=== PATIENT | female | born 1940 | race Caucasian/White ===

== ENCOUNTER 2017-01-11 12:07 | Observation (INO) | payer MEDICARE, OTHER ==
[2017-01-11 12:07] VITALS: BMI 20.2
--- NOTE | 2017-01-11 13:14 | C.PDOC ---
History Of Present Illness 76 y/o female, whose PMHx includes Anemia, Asthma, CHF, COPD, Diabetes, HTN, Hypercholesterolemia, and End Stage Renal Disease (dialysis m-w-f), is sent to the ED from dialysis center. She reports that they told her her blood pressure was high. Patient states that she did take her medication this morning and does not offer any complaints at this time. Patient denies headache, dizziness, chest pain, shortness of breath, abdominal pain, or fever. Time Seen by Provider: 01/11/17 12:27 Chief Complaint (Nursing): High Blood Pressure History Per: Patient History/Exam Limitations: no limitations Onset/Duration Of Symptoms: Gradual, Persistent, Unknown Current Symptoms Are (Timing): Still Present Quality Of Symptoms: Asymptomatic Recent travel outside of the [place]: No Past Medical History Reviewed: Historical Data, Nursing Documentation, Vital Signs Vital Signs: Last Vital Signs Temp 98.2 F 01/11/17 12:14 Pulse 64 01/11/17 16:53 Resp 18 01/11/17 16:53 BP 195/53 H 01/11/17 16:53 Pulse Ox 95 01/11/17 16:53 - Medical History PMH: Anemia, Asthma, CHF, COPD (ASTHMA), Diabetes, HTN, Hypercholesterolemia, Hyperthyroidism (Thyroid surgery), Hypothyroidism, End Stage Renal Disease ( dialysis m-w f), Chronic Kidney Disease Comment Only: Cardia Arrhythmia (bradycardia) Surgical History: Appendectomy, Pacemaker - [facility] Procedures BREAST DX PROCEDURE NEC (04/23/15) CONTRAST RENAL ARTERIOGR (06/20/13) DX ULTRASOUND-THORAX NEC (04/23/15) HEMODIALYSIS (04/24/15) INITIAL INSERT TRANS LEADS INTO ATRIUM & VENTRICLE (04/24/15) INITIAL INSERTION OF DUAL-CHAMBER DEVICE (04/24/15) INJECT/INFUSE NEC (12/21/13) NEBULIZER THERAPY (12/21/13) PACKED CELL TRANSFUSION (03/31/14) PERCUTAN NEEDLE BIOPSY OF BREAST (04/23/15) PERFORMANCE OF URINARY FILTRATION, SINGLE (02/08/16) Family History: States: Unknown Family Hx - Social History Hx Tobacco Use: No Hx Alcohol Use: No Hx Substance Use: No - Immunization History Hx Tetanus Toxoid Vaccination: Yes Hx Influenza Vaccination: Yes Hx Pneumococcal Vaccination: Yes Review Of Systems Except As Marked, All Systems Reviewed And Found Negative. Constitutional: Negative for: Fever Cardiovascular: Positive for: Other (elevated blood pressure). Negative for: Chest Pain Respiratory: Negative for: Shortness of Breath Gastrointestinal: Negative for: Abdominal Pain Neurological: Negative for: Headache, Dizziness Physical Exam - Physical Exam Appears: Non-toxic, No Acute Distress Skin: Normal Color, Warm, Dry Head: Atraumatic, Normacephalic Eye(s): bilateral: Normal Inspection, PERRL Neck: Normal ROM, Supple Chest: Symmetrical Cardiovascular: Rhythm Regular, No Murmur Respiratory: Normal Breath Sounds, No Rales, No Rhonchi, No Wheezing Gastrointestinal/Abdominal: Normal Exam, Soft, No Tenderness Extremity: Normal ROM, No Swelling Neurological/Psych: Oriented x3, Normal Speech, Normal Cognition Gait: Steady ED Course And Treatment - Laboratory Results Result Diagrams: 01/11/17 13:12 01/11/17 13:12 ECG: Interpreted By Me Interpretation Of ECG: Atrial-paced rhythm with right bundle branch block Rate From EC (bpm) O2 Sat by Pulse Oximetry: 100 (ra) Pulse Ox Interpretation: Normal Medical Decision Making Medical Decision Making: Impression: sent from dialysis center for elevated blood pressure. Plan: * Blood Work * Urinalysis * Imdur PO Progress: Case discussed with Dr. Hi Mcelroy at 12:50 pm who states that he will come and see the patient. Patient accepted to telemetry observation under the care of Dr. Hi Mcelroy. Disposition Counseled Patient/Family Regarding: Need For Followup - Disposition Disposition: HOSPITALIZED Disposition Time: 17:25 Condition: STABLE - POA Present On Arrival: None - Clinical Impression Clinical Impression: Poorly-controlled hypertension, ESRD (end stage renal disease) on dialysis - PA / SENIOR TALENT ACQUISITION SPECIALIST / Resident Statement MD/DO has reviewed & agrees with the documentation as recorded. - Scribe Statement The provider has reviewed the documentation as recorded by the Scribe (Carlee Xavier) All medical record entries made by the Scribe were at my direction and personally dictated by me. I have reviewed the chart and agree that the record accurately reflects my personal performance of the history, physical exam, medical decision making, and the department course for this patient. I have also personally directed, reviewed, and agree with the discharge instructions and disposition. Decision To Admit - Pt Status Changed To: Hospital Disposition Of: Observation - . Bed Request Type: Telemetry Admitting Physician: Radha Mcelroy Patient Diagnosis: Poorly-controlled hypertension, ESRD (end stage renal disease) on dialysis
[2017-01-11 13:18] LABS: BASO # 0.1 K/uL (0.0-0.2); BASO % 1.3 % (0.0-2.0); EOS # 0.1 K/uL (0.0-0.7); EOS % 1.6 % (0.0-4.0); HEMATOCRIT 31.4 % (34.0-47.0); LYMPH # 0.5 K/uL (1.0-4.3); LYMPH % 5.7 % (20.0-40.0); MEAN CELL VOLUME 93.1 fL (81.0-99.0); MEAN CORPUSCULAR HEMOGLOBIN 31.2 pg (27.0-31.0); MEAN CORPUSCULAR HGB CONC 33.5 g/dL (33.0-37.0); MONO # 0.5 K/uL (0.0-0.8); MONO % 6.5 % (0.0-10.0); PLATELET COUNT 134 K/uL (130-400); RED CELL DISTRIBUTION WIDTH 19.2 % (11.5-14.5); WHITE BLOOD COUNT 8.2 K/uL (4.8-10.8)
[2017-01-11 13:26] LABS: POTASSIUM 5.9 mmol/L (3.6-5.2)
[2017-01-11 13:29] LABS: ALB/GLOB RATIO 1.1 (1.0-2.1); BILIRUBIN,TOTAL 0.9 mg/dL (0.2-1.3); CALCIUM 8.8 mg/dl (8.6-10.4); TOTAL PROTEIN 7.9 g/dL (6.3-8.3)
[2017-01-11 13:49] LABS: EOSINOPHIL 1 % (0-4); NEUTROPHIL 86 % (50-75); TOTAL CELLS COUNTED 100
--- NOTE | 2017-01-11 18:31 | CP.PCM.HP ---
History of Present Illness - History of Present Illness History of Present Illness: 76-year-old female whose past medical history is includes anemia, asthma, CHF, COPD, diabetes, hypertension, hypercholesterolemia and end-stage renal disease on dialysis on Monday, Monday, Monday, is sent to the ED from dialysis center. She reports that they told her her blood pressure was high. Patient states that she did take her medication this morning and does not offer any complaint at this time. Patient denies headache, dizziness, chest pain, SOB, abdominal pain or fever. Present on Admission - Present on Admission Any Indicators Present on Admission: No Past Patient History - Past Medical History & Family History Past Medical History?: Yes - Past Social History Smoking Status: Former Smoker - CARDIAC Hx Cardia Arrhythmia: (bradycardia) Hx Congestive Heart Failure: Yes Hx Hypercholesterolemia: Yes Hx Hypertension: Yes Hx Pacemaker: Yes - PULMONARY Hx Asthma: Yes Hx Chronic Obstructive Pulmonary Disease (COPD): Yes (ASTHMA) - NEUROLOGICAL Hx Neurological Disorder: Yes HX Cerebrovascular Accident: Yes Hx Vertigo: Yes - HEENT Hx Cataracts: Yes Hx Deafness: Yes (right ear) - RENAL Hx Chronic Kidney Disease: Yes - ENDOCRINE/METABOLIC Hx Hyperthyroidism: Yes (Thyroid surgery) Hx Hypothyroidism: Yes - HEMATOLOGICAL/ONCOLOGICAL Hx Anemia: Yes - INTEGUMENTARY Hx Dermatological Problems: No - MUSCULOSKELETAL/RHEUMATOLOGICAL Hx Musculoskeletal Disorders: Yes Hx Falls: Yes - GASTROINTESTINAL Hx Gastrointestinal Disorders: No - GENITOURINARY/GYNECOLOGICAL Hx Genitourinary Disorders: No - PSYCHIATRIC Hx Substance Use: No - SURGICAL HISTORY Hx Appendectomy: Yes - ANESTHESIA Hx Anesthesia: Yes Hx Anesthesia Reactions: No Hx Malignant Hyperthermia: No Meds Home Medications: Home Medication List Medication Instructions Recorded Confirmed Type Losartan [Cozaar] 50 mg PO DAILY tab 01/14/17 Rx Allergies/Adverse Reactions: Allergies Allergy/AdvReac Type Severity Reaction Status Date / Time ibuprofen [From Motrin] Allergy Unknown URTICARIA Verified 04/07/17 10:06 oxycodone Allergy Unknown ITCHING Verified 04/07/17 10:06 Physical Exam - Constitutional Appears: Well - Head Exam Head Exam: ATRAUMATIC, NORMAL INSPECTION, NORMOCEPHALIC - Eye Exam Eye Exam: EOMI, Normal appearance, PERRL Pupil Exam: NORMAL ACCOMODATION, PERRL - ENT Exam ENT Exam: Mucous Membranes Moist, Normal Exam - Neck Exam Neck exam: Positive for: Normal Inspection - Respiratory Exam Respiratory Exam: Decreased Breath Sounds - Cardiovascular Exam Cardiovascular Exam: REGULAR RHYTHM, +S1, +S2 - GI/Abdominal Exam GI & Abdominal Exam: Diminished Bowel Sounds, Soft - Rectal Exam Rectal Exam: Deferred Results - Vital Signs Recent Vital Signs: Last Vital Signs Temp 98.2 F 01/11/17 12:14 Pulse 64 01/11/17 16:53 Resp 18 01/11/17 16:53 BP 195/53 H 01/11/17 16:53 Pulse Ox 100 01/11/17 17:37 - Labs Result Diagrams: 01/14/17 07:00 01/14/17 07:00 Assessment & Plan (1) Altered mental status Status: Acute (2) Anemia Status: Acute (3) Anemia, chronic renal failure Status: Acute (4) Asthma Status: Acute (5) Bradycardia Status: Acute (6) COPD exacerbation Status: Acute (7) Chronic renal failure Status: Acute (8) Closed displaced fracture of proximal epiphysis of left femur Status: Acute (9) Closed displaced intertrochanteric fracture of left femur Status: Acute (10) Congestive heart failure (CHF) Status: Acute (11) Diabetes Status: Acute (12) Dizziness Status: Acute (13) Dizziness Status: Acute (14) Elevated troponin Status: Acute (15) Foot sprain Status: Acute (16) Frequent falls Status: Acute (17) HTN (hypertension) Status: Acute (18) Hip fracture Status: Acute (19) Hip fracture, left Status: Acute (20) Hyperkalemia Status: Acute (21) Hypothermia Status: Acute (22) Hypothyroid Status: Acute (23) Near syncope Status: Acute (24) Poorly-controlled hypertension Status: Acute (25) Prophylactic measure Status: Acute (26) Right patella fracture Status: Acute (27) SOB (shortness of breath) Status: Acute (28) TIA (transient ischemic attack) Status: Acute (29) Transient ischemic attack Status: Acute (30) Vertigo Status: Acute (31) ESRD (end stage renal disease) on dialysis Status: Chronic (32) Leg edema Status: Chronic - Assessment and Plan (Free Text) Plan: Imdur Hydralazine vehicle monitor technician Hemodialysis Labs reviewed Cardiology consult
[2017-01-11] MEDS ORDERED: Labetalol 25mg/5ml Syringe IVP STA (19:06)
--- NOTE | 2017-01-11 20:28 | CP.PCM.PN ---
Subjective - Date & Time of Evaluation Date of Evaluation: 01/11/17 Time of Evaluation: 07:30 - Subjective Subjective: House Doctor Note Nurse paged due to elevated blood pressures of 220/78 with HR of 74 during dialysis. Patient was completely asymptomatic. Labetolol 20mg IVP stat was ordered and her blood pressured dropped to 170/60, HR of 60. Patient complained of BL foot cramping and asked to be removed off of dialysis. Patient had <40 min left of her session. Dr. Alli Mcelroy was called and will be seeing the patient. Shy ZACARIAS, PGY-1 Objective - Vital Signs/Intake and Output Vital Signs (last 24 hours): Temp Pulse Resp BP Pulse Ox 98 F 74 16 198/78 H 97 01/11/17 17:40 01/11/17 17:40 01/11/17 17:40 01/11/17 18:40 01/11/17 17:40
[2017-01-12] MEDS: Levothyroxine 125 MCG TAB PO SCH (05:50)
[2017-01-12 07:34] LABS: RBC URINE 3 /hpf (0-3); URINE BACTERIA OCC (<OCC); URINE BILIRUBIN NEGATIVE (NEGATIVE); URINE BLOOD NEGATIVE (NEGATIVE); URINE COLOR Yellow (YELLOW); URINE GLUCOSE (UA) 2+ mg/dL (Normal); URINE KETONE NEGATIVE (NEGATIVE); URINE LEUKOCYTE ESTERASE 2+ Leu/uL (Negative); URINE PROTEIN 3+ mg/dL (NEGATIVE); URINE UROBILINOGEN NORMAL mg/dL (0.2-1.0); WBC URINE 67 /hpf (0-5)
[2017-01-12] MEDS: (Novolog) Insulin Aspart, Recombinant 100 u/ml 10 ml vial SC SCH ×4 (08:57→21:23)
[2017-01-12] MEDS: Pantoprazole 40 mg EC Tab PO SCH (09:34)
[2017-01-12] MEDS: (Lantus) Insulin Glargine, Recombinant SC SCH (09:38)
[2017-01-12] MEDS: Dorzolamide 2% Opht Sol 10ml OU SCH ×2 (09:42→17:58)
[2017-01-12] MEDS ORDERED: ISOSORBIDE MONONITRATE PO SCH (10:00)
[2017-01-12] MEDS ORDERED: Pantoprazole 40 mg EC Tab PO SCH (10:00)
--- NOTE | 2017-01-12 12:45 | CP.PCM.PN ---
Subjective - Date & Time of Evaluation Date of Evaluation: 01/12/17 Time of Evaluation: 11:45 - Subjective Subjective: clinically same Objective - Vital Signs/Intake and Output Vital Signs (last 24 hours): Temp Pulse Resp BP Pulse Ox 98.5 F 66 20 213/72 H 97 01/12/17 08:26 01/12/17 08:26 01/12/17 08:26 01/12/17 11:09 01/12/17 08:26 Intake and Output: 01/12/17 01/12/17 06:59 18:59 Intake Total 200 Balance 200 - Medications Medications: Current Medications Amlodipine Besylate (Norvasc) 10 mg PO DAILY [facility] Last Admin: 01/12/17 09:38 Dose: 10 mg Calcium Acetate (Phoslo) 1,334 mg PO TID [facility] Last Admin: 01/12/17 09:41 Dose: 1,334 mg Dorzolamide HCl (Trusopt) 0 ml OU BID [facility] Last Admin: 01/12/17 09:42 Dose: 1 drop Hydralazine HCl (Apresoline) 100 mg PO TID [facility] Last Admin: 01/12/17 09:37 Dose: 100 mg Hydralazine HCl (Apresoline) 10 mg IVP Q6H PRN PRN Reason: Systolic Blood Pressure Last Admin: 01/12/17 11:18 Dose: 10 mg Hydrochlorothiazide (Hydrodiuril) 25 mg PO DAILY [facility] Last Admin: 01/12/17 09:38 Dose: 25 mg Insulin Aspart (Novolog) 0 unit SC ACHS [facility] PRN Reason: Protocol Last Admin: 01/12/17 12:20 Dose: 1 unit Insulin Glargine (Lantus) 20 unit SC DAILY [facility] Last Admin: 01/12/17 09:38 Dose: 20 units Isosorbide Mononitrate (Imdur) 60 mg PO DAILY [facility] Last Admin: 01/12/17 09:35 Dose: 60 mg Latanoprost (Xalatan Opht) 0 ml OU HS [facility] Levothyroxine Sodium (Synthroid) 125 mcg PO DAILY@0630 [facility] Last Admin: 01/12/17 05:50 Dose: 125 mcg Pantoprazole Sodium (Protonix Ec Tab) 40 mg PO DAILY [facility] Last Admin: 01/12/17 09:34 Dose: 40 mg Rosuvastatin Calcium (Crestor) 5 mg PO HS VAL Zolpidem Tartrate (Ambien) 10 mg PO HS VAL Assessment and Plan (1) Altered mental status Status: Acute (2) Anemia Status: Acute (3) Anemia, chronic renal failure Status: Acute (4) Asthma Status: Acute (5) Bradycardia Status: Acute (6) COPD exacerbation Status: Acute (7) Chronic renal failure Status: Acute (8) Closed displaced fracture of proximal epiphysis of left femur Status: Acute (9) Closed displaced intertrochanteric fracture of left femur Status: Acute (10) Congestive heart failure (CHF) Status: Acute (11) Diabetes Status: Acute (12) Dizziness Status: Acute (13) Dizziness Status: Acute (14) Elevated troponin Status: Acute (15) Foot sprain Status: Acute (16) Frequent falls Status: Acute (17) HTN (hypertension) Status: Acute (18) Hip fracture Status: Acute (19) Hip fracture, left Status: Acute (20) Hyperkalemia Status: Acute (21) Hypothermia Status: Acute (22) Hypothyroid Status: Acute (23) Near syncope Status: Acute (24) Poorly-controlled hypertension Status: Acute (25) Prophylactic measure Status: Acute (26) Right patella fracture Status: Acute (27) SOB (shortness of breath) Status: Acute (28) TIA (transient ischemic attack) Status: Acute (29) Transient ischemic attack Status: Acute (30) Vertigo Status: Acute (31) ESRD (end stage renal disease) on dialysis Status: Chronic (32) Leg edema Status: Chronic - Assessment and Plan (Free Text) Plan: DVT prophylaxis Renal diet Imdur Levothyroxine Statin Cardio consult Physical therapy evaluation
--- NOTE | 2017-01-12 21:56 | CP.PCM.CON ---
History of Present Illness - History of Present Illness History of Present Illness: Patient was admitted from dialysis with HTN. She has a history of resistant HTN. She denied assocaited chest pain or dyspnea. Review of Systems - Constitutional Constitutional: absent: As Per HPI, Anorexia, Chills, Daytime Sleepiness, Excessive Sweating, Fatigue, Fever, Frequent Falls, Headache, Increased Appetite , Lethargy, Malaise, Night Sweats, Snoring, Sleep Apnea, Weight Gain, Weight Loss, Weakness, Other - EENT Eyes: absent: As Per HPI, Blind Spots, Blurred Vision, Change in Vision, Decreased Night Vision, Diplopia, Discharge, Dry Eye, Exophthalmos, Floaters, Irritation, Itchy Eyes, Loss of Peripheral Vision, Pain, Photophobia, Requires Corrective Lenses, Sees Flashes, Spots in Vision, Tunnel Vision, Other Visual Disturbances, Loss of Vision, Other Ears: absent: As Per HPI, Decreased Hearing, Ear Discharge, Ear Pain, Tinnitus, Abnormal Hearing, Disequilibrium, Dizziness, Other Nose/Mouth/Throat: absent: As Per HPI, Epistaxis, Nasal Congestion, Nasal Discharge, Nasal Obstruction, Nasal Trauma, Nose Pain, Post Nasal Drip, Sinus Pain, Sinus Pressure, Bleeding Gums, Change in Voice, Dental Pain, Dry Mouth, Dysphagia, Halitosis, Hoarsness, Lip Swelling, Mouth Lesions, Mouth Pain, Odynophagia, Sore Throat, Throat Swelling, Tongue Swelling, Facial Pain, Neck Pain, Neck Mass, Other - Cardiovascular Cardiovascular: absent: As Per HPI, Acrocyanosis, Chest Pain, Chest Pain at Rest , Chest Pain with Activity, Claudication, Diaphoresis, Dyspnea, Dyspnea on Exertion, Edema, Irregular Heart Rhythm, Pain Radiating to Arm/Neck/Jaw, Leg Edema, Leg Ulcers, Lightheadedness, Orthopnea, Palpitations, Paroxysmal Nocturnal Dyspnea, Pedal Edema, Radiating Pain, Rapid Heart Rate, Slow Heart Rate, Syncope, Other - Respiratory Respiratory: absent: As Per HPI, Cough, Dyspnea, Hemoptysis, Dyspnea on Exertion , Wheezing, Snoring, Stridor, Pain on Inspiration, Chest Congestion, Excessive Mucous Production, Change in Mucous Color, Pain with Coughing, Other - Gastrointestinal Gastrointestinal: absent: As Per HPI, Abdominal Pain, Belching, Bloating, Change in Bowel Habits, Change in Stool Character, Coffee Ground Emesis, Constipation, Cramping, Diarrhea, Dyspepsia, Dysphagia, Early Satiety, Excessive Flatus, Fecal Incontinence, Heartburn, Hematemesis, Hematochezia, Loose Stools, Melena, Nausea, Odynophagia, Temesmus, Vomiting, Other - Genitourinary Genitourinary: absent: As Per HPI, Change in Urinary Stream, Difficulty Urinating, Dysuria, Flank Pain, Hematuria, Pyuria, Nocturia, Urinary Incontinence, Urinary Frequency, Urinary Hesitance, Urinary Urgency, Voiding Freq/Small Amts, Freq UTI, Hx Renal/Bladder Calculi, Hx /Renal Surgery, Bladder Distension, Other - Reproductive: Female Reproductive:Female: absent: As Per HPI, Amenorrhea, Amenorrhea/ Control, Currently Menstual, Cycle <21 Days, Cycle >35 Days, Cycle Variable, Menses 1-7 Days, Menses >/= 8 Days, Menses Variable, Cycle > 4 Weeks Between, No Menses for 6 Months, Heavy Menses, Light Menses, Normal Menses, Spotting Between Cycles , S/P Hysterectomy, Menopausal, Post Menopausal, Premenarche, Abnormal Vaginal Bleeding, Dysmenorrhea, Dyspareunia, Genital Lesions, Genital Pruritis, Pelvic Pain, Prolapse Symptoms, Sexual Dysfunction, Vaginal Discharge, Vaginal Dryness , Vaginal Odor, Vaginal Pruritis, Other - Musculoskeletal Musculoskeletal: absent: As Per HPI, Abnormal Gait, Arthralgias, Atrophy, Back Pain, Deformity, Joint Swelling, Limited Range of Motion, Loss of Height, Muscle Cramps, Muscle Weakness, Myalgias, Neck Pain, Numbness, Radiating Pain into Limb, Stiffness, Tingling, Other - Integumentary Integumentary: absent: As Per HPI, Acne, Alopecia, Bleeding Lesions, Change in Hair, Change in Nails, Change in Pigmentation, Changing Lesions, Dry Skin, Erythema, Furuncle, Hirsutism, Lesions, New Lesions, Non-Healing Lesions, Photosensitivity, Pruritus, Rash, Skin Pain, Skin Ulcer, Sores, Striae, Swelling , Unusual Bruising, Wounds, Jaundice, Other - Neurological Neurological: absent: As Per HPI, Abnormal Gait, Abnormal Hearing, Abnormal Movements, Abnormal Speech, Behavioral Changes, Burning Sensations, Confusion, Convulsions, Disequilibrium, Dizziness, Numbness, Focal Weakness, Frequent Falls , Headaches, Lack of Coordination, Loss of Vision, Memory Loss, Paresthesias, Radicular Pain, Restless Legs, Sensory Deficit, Syncope, Tingling, Tremor, Vertigo, Weakness, Other Visual Disturbances, Other - Psychiatric Psychiatric: absent: As Per HPI, Abnormal Sleep Pattern, Anhedonia, Anxiety, Auditory Hallucinations, Behavioral Changes, Change in Appetite, Change in Libido, Confusion, Depression, Difficulty Concentrating, Hallucinations, Homicidal Ideation, Hopelessness, Irritability, Memory Loss, Mood Swings, Panic Attacks, Paranoia, Suicidal Ideation, Visual Hallucinations, Tactile Hallucinations, Other - Endocrine Endocrine: absent: As Per HPI, Change in Body Appearance, Change in Libido, Cold Intolorance, Deepening of Voice, Excessive Sweating, Fatigue, Flushing, Heat Intolorance, Increase in Ring/Shoe/Hat Size, Palpitations, Polydipsia, Polyphagia, Polyuria, Other - Hematologic/Lymphatic Hematologic: absent: As Per HPI, Easy Bleeding, Easy Bruising, Lymphadenopathy, Other Past Patient History - Past Medical History & Family History Past Medical History?: Yes - Past Social History Smoking Status: Never Smoked - CARDIAC Hx Congestive Heart Failure: Yes Hx Hypercholesterolemia: Yes Hx Hypertension: Yes - PULMONARY Hx Asthma: Yes - NEUROLOGICAL HX Cerebrovascular Accident: Yes - HEENT Hx Cataracts: Yes Hx Deafness: Yes (right ear) - RENAL Hx Renal Failure: Yes (ESRD, CKD, receiving HD) - ENDOCRINE/METABOLIC Hx Diabetes Mellitus Type 2: Yes Hx Hypothyroidism: Yes - HEMATOLOGICAL/ONCOLOGICAL Hx Anemia: Yes - INTEGUMENTARY Hx Dermatological Problems: No - MUSCULOSKELETAL/RHEUMATOLOGICAL Hx Musculoskeletal Disorders: Yes Hx Falls: No - GASTROINTESTINAL Hx Gastrointestinal Disorders: No - GENITOURINARY/GYNECOLOGICAL Hx Genitourinary Disorders: No - PSYCHIATRIC Hx Substance Use: No - SURGICAL HISTORY Hx Appendectomy: Yes - ANESTHESIA Hx Anesthesia: Yes Hx Anesthesia Reactions: No Hx Malignant Hyperthermia: No Meds Allergies/Adverse Reactions: Allergies Allergy/AdvReac Type Severity Reaction Status Date / Time ibuprofen [From Motrin] Allergy Unknown URTICARIA Verified 11/28/16 10:36 oxycodone Allergy Unknown ITCHING Verified 11/28/16 10:36 - Medications Medications: Current Medications Amlodipine Besylate (Norvasc) 10 mg PO DAILY [facility] Last Admin: 01/12/17 09:38 Dose: 10 mg Calcium Acetate (Phoslo) 1,334 mg PO TID [facility] Last Admin: 01/12/17 18:00 Dose: 1,334 mg Dorzolamide HCl (Trusopt) 0 ml OU BID [facility] Last Admin: 01/12/17 17:58 Dose: 1 drop Hydralazine HCl (Apresoline) 100 mg PO TID [facility] Last Admin: 01/12/17 17:57 Dose: 100 mg Hydralazine HCl (Apresoline) 10 mg IVP Q6H PRN PRN Reason: Systolic Blood Pressure Last Admin: 01/12/17 11:18 Dose: 10 mg Hydrochlorothiazide (Hydrodiuril) 25 mg PO DAILY [facility] Last Admin: 01/12/17 09:38 Dose: 25 mg Insulin Aspart (Novolog) 0 unit SC ACHS [facility] PRN Reason: Protocol Last Admin: 01/12/17 21:23 Dose: Not Given Insulin Glargine (Lantus) 20 unit SC DAILY [facility] Last Admin: 01/12/17 09:38 Dose: 20 units Isosorbide Mononitrate (Imdur) 60 mg PO DAILY [facility] Last Admin: 01/12/17 09:35 Dose: 60 mg Latanoprost (Xalatan Opht) 0 ml OU HS [facility] Levothyroxine Sodium (Synthroid) 125 mcg PO DAILY@0630 [facility] Last Admin: 01/12/17 05:50 Dose: 125 mcg Pantoprazole Sodium (Protonix Ec Tab) 40 mg PO DAILY [facility] Last Admin: 01/12/17 09:34 Dose: 40 mg Rosuvastatin Calcium (Crestor) 5 mg PO [facility] Last Admin: 01/12/17 21:19 Dose: 5 mg Zolpidem Tartrate (Ambien) 10 mg PO [facility] Last Admin: 01/12/17 21:18 Dose: 10 mg Physical Exam - Constitutional Appears: Non-toxic - Head Exam Head Exam: NORMAL INSPECTION - Eye Exam Eye Exam: Normal appearance - ENT Exam ENT Exam: Mucous Membranes Moist - Neck Exam Neck exam: Positive for: Full Rom - Respiratory Exam Respiratory Exam: NORMAL BREATHING PATTERN - Cardiovascular Exam Cardiovascular Exam: REGULAR RHYTHM - GI/Abdominal Exam GI & Abdominal Exam: Normal Bowel Sounds - Rectal Exam Rectal Exam: Deferred - Extremities Exam Extremities exam: Positive for: full ROM - Back Exam Back exam: NORMAL INSPECTION - Neurological Exam Neurological exam: Alert, Oriented x3 - Psychiatric Exam Psychiatric exam: Normal Affect - Skin Skin Exam: Normal Color Results - Vital Signs Recent Vital Signs: Last Vital Signs Temp 98.7 F 01/12/17 15:00 Pulse 59 L 01/12/17 15:00 Resp 20 01/12/17 15:00 BP 162/60 H 01/12/17 15:00 Pulse Ox 98 01/12/17 15:00 - Labs Result Diagrams: 01/11/17 13:12 01/11/17 13:12 Labs: Laboratory Results - last 24 hr 01/12/17 01/12/17 01/12/17 06:27 07:18 11:17 POC Glucose (mg/dL) 132 H 172 H Urine Color Yellow Urine Clarity Hazy Urine pH 9.0 Ur Specific [place] 1.012 Urine Protein 3+ H Urine Glucose (UA) 2+ H Urine Ketones Negative Urine Blood Negative Urine Nitrate Negative Urine Bilirubin Negative Urine Urobilinogen Normal Ur Leukocyte Esterase 2+ H Urine WBC (Auto) 67 H Urine RBC (Auto) 3 Ur Squamous Epith Cells 5 Urine Bacteria Occ H 01/12/17 01/12/17 16:52 21:18 POC Glucose (mg/dL) 72 122 H Urine Color Urine Clarity Urine pH Ur Specific [place] Urine Protein Urine Glucose (UA) Urine Ketones Urine Blood Urine Nitrate Urine Bilirubin Urine Urobilinogen Ur Leukocyte Esterase Urine WBC (Auto) Urine RBC (Auto) Ur Squamous Epith Cells Urine Bacteria - EKG Data EKG Interpreted by: Myself Assessment & Plan (1) Poorly-controlled hypertension Assessment and Plan: will need medication adjustment. can increase AV carline russell. (patient has a PPM) Status: Acute (2) Chronic renal failure Assessment and Plan: on dialysis Status: Acute
[2017-01-12] MEDS: Latanoprost 2.5 ml Opht Soln OU SCH (22:17)
[2017-01-13] MEDS: Levothyroxine 125 MCG TAB PO SCH (06:27)
--- NOTE | 2017-01-13 07:14 | CP.PCM.PN ---
Subjective - Date & Time of Evaluation Date of Evaluation: 01/13/17 Time of Evaluation: 08:00 - Subjective Subjective: PGY2 on medicine Dr. Mcelroy service: Pt seen and examined at bedside this morning. No acute events overnight. Pt has no complaints at the moment, denied dysuria or pyuria. Objective - Vital Signs/Intake and Output Vital Signs (last 24 hours): Temp Pulse Resp BP Pulse Ox 98.6 F 59 L 20 157/57 H 100 01/12/17 23:45 01/13/17 00:20 01/12/17 23:45 01/12/17 23:45 01/12/17 23:45 Intake and Output: 01/13/17 01/13/17 06:59 18:59 Intake Total 100 Balance 100 - Medications Medications: Current Medications Amlodipine Besylate (Norvasc) 10 mg PO DAILY [facility] Last Admin: 01/12/17 09:38 Dose: 10 mg Calcium Acetate (Phoslo) 1,334 mg PO TID [facility] Last Admin: 01/12/17 18:00 Dose: 1,334 mg Dorzolamide HCl (Trusopt) 0 ml OU BID [facility] Last Admin: 01/12/17 17:58 Dose: 1 drop Hydralazine HCl (Apresoline) 100 mg PO TID [facility] Last Admin: 01/12/17 17:57 Dose: 100 mg Hydralazine HCl (Apresoline) 10 mg IVP Q6H PRN PRN Reason: Systolic Blood Pressure Last Admin: 01/12/17 11:18 Dose: 10 mg Hydrochlorothiazide (Hydrodiuril) 25 mg PO DAILY [facility] Last Admin: 01/12/17 09:38 Dose: 25 mg Insulin Aspart (Novolog) 0 unit SC ACHS [facility] PRN Reason: Protocol Last Admin: 01/12/17 21:23 Dose: Not Given Insulin Glargine (Lantus) 20 unit SC DAILY [facility] Last Admin: 01/12/17 09:38 Dose: 20 units Isosorbide Mononitrate (Imdur) 60 mg PO DAILY [facility] Last Admin: 01/12/17 09:35 Dose: 60 mg Latanoprost (Xalatan Opht) 0 ml OU HS [facility] Last Admin: 01/12/17 22:17 Dose: 1 ml Levothyroxine Sodium (Synthroid) 125 mcg PO DAILY@0630 [facility] Last Admin: 01/13/17 06:27 Dose: 125 mcg Losartan Potassium (Cozaar) 50 mg PO DAILY [facility] Pantoprazole Sodium (Protonix Ec Tab) 40 mg PO DAILY [facility] Last Admin: 01/12/17 09:34 Dose: 40 mg Rosuvastatin Calcium (Crestor) 5 mg PO [facility] Last Admin: 01/12/17 21:19 Dose: 5 mg Zolpidem Tartrate (Ambien) 10 mg PO [facility] Last Admin: 01/12/17 21:18 Dose: 10 mg - Constitutional Appears: Non-toxic, No Acute Distress - Head Exam Head Exam: NORMAL INSPECTION, NORMOCEPHALIC - Eye Exam Eye Exam: Normal appearance Pupil Exam: NORMAL ACCOMODATION - ENT Exam ENT Exam: Mucous Membranes Moist - Respiratory Exam Respiratory Exam: Clear to Ausculation Bilateral, NORMAL BREATHING PATTERN. absent: Rales, Rhonchi, Wheezes - Cardiovascular Exam Cardiovascular Exam: REGULAR RHYTHM, +S1, +S2. absent: Gallop, Rubs - GI/Abdominal Exam GI & Abdominal Exam: Soft, Normal Bowel Sounds - Extremities Exam Extremities Exam: absent: Pedal Edema - Neurological Exam Neurological Exam: Alert, Awake, Oriented x3 - Psychiatric Exam Psychiatric exam: Normal Affect, Normal Mood - Skin Skin Exam: Dry, Intact Assessment and Plan - Assessment and Plan (Free Text) Assessment: ESRD On HD MWF. Elevated LE on UA F/U urine culture. HTN Cardio Dr. Montaño consulted, help appreciated. Norvasc 10mg PO daily. Hydralazine 100mg PO TID. Hydralazine 10mg IV q6H PRN when SBP>180/110. Cozaar 50mg PO daily. HCTZ 25mg PO daily. Lopressor 12.5mg PO BID. F/U renal artery ultrasound. DM Accucheck, RISS. Lantus 20U SC daily. Hypothyroid Synthroid 125mcg PO daily. HLD Crestor 5mg PO daily. Prophylactic measure Protonix, SCD.
[2017-01-13 08:03] LABS: BASO # 0.1 K/uL (0.0-0.2); BASO % 0.7 % (0.0-2.0); EOS # 0.2 K/uL (0.0-0.7); EOS % 3.1 % (0.0-4.0); LYMPH # 0.6 K/uL (1.0-4.3); LYMPH % 7.3 % (20.0-40.0); MEAN CELL VOLUME 93.3 fL (81.0-99.0); MEAN CORPUSCULAR HGB CONC 34.3 g/dL (33.0-37.0); MEAN PLATELET VOLUME 8.8 fL (7.2-11.7); MONO # 0.6 K/uL (0.0-0.8); PLATELET COUNT 130 K/uL (130-400); RED CELL DISTRIBUTION WIDTH 18.7 % (11.5-14.5); WHITE BLOOD COUNT 7.8 K/uL (4.8-10.8)
[2017-01-13 08:09] LABS: POTASSIUM 5.6 mmol/L (3.6-5.2)
[2017-01-13 08:10] LABS: ALB/GLOB RATIO 1.1 (1.0-2.1); BILIRUBIN,TOTAL 0.7 mg/dL (0.2-1.3); CALCIUM 8.6 mg/dl (8.6-10.4); TOTAL PROTEIN 7.2 g/dL (6.3-8.3)
[2017-01-13] MEDS: (Novolog) Insulin Aspart, Recombinant 100 u/ml 10 ml vial SC SCH ×4 (08:42→21:25)
[2017-01-13] MEDS: (Lantus) Insulin Glargine, Recombinant SC SCH (09:46)
[2017-01-13] MEDS: Dorzolamide 2% Opht Sol 10ml OU SCH ×2 (09:48→18:24)
[2017-01-13] MEDS: Pantoprazole 40 mg EC Tab PO SCH (09:49)
[2017-01-13 10:06] LABS: BASOPHIL 1 % (0-2); EOSINOPHIL 3 % (0-4); NEUTROPHIL 77 % (50-75); TOTAL CELLS COUNTED 100
[2017-01-13 16:24] VITALS: RESP 20
--- NOTE | 2017-01-13 17:31 | CP.PCM.PN ---
Subjective - Date & Time of Evaluation Date of Evaluation: 01/13/17 Time of Evaluation: 12:40 - Subjective Subjective: clinically same Objective - Vital Signs/Intake and Output Vital Signs (last 24 hours): Temp Pulse Resp BP Pulse Ox 98.0 F 60 20 151/65 H 96 01/13/17 16:22 01/13/17 16:22 01/13/17 16:22 01/13/17 16:22 01/13/17 16:22 Intake and Output: 01/13/17 01/13/17 06:59 18:59 Intake Total 240 Balance 240 - Medications Medications: Current Medications Amlodipine Besylate (Norvasc) 10 mg PO DAILY [facility] Last Admin: 01/13/17 09:48 Dose: 10 mg Calcium Acetate (Phoslo) 1,334 mg PO TID [facility] Last Admin: 01/13/17 16:27 Dose: Not Given Dorzolamide HCl (Trusopt) 0 ml OU BID [facility] Last Admin: 01/13/17 09:48 Dose: 1 drop Hydralazine HCl (Apresoline) 100 mg PO TID [facility] Last Admin: 01/13/17 14:22 Dose: 100 mg Hydralazine HCl (Apresoline) 10 mg IVP Q6H PRN PRN Reason: Systolic Blood Pressure Last Admin: 01/12/17 11:18 Dose: 10 mg Hydrochlorothiazide (Hydrodiuril) 25 mg PO DAILY [facility] Last Admin: 01/13/17 14:22 Dose: 25 mg Insulin Aspart (Novolog) 0 unit SC ACHS [facility] PRN Reason: Protocol Last Admin: 01/13/17 13:53 Dose: Not Given Insulin Glargine (Lantus) 20 unit SC DAILY [facility] Last Admin: 01/13/17 09:46 Dose: 20 units Isosorbide Mononitrate (Imdur) 60 mg PO DAILY [facility] Last Admin: 01/13/17 14:22 Dose: 60 mg Latanoprost (Xalatan Opht) 0 ml OU HS [facility] Last Admin: 01/12/17 22:17 Dose: 1 ml Levothyroxine Sodium (Synthroid) 125 mcg PO DAILY@0630 [facility] Last Admin: 01/13/17 06:27 Dose: 125 mcg Losartan Potassium (Cozaar) 50 mg PO DAILY [facility] Last Admin: 01/13/17 14:22 Dose: 50 mg Metoprolol Tartrate (Lopressor) 12.5 mg PO BID [facility] Pantoprazole Sodium (Protonix Ec Tab) 40 mg PO DAILY [facility] Last Admin: 01/13/17 09:49 Dose: 40 mg Rosuvastatin Calcium (Crestor) 5 mg PO [facility] Last Admin: 01/12/17 21:19 Dose: 5 mg Zolpidem Tartrate (Ambien) 10 mg PO [facility] Last Admin: 01/12/17 21:18 Dose: 10 mg - Constitutional Appears: Well - Head Exam Head Exam: ATRAUMATIC, NORMAL INSPECTION, NORMOCEPHALIC - Eye Exam Eye Exam: EOMI, Normal appearance, PERRL Pupil Exam: NORMAL ACCOMODATION, PERRL - ENT Exam ENT Exam: Mucous Membranes Moist, Normal Exam - Neck Exam Neck Exam: Full ROM, Normal Inspection. absent: Lymphadenopathy - Respiratory Exam Respiratory Exam: Decreased Breath Sounds - Cardiovascular Exam Cardiovascular Exam: REGULAR RHYTHM, +S1, +S2 - GI/Abdominal Exam GI & Abdominal Exam: Soft, Diminished Bowel Sounds - Rectal Exam Rectal Exam: Deferred Assessment and Plan (1) Altered mental status Status: Acute (2) Anemia Status: Acute (3) Anemia, chronic renal failure Status: Acute (4) Asthma Status: Acute (5) Bradycardia Status: Acute (6) COPD exacerbation Status: Acute (7) Chronic renal failure Status: Acute (8) Closed displaced fracture of proximal epiphysis of left femur Status: Acute (9) Closed displaced intertrochanteric fracture of left femur Status: Acute (10) Congestive heart failure (CHF) Status: Acute (11) Diabetes Status: Acute (12) Dizziness Status: Acute (13) Dizziness Status: Acute (14) Elevated troponin Status: Acute (15) Foot sprain Status: Acute (16) Frequent falls Status: Acute (17) HTN (hypertension) Status: Acute (18) Hip fracture Status: Acute (19) Hip fracture, left Status: Acute (20) Hyperkalemia Status: Acute (21) Hypothermia Status: Acute (22) Hypothyroid Status: Acute (23) Near syncope Status: Acute (24) Poorly-controlled hypertension Status: Acute (25) Prophylactic measure Status: Acute (26) Right patella fracture Status: Acute (27) SOB (shortness of breath) Status: Acute (28) TIA (transient ischemic attack) Status: Acute (29) Transient ischemic attack Status: Acute (30) Vertigo Status: Acute (31) ESRD (end stage renal disease) on dialysis Status: Chronic (32) Leg edema Status: Chronic - Assessment and Plan (Free Text) Plan: Urine culture [facility] Cozaar Labs as advised Consults
--- NOTE | 2017-01-13 19:12 | CP.PCM.PN ---
Subjective - Date & Time of Evaluation Date of Evaluation: 01/13/17 Time of Evaluation: 19:10 - Subjective Subjective: Patient has no current chest pain. Objective - Vital Signs/Intake and Output Vital Signs (last 24 hours): Temp Pulse Resp BP Pulse Ox 98.0 F 60 20 151/65 H 96 01/13/17 16:22 01/13/17 16:22 01/13/17 16:22 01/13/17 16:22 01/13/17 16:22 Intake and Output: 01/13/17 01/14/17 18:59 06:59 Intake Total 240 Balance 240 - Medications Medications: Current Medications Amlodipine Besylate (Norvasc) 10 mg PO DAILY [facility] Last Admin: 01/13/17 09:48 Dose: 10 mg Calcium Acetate (Phoslo) 1,334 mg PO TID [facility] Last Admin: 01/13/17 16:27 Dose: Not Given Dorzolamide HCl (Trusopt) 0 ml OU BID [facility] Last Admin: 01/13/17 18:24 Dose: 1 drop Hydralazine HCl (Apresoline) 100 mg PO TID [facility] Last Admin: 01/13/17 18:21 Dose: 100 mg Hydralazine HCl (Apresoline) 10 mg IVP Q6H PRN PRN Reason: Systolic Blood Pressure Last Admin: 01/12/17 11:18 Dose: 10 mg Hydrochlorothiazide (Hydrodiuril) 25 mg PO DAILY [facility] Last Admin: 01/13/17 14:22 Dose: 25 mg Insulin Aspart (Novolog) 0 unit SC ACHS [facility] PRN Reason: Protocol Last Admin: 01/13/17 17:00 Dose: Not Given Insulin Glargine (Lantus) 20 unit SC DAILY [facility] Last Admin: 01/13/17 09:46 Dose: 20 units Isosorbide Mononitrate (Imdur) 60 mg PO DAILY [facility] Last Admin: 01/13/17 14:22 Dose: 60 mg Latanoprost (Xalatan Opht) 0 ml OU HS [facility] Last Admin: 01/12/17 22:17 Dose: 1 ml Levothyroxine Sodium (Synthroid) 125 mcg PO DAILY@0630 [facility] Last Admin: 01/13/17 06:27 Dose: 125 mcg Losartan Potassium (Cozaar) 50 mg PO DAILY [facility] Last Admin: 01/13/17 14:22 Dose: 50 mg Metoprolol Tartrate (Lopressor) 12.5 mg PO BID [facility] Last Admin: 01/13/17 18:22 Dose: 12.5 mg Pantoprazole Sodium (Protonix Ec Tab) 40 mg PO DAILY [facility] Last Admin: 01/13/17 09:49 Dose: 40 mg Rosuvastatin Calcium (Crestor) 5 mg PO [facility] Last Admin: 01/12/17 21:19 Dose: 5 mg Zolpidem Tartrate (Ambien) 10 mg PO [facility] Last Admin: 01/12/17 21:18 Dose: 10 mg - Constitutional Appears: Non-toxic - Head Exam Head Exam: NORMAL INSPECTION - Eye Exam Eye Exam: Normal appearance - ENT Exam ENT Exam: Mucous Membranes Moist - Neck Exam Neck Exam: Full ROM - Respiratory Exam Respiratory Exam: NORMAL BREATHING PATTERN - Cardiovascular Exam Cardiovascular Exam: REGULAR RHYTHM - GI/Abdominal Exam GI & Abdominal Exam: Normal Bowel Sounds - Rectal Exam Rectal Exam: Deferred - Extremities Exam Extremities Exam: Pedal Edema - Back Exam Back Exam: NORMAL INSPECTION - Neurological Exam Neurological Exam: Alert - Psychiatric Exam Psychiatric exam: Normal Affect - Skin Skin Exam: Normal Color Assessment and Plan (1) Poorly-controlled hypertension Assessment & Plan: Patient needs aggressive blood pressure control. recommend addition of betablocker. Patient has a pacemaker therefore can tolerate betablocker. no benefit to renal angiogram (patient had renal angiogram pre dialysis). Status: Acute (2) Chronic renal failure Assessment & Plan: on dialysis. Status: Acute
[2017-01-13] MEDS: Latanoprost 2.5 ml Opht Soln OU SCH (22:04)
[2017-01-14 01:21] VITALS: TEMP 99
[2017-01-14] MEDS: (Novolog) Insulin Aspart, Recombinant 100 u/ml 10 ml vial SC SCH ×2 (07:26→12:31)
[2017-01-14 07:43] LABS: BASO # 0.1 K/uL (0.0-0.2); BASO % 1.1 % (0.0-2.0); EOS # 0.5 K/uL (0.0-0.7); EOS % 7.8 % (0.0-4.0); HEMATOCRIT 31.2 % (34.0-47.0); LYMPH # 0.6 K/uL (1.0-4.3); MEAN CELL VOLUME 93.2 fL (81.0-99.0); MEAN CORPUSCULAR HEMOGLOBIN 31.1 pg (27.0-31.0); MEAN CORPUSCULAR HGB CONC 33.4 g/dL (33.0-37.0); MONO # 0.6 K/uL (0.0-0.8); MONO % 10.8 % (0.0-10.0); WHITE BLOOD COUNT 5.9 K/uL (4.8-10.8)
[2017-01-14] MEDS: Levothyroxine 125 MCG TAB PO SCH (07:44)
[2017-01-14 07:50] LABS: POTASSIUM 4.8 mmol/L (3.6-5.2)
[2017-01-14 07:52] LABS: ALB/GLOB RATIO 1.1 (1.0-2.1); BILIRUBIN,TOTAL 1.1 mg/dL (0.2-1.3); TOTAL PROTEIN 7.5 g/dL (6.3-8.3)
[2017-01-14 07:53] LABS: CALCIUM 8.3 mg/dl (8.6-10.4)
[2017-01-14] MEDS: Pantoprazole 40 mg EC Tab PO SCH (09:29)
[2017-01-14] MEDS: Dorzolamide 2% Opht Sol 10ml OU SCH (09:30)
[2017-01-14] MEDS: (Lantus) Insulin Glargine, Recombinant SC SCH (09:30)
--- NOTE | 2017-01-14 12:37 | CP.PCM.PN ---
Subjective - Date & Time of Evaluation Date of Evaluation: 01/14/17 Time of Evaluation: 12:20 - Subjective Subjective: patient denies chest pain or dyspnea. wants to go home Objective - Vital Signs/Intake and Output Vital Signs (last 24 hours): Temp Pulse Resp BP Pulse Ox 99 F 64 20 165/63 H 96 01/14/17 08:45 01/14/17 08:45 01/14/17 08:45 01/14/17 08:45 01/14/17 08:45 - Medications Medications: Current Medications Amlodipine Besylate (Norvasc) 10 mg PO DAILY [facility] Last Admin: 01/14/17 09:30 Dose: 10 mg Calcium Acetate (Phoslo) 1,334 mg PO TID [facility] Last Admin: 01/14/17 09:34 Dose: 1,334 mg Dorzolamide HCl (Trusopt) 0 ml OU BID [facility] Last Admin: 01/14/17 09:30 Dose: 1 drop Hydralazine HCl (Apresoline) 100 mg PO TID [facility] Last Admin: 01/14/17 09:29 Dose: 100 mg Hydralazine HCl (Apresoline) 10 mg IVP Q6H PRN PRN Reason: Systolic Blood Pressure Last Admin: 01/12/17 11:18 Dose: 10 mg Hydrochlorothiazide (Hydrodiuril) 25 mg PO DAILY [facility] Last Admin: 01/14/17 09:30 Dose: 25 mg Insulin Aspart (Novolog) 0 unit SC ACHS [facility] PRN Reason: Protocol Last Admin: 01/14/17 12:31 Dose: Not Given Insulin Glargine (Lantus) 20 unit SC DAILY [facility] Last Admin: 01/14/17 09:30 Dose: Not Given Isosorbide Mononitrate (Imdur) 60 mg PO DAILY [facility] Last Admin: 01/14/17 09:29 Dose: 60 mg Latanoprost (Xalatan Opht) 0 ml OU HS [facility] Last Admin: 01/13/17 22:04 Dose: 1 ml Levothyroxine Sodium (Synthroid) 125 mcg PO DAILY@0630 [facility] Last Admin: 01/14/17 07:44 Dose: 125 mcg Losartan Potassium (Cozaar) 50 mg PO DAILY [facility] Last Admin: 01/14/17 09:34 Dose: 50 mg Metoprolol Tartrate (Lopressor) 25 mg PO BID [facility] Pantoprazole Sodium (Protonix Ec Tab) 40 mg PO DAILY [facility] Last Admin: 01/14/17 09:29 Dose: 40 mg Rosuvastatin Calcium (Crestor) 5 mg PO [facility] Last Admin: 01/13/17 22:04 Dose: 5 mg Zolpidem Tartrate (Ambien) 10 mg PO [facility] Last Admin: 01/13/17 22:04 Dose: 10 mg - Labs Labs: 01/14/17 07:00 01/14/17 07:00 - Constitutional Appears: Non-toxic - Head Exam Head Exam: NORMAL INSPECTION - Eye Exam Eye Exam: Normal appearance - ENT Exam ENT Exam: Mucous Membranes Moist - Neck Exam Neck Exam: Full ROM - Respiratory Exam Respiratory Exam: Decreased Breath Sounds - Cardiovascular Exam Cardiovascular Exam: REGULAR RHYTHM - GI/Abdominal Exam GI & Abdominal Exam: Normal Bowel Sounds - Rectal Exam Rectal Exam: Deferred - Extremities Exam Extremities Exam: absent: Pedal Edema - Back Exam Back Exam: NORMAL INSPECTION - Neurological Exam Neurological Exam: Alert - Psychiatric Exam Psychiatric exam: Normal Affect - Skin Skin Exam: Normal Color Assessment and Plan (1) Poorly-controlled hypertension Assessment & Plan: increased lopressor today. Status: Acute (2) Chronic renal failure Assessment & Plan: on dialysis Status: Acute
--- NOTE | 2017-01-14 13:57 | CP.PCM.PN ---
Subjective - Date & Time of Evaluation Date of Evaluation: 01/14/17 Time of Evaluation: 11:40 - Subjective Subjective: clinically same Objective - Vital Signs/Intake and Output Vital Signs (last 24 hours): Temp Pulse Resp BP Pulse Ox 99 F 64 20 151/99 H 96 01/14/17 08:45 01/14/17 08:45 01/14/17 08:45 01/14/17 13:43 01/14/17 08:45 - Medications Medications: Current Medications Amlodipine Besylate (Norvasc) 10 mg PO DAILY [facility] Last Admin: 01/14/17 09:30 Dose: 10 mg Calcium Acetate (Phoslo) 1,334 mg PO TID [facility] Last Admin: 01/14/17 13:37 Dose: 1,334 mg Dorzolamide HCl (Trusopt) 0 ml OU BID [facility] Last Admin: 01/14/17 09:30 Dose: 1 drop Hydralazine HCl (Apresoline) 100 mg PO TID [facility] Last Admin: 01/14/17 13:37 Dose: 100 mg Hydralazine HCl (Apresoline) 10 mg IVP Q6H PRN PRN Reason: Systolic Blood Pressure Last Admin: 01/12/17 11:18 Dose: 10 mg Hydrochlorothiazide (Hydrodiuril) 25 mg PO DAILY [facility] Last Admin: 01/14/17 09:30 Dose: 25 mg Insulin Aspart (Novolog) 0 unit SC ACHS [facility] PRN Reason: Protocol Last Admin: 01/14/17 12:31 Dose: Not Given Insulin Glargine (Lantus) 20 unit SC DAILY [facility] Last Admin: 01/14/17 09:30 Dose: Not Given Isosorbide Mononitrate (Imdur) 60 mg PO DAILY [facility] Last Admin: 01/14/17 09:29 Dose: 60 mg Latanoprost (Xalatan Opht) 0 ml OU HS [facility] Last Admin: 01/13/17 22:04 Dose: 1 ml Levothyroxine Sodium (Synthroid) 125 mcg PO DAILY@0630 [facility] Last Admin: 01/14/17 07:44 Dose: 125 mcg Losartan Potassium (Cozaar) 50 mg PO DAILY [facility] Last Admin: 01/14/17 09:34 Dose: 50 mg Metoprolol Tartrate (Lopressor) 25 mg PO BID [facility] Pantoprazole Sodium (Protonix Ec Tab) 40 mg PO DAILY [facility] Last Admin: 01/14/17 09:29 Dose: 40 mg Rosuvastatin Calcium (Crestor) 5 mg PO [facility] Last Admin: 01/13/17 22:04 Dose: 5 mg Zolpidem Tartrate (Ambien) 10 mg PO [facility] Last Admin: 01/13/17 22:04 Dose: 10 mg - Labs Labs: 01/14/17 07:00 01/14/17 07:00 - Constitutional Appears: Well - Head Exam Head Exam: ATRAUMATIC, NORMAL INSPECTION, NORMOCEPHALIC - Eye Exam Eye Exam: EOMI, Normal appearance, PERRL Pupil Exam: NORMAL ACCOMODATION, PERRL - ENT Exam ENT Exam: Mucous Membranes Moist, Normal Exam - Neck Exam Neck Exam: Full ROM, Normal Inspection. absent: Lymphadenopathy - Respiratory Exam Respiratory Exam: Decreased Breath Sounds - Cardiovascular Exam Cardiovascular Exam: REGULAR RHYTHM, +S1, +S2 - GI/Abdominal Exam GI & Abdominal Exam: Soft, Diminished Bowel Sounds - Rectal Exam Rectal Exam: Deferred Assessment and Plan (1) Altered mental status Status: Acute (2) Anemia Status: Acute (3) Anemia, chronic renal failure Status: Acute (4) Asthma Status: Acute (5) Bradycardia Status: Acute (6) COPD exacerbation Status: Acute (7) Chronic renal failure Status: Acute (8) Closed displaced fracture of proximal epiphysis of left femur Status: Acute (9) Closed displaced intertrochanteric fracture of left femur Status: Acute (10) Congestive heart failure (CHF) Status: Acute (11) Diabetes Status: Acute (12) Dizziness Status: Acute (13) Dizziness Status: Acute (14) Elevated troponin Status: Acute (15) Foot sprain Status: Acute (16) Frequent falls Status: Acute (17) HTN (hypertension) Status: Acute (18) Hip fracture Status: Acute (19) Hip fracture, left Status: Acute (20) Hyperkalemia Status: Acute (21) Hypothermia Status: Acute (22) Hypothyroid Status: Acute (23) Near syncope Status: Acute (24) Poorly-controlled hypertension Status: Acute (25) Prophylactic measure Status: Acute (26) Right patella fracture Status: Acute (27) SOB (shortness of breath) Status: Acute (28) TIA (transient ischemic attack) Status: Acute (29) Transient ischemic attack Status: Acute (30) Vertigo Status: Acute (31) ESRD (end stage renal disease) on dialysis Status: Chronic (32) Leg edema Status: Chronic - Assessment and Plan (Free Text) Plan: Lopressor Discharge home Follow up in the office in 1 week Hemodialysis as per schedule Follow-up with Dr. Montaño in 1 week
--- NOTE | 2017-01-14 15:48 | PCM.HF ---
Heart Failure Core Measure - Heart Failure Ejection Fraction: 40 % or Greater JANE Inhibitor Prescribed: No Contraindication/Reason for not providing: on arb Beta-Satinder Prescribed: Metoprolol Succinate Angiotensin II Receptor Satinder Prescribed: Yes Aldosterone Antagonist Prescribed: No Contraindication/Reason for not providing: renal dysfunction Hydralazine Nitrate Prescribed: Yes Implantable Cardioverter Defibrillator Therapy: No Contraindication/Reason for not providing: EF >40% Cardiac Resynchronization Therapy Prescribed: No Contraindication/Reason for not providing: not indicated - Follow up Will be discharged to: Home Follow Up Date (must be within 7 days from discharge): 01/23/17 Follow Up Time: 09:00
--- NOTE | 2017-01-14 15:53 | CP.PCM.PN ---
Subjective - Date & Time of Evaluation Date of Evaluation: 01/14/17 Time of Evaluation: 15:53 - Subjective Subjective: Alert, oriented, denies sob or chest pains. Objective - Vital Signs/Intake and Output Vital Signs (last 24 hours): Temp Pulse Resp BP Pulse Ox 99 F 64 20 151/99 H 96 01/14/17 08:45 01/14/17 08:45 01/14/17 08:45 01/14/17 13:43 01/14/17 08:45 - Medications Medications: Current Medications Amlodipine Besylate (Norvasc) 10 mg PO DAILY [facility] Last Admin: 01/14/17 09:30 Dose: 10 mg Calcium Acetate (Phoslo) 1,334 mg PO TID [facility] Last Admin: 01/14/17 13:37 Dose: 1,334 mg Dorzolamide HCl (Trusopt) 0 ml OU BID [facility] Last Admin: 01/14/17 09:30 Dose: 1 drop Hydralazine HCl (Apresoline) 100 mg PO TID [facility] Last Admin: 01/14/17 13:37 Dose: 100 mg Hydralazine HCl (Apresoline) 10 mg IVP Q6H PRN PRN Reason: Systolic Blood Pressure Last Admin: 01/12/17 11:18 Dose: 10 mg Hydrochlorothiazide (Hydrodiuril) 25 mg PO DAILY [facility] Last Admin: 01/14/17 09:30 Dose: 25 mg Insulin Aspart (Novolog) 0 unit SC ACHS [facility] PRN Reason: Protocol Last Admin: 01/14/17 12:31 Dose: Not Given Insulin Glargine (Lantus) 20 unit SC DAILY [facility] Last Admin: 01/14/17 09:30 Dose: Not Given Isosorbide Mononitrate (Imdur) 60 mg PO DAILY [facility] Last Admin: 01/14/17 09:29 Dose: 60 mg Latanoprost (Xalatan Opht) 0 ml OU HS [facility] Last Admin: 01/13/17 22:04 Dose: 1 ml Levothyroxine Sodium (Synthroid) 125 mcg PO DAILY@0630 [facility] Last Admin: 01/14/17 07:44 Dose: 125 mcg Losartan Potassium (Cozaar) 50 mg PO DAILY [facility] Last Admin: 01/14/17 09:34 Dose: 50 mg Metoprolol Tartrate (Lopressor) 25 mg PO BID [facility] Pantoprazole Sodium (Protonix Ec Tab) 40 mg PO DAILY [facility] Last Admin: 01/14/17 09:29 Dose: 40 mg Rosuvastatin Calcium (Crestor) 5 mg PO [facility] Last Admin: 01/13/17 22:04 Dose: 5 mg Zolpidem Tartrate (Ambien) 10 mg PO HS [facility] Last Admin: 01/13/17 22:04 Dose: 10 mg - Labs Labs: 01/14/17 07:00 01/14/17 07:00 Assessment and Plan - Assessment and Plan (Free Text) Assessment: Patient is seen and examined. Alert, orientedx3, denies sob or chest pains. Blood pressure improving slowly. Cleared by DR Montaño, added metoprolol to the med list. D/W DR Chad Mcelroy, plan to discharge home today, advised to f/u in the office in 1 week.Hemodialysis to continue MWF as before. Patient and her family verbalized understanding of the instructions given.
[2017-01-14 20:36] VITALS: BP 148/70; PULSE 66; O2SAT 97
== END 2017-01-14 16:10 | disposition home or self-care (01) ==
LOC: C.ER 12:07 → C.9E 14:21 → C.6T 17:09 → INTOOBSV 01-13 13:28 → OBSVTOIN 01-13 13:28
PROVIDERS: ADMIT Internal Medicine Nephrology; ATTEND Internal Medicine Nephrology
DX: I13.11 Hypertensive heart and chronic kidney disease without heart failure, with stage 5 chronic kidney disease, or end stage renal disease (principal); N18.6 End stage renal disease; E11.22 Type 2 diabetes mellitus with diabetic chronic kidney disease; D64.9 Anemia, unspecified; E89.0 Postprocedural hypothyroidism; E78.00 Pure hypercholesterolemia, unspecified; J45.909 Unspecified asthma, uncomplicated; J44.9 Chronic obstructive pulmonary disease, unspecified; H91.91 Unspecified hearing loss, right ear; H26.9 Unspecified cataract; Z99.2 Dependence on renal dialysis; Z95.0 Presence of cardiac pacemaker; Z91.81 History of falling; Z86.73 Personal history of transient ischemic attack (TIA), and cerebral infarction without residual deficits; Z79.4 Long term (current) use of insulin; Z88.6 Allergy status to analgesic agent; Z87.440 Personal history of urinary (tract) infections
CPT/HCPCS: 36415; 80053; 81001; 82948; 85025; 87086; 97162; 97530; 99285; G0257; G0378; G8978; G8979; J0360

== ENCOUNTER 2017-03-17 09:45 | Inpatient (IN) | payer MEDICARE, OTHER ==
[2017-03-17 09:45] VITALS: BMI 20.2
[2017-03-17] MEDS ORDERED: Morphine 4 MG/ML VIAL ONE (10:33)
--- NOTE | 2017-03-17 10:38 | C.PDOC ---
History Of Present Illness 77 y/o female brought in by EMS s/p fall with complains of left hip pain. Pt states she tripped and fell at home landing on left side, now with severe posterior left hip pain 08/22. States she hit her head, doesn't recall if lost consciousness. Left leg contracted, unable to move down at this time. Denies chest pain, SOB, fever, chills, weakness, numbness or any other complaints. Pt fell 1 month ago and shattered right knee. Chief Complaint (Nursing): Lower Extremity Problem/Injury History Per: Patient History/Exam Limitations: no limitations Onset/Duration Of Symptoms: Mins Severity: Severe Pain Scale Rating Of: 10 Recent travel outside of the [place]: No - Hip Description Of Injury: Fell, Tripped Past Medical History Reviewed: Historical Data, Nursing Documentation, Vital Signs Vital Signs: Last Vital Signs Temp 97.9 F 03/17/17 09:51 Pulse 58 L 03/17/17 11:35 Resp 16 03/17/17 11:35 BP 160/52 H 03/17/17 11:35 Pulse Ox 97 03/17/17 11:50 - Medical History PMH: Anemia, Asthma, CHF, COPD (ASTHMA), Diabetes, HTN, Hypercholesterolemia, Hyperthyroidism (Thyroid surgery), Hypothyroidism, End Stage Renal Disease ( dialysis m-w f), Chronic Kidney Disease Comment Only: Cardia Arrhythmia (bradycardia) Surgical History: Appendectomy, Pacemaker - [facility] Procedures BREAST DX PROCEDURE NEC (04/23/15) CONTRAST RENAL ARTERIOGR (06/20/13) DX ULTRASOUND-THORAX NEC (04/23/15) HEMODIALYSIS (04/24/15) INITIAL INSERT TRANS LEADS INTO [employer] (04/24/15) INITIAL INSERTION OF DUAL-CHAMBER DEVICE (04/24/15) INJECT/INFUSE NEC (12/21/13) NEBULIZER THERAPY (12/21/13) PACKED CELL TRANSFUSION (03/31/14) PERCUTAN NEEDLE BIOPSY OF BREAST (04/23/15) PERFORMANCE OF URINARY FILTRATION, MULTIPLE (01/13/17) PERFORMANCE OF URINARY FILTRATION, SINGLE (02/08/16) Family History: States: Unknown Family Hx - Social History Hx Tobacco Use: No Hx Alcohol Use: No Hx Substance Use: No - Immunization History Hx Tetanus Toxoid Vaccination: Yes Hx Influenza Vaccination: Yes Hx Pneumococcal Vaccination: Yes Review Of Systems Except As Marked, All Systems Reviewed And Found Negative. Constitutional: Negative for: Fever, Chills Cardiovascular: Negative for: Chest Pain Respiratory: Negative for: Shortness of Breath Gastrointestinal: Negative for: Vomiting, Abdominal Pain Musculoskeletal: Positive for: Other (left hip pain). Negative for: Neck Pain, Back Pain Neurological: Negative for: Weakness, Numbness Physical Exam - Physical Exam Appears: Non-toxic, No Acute Distress Skin: Warm, Dry, No Rash Head: Atraumatic, Normacephalic Nose: Normal Neck: Normal, Normal ROM, Supple Chest: Symmetrical, No Tenderness Cardiovascular: Rhythm Regular, No Murmur Respiratory: Normal Breath Sounds, No Rales, No Rhonchi, No Wheezing Gastrointestinal/Abdominal: Normal Exam, Soft, No Tenderness Back: Normal Inspection, No Vertebral Tenderness, No Paraspinal Tenderness Extremity: Tenderness (left hip), Other (left leg contracted) Pulses: Left Dorsalis Pedis: Normal Neurological/Psych: Oriented x3, Normal Speech, Normal Cognition, Normal Motor, Normal Sensation ED Course And Treatment - Laboratory Results Result Diagrams: 03/17/17 11:05 03/17/17 11:05 O2 Sat by Pulse Oximetry: 97 (room air) Pulse Ox Interpretation: Normal Medical Decision Making Medical Decision Making: Plan: -CT cervical spine, CT head -EKG, labs, IV fluids -Tylenol, morphine Patient refusing head CT. Family at bedside, states she did not hit her head and had no LOC Spoke with Chad Mcelroy and Dr. Dickens. Disposition Discussed With : Radha Mcelroy Doctor Will See Patient In The: Hospital Counseled Patient/Family Regarding: Studies Performed - Disposition Disposition: HOSPITALIZED Disposition Time: 12:36 Condition: GUARDED - POA Present On Arrival: None - Clinical Impression Clinical Impression: Hip fracture, left - Scribe Statement The provider has reviewed the documentation as recorded by the Howard Lr Provider Attestation: All medical record entries made by the Howard were at my direction and personally dictated by me. I have reviewed the chart and agree that the record accurately reflects my personal performance of the history, physical exam, medical decision making, and the department course for this patient. I have also personally directed, reviewed, and agree with the discharge instructions and disposition. Decision To Admit - Pt Status Changed To: Hospital Disposition Of: Inpatient - Admit Certification Admit to Inpatient:: After my assessment, the patient will require hospitalization for at least two midnights. This is because of the severity of symptoms shown, intensity of services needed, and/or the medical risk in this patient being treated as an outpatient. - InPatient: Physician Admission Certification: I certify that this patient requires 2 or more midnights of care for the following reason:: patient with sever fracture, needs medical attention and hip surgery - . Bed Request Type: Regular Patient Diagnosis: Hip fracture, left
[2017-03-17 11:11] LABS: BASO # 0.1 K/uL (0.0-0.2); BASO % 0.9 % (0.0-2.0); EOS # 0.3 K/uL (0.0-0.7); EOS % 3.6 % (0.0-4.0); HEMATOCRIT 33.1 % (34.0-47.0); LYMPH # 0.7 K/uL (1.0-4.3); LYMPH % 9.7 % (20.0-40.0); MEAN CORPUSCULAR HEMOGLOBIN 29.8 pg (27.0-31.0); MEAN PLATELET VOLUME 9.4 fL (7.2-11.7); MONO # 0.5 K/uL (0.0-0.8); MONO % 6.4 % (0.0-10.0); PLATELET COUNT 135 K/uL (130-400); RED CELL DISTRIBUTION WIDTH 18.9 % (11.5-14.5); WHITE BLOOD COUNT 7.7 K/uL (4.8-10.8)
--- NOTE | 2017-03-17 11:21 | RAD ---
PROCEDURE: CHEST RADIOGRAPH, 1 VIEW HISTORY: fall COMPARISON: 11/28/2016. FINDINGS: LUNGS: Clear. PLEURA: No pneumothorax or pleural fluid seen. CARDIOVASCULAR: Cardiomegaly. No evidence of acute, significant cardiovascular disease. Position/ configuration of pacemaker Satisfactory. Vascular stent apparatus on the left, unchanged compared to the prior study. OSSEOUS STRUCTURES: No significant abnormalities. VISUALIZED UPPER ABDOMEN: Normal. OTHER FINDINGS: None. IMPRESSION: No significant interval change compared to the prior examination(s).
[2017-03-17 11:24] LABS: INR 1.3; POTASSIUM 5.6 mmol/L (3.6-5.2)
[2017-03-17 11:27] LABS: ALB/GLOB RATIO 1.1 (1.0-2.1)
--- NOTE | 2017-03-17 11:32 | RAD ---
PROCEDURE: Left Hip X-ray Radiographs. HISTORY: fall COMPARISON: None. FINDINGS: BONES: Comminuted intertrochanteric fracture with avulsion of the lesser trochanter and large fragment of proximal shaft of the left femur. JOINTS: Preserved femoral acetabular relationship. SOFT TISSUES: Normal. OTHER FINDINGS: Calcified uterine fibroids. IMPRESSION: Comminuted intertrochanteric fracture.
[2017-03-17 12:03] LABS: EOSINOPHIL 2 % (0-4); NEUTROPHIL 82 % (50-75); TOTAL CELLS COUNTED 100
--- NOTE | 2017-03-17 12:48 | CP.PCM.CON ---
History of Present Illness - History of Present Illness History of Present Illness: 77F complains of left hip pain after fall at home. She denies any pain in her arms/neck/right lower leg. Denies numbness/tingling. Denies CP/SOB. Denies numbness/tingling. Denies n/v. Fall was reportedly witnessed by sons, no LOC. Patient came in knee immobilizer on right knee, she says she fell in [place] and had a fracture of her right leg about a month ago. PMH: DM, HTN, ESRD on HD, hypothyroid, CAD, hx CVA, CHF PSH: right arm fistula, dual chamber pacemaker 04/24/2015, appendectomy, thyroid allergy to ibuprofen and oxycodone reported, patient given morphine x 2 in ER without any reaction Review of Systems - Review of Systems All systems: reviewed and no additional remarkable complaints except - Constitutional Constitutional: Frequent Falls - Cardiovascular Cardiovascular: As Per HPI - Respiratory Respiratory: As Per HPI - Gastrointestinal Gastrointestinal: As Per HPI - Musculoskeletal Musculoskeletal: As Per HPI - Integumentary Additional comments: denies - Neurological Neurological: Frequent Falls - Psychiatric Additional comments: denies - Endocrine Additional Comments: unremarkable - Hematologic/Lymphatic Hematologic: absent: As Per HPI, Easy Bleeding, Easy Bruising, Lymphadenopathy, Other Past Patient History - Past Medical History & Family History Past Medical History?: Yes Past Family History: Reviewed and not pertinent - Past Social History Smoking Status: Never Smoked - CARDIAC Hx Cardia Arrhythmia: (bradycardia) Hx Congestive Heart Failure: Yes Hx Hypercholesterolemia: Yes Hx Hypertension: Yes Hx Pacemaker: Yes - PULMONARY Hx Asthma: Yes Hx Chronic Obstructive Pulmonary Disease (COPD): Yes (ASTHMA) - NEUROLOGICAL Hx Neurological Disorder: Yes HX Cerebrovascular Accident: Yes Hx Vertigo: Yes - HEENT Hx Cataracts: Yes Hx Deafness: Yes (right ear) - RENAL Hx Chronic Kidney Disease: Yes - ENDOCRINE/METABOLIC Hx Hyperthyroidism: Yes (Thyroid surgery) Hx Hypothyroidism: Yes - HEMATOLOGICAL/ONCOLOGICAL Hx Anemia: Yes - INTEGUMENTARY Hx Dermatological Problems: No - MUSCULOSKELETAL/RHEUMATOLOGICAL Hx Falls: Yes - GASTROINTESTINAL Hx Gastrointestinal Disorders: No - GENITOURINARY/GYNECOLOGICAL Hx Genitourinary Disorders: No - PSYCHIATRIC Hx Substance Use: No - SURGICAL HISTORY Hx Appendectomy: Yes - ANESTHESIA Hx Anesthesia: Yes Hx Anesthesia Reactions: No Hx Malignant Hyperthermia: No Meds Allergies/Adverse Reactions: Allergies Allergy/AdvReac Type Severity Reaction Status Date / Time ibuprofen [From Motrin] Allergy Unknown URTICARIA Verified 03/17/17 09:53 oxycodone Allergy Unknown ITCHING Verified 03/17/17 09:53 Physical Exam - Constitutional Appears: In Acute Distress - Head Exam Head Exam: ATRAUMATIC, NORMAL INSPECTION - Neck Exam Neck exam: Positive for: Full Rom, Normal Inspection - Respiratory Exam Respiratory Exam: NORMAL BREATHING PATTERN - Cardiovascular Exam Additional comments: LLE: +DP/PT pulses - Extremities Exam Additional comments: LLE: holds knee and hip flexed on pillow in position of comfort. +ROM ankle DF/ PF toes flex/ext calves sfot NT neg homans Bilaterally Sensation intact BLE Right knee: patient came in with knee immobilizer which has been removed. No obvious swelling/deformity/discoloration. +DF/PF ankle. xrays ordered. Minimally tender to knee. BUE: full ROM, sensation intact, +radial pulses, no acute swelling/deformity/ discoloration - Expanded Lower Extremities Exam Left Hip exam: shortening Knee exam: normal inspection Ankle exam: FULL ROM, NORMAL INSPECTION Neuro vacular tendon exam: no vascular compromise - Back Exam Back exam: NORMAL INSPECTION Additional comments: non tender - Neurological Exam Neurological exam: Alert, Oriented x3 - Psychiatric Exam Psychiatric exam: Normal Affect, Normal Mood - Skin Skin Exam: Dry, Intact, Normal Color, Warm Results - Vital Signs Recent Vital Signs: Last Vital Signs Temp 97.9 F 03/17/17 09:51 Pulse 58 L 03/17/17 11:35 Resp 16 03/17/17 11:35 BP 160/52 H 03/17/17 11:35 Pulse Ox 97 03/17/17 12:38 - Labs Result Diagrams: 03/17/17 11:05 03/17/17 11:05 Labs: Laboratory Results - last 24 hr 03/17/17 03/17/17 03/17/17 11:05 11:05 11:05 WBC 7.7 RBC 3.56 L Hgb 10.6 L Hct 33.1 L MCV 93.0 MCH 29.8 MCHC 32.0 L RDW 18.9 H Plt Count 135 MPV 9.4 Neut % (Auto) 79.4 H Lymph % (Auto) 9.7 L Real % (Auto) 6.4 Eos % (Auto) 3.6 Baso % (Auto) 0.9 Neut # 6.1 Lymph # 0.7 L Real # 0.5 Eos # 0.3 Baso # 0.1 Neutrophils % (Manual) 82 H Band Neutrophils % 1 Lymphocytes % (Manual) 9 L Monocytes % (Manual) 6 Eosinophils % (Manual) 2 Platelet Estimate Normal Hypochromasia (manual) Slight Poikilocytosis (manual Slight Anisocytosis (manual) Slight PT 14.4 H INR 1.3 APTT 34 Sodium 139 Potassium 5.6 H Chloride 94 L Carbon Dioxide 27 Anion Gap 24 H BUN 67 H Creatinine 7.3 H D Est GFR ( Amer) 7 Est GFR (Non-Af Amer) 5 Random Glucose 265 H Calcium 9.0 Total Bilirubin 1.0 AST 40 H D ALT 29 Alkaline Phosphatase 120 Total Protein 8.0 Albumin 4.3 Globulin 3.8 Albumin/Globulin Ratio 1.1 Blood Type Antibody Screen 03/17/17 11:05 WBC RBC Hgb Hct MCV MCH MCHC RDW Plt Count MPV Neut % (Auto) Lymph % (Auto) Real % (Auto) Eos % (Auto) Baso % (Auto) Neut # Lymph # Real # Eos # Baso # Neutrophils % (Manual) Band Neutrophils % Lymphocytes % (Manual) Monocytes % (Manual) Eosinophils % (Manual) Platelet Estimate Hypochromasia (manual) Poikilocytosis (manual Anisocytosis (manual) PT INR APTT Sodium Potassium Chloride Carbon Dioxide Anion Gap BUN Creatinine Est GFR ( Amer) Est GFR (Non-Af Amer) Random Glucose Calcium Total Bilirubin AST ALT Alkaline Phosphatase Total Protein Albumin Globulin Albumin/Globulin Ratio Blood Type A POSITIVE Antibody Screen Negative Assessment & Plan (1) Closed displaced fracture of proximal epiphysis of left femur Assessment and Plan: Will need intramedullary nailing/internal fixation medical clearance pending bucks traction trapeze decub precautions full length femur films/CT per Dr. Torrez recommend interim anticoagulation for VTE proph if surgery is going to be delayed will need pre operative hgb around 10, expect sig drop due to fracture preop, as well as intraoperatively and immediately post op above d/w Dr. Torrez, will plan OR after patient is optimized. Status: Acute (2) Frequent falls Assessment and Plan: Patient with fall approx 1 month ago injuring right knee tib/fib/knee/femur films ordered continue knee immobilizer Status: Acute (3) Anemia, chronic renal failure Assessment and Plan: monitor h/h expect significant drop due to fracture labs in am T&C when OR scheduled Status: Acute Radiology Interpretation - Commodities Requirements Analyst Commodities Requirements Analyst:: Radiologist, Home Health Assistant - Study type Study type:: Plain films - Radiology Interpretation #2 Interpretation: Patient Name / ID : AURORA SOTELO E / [id number] Exam Date : 03/17/2017 10:41:09 ( Approved ) Study Comment : Sex / Age : F / [id number] Creator : King Ray MD Dictator : King Ray MD [employer] Developer : Supplier Manager : King Ray MD Approver2 : Report Date : 03/17/2017 11:31:19 My Comment : PROCEDURE: Left Hip X-ray Radiographs. HISTORY: fall COMPARISON: None. FINDINGS: BONES: Comminuted intertrochanteric fracture with avulsion of the lesser trochanter and large fragment of proximal shaft of the left femur. JOINTS: Preserved femoral acetabular relationship. SOFT TISSUES: Normal. OTHER FINDINGS: Calcified uterine fibroids. IMPRESSION: Comminuted intertrochanteric fracture.
--- NOTE | 2017-03-17 13:53 | RAD ---
PROCEDURE: Radiographs of the right tibia and fibula. HISTORY: right prior fracture COMPARISON: None available. TECHNIQUE: Frontal and lateral views obtained. FINDINGS: BONES: No acute fractures. JOINT SPACES: Incompletely visualized degenerative changes right knee and right ankle. OTHER FINDINGS: None. IMPRESSION: No acute findings related to/accounting for the clinical presentation.
--- NOTE | 2017-03-17 14:08 | RAD ---
PROCEDURE: Left femur HISTORY: hip fx COMPARISON: March 17, 2017. TECHNIQUE: Standard protocol for this study/examination. FINDINGS: Suboptimally visualized common known comminuted intertrochanteric fracture with avulsed lesser trochanter fragment. No additional abnormalities are identified. IMPRESSION: Acute, comminuted fracture proximal left femur. No additional/ distal abnormalities.
--- NOTE | 2017-03-17 15:09 | CT ---
PROCEDURE: CT of the left hip without contrast. HISTORY: left hip fracture COMPARISON: Comparison is made to the previous x-ray of the pelvis and left hip dated 03/17/2017 TECHNIQUE: Axial and reformatted coronal and sagittal CT images of the left hip were obtained without IV contrast administration. Total exam DLP: 238.31 FINDINGS: There is large comminuted and displaced fracture at the left intertrochanteric femur extending to the proximal left femoral shaft. There is mild superior displacement of the left femoral shaft. No evidence of dislocation at the left hip joint. Soft tissue heterogeneous density and subcutaneous stranding likely represent posttraumatic changes. No evidence of discrete hematoma or large fluid collection. Partially imaged uterus demonstrates partially calcified lesion likely represent calcified fibroid. IMPRESSION: Large comminuted and displaced fracture at the left intertrochanteric femur extending to the proximal portion of the left femoral shaft. Mild superior displacement of the left femoral shaft relative to femoral neck. No left hip dislocation.
--- NOTE | 2017-03-17 15:24 | RAD ---
PROCEDURE: Right Knee Radiographs. HISTORY: RIGHT, prior fracture COMPARISON: None. FINDINGS: BONES: Suspicious for subacute or old fracture at the inferior aspect of the patella. Small ossicles seen adjacent to the proximal tibia medially. JOINTS: Normal. No osteoarthritis. JOINT EFFUSION: None. OTHER FINDINGS: None. IMPRESSION: Suspicious for subacute or old fracture at the inferior aspect of the right patella. If indicated further assessment by CT may be obtained.
--- NOTE | 2017-03-17 18:20 | CP.PCM.HP ---
History of Present Illness - History of Present Illness History of Present Illness: 77-year-old female patient with past medical history of CHF, COPD, diabetes, hypertension, hyperlipidemia, hypothyroidism, end-stage renal disease on hemodialysis, brought by EMS after she tripped and fell at home landing on left side, complaints of very severe left hip pain. Also stressed that C he tolerated that did not lose consciousness. Leg was unable to move. History of fall one month back and got injured right knee. No bloody wheezing, headache, dizziness, numbness. No fever, nausea, vomiting, shortness of breath, chest pain Present on Admission - Present on Admission Any Indicators Present on Admission: No Past Patient History - Past Medical History & Family History Past Medical History?: Yes Past Family History: Reviewed and not pertinent - Past Social History Smoking Status: Never Smoked - CARDIAC Hx Cardia Arrhythmia: (bradycardia) Hx Congestive Heart Failure: Yes Hx Hypercholesterolemia: Yes Hx Hypertension: Yes Hx Pacemaker: Yes - PULMONARY Hx Asthma: Yes Hx Chronic Obstructive Pulmonary Disease (COPD): Yes (ASTHMA) - NEUROLOGICAL Hx Neurological Disorder: Yes HX Cerebrovascular Accident: Yes Hx Vertigo: Yes - HEENT Hx Cataracts: Yes Hx Deafness: Yes (right ear) - RENAL Hx Chronic Kidney Disease: Yes - ENDOCRINE/METABOLIC Hx Hyperthyroidism: Yes (Thyroid surgery) Hx Hypothyroidism: Yes - HEMATOLOGICAL/ONCOLOGICAL Hx Anemia: Yes - INTEGUMENTARY Hx Dermatological Problems: No - MUSCULOSKELETAL/RHEUMATOLOGICAL Hx Falls: Yes - GASTROINTESTINAL Hx Gastrointestinal Disorders: No - GENITOURINARY/GYNECOLOGICAL Hx Genitourinary Disorders: No - PSYCHIATRIC Hx Substance Use: No - SURGICAL HISTORY Hx Appendectomy: Yes - ANESTHESIA Hx Anesthesia: Yes Hx Anesthesia Reactions: No Hx Malignant Hyperthermia: No Meds Home Medications: Home Medication List Medication Instructions Recorded Confirmed Type Albuterol/Ipratropium [Duoneb 3 3 ml INH RQ6 03/23/17 Rx mg/0.5 mg (3 ml) UD] Budesonide [Pulmicort Respules] 0.5 mg INH RQ12 03/23/17 Rx Heparin 5,000 units SC Q12 vial 03/23/17 Rx Allergies/Adverse Reactions: Allergies Allergy/AdvReac Type Severity Reaction Status Date / Time ibuprofen [From Motrin] Allergy Unknown URTICARIA Verified 04/07/17 10:06 oxycodone Allergy Unknown ITCHING Verified 04/07/17 10:06 Physical Exam - Constitutional Appears: Well - Head Exam Head Exam: ATRAUMATIC, NORMAL INSPECTION, NORMOCEPHALIC - Eye Exam Eye Exam: EOMI, Normal appearance, PERRL Pupil Exam: NORMAL ACCOMODATION, PERRL - ENT Exam ENT Exam: Mucous Membranes Moist, Normal Exam - Neck Exam Neck exam: Positive for: Normal Inspection - Respiratory Exam Respiratory Exam: Decreased Breath Sounds - Cardiovascular Exam Cardiovascular Exam: REGULAR RHYTHM, +S1, +S2 - GI/Abdominal Exam GI & Abdominal Exam: Diminished Bowel Sounds, Soft - Rectal Exam Rectal Exam: Deferred Results - Vital Signs Recent Vital Signs: Last Vital Signs Temp 97.7 F 03/17/17 13:55 Pulse 60 03/17/17 14:50 Resp 16 03/17/17 14:50 BP 160/61 H 03/17/17 14:50 Pulse Ox 97 03/17/17 14:50 - Labs Result Diagrams: 03/24/17 10:29 03/24/17 10:29 Labs: Laboratory Results - last 24 hr 03/17/17 16:44 POC Glucose (mg/dL) 254 H Assessment & Plan (1) Altered mental status Status: Acute (2) Anemia Status: Acute (3) Anemia, chronic renal failure Status: Acute (4) Asthma Status: Acute (5) Bradycardia Status: Acute (6) COPD exacerbation Status: Acute (7) Chronic renal failure Status: Acute (8) Closed displaced fracture of proximal epiphysis of left femur Status: Acute (9) Closed displaced intertrochanteric fracture of left femur Status: Acute (10) Congestive heart failure (CHF) Status: Acute (11) Diabetes Status: Acute (12) Dizziness Status: Acute (13) Dizziness Status: Acute (14) Elevated troponin Status: Acute (15) Foot sprain Status: Acute (16) Frequent falls Status: Acute (17) HTN (hypertension) Status: Acute (18) Hip fracture Status: Acute (19) Hip fracture, left Status: Acute (20) Hyperkalemia Status: Acute (21) Hypothermia Status: Acute (22) Hypothyroid Status: Acute (23) Near syncope Status: Acute (24) Poorly-controlled hypertension Status: Acute (25) Prophylactic measure Status: Acute (26) Right patella fracture Status: Acute (27) SOB (shortness of breath) Status: Acute (28) TIA (transient ischemic attack) Status: Acute (29) Transient ischemic attack Status: Acute (30) Vertigo Status: Acute (31) ESRD (end stage renal disease) on dialysis Status: Chronic (32) Leg edema Status: Chronic - Assessment and Plan (Free Text) Plan: Labs reviewed X-rays CT scan cervical spine and head IV fluids Pain meds Dr. Dickens
[2017-03-17] MEDS: EPOETIN ALFA 4,000 UNIT/ML ML Dialysis IV SCH (20:41)
[2017-03-17] MEDS: (Novolog) Insulin Aspart, Recombinant 100 u/ml 10 ml vial SC SCH (22:00)
[2017-03-17] MEDS: Latanoprost 2.5 ml Opht Soln OU SCH (22:52)
[2017-03-17] MEDS: Rosuvastatin Calcium 2.5 mg Tab PO SCH (22:52)
[2017-03-18 06:30] LABS: HEMATOCRIT 27.6 % (34.0-47.0); MEAN CELL VOLUME 92.9 fL (81.0-99.0); MEAN CORPUSCULAR HEMOGLOBIN 29.9 pg (27.0-31.0); MEAN CORPUSCULAR HGB CONC 32.1 g/dL (33.0-37.0); MEAN PLATELET VOLUME 9.4 fL (7.2-11.7); RED CELL DISTRIBUTION WIDTH 18.8 % (11.5-14.5); WHITE BLOOD COUNT 6.7 K/uL (4.8-10.8)
[2017-03-18 06:44] LABS: POTASSIUM 4.5 mmol/L (3.6-5.2)
[2017-03-18 06:46] LABS: BILIRUBIN,TOTAL 0.8 mg/dL (0.2-1.3); CALCIUM 8.2 mg/dl (8.6-10.4); TOTAL PROTEIN 6.9 g/dL (6.3-8.3)
[2017-03-18] MEDS: (Novolog) Insulin Aspart, Recombinant 100 u/ml 10 ml vial SC SCH ×4 (07:35→21:31)
[2017-03-18] MEDS ORDERED: (Lantus) Insulin Glargine, Recombinant SC SCH (10:00)
--- NOTE | 2017-03-18 14:24 | CP.PCM.PN ---
Subjective - Date & Time of Evaluation Date of Evaluation: 03/18/17 Time of Evaluation: 13:40 - Subjective Subjective: clinically same Objective - Vital Signs/Intake and Output Vital Signs (last 24 hours): Temp Pulse Resp BP Pulse Ox 98.3 F 56 L 18 170/58 H 100 03/18/17 07:25 03/18/17 07:25 03/18/17 07:25 03/18/17 10:00 03/18/17 07:25 - Medications Medications: Current Medications Amlodipine Besylate (Norvasc) 10 mg PO DAILY [facility] Last Admin: 03/18/17 10:48 Dose: 10 mg Calcium Acetate (Phoslo) 1,334 mg PO TID [facility] Last Admin: 03/18/17 10:47 Dose: 1,334 mg Epoetin Sam (Procrit) 4,000 unit IV MWF [facility] Stop: 03/29/17 09:01 Last Admin: 03/17/17 20:41 Dose: 4,000 unit Heparin Sodium (Porcine) (Heparin) 5,000 units SC Q12 [facility] Last Admin: 03/18/17 10:48 Dose: 5,000 units Hydralazine HCl (Apresoline) 100 mg PO BID [facility] Last Admin: 03/18/17 10:48 Dose: 100 mg Hydrochlorothiazide (Hydrodiuril) 25 mg PO DAILY [facility] Last Admin: 03/18/17 10:56 Dose: 25 mg Insulin Aspart (Novolog) 0 unit SC ACHS [facility] PRN Reason: Protocol Insulin Glargine (Lantus) 20 unit SC DAILY [facility] Last Admin: 03/18/17 10:00 Dose: Not Given Isosorbide Mononitrate (Imdur) 30 mg PO DAILY [facility] Last Admin: 03/18/17 10:47 Dose: 30 mg Latanoprost (Xalatan Opht) 0 ml OU HS [facility] Last Admin: 03/17/17 22:52 Dose: 2.5 ml Losartan Potassium (Cozaar) 50 mg PO DAILY [facility] Last Admin: 03/18/17 10:49 Dose: 50 mg Metoprolol Tartrate (Lopressor) 25 mg PO BID [facility] Last Admin: 03/18/17 10:00 Dose: 25 mg Morphine Sulfate (Morphine) 2 mg IVP Q4H PRN PRN Reason: Pain, moderate (4-7) Ondansetron HCl (Zofran Inj) 4 mg IVP Q8H PRN PRN Reason: Nausea/Vomiting Last Admin: 03/18/17 12:20 Dose: 4 mg Pantoprazole Sodium (Protonix Inj) 40 mg IVP DAILY [facility] Last Admin: 03/18/17 12:20 Dose: 40 mg Rosuvastatin Calcium (Crestor) 2.5 mg PO HS [facility] Last Admin: 03/17/17 22:52 Dose: 2.5 mg Zolpidem Tartrate (Ambien) 5 mg PO HS PRN PRN Reason: Insomnia Last Admin: 03/18/17 00:13 Dose: 5 mg - Labs Labs: 03/18/17 06:19 03/18/17 06:19 PT 14.4 SECONDS (9.7-12.2) H 03/17/17 11:05 INR 1.3 03/17/17 11:05 APTT 34 SECONDS (21-34) 03/17/17 11:05 - Constitutional Appears: Well - Head Exam Head Exam: ATRAUMATIC, NORMAL INSPECTION, NORMOCEPHALIC - Eye Exam Eye Exam: EOMI, Normal appearance, PERRL Pupil Exam: NORMAL ACCOMODATION, PERRL - ENT Exam ENT Exam: Mucous Membranes Moist, Normal Exam - Neck Exam Neck Exam: Full ROM, Normal Inspection. absent: Lymphadenopathy - Respiratory Exam Respiratory Exam: Decreased Breath Sounds - Cardiovascular Exam Cardiovascular Exam: REGULAR RHYTHM, +S1, +S2 - GI/Abdominal Exam GI & Abdominal Exam: Soft, Diminished Bowel Sounds - Rectal Exam Rectal Exam: Deferred Assessment and Plan (1) Altered mental status Status: Acute (2) Anemia Status: Acute (3) Anemia, chronic renal failure Status: Acute (4) Asthma Status: Acute (5) Bradycardia Status: Acute (6) COPD exacerbation Status: Acute (7) Chronic renal failure Status: Acute (8) Closed displaced fracture of proximal epiphysis of left femur Status: Acute (9) Closed displaced intertrochanteric fracture of left femur Status: Acute (10) Congestive heart failure (CHF) Status: Acute (11) Diabetes Status: Acute (12) Dizziness Status: Acute (13) Dizziness Status: Acute (14) Elevated troponin Status: Acute (15) Foot sprain Status: Acute (16) Frequent falls Status: Acute (17) HTN (hypertension) Status: Acute (18) Hip fracture Status: Acute (19) Hip fracture, left Status: Acute (20) Hyperkalemia Status: Acute (21) Hypothermia Status: Acute (22) Hypothyroid Status: Acute (23) Near syncope Status: Acute (24) Poorly-controlled hypertension Status: Acute (25) Prophylactic measure Status: Acute (26) Right patella fracture Status: Acute (27) SOB (shortness of breath) Status: Acute (28) TIA (transient ischemic attack) Status: Acute (29) Transient ischemic attack Status: Acute (30) Vertigo Status: Acute (31) ESRD (end stage renal disease) on dialysis Status: Chronic (32) Leg edema Status: Chronic - Assessment and Plan (Free Text) Plan: Consult orhtopedics X-ray and CT of shows intratrochanteric fracture Patient will need intramedullary nailing/internal fixation Anticoagulation for VTE prophylaxis Morphine Norvasc Cozaar Lopressor Protonix Crestor monitor H/H Knee immobilization
--- NOTE | 2017-03-18 15:55 | RAD ---
PROCEDURE: Radiographs of the chest and abdomen (obstructive series) HISTORY: vomiting COMPARISON: No prior. TECHNIQUE: AP radiograph of the chest, with upright and supine radiographs of the abdomen. FINDINGS: CHEST: Lungs: Clear. Cardiovascular: Cardiomegaly. No evidence of acute, significant cardiovascular disease. Position/ configuration of pacemaker device: Satisfactory. Pleura: No pleural fluid. No pneumothorax. Other findings: None. ABDOMEN AND PELVIS: Bowel: Unremarkable bowel gas pattern. No evidence of mechanical obstruction. Free air: None. Bones: Incompletely visualized comminuted fracture proximal left femur. Other findings: Calcified uterine fibroids IMPRESSION: Unremarkable radiographs of chest and abdomen. No evidence of mechanical bowel obstruction.
--- NOTE | 2017-03-18 17:02 | CP.PCM.PN ---
Subjective - Date & Time of Evaluation Date of Evaluation: 03/18/17 Time of Evaluation: 17:02 - Subjective Subjective: Awake, alert, no sob or distress. Abdomen not distended, NAD. Objective - Vital Signs/Intake and Output Vital Signs (last 24 hours): Temp Pulse Resp BP Pulse Ox 98.5 F 60 20 153/57 H 100 03/18/17 16:41 03/18/17 16:41 03/18/17 16:41 03/18/17 16:41 03/18/17 16:41 - Medications Medications: Current Medications Amlodipine Besylate (Norvasc) 10 mg PO DAILY [facility] Last Admin: 03/18/17 10:48 Dose: 10 mg Calcium Acetate (Phoslo) 1,334 mg PO TID [facility] Last Admin: 03/18/17 14:00 Dose: Not Given Epoetin Sam (Procrit) 4,000 unit IV MWF [facility] Stop: 03/29/17 09:01 Last Admin: 03/17/17 20:41 Dose: 4,000 unit Heparin Sodium (Porcine) (Heparin) 5,000 units SC Q12 [facility] Last Admin: 03/18/17 10:48 Dose: 5,000 units Hydralazine HCl (Apresoline) 100 mg PO BID [facility] Last Admin: 03/18/17 10:48 Dose: 100 mg Hydrochlorothiazide (Hydrodiuril) 25 mg PO DAILY [facility] Last Admin: 03/18/17 10:56 Dose: 25 mg Insulin Aspart (Novolog) 0 unit SC ACHS [facility] PRN Reason: Protocol Insulin Glargine (Lantus) 20 unit SC DAILY [facility] Isosorbide Mononitrate (Imdur) 30 mg PO DAILY [facility] Last Admin: 03/18/17 10:47 Dose: 30 mg Latanoprost (Xalatan Opht) 0 ml OU HS [facility] Last Admin: 03/17/17 22:52 Dose: 2.5 ml Losartan Potassium (Cozaar) 50 mg PO DAILY [facility] Last Admin: 03/18/17 10:49 Dose: 50 mg Metoprolol Tartrate (Lopressor) 25 mg PO BID [facility] Last Admin: 03/18/17 10:00 Dose: 25 mg Morphine Sulfate (Morphine) 2 mg IVP Q4H PRN PRN Reason: Pain, moderate (4-7) Last Admin: 03/18/17 15:24 Dose: 2 mg Ondansetron HCl (Zofran Inj) 4 mg IVP Q8H PRN PRN Reason: Nausea/Vomiting Last Admin: 03/18/17 12:20 Dose: 4 mg Pantoprazole Sodium (Protonix Inj) 40 mg IVP DAILY [facility] Last Admin: 03/18/17 12:20 Dose: 40 mg Rosuvastatin Calcium (Crestor) 2.5 mg PO HS [facility] Last Admin: 03/17/17 22:52 Dose: 2.5 mg Zolpidem Tartrate (Ambien) 5 mg PO HS PRN PRN Reason: Insomnia Last Admin: 03/18/17 00:13 Dose: 5 mg - Labs Labs: 03/18/17 06:19 03/18/17 06:19 PT 14.4 SECONDS (9.7-12.2) H 03/17/17 11:05 INR 1.3 03/17/17 11:05 APTT 34 SECONDS (21-34) 03/17/17 11:05 Assessment and Plan - Assessment and Plan (Free Text) Assessment: Notified with vomiting and refusal ti diet. Seen and examined. Alert, oriented, abdomen soft, non distended. Abdominal obstruction series showed no obstruction. Started on protonix, zofran and clear liquid diet. Advised to hold insulin if patient doesn't eat. Follow up and advance diet.
[2017-03-18] MEDS: Dextrose 5%/0.45% NS 1,000 ML IV SCH (19:31)
[2017-03-18] MEDS: Rosuvastatin Calcium 2.5 mg Tab PO SCH (21:31)
[2017-03-18] MEDS: Latanoprost 2.5 ml Opht Soln OU SCH (21:33)
--- NOTE | 2017-03-19 05:19 | CT ---
EXAM: CT Right Lower Extremity Without Intravenous Contrast, Knee CLINICAL HISTORY: 77 years old, female; Pain; Knee; Right; Patient HX: Old FX TECHNIQUE: Axial computed tomography images of the right knee without intravenous contrast. This CT exam was performed using one or more of the following dose reduction techniques: automated exposure control, adjustment of the mA and/or kV according to patient size, and/or use of iterative reconstruction technique. Coronal and sagittal reformatted images were created and reviewed. COMPARISON: No relevant prior studies available. FINDINGS: Bones/joints: Fracture lower pole of patella. Near anatomic alignment. Mild osteoarthrosis of medial compartment. Early osteoarthrosis of patellofemoral compartment. No dislocation. Small joint effusion. Chondrocalcinosis of hyaline and fibrocartilage. Soft tissues: Anterior soft tissue swelling. Vascular calcifications. IMPRESSION: 1. RIGHT patellar fracture. 2. Incidental/non-acute findings are described above.
[2017-03-19] MEDS: (Novolog) Insulin Aspart, Recombinant 100 u/ml 10 ml vial SC SCH ×4 (07:30→21:25)
[2017-03-19] MEDS: (Lantus) Insulin Glargine, Recombinant SC SCH (09:29)
--- NOTE | 2017-03-19 10:37 | CP.PCM.CON ---
History of Present Illness - History of Present Illness History of Present Illness: reason for consultation: pulmonary clearance because of history of asthma 77F With history of asthma, end-stage renal disease on hemodialysis, diabetes, hypertension, CVA admitted with closed displaced fracture of proximal epiphysis of left femur after she fell at home. denies shortness of breath, denies cough, denies fever chills. Patient states that she uses nebulizer treatment as needed for asthma exacerbation and didn't have any attack for a while. PMH: DM, HTN, ESRD on HD, hypothyroid, CAD, hx CVA, PSH: right arm fistula, dual chamber pacemaker 04/24/2015, appendectomy, thyroid Review of Systems - Review of Systems All systems: reviewed and no additional remarkable complaints except (pain in left hip, denies shortness of breath) Past Patient History - Past Medical History & Family History Past Medical History?: Yes Past Family History: Reviewed and not pertinent - Past Social History Smoking Status: Former Smoker - CARDIAC Hx Cardia Arrhythmia: (bradycardia) Hx Congestive Heart Failure: Yes Hx Hypercholesterolemia: Yes Hx Hypertension: Yes Hx Pacemaker: Yes - PULMONARY Hx Asthma: Yes Hx Chronic Obstructive Pulmonary Disease (COPD): Yes (ASTHMA) - NEUROLOGICAL Hx Neurological Disorder: Yes HX Cerebrovascular Accident: Yes Hx Vertigo: Yes - HEENT Hx Cataracts: Yes Hx Deafness: Yes (right ear) - RENAL Hx Chronic Kidney Disease: Yes - ENDOCRINE/METABOLIC Hx Hyperthyroidism: Yes (Thyroid surgery) Hx Hypothyroidism: Yes - HEMATOLOGICAL/ONCOLOGICAL Hx Anemia: Yes - INTEGUMENTARY Hx Dermatological Problems: No - MUSCULOSKELETAL/RHEUMATOLOGICAL Hx Falls: Yes - GASTROINTESTINAL Hx Gastrointestinal Disorders: No - GENITOURINARY/GYNECOLOGICAL Hx Genitourinary Disorders: No - PSYCHIATRIC Hx Substance Use: No - SURGICAL HISTORY Hx Appendectomy: Yes - ANESTHESIA Hx Anesthesia: Yes Hx Anesthesia Reactions: No Hx Malignant Hyperthermia: No Meds Allergies/Adverse Reactions: Allergies Allergy/AdvReac Type Severity Reaction Status Date / Time ibuprofen [From Motrin] Allergy Unknown URTICARIA Verified 03/17/17 09:53 oxycodone Allergy Unknown ITCHING Verified 03/17/17 09:53 - Medications Medications: Current Medications Amlodipine Besylate (Norvasc) 10 mg PO DAILY [facility] Last Admin: 03/19/17 09:21 Dose: 10 mg Calcium Acetate (Phoslo) 1,334 mg PO TID [facility] Last Admin: 03/19/17 09:18 Dose: 1,334 mg Epoetin Sam (Procrit) 4,000 unit IV MWF [facility] Stop: 03/29/17 09:01 Last Admin: 03/17/17 20:41 Dose: 4,000 unit Heparin Sodium (Porcine) (Heparin) 5,000 units SC Q12 [facility] Last Admin: 03/19/17 09:17 Dose: 5,000 units Hydralazine HCl (Apresoline) 100 mg PO BID [facility] Last Admin: 03/19/17 09:17 Dose: 100 mg Hydrochlorothiazide (Hydrodiuril) 25 mg PO DAILY [facility] Last Admin: 03/19/17 09:18 Dose: 25 mg Dextrose/Sodium Chloride (Dextrose 5%/0.45% Ns 1000 Ml) 1,000 mls @ 50 mls/hr IV .Q20H [facility] Last Admin: 03/18/17 19:31 Dose: 50 mls/hr Insulin Aspart (Novolog) 0 unit SC ACHS [facility] PRN Reason: Protocol Last Admin: 03/19/17 07:30 Dose: Not Given Insulin Glargine (Lantus) 20 unit SC DAILY [facility] Last Admin: 03/19/17 09:29 Dose: 20 units Isosorbide Mononitrate (Imdur) 30 mg PO DAILY [facility] Last Admin: 03/19/17 09:19 Dose: 30 mg Latanoprost (Xalatan Opht) 0 ml OU HS [facility] Last Admin: 03/18/17 21:33 Dose: 1 ml Losartan Potassium (Cozaar) 50 mg PO DAILY [facility] Last Admin: 03/19/17 09:21 Dose: 50 mg Metoprolol Tartrate (Lopressor) 25 mg PO BID [facility] Last Admin: 03/19/17 09:18 Dose: 25 mg Morphine Sulfate (Morphine) 2 mg IVP Q4H PRN PRN Reason: Pain, moderate (4-7) Last Admin: 03/19/17 04:36 Dose: 2 mg Ondansetron HCl (Zofran Inj) 4 mg IVP Q8H PRN PRN Reason: Nausea/Vomiting Last Admin: 03/19/17 08:45 Dose: 4 mg Pantoprazole Sodium (Protonix Inj) 40 mg IVP DAILY [facility] Last Admin: 03/19/17 09:17 Dose: 40 mg Rosuvastatin Calcium (Crestor) 2.5 mg PO HS [facility] Last Admin: 03/18/17 21:31 Dose: Not Given Zolpidem Tartrate (Ambien) 5 mg PO HS PRN PRN Reason: Insomnia Last Admin: 03/18/17 00:13 Dose: 5 mg Physical Exam - Head Exam Head Exam: ATRAUMATIC, NORMOCEPHALIC - Eye Exam Eye Exam: Normal appearance - ENT Exam ENT Exam: Mucous Membranes Moist - Neck Exam Neck exam: Positive for: Normal Inspection - Respiratory Exam Respiratory Exam: Clear to Auscultation Bilateral - Cardiovascular Exam Cardiovascular Exam: REGULAR RHYTHM - GI/Abdominal Exam GI & Abdominal Exam: Normal Bowel Sounds, Soft Results - Vital Signs Recent Vital Signs: Last Vital Signs Temp 98.1 F 03/19/17 07:00 Pulse 60 03/19/17 07:00 Resp 20 03/19/17 07:00 BP 169/80 H 03/19/17 09:18 Pulse Ox 100 03/19/17 07:00 - Labs Result Diagrams: 03/18/17 06:19 03/18/17 06:19 Labs: Laboratory Results - last 24 hr 03/18/17 03/18/17 03/18/17 11:24 16:28 21:23 POC Glucose (mg/dL) 155 H 151 H 157 H 03/19/17 06:28 POC Glucose (mg/dL) 148 H Assessment & Plan (1) Asthma Status: Acute Comment: nebulizer treatment as needed. ABG because of history of smoking. Low risk for surgery from pulmonary standpoint (2) Closed displaced fracture of proximal epiphysis of left femur Status: Acute (3) Anemia, chronic renal failure Status: Acute (4) ESRD (end stage renal disease) on dialysis Status: Chronic
--- NOTE | 2017-03-19 12:50 | CP.PCM.PN ---
Subjective - Date & Time of Evaluation Date of Evaluation: 03/19/17 Time of Evaluation: 12:00 - Subjective Subjective: clinically same Objective - Vital Signs/Intake and Output Vital Signs (last 24 hours): Temp Pulse Resp BP Pulse Ox 98.1 F 60 20 169/80 H 100 03/19/17 07:00 03/19/17 07:00 03/19/17 07:00 03/19/17 09:18 03/19/17 07:00 - Medications Medications: Current Medications Albuterol/Ipratropium (Duoneb 3 Mg/0.5 Mg (3 Ml) Ud) 3 ml INH RQ6 [facility] Amlodipine Besylate (Norvasc) 10 mg PO DAILY [facility] Last Admin: 03/19/17 09:21 Dose: 10 mg Calcium Acetate (Phoslo) 1,334 mg PO TID [facility] Last Admin: 03/19/17 09:18 Dose: 1,334 mg Epoetin Sam (Procrit) 4,000 unit IV MWF [facility] Stop: 03/29/17 09:01 Last Admin: 03/17/17 20:41 Dose: 4,000 unit Heparin Sodium (Porcine) (Heparin) 5,000 units SC Q12 [facility] Last Admin: 03/19/17 09:17 Dose: 5,000 units Hydralazine HCl (Apresoline) 100 mg PO BID [facility] Last Admin: 03/19/17 09:17 Dose: 100 mg Hydrochlorothiazide (Hydrodiuril) 25 mg PO DAILY [facility] Last Admin: 03/19/17 09:18 Dose: 25 mg Dextrose/Sodium Chloride (Dextrose 5%/0.45% Ns 1000 Ml) 1,000 mls @ 50 mls/hr IV .Q20H [facility] Last Admin: 03/18/17 19:31 Dose: 50 mls/hr Insulin Aspart (Novolog) 0 unit SC ACHS [facility] PRN Reason: Protocol Last Admin: 03/19/17 07:30 Dose: Not Given Insulin Glargine (Lantus) 20 unit SC DAILY [facility] Last Admin: 03/19/17 09:29 Dose: 20 units Isosorbide Mononitrate (Imdur) 30 mg PO DAILY [facility] Last Admin: 03/19/17 09:19 Dose: 30 mg Latanoprost (Xalatan Opht) 0 ml OU HS [facility] Last Admin: 03/18/17 21:33 Dose: 1 ml Losartan Potassium (Cozaar) 50 mg PO DAILY [facility] Last Admin: 03/19/17 09:21 Dose: 50 mg Metoprolol Tartrate (Lopressor) 25 mg PO BID [facility] Last Admin: 03/19/17 09:18 Dose: 25 mg Morphine Sulfate (Morphine) 2 mg IVP Q4H PRN PRN Reason: Pain, moderate (4-7) Last Admin: 03/19/17 04:36 Dose: 2 mg Ondansetron HCl (Zofran Inj) 4 mg IVP Q8H PRN PRN Reason: Nausea/Vomiting Last Admin: 03/19/17 08:45 Dose: 4 mg Pantoprazole Sodium (Protonix Inj) 40 mg IVP DAILY [facility] Last Admin: 03/19/17 09:17 Dose: 40 mg Rosuvastatin Calcium (Crestor) 2.5 mg PO HS [facility] Last Admin: 03/18/17 21:31 Dose: Not Given Zolpidem Tartrate (Ambien) 5 mg PO HS PRN PRN Reason: Insomnia Last Admin: 03/18/17 00:13 Dose: 5 mg - Labs Labs: 03/18/17 06:19 03/18/17 06:19 PT 14.4 SECONDS (9.7-12.2) H 03/17/17 11:05 INR 1.3 03/17/17 11:05 APTT 34 SECONDS (21-34) 03/17/17 11:05 - Constitutional Appears: Well - Head Exam Head Exam: ATRAUMATIC, NORMAL INSPECTION, NORMOCEPHALIC - Eye Exam Eye Exam: EOMI, Normal appearance, PERRL Pupil Exam: NORMAL ACCOMODATION, PERRL - ENT Exam ENT Exam: Mucous Membranes Moist, Normal Exam - Neck Exam Neck Exam: Full ROM, Normal Inspection. absent: Lymphadenopathy - Respiratory Exam Respiratory Exam: Decreased Breath Sounds - Cardiovascular Exam Cardiovascular Exam: REGULAR RHYTHM, +S1, +S2 - GI/Abdominal Exam GI & Abdominal Exam: Soft, Diminished Bowel Sounds - Rectal Exam Rectal Exam: Deferred Assessment and Plan - Assessment and Plan (Free Text) Plan: s/p cardio s/p pulm s/p dr. steph johnson pt needs surg which will take 4 hour so needs clerance both drs are on board carl johnson w/f vomitting
--- NOTE | 2017-03-19 13:24 | CP.PCM.CON ---
History of Present Illness - History of Present Illness History of Present Illness: Consultation for: Cardiovascular risk stratification prior to orthopedic surgery 77 y/o female brought in by EMS s/p fall with complains of left hip pain. Pt states she tripped and fell at home landing on left side, now with severe posterior left hip pain 08/22. States she hit her head, doesn't recall if lost consciousness. Left leg contracted, unable to move down at this time. Denies chest pain, SOB, fever, chills, weakness, numbness or any other complaints. Pt fell 1 month ago and shattered right knee. ----> admitted with closed displaced fracture of proximal epiphysis of left femur after she fell at home. Denies shortness of breath, denies cough, denies fever chills or CP or CHF sx' s. Patient states that she uses nebulizer treatment as needed for asthma exacerbation and didn't have any attack for a while. CARDIAC HX: No reports of CO or CVA; sick sinus syndrome s/p dual chamber PPM PMH: DM, HTN, ESRD on HD, hypothyroid, CAD, hx CVA, PSH: right arm fistula, dual chamber pacemaker 04/24/2015: last check in [place] 01/2016 normal function ([employer]) , appendectomy, thyroid SOCHX: No Tobacco, No ETOH , No IVDA ROS: mild intermittent asthma, overall minimally active Review of Systems - Review of Systems All systems: reviewed and no additional remarkable complaints except Past Patient History - Past Medical History & Family History Past Medical History?: Yes Past Family History: Reviewed and not pertinent - Past Social History Smoking Status: Former Smoker - CARDIAC Hx Cardia Arrhythmia: (bradycardia) Hx Congestive Heart Failure: Yes Hx Hypercholesterolemia: Yes Hx Hypertension: Yes Hx Pacemaker: Yes - PULMONARY Hx Asthma: Yes Hx Chronic Obstructive Pulmonary Disease (COPD): Yes (ASTHMA) - NEUROLOGICAL Hx Neurological Disorder: Yes HX Cerebrovascular Accident: Yes Hx Vertigo: Yes - HEENT Hx Cataracts: Yes Hx Deafness: Yes (right ear) - RENAL Hx Chronic Kidney Disease: Yes - ENDOCRINE/METABOLIC Hx Hyperthyroidism: Yes (Thyroid surgery) Hx Hypothyroidism: Yes - HEMATOLOGICAL/ONCOLOGICAL Hx Anemia: Yes - INTEGUMENTARY Hx Dermatological Problems: No - MUSCULOSKELETAL/RHEUMATOLOGICAL Hx Falls: Yes - GASTROINTESTINAL Hx Gastrointestinal Disorders: No - GENITOURINARY/GYNECOLOGICAL Hx Genitourinary Disorders: No - PSYCHIATRIC Hx Substance Use: No - SURGICAL HISTORY Hx Appendectomy: Yes - ANESTHESIA Hx Anesthesia: Yes Hx Anesthesia Reactions: No Hx Malignant Hyperthermia: No Meds Allergies/Adverse Reactions: Allergies Allergy/AdvReac Type Severity Reaction Status Date / Time ibuprofen [From Motrin] Allergy Unknown URTICARIA Verified 03/17/17 09:53 oxycodone Allergy Unknown ITCHING Verified 03/17/17 09:53 - Medications Medications: Current Medications Albuterol/Ipratropium (Duoneb 3 Mg/0.5 Mg (3 Ml) Ud) 3 ml INH RQ6 [facility] Amlodipine Besylate (Norvasc) 10 mg PO DAILY [facility] Last Admin: 03/19/17 09:21 Dose: 10 mg Calcium Acetate (Phoslo) 1,334 mg PO TID [facility] Last Admin: 03/19/17 09:18 Dose: 1,334 mg Epoetin Sam (Procrit) 4,000 unit IV MWF [facility] Stop: 03/29/17 09:01 Last Admin: 03/17/17 20:41 Dose: 4,000 unit Heparin Sodium (Porcine) (Heparin) 5,000 units SC Q12 [facility] Last Admin: 03/19/17 09:17 Dose: 5,000 units Hydralazine HCl (Apresoline) 100 mg PO BID [facility] Last Admin: 03/19/17 09:17 Dose: 100 mg Hydrochlorothiazide (Hydrodiuril) 25 mg PO DAILY [facility] Last Admin: 03/19/17 09:18 Dose: 25 mg Dextrose/Sodium Chloride (Dextrose 5%/0.45% Ns 1000 Ml) 1,000 mls @ 50 mls/hr IV .Q20H [facility] Last Admin: 03/18/17 19:31 Dose: 50 mls/hr Insulin Aspart (Novolog) 0 unit SC ACHS [facility] PRN Reason: Protocol Last Admin: 03/19/17 07:30 Dose: Not Given Insulin Glargine (Lantus) 20 unit SC DAILY [facility] Last Admin: 03/19/17 09:29 Dose: 20 units Isosorbide Mononitrate (Imdur) 30 mg PO DAILY [facility] Last Admin: 03/19/17 09:19 Dose: 30 mg Latanoprost (Xalatan Opht) 0 ml OU HS [facility] Last Admin: 03/18/17 21:33 Dose: 1 ml Losartan Potassium (Cozaar) 50 mg PO DAILY [facility] Last Admin: 03/19/17 09:21 Dose: 50 mg Metoprolol Tartrate (Lopressor) 25 mg PO BID [facility] Last Admin: 03/19/17 09:18 Dose: 25 mg Morphine Sulfate (Morphine) 2 mg IVP Q4H PRN PRN Reason: Pain, moderate (4-7) Last Admin: 03/19/17 04:36 Dose: 2 mg Ondansetron HCl (Zofran Inj) 4 mg IVP Q8H PRN PRN Reason: Nausea/Vomiting Last Admin: 03/19/17 08:45 Dose: 4 mg Pantoprazole Sodium (Protonix Inj) 40 mg IVP DAILY [facility] Last Admin: 03/19/17 09:17 Dose: 40 mg Rosuvastatin Calcium (Crestor) 2.5 mg PO HS [facility] Last Admin: 03/18/17 21:31 Dose: Not Given Zolpidem Tartrate (Ambien) 5 mg PO HS PRN PRN Reason: Insomnia Last Admin: 03/18/17 00:13 Dose: 5 mg Physical Exam - Constitutional Appears: No Acute Distress - Head Exam Head Exam: ATRAUMATIC, NORMAL INSPECTION, NORMOCEPHALIC - Eye Exam Eye Exam: EOMI, Normal appearance, PERRL - ENT Exam ENT Exam: Mucous Membranes Moist, Normal Oropharynx - Neck Exam Neck exam: Positive for: Normal Inspection - Respiratory Exam Respiratory Exam: Clear to Auscultation Bilateral, NORMAL BREATHING PATTERN. absent: Rales, Rhonchi, Wheezes - Cardiovascular Exam Cardiovascular Exam: REGULAR RHYTHM, +S1, +S2, Systolic Murmur. absent: +S4 - GI/Abdominal Exam GI & Abdominal Exam: Soft. absent: Organomegaly, Rebound, Tenderness - Extremities Exam Extremities exam: Negative for: normal inspection (L. Leg imobilized) - Neurological Exam Neurological exam: Alert, Oriented x3 - Psychiatric Exam Psychiatric exam: Normal Affect, Normal Mood - Skin Skin Exam: Normal Color, Warm - Additional Findings Additional findings: L. arm AVF fistula with radiation to L. carotid Results - Vital Signs Recent Vital Signs: Last Vital Signs Temp 98.1 F 03/19/17 07:00 Pulse 60 03/19/17 07:00 Resp 20 03/19/17 07:00 BP 169/80 H 03/19/17 09:18 Pulse Ox 100 03/19/17 07:00 - Labs Result Diagrams: 03/18/17 06:19 03/18/17 06:19 Labs: Laboratory Results - last 24 hr 03/18/17 03/18/17 03/19/17 16:28 21:23 06:28 POC Glucose (mg/dL) 151 H 157 H 148 H 03/19/17 11:35 POC Glucose (mg/dL) 158 H - EKG Data EKG Interpreted by: Myself (AV pacing) - Imaging and Cardiology Chest x-ray Status: Image reviewed by me (Clear lungs, R. upper chest PPM with atrial and ventricular leads in normal position) Assessment & Plan - Assessment and Plan (Free Text) Assessment: 77 y/o with L. femoral fracture * HTN: uncontrolled on multiple meds (Hydralazine 100 BID, losartan 50, imdur 30 , norvasc 10, HCTZ 25, metoprolol 25 BID) * EKG: paced appropriately * No CP or CHF component to exam * Anemia: without hx of gross blood loss * ESRD on HD Patient does not have any acute sx's suspicious for active CAD or acute CHF which would need additional testing or intervention prior to emergent surgery. May proceed with appropriate risk. I would suggest increasing BB or change to coreg and titrate for additional BP control: Pain control would also help to reduce secondary HTN.
[2017-03-19] MEDS: Albuterol-Ipratrop 3 mg / 0.5 (3 ml) UD INH SCH ×2 (14:32→20:09)
[2017-03-19] MEDS: Dextrose 5%/0.45% NS 1,000 ML IV SCH (15:10)
[2017-03-19 16:31] LABS: ABG ALLEN TEST PO; ARTERIAL BLOOD HGB O2 SAT 97.3 % (95.0-98.0); CARBOXYHEMOGLOBIN 1.7 % (0.5-1.5); DRAW SITE RR; HHB 0.2 % (0.0-5.0); METHEMOGLOBIN 0.8 % (0.0-3.0)
[2017-03-19] MEDS: Rosuvastatin Calcium 2.5 mg Tab PO SCH (21:36)
[2017-03-20] MEDS: Albuterol-Ipratrop 3 mg / 0.5 (3 ml) UD INH SCH ×4 (01:26→19:52)
--- NOTE | 2017-03-20 01:26 | CP.PCM.CON ---
History of Present Illness - History of Present Illness History of Present Illness: 77 yo Female, w/ PMH= uncontrolled HTN, COPD, Asthma, hypercholest, ESRD on HD, DM, CAD w/history of CVA, sick sinus syndrome s/p dual chamber PPM placement, h/ p multiple falls, presented to the ER at on 03/17/17 w/ L hip pain and inability to WB on LLE for 1 day. She states that this was a mechanical fall at home, fall from standing, landed on L hip/side resulting in 10/10 Left hip pain and inability to ambulate or get up. She denies LOC, SOB, fevers, chills, CP, SALAZAR, N&V, numbness, tingling, or other MSK trauma. She does admit to falling about 4 weeks ago and landing on anterior Right knee, went to another ER, placed in knee immobilizer and dx'd with patella fracture, did not followup with an orthopedic surgeon as instructed by ER. She admits to hitting her head during the fall but denies LOC. She was brought to the ER at same day of injury via EMS. After evaluation of pt and reveiw of imaging by ER staff, she was diagnosed with a hip fracture/ proximal femur fracture and admitted to the medical service under Dr. Chad Mcelroy and an orthopedic consultation was placed. The Orthopedics PA evaluated the pt on admission 03/17/17 and I evaluated the pt as an inpt on 03/18/17. Review of Imaging: X-rays L hip/pelvis/femur: ++ displaced intertrochanteric hip fracture with sagital split that extends to subtrochanteric area/ proximal femur more than 7cm distal to lesser trochanter. CT L femur/hip: ++ displaced intertrochanteric hip fracture with sagital split that extends to subtrochanteric area/ proximal femur more than 7cm distal to lesser trochanter, (-) path fracture Past Patient History - Past Medical History & Family History Past Medical History?: Yes Past Family History: Reviewed and not pertinent - Past Social History Smoking Status: Former Smoker - CARDIAC Hx Cardia Arrhythmia: (bradycardia) Hx Congestive Heart Failure: Yes Hx Hypercholesterolemia: Yes Hx Hypertension: Yes Hx Pacemaker: Yes - PULMONARY Hx Asthma: Yes Hx Chronic Obstructive Pulmonary Disease (COPD): Yes (ASTHMA) - NEUROLOGICAL Hx Neurological Disorder: Yes HX Cerebrovascular Accident: Yes Hx Vertigo: Yes - HEENT Hx Cataracts: Yes Hx Deafness: Yes (right ear) - RENAL Hx Chronic Kidney Disease: Yes - ENDOCRINE/METABOLIC Hx Hyperthyroidism: Yes (Thyroid surgery) Hx Hypothyroidism: Yes - HEMATOLOGICAL/ONCOLOGICAL Hx Anemia: Yes - INTEGUMENTARY Hx Dermatological Problems: No - MUSCULOSKELETAL/RHEUMATOLOGICAL Hx Falls: Yes - GASTROINTESTINAL Hx Gastrointestinal Disorders: No - GENITOURINARY/GYNECOLOGICAL Hx Genitourinary Disorders: No - PSYCHIATRIC Hx Substance Use: No - SURGICAL HISTORY Hx Appendectomy: Yes - ANESTHESIA Hx Anesthesia: Yes Hx Anesthesia Reactions: No Hx Malignant Hyperthermia: No Meds Allergies/Adverse Reactions: Allergies Allergy/AdvReac Type Severity Reaction Status Date / Time ibuprofen [From Motrin] Allergy Unknown URTICARIA Verified 03/17/17 09:53 oxycodone Allergy Unknown ITCHING Verified 03/17/17 09:53 - Medications Medications: Current Medications Albuterol/Ipratropium (Duoneb 3 Mg/0.5 Mg (3 Ml) Ud) 3 ml INH RQ6 [facility] Last Admin: 03/19/17 20:09 Dose: 3 ml Amlodipine Besylate (Norvasc) 10 mg PO DAILY [facility] Last Admin: 03/19/17 09:21 Dose: 10 mg Calcium Acetate (Phoslo) 1,334 mg PO TID [facility] Last Admin: 03/19/17 17:38 Dose: 1,334 mg Epoetin Sam (Procrit) 4,000 unit IV MWF [facility] Stop: 03/29/17 09:01 Last Admin: 03/17/17 20:41 Dose: 4,000 unit Heparin Sodium (Porcine) (Heparin) 5,000 units SC Q12 [facility] Last Admin: 03/19/17 21:36 Dose: 5,000 units Hydralazine HCl (Apresoline) 100 mg PO BID [facility] Last Admin: 03/19/17 17:30 Dose: Not Given Hydrochlorothiazide (Hydrodiuril) 25 mg PO DAILY [facility] Last Admin: 03/19/17 09:18 Dose: 25 mg Hydromorphone HCl (Dilaudid) 1 mg IVP Q4H PRN PRN Reason: Pain, severe (8-10) Dextrose/Sodium Chloride (Dextrose 5%/0.45% Ns 1000 Ml) 1,000 mls @ 50 mls/hr IV .Q20H [facility] Last Admin: 03/19/17 15:10 Dose: 50 mls/hr Insulin Aspart (Novolog) 0 unit SC ACHS [facility] PRN Reason: Protocol Last Admin: 03/19/17 21:25 Dose: Not Given Insulin Glargine (Lantus) 20 unit SC DAILY [facility] Last Admin: 03/19/17 09:29 Dose: 20 units Isosorbide Mononitrate (Imdur) 30 mg PO DAILY [facility] Last Admin: 03/19/17 09:19 Dose: 30 mg Latanoprost (Xalatan Opht) 0 ml OU HS [facility] Last Admin: 03/18/17 21:33 Dose: 1 ml Losartan Potassium (Cozaar) 50 mg PO DAILY [facility] Last Admin: 03/19/17 09:21 Dose: 50 mg Metoprolol Tartrate (Lopressor) 25 mg PO BID [facility] Last Admin: 03/19/17 17:38 Dose: 25 mg Ondansetron HCl (Zofran Inj) 4 mg IVP Q8H PRN PRN Reason: Nausea/Vomiting Last Admin: 03/19/17 08:45 Dose: 4 mg Pantoprazole Sodium (Protonix Inj) 40 mg IVP DAILY [facility] Last Admin: 03/19/17 09:17 Dose: 40 mg Rosuvastatin Calcium (Crestor) 2.5 mg PO HS [facility] Last Admin: 03/19/17 21:36 Dose: 2.5 mg Zolpidem Tartrate (Ambien) 5 mg PO HS PRN PRN Reason: Insomnia Last Admin: 03/19/17 21:35 Dose: 5 mg Physical Exam - Extremities Exam Additional comments: Right Lower Extremity: -ttp, - swelling/warmth/redness, FROM at all joints w/o pain, - instability, skin intact + 5/5 motor strength Hip flex/ext, knee flex/ext, ankle DF/PF, toes up and down sensory intact L2-S1, DPN/TN/SPN 2+ DP, BCR all toes Left Lower Extremity: ++++ ttp at groin/GT/hip, +++ log roll, + mild swelling at thigh, skin intact, -redness/warmth + 5/5 motor strength ankle DF/PF, toes up & down sensory intact L2-S1, DPN/TN/SPN 2+ DP, BCR all toes Calves soft/nt BL Results - Vital Signs Recent Vital Signs: Last Vital Signs Temp 98.9 F 03/19/17 17:57 Pulse 62 03/19/17 22:00 Resp 20 03/19/17 17:57 BP 116/53 L 03/19/17 22:00 Pulse Ox 92 L 03/19/17 17:57 - Labs Result Diagrams: 03/18/17 06:19 03/18/17 06:19 Labs: Laboratory Results - last 24 hr 03/19/17 03/19/17 03/19/17 06:28 11:35 16:28 Puncture Site Rr pCO2 53 H pO2 191 H HCO3 28.0 ABG pH 7.36 ABG Total CO2 31.5 H ABG O2 Saturation 99.8 H ABG Base Excess 3.9 H ABG Hemoglobin 7.6 L ABG Carboxyhemoglobin 1.7 H POC ABG HHb (Measured) 0.2 ABG Methemoglobin 0.8 Mehrdad Test Po A-a O2 Difference -1.0 Respiratory Index 0 Hgb O2 Saturation 97.3 Liter Flow 4.0 FiO2 36.0 POC Glucose (mg/dL) 148 H 158 H 03/19/17 03/19/17 16:40 21:23 Puncture Site pCO2 pO2 HCO3 ABG pH ABG Total CO2 ABG O2 Saturation ABG Base Excess ABG Hemoglobin ABG Carboxyhemoglobin POC ABG HHb (Measured) ABG Methemoglobin Mehrdad Test A-a O2 Difference Respiratory Index Hgb O2 Saturation Liter Flow FiO2 POC Glucose (mg/dL) 181 H 198 H Assessment & Plan (1) Right patella fracture Status: Acute (2) Closed displaced intertrochanteric fracture of left femur Assessment and Plan: 77 yo Female w/ multiple PMH including DM, CAD, ESRD on HD, sick sinus syndrome s/p dual chamber PPM presented to the ER at w/ Left hip pain s/p mechanical fall at home Dx= #1 Left hip/femur displaced pertrochanteric (intertrochanteric )hip fracture that extends into proximal femoral shaft (7cm beyond LT) #2 Right knee non-displaced inferior pole patella fracture PLAN: R knee: -continue knee immobilizer -CT ordered to asses healing of patella fracture -WBAT w/ knee immobilizer on L hip/femur: -clinically and on imaging, displaced segmental pertrochanteric hip/proximal femur fracture (fracture starts at inter-trochanteric hip fracture and extends 7cm distal to lesser trochanter, essentially into proximal femoral shaft -indicated for ORIF with long cephalomedulary nail and cables vs ORIF w/ proximal femoral locking plate & screws -I had a long d/w pt today about the r/b/a to the surgery with a [place] speaking explosive ordnance specialist although her knowledge of the [place] language is adequate and she understands, all questions were answered, she understands the dx and surgery, accepts the risks and wishes to proceed with surgery -this is a complex hip fracture that will require most likely a few hours of surgery to successful fix and the pt has a complex PMH as well -once appropriate clearances are obtained and pt optimized for such a surgery, will schedule during elective OR time when it is safe to do complex open surgery on someone with complex PMH like this, this surgery should not be done in the late evening on the add on schedule or during the weekend with environmental health and safety leader staff -anticipate worst case scenario, using my block time on Wednesday 03/21 morning to to the surgery safely, if the pt is cleared/optimized prior to then and the OR has time available during normal hours, will attempt surgery scheduling then (Monday or Monday) -will need medical and cardiology clearance -Hgb/Hct is low, will need repeat CBC and 2 units T&C for OR, should consider transfusion of 2 units pRBC pre-op, expect blood loss in OR and pre-op blood loss as well with this type of fracture -strict NWB LLE -bucks traction w/ 5lbs -overhead trapeze -on HD w/ minimal urine output, no need for meade? -if urine output is available, request UA/UCx -pain control -hold DVT proph for at least 24 hours pre-op once surgery scheduled -request anesthesia consult as well to evaluate pt pre-op and pacemaker management -will follow Thank you for allowing me to contribute to the care of your patient please contact me with any questions, updates, concerns [phone] Marcelo Tinoco MD Orthopedic Surgery Status: Acute
[2017-03-20] MEDS: (Novolog) Insulin Aspart, Recombinant 100 u/ml 10 ml vial SC SCH ×4 (07:30→22:09)
[2017-03-20 08:17] LABS: BASO # 0.1 K/uL (0.0-0.2); BASO % 0.8 % (0.0-2.0); EOS # 0.1 K/uL (0.0-0.7); HEMATOCRIT 23.9 % (34.0-47.0); LYMPH # 0.8 K/uL (1.0-4.3); LYMPH % 11.4 % (20.0-40.0); MEAN CELL VOLUME 93.6 fL (81.0-99.0); MEAN CORPUSCULAR HEMOGLOBIN 30.5 pg (27.0-31.0); MEAN CORPUSCULAR HGB CONC 32.6 g/dL (33.0-37.0); MONO # 0.9 K/uL (0.0-0.8); MONO % 12.6 % (0.0-10.0); RED CELL DISTRIBUTION WIDTH 18.8 % (11.5-14.5); WHITE BLOOD COUNT 6.8 K/uL (4.8-10.8)
[2017-03-20 08:20] LABS: RBC URINE 28 /hpf (0-3); URINE BACTERIA FEW (<OCC); URINE BILIRUBIN NEGATIVE (NEGATIVE); URINE BLOOD NEGATIVE (NEGATIVE); URINE COLOR Amber (YELLOW); URINE GLUCOSE (UA) 1+ mg/dL (Normal); URINE KETONE NEGATIVE (NEGATIVE); URINE LEUKOCYTE ESTERASE 3+ Leu/uL (Negative); URINE PROTEIN 2+ mg/dL (NEGATIVE); URINE UROBILINOGEN NORMAL mg/dL (0.2-1.0); WBC URINE 148 /hpf (0-5)
[2017-03-20 08:25] LABS: INR 1.1
[2017-03-20 08:48] LABS: POTASSIUM 5.2 mmol/L (3.6-5.2)
[2017-03-20 08:51] LABS: BILIRUBIN,TOTAL 0.8 mg/dL (0.2-1.3); CALCIUM 7.5 mg/dl (8.6-10.4); TOTAL PROTEIN 6.7 g/dL (6.3-8.3)
[2017-03-20] MEDS: (Lantus) Insulin Glargine, Recombinant SC SCH (10:00)
[2017-03-20] MEDS: EPOETIN ALFA 4,000 UNIT/ML ML Dialysis IV SCH (10:59)
--- NOTE | 2017-03-20 12:25 | CP.PCM.PN ---
<Leti Addison - Last Filed: 03/20/17 12:21> Subjective - Date & Time of Evaluation Date of Evaluation: 03/20/17 Time of Evaluation: 12:21 - Subjective Subjective: Patient seen in dialysis Says she is tired, pain in her hip is controlled. Denies CP/SOB/dizziness. Objective - Vital Signs/Intake and Output Vital Signs (last 24 hours): Temp Pulse Resp BP Pulse Ox 98.3 F 60 17 134/49 L 100 03/20/17 11:19 03/20/17 11:19 03/20/17 11:19 03/20/17 12:10 03/20/17 07:25 Intake and Output: 03/20/17 03/20/17 06:59 18:59 Intake Total 580 400 Output Total 30 Balance 580 370 - Medications Medications: Current Medications Albuterol/Ipratropium (Duoneb 3 Mg/0.5 Mg (3 Ml) Ud) 3 ml INH RQ6 [facility] Last Admin: 03/20/17 07:34 Dose: 3 ml Amlodipine Besylate (Norvasc) 10 mg PO DAILY [facility] Last Admin: 03/19/17 09:21 Dose: 10 mg Calcium Acetate (Phoslo) 1,334 mg PO TID [facility] Last Admin: 03/19/17 17:38 Dose: 1,334 mg Epoetin Sam (Procrit) 4,000 unit IV MWF [facility] Stop: 03/29/17 09:01 Last Admin: 03/20/17 10:59 Dose: 4,000 unit Heparin Sodium (Porcine) (Heparin) 5,000 units SC Q12 [facility] Last Admin: 03/19/17 21:36 Dose: 5,000 units Hydralazine HCl (Apresoline) 100 mg PO BID [facility] Last Admin: 03/19/17 17:30 Dose: Not Given Hydrochlorothiazide (Hydrodiuril) 25 mg PO DAILY [facility] Last Admin: 03/19/17 09:18 Dose: 25 mg Hydromorphone HCl (Dilaudid) 1 mg IVP Q4H PRN PRN Reason: Pain, severe (8-10) Dextrose/Sodium Chloride (Dextrose 5%/0.45% Ns 1000 Ml) 1,000 mls @ 50 mls/hr IV .Q20H [facility] Last Admin: 03/19/17 15:10 Dose: 50 mls/hr Insulin Aspart (Novolog) 0 unit SC ACHS [facility] PRN Reason: Protocol Last Admin: 03/19/17 21:25 Dose: Not Given Insulin Glargine (Lantus) 20 unit SC DAILY [facility] Last Admin: 03/19/17 09:29 Dose: 20 units Isosorbide Mononitrate (Imdur) 30 mg PO DAILY [facility] Last Admin: 03/19/17 09:19 Dose: 30 mg Latanoprost (Xalatan Opht) 0 ml OU HS [facility] Last Admin: 03/18/17 21:33 Dose: 1 ml Losartan Potassium (Cozaar) 50 mg PO DAILY [facility] Last Admin: 03/19/17 09:21 Dose: 50 mg Metoprolol Tartrate (Lopressor) 25 mg PO BID [facility] Last Admin: 03/19/17 17:38 Dose: 25 mg Ondansetron HCl (Zofran Inj) 4 mg IVP Q8H PRN PRN Reason: Nausea/Vomiting Last Admin: 03/19/17 08:45 Dose: 4 mg Pantoprazole Sodium (Protonix Inj) 40 mg IVP DAILY [facility] Last Admin: 03/19/17 09:17 Dose: 40 mg Rosuvastatin Calcium (Crestor) 2.5 mg PO HS [facility] Last Admin: 03/19/17 21:36 Dose: 2.5 mg Zolpidem Tartrate (Ambien) 5 mg PO HS PRN PRN Reason: Insomnia Last Admin: 03/19/17 21:35 Dose: 5 mg - Labs Labs: 03/20/17 08:07 03/20/17 08:07 PT 12.7 SECONDS (9.7-12.2) H 03/20/17 08:07 INR 1.1 03/20/17 08:07 APTT 32 SECONDS (21-34) 03/20/17 08:07 - Extremities Exam Additional comments: LLE: in traction patient in NAD +ROM ankle/toes, sensation intact calves soft NT neg homans Assessment and Plan (1) Closed displaced fracture of proximal epiphysis of left femur Assessment & Plan: Per Dr. Tinoco, plan femoral nailing/ORIF on 03/22 0745 for 1uPRBC today, will f/u h/h UTI on admit, ucx pending, defer tx to Dr. Mcelroy continue traction VTE proph, on heparin, to be held 24 hrs pre op d/w Dr. Tinoco, agrees with above cardio and pulm consultation/risk strat appreciated Status: Acute (2) Frequent falls Assessment & Plan: see above Status: Acute (3) Anemia, chronic renal failure Assessment & Plan: for 1uPRBC today with HD Status: Acute <Marcelo Boucher S - Last Filed: 04/15/17 01:06> Subjective - Subjective Subjective: Pt seen and examined. Agree with PA assessment and plan. Pre-op for ORIF hip/proximal femur with long TFN/cephalomedulary nail & cables vs proximal femur locking plate. Complex injury requiring complex fixation/surgery in a complex pt with complex PMH. Procedure should be done during elective OR time with full anesthesia staff and Ortho OR staff during surgery, not ideal for doing this procedure on this pt on add on schedule with On-call staff in evening. Elective OR time obtained 745am on Mon03/22/17. Transfuse PRBC, medical optimization, HD. Will follow. Objective - Vital Signs/Intake and Output Vital Signs (last 24 hours): Temp Pulse Resp BP Pulse Ox 99 F 69 20 146/49 L 100 03/24/17 15:35 03/24/17 15:35 03/24/17 15:35 03/24/17 15:35 03/24/17 15:35 - Labs Labs: 03/24/17 10:29 03/24/17 10:29 PT 12.7 SECONDS (9.7-12.2) H 03/20/17 08:07 INR 1.1 03/20/17 08:07 APTT 32 SECONDS (21-34) 03/20/17 08:07 Assessment and Plan (1) Right patella fracture Status: Acute (2) Closed displaced intertrochanteric fracture of left femur Status: Acute
[2017-03-20] MEDS: HYDROmorphone 1 mg/ml ISec IVP PRN (12:28)
[2017-03-20] MEDS: Dextrose 5%/0.45% NS 1,000 ML IV SCH (14:00)
--- NOTE | 2017-03-20 14:02 | CP.PCM.PN ---
Subjective - Date & Time of Evaluation Date of Evaluation: 03/20/17 Time of Evaluation: 12:40 - Subjective Subjective: clinically same Objective - Vital Signs/Intake and Output Vital Signs (last 24 hours): Temp Pulse Resp BP Pulse Ox 97.7 F 60 17 147/52 L 100 03/20/17 12:40 03/20/17 12:40 03/20/17 12:40 03/20/17 12:40 03/20/17 12:40 Intake and Output: 03/20/17 03/20/17 06:59 18:59 Intake Total 580 750 Output Total 30 Balance 580 720 - Medications Medications: Current Medications Albuterol/Ipratropium (Duoneb 3 Mg/0.5 Mg (3 Ml) Ud) 3 ml INH RQ6 [facility] Last Admin: 03/20/17 13:45 Dose: Not Given Amlodipine Besylate (Norvasc) 10 mg PO DAILY [facility] Last Admin: 03/19/17 09:21 Dose: 10 mg Calcium Acetate (Phoslo) 1,334 mg PO TID [facility] Last Admin: 03/19/17 17:38 Dose: 1,334 mg Epoetin Sam (Procrit) 4,000 unit IV MWF [facility] Stop: 03/29/17 09:01 Last Admin: 03/20/17 10:59 Dose: 4,000 unit Heparin Sodium (Porcine) (Heparin) 5,000 units SC Q12 [facility] Last Admin: 03/19/17 21:36 Dose: 5,000 units Hydralazine HCl (Apresoline) 100 mg PO BID [facility] Last Admin: 03/19/17 17:30 Dose: Not Given Hydrochlorothiazide (Hydrodiuril) 25 mg PO DAILY [facility] Last Admin: 03/19/17 09:18 Dose: 25 mg Hydromorphone HCl (Dilaudid) 1 mg IVP Q4H PRN PRN Reason: Pain, severe (8-10) Last Admin: 03/20/17 12:28 Dose: 1 mg Dextrose/Sodium Chloride (Dextrose 5%/0.45% Ns 1000 Ml) 1,000 mls @ 50 mls/hr IV .Q20H [facility] Last Admin: 03/19/17 15:10 Dose: 50 mls/hr Insulin Aspart (Novolog) 0 unit SC ACHS [facility] PRN Reason: Protocol Last Admin: 03/19/17 21:25 Dose: Not Given Insulin Glargine (Lantus) 20 unit SC DAILY [facility] Last Admin: 03/19/17 09:29 Dose: 20 units Isosorbide Mononitrate (Imdur) 30 mg PO DAILY [facility] Last Admin: 03/19/17 09:19 Dose: 30 mg Latanoprost (Xalatan Opht) 0 ml OU HS [facility] Last Admin: 03/18/17 21:33 Dose: 1 ml Losartan Potassium (Cozaar) 50 mg PO DAILY [facility] Last Admin: 03/19/17 09:21 Dose: 50 mg Metoprolol Tartrate (Lopressor) 25 mg PO BID [facility] Last Admin: 03/19/17 17:38 Dose: 25 mg Ondansetron HCl (Zofran Inj) 4 mg IVP Q8H PRN PRN Reason: Nausea/Vomiting Last Admin: 03/20/17 14:00 Dose: 4 mg Pantoprazole Sodium (Protonix Inj) 40 mg IVP DAILY [facility] Last Admin: 03/20/17 14:00 Dose: 40 mg Rosuvastatin Calcium (Crestor) 2.5 mg PO HS [facility] Last Admin: 03/19/17 21:36 Dose: 2.5 mg Zolpidem Tartrate (Ambien) 5 mg PO HS PRN PRN Reason: Insomnia Last Admin: 03/19/17 21:35 Dose: 5 mg - Labs Labs: 03/20/17 08:07 03/20/17 08:07 PT 12.7 SECONDS (9.7-12.2) H 03/20/17 08:07 INR 1.1 03/20/17 08:07 APTT 32 SECONDS (21-34) 03/20/17 08:07 - Constitutional Appears: Well - Head Exam Head Exam: ATRAUMATIC, NORMAL INSPECTION, NORMOCEPHALIC - Eye Exam Eye Exam: EOMI, Normal appearance, PERRL Pupil Exam: NORMAL ACCOMODATION, PERRL - ENT Exam ENT Exam: Mucous Membranes Moist, Normal Exam - Neck Exam Neck Exam: Full ROM, Normal Inspection. absent: Lymphadenopathy - Respiratory Exam Respiratory Exam: Decreased Breath Sounds - Cardiovascular Exam Cardiovascular Exam: REGULAR RHYTHM, +S1, +S2 - GI/Abdominal Exam GI & Abdominal Exam: Soft, Diminished Bowel Sounds - Rectal Exam Rectal Exam: Deferred Assessment and Plan - Assessment and Plan (Free Text) Plan: Consultation orthopedic Consultation senior construction manager Consultation supply chain manager plan femoral nailing/ORIF on 03/22 for 1uPRBC today f/u h/h ucx pending continue traction VTE proph, on heparin, to be held 24 hrs pre op
--- NOTE | 2017-03-20 15:20 | CP.PCM.PN ---
Subjective - Date & Time of Evaluation Date of Evaluation: 03/20/17 Time of Evaluation: 11:00 - Subjective Subjective: Patient seen and examined. Lying comfortably in no acute distress getting hemodialysis Denies shortness of breath, denies fever or chills Objective - Vital Signs/Intake and Output Vital Signs (last 24 hours): Temp Pulse Resp BP Pulse Ox 97.7 F 60 17 147/52 L 100 03/20/17 12:40 03/20/17 12:40 03/20/17 12:40 03/20/17 12:40 03/20/17 12:40 Intake and Output: 03/20/17 03/20/17 06:59 18:59 Intake Total 580 750 Output Total 30 Balance 580 720 - Medications Medications: Current Medications Albuterol/Ipratropium (Duoneb 3 Mg/0.5 Mg (3 Ml) Ud) 3 ml INH RQ6 [facility] Last Admin: 03/20/17 13:45 Dose: Not Given Amlodipine Besylate (Norvasc) 10 mg PO DAILY [facility] Last Admin: 03/20/17 14:02 Dose: 10 mg Calcium Acetate (Phoslo) 1,334 mg PO TID [facility] Last Admin: 03/20/17 14:00 Dose: Not Given Epoetin Sam (Procrit) 4,000 unit IV MWF [facility] Stop: 03/29/17 09:01 Last Admin: 03/20/17 10:59 Dose: 4,000 unit Heparin Sodium (Porcine) (Heparin) 5,000 units SC Q12 [facility] Last Admin: 03/20/17 10:00 Dose: Not Given Hydralazine HCl (Apresoline) 100 mg PO BID [facility] Last Admin: 03/20/17 14:02 Dose: 100 mg Hydrochlorothiazide (Hydrodiuril) 25 mg PO DAILY [facility] Last Admin: 03/20/17 14:01 Dose: 25 mg Hydromorphone HCl (Dilaudid) 1 mg IVP Q4H PRN PRN Reason: Pain, severe (8-10) Last Admin: 03/20/17 12:28 Dose: 1 mg Dextrose/Sodium Chloride (Dextrose 5%/0.45% Ns 1000 Ml) 1,000 mls @ 50 mls/hr IV .Q20H [facility] Last Admin: 03/20/17 14:00 Dose: 50 mls/hr Insulin Aspart (Novolog) 0 unit SC [facility] PRN Reason: Protocol Last Admin: 03/20/17 11:30 Dose: Not Given Insulin Glargine (Lantus) 20 unit SC DAILY [facility] Last Admin: 03/20/17 10:00 Dose: Not Given Isosorbide Mononitrate (Imdur) 30 mg PO DAILY [facility] Last Admin: 03/20/17 14:02 Dose: 30 mg Latanoprost (Xalatan Opht) 0 ml OU HS [facility] Last Admin: 03/18/17 21:33 Dose: 1 ml Losartan Potassium (Cozaar) 50 mg PO DAILY [facility] Last Admin: 03/20/17 14:01 Dose: 50 mg Metoprolol Tartrate (Lopressor) 25 mg PO BID [facility] Last Admin: 03/20/17 10:00 Dose: Not Given Ondansetron HCl (Zofran Inj) 4 mg IVP Q8H PRN PRN Reason: Nausea/Vomiting Last Admin: 03/20/17 14:00 Dose: 4 mg Pantoprazole Sodium (Protonix Inj) 40 mg IVP DAILY [facility] Last Admin: 03/20/17 14:00 Dose: 40 mg Rosuvastatin Calcium (Crestor) 2.5 mg PO HS [facility] Last Admin: 03/19/17 21:36 Dose: 2.5 mg Zolpidem Tartrate (Ambien) 5 mg PO HS PRN PRN Reason: Insomnia Last Admin: 03/19/17 21:35 Dose: 5 mg - Labs Labs: 03/20/17 08:07 03/20/17 08:07 PT 12.7 SECONDS (9.7-12.2) H 03/20/17 08:07 INR 1.1 03/20/17 08:07 APTT 32 SECONDS (21-34) 03/20/17 08:07 - Head Exam Head Exam: ATRAUMATIC, NORMOCEPHALIC - Eye Exam Eye Exam: Normal appearance - ENT Exam ENT Exam: Mucous Membranes Moist - Neck Exam Neck Exam: Normal Inspection - Respiratory Exam Respiratory Exam: Decreased Breath Sounds - Cardiovascular Exam Cardiovascular Exam: REGULAR RHYTHM - GI/Abdominal Exam GI & Abdominal Exam: Soft, Normal Bowel Sounds - Extremities Exam Extremities Exam: Normal Inspection - Neurological Exam Neurological Exam: Awake Assessment and Plan (1) Asthma Assessment & Plan: Continue nebulizer treatment as needed ABG consistent with mild respiratory acidosis Patient completely asymptomatic Consider BiPAP at night and postsurgery Inhaled steroids Status: Acute (2) Closed displaced fracture of proximal epiphysis of left femur Status: Acute (3) Anemia, chronic renal failure Status: Acute (4) ESRD (end stage renal disease) on dialysis Status: Chronic
[2017-03-20] MEDS: Rosuvastatin Calcium 2.5 mg Tab PO SCH (22:08)
[2017-03-20] MEDS: Latanoprost 2.5 ml Opht Soln OU SCH (22:08)
[2017-03-21] MEDS: Albuterol-Ipratrop 3 mg / 0.5 (3 ml) UD INH SCH ×4 (01:09→19:15)
[2017-03-21 07:25] LABS: BASO % 0.5 % (0.0-2.0); EOS # 0.1 K/uL (0.0-0.7); EOS % 1.5 % (0.0-4.0); HEMATOCRIT 27.8 % (34.0-47.0); LYMPH # 0.7 K/uL (1.0-4.3); LYMPH % 10.4 % (20.0-40.0); MEAN CORPUSCULAR HEMOGLOBIN 30.2 pg (27.0-31.0); MEAN PLATELET VOLUME 9.1 fL (7.2-11.7); MONO % 13.5 % (0.0-10.0); NRBC % 0.1 % (0.0-2.0); RED CELL DISTRIBUTION WIDTH 18.2 % (11.5-14.5); WHITE BLOOD COUNT 7.2 K/uL (4.8-10.8)
--- NOTE | 2017-03-21 07:28 | CP.PCM.PN ---
Subjective - Date & Time of Evaluation Date of Evaluation: 03/21/17 Time of Evaluation: 10:00 - Subjective Subjective: PGY2 on medicine Dr. Mcelroy service: Pt seen and examined at bedside this morning. Pt reports left thigh pain and frictional pain on her left ankle due to hardware. Patient also described left arm tingling sensation but not really bothering her. No acute events overnight. Objective - Vital Signs/Intake and Output Vital Signs (last 24 hours): Temp Pulse Resp BP Pulse Ox 98.0 F 60 20 143/52 L 96 03/21/17 00:05 03/21/17 00:05 03/21/17 00:05 03/21/17 00:05 03/21/17 00:05 Intake and Output: 03/21/17 03/21/17 06:59 18:59 Intake Total 600 Balance 600 - Medications Medications: Current Medications Albuterol/Ipratropium (Duoneb 3 Mg/0.5 Mg (3 Ml) Ud) 3 ml INH RQ6 [facility] Last Admin: 03/21/17 01:09 Dose: 3 ml Amlodipine Besylate (Norvasc) 10 mg PO DAILY [facility] Last Admin: 03/20/17 14:02 Dose: 10 mg Calcium Acetate (Phoslo) 1,334 mg PO TID [facility] Last Admin: 03/20/17 18:16 Dose: 1,334 mg Epoetin Sam (Procrit) 4,000 unit IV MWF [facility] Stop: 03/29/17 09:01 Last Admin: 03/20/17 10:59 Dose: 4,000 unit Heparin Sodium (Porcine) (Heparin) 5,000 units SC Q12 [facility] Last Admin: 03/20/17 22:08 Dose: 5,000 units Hydralazine HCl (Apresoline) 100 mg PO BID [facility] Last Admin: 03/20/17 18:17 Dose: Not Given Hydrochlorothiazide (Hydrodiuril) 25 mg PO DAILY [facility] Last Admin: 03/20/17 14:01 Dose: 25 mg Hydromorphone HCl (Dilaudid) 1 mg IVP Q4H PRN PRN Reason: Pain, severe (8-10) Last Admin: 03/20/17 12:28 Dose: 1 mg Dextrose/Sodium Chloride (Dextrose 5%/0.45% Ns 1000 Ml) 1,000 mls @ 50 mls/hr IV .Q20H [facility] Last Admin: 03/20/17 14:00 Dose: 50 mls/hr Insulin Aspart (Novolog) 0 unit SC ACHS [facility] PRN Reason: Protocol Last Admin: 03/20/17 22:09 Dose: Not Given Insulin Glargine (Lantus) 20 unit SC DAILY [facility] Last Admin: 03/20/17 10:00 Dose: Not Given Isosorbide Mononitrate (Imdur) 30 mg PO DAILY [facility] Last Admin: 03/20/17 14:02 Dose: 30 mg Latanoprost (Xalatan Opht) 0 ml OU HS [facility] Last Admin: 03/20/17 22:08 Dose: 1 ml Losartan Potassium (Cozaar) 50 mg PO DAILY [facility] Last Admin: 03/20/17 14:01 Dose: 50 mg Metoprolol Tartrate (Lopressor) 25 mg PO BID [facility] Last Admin: 03/20/17 18:17 Dose: Not Given Ondansetron HCl (Zofran Inj) 4 mg IVP Q8H PRN PRN Reason: Nausea/Vomiting Last Admin: 03/20/17 14:00 Dose: 4 mg Pantoprazole Sodium (Protonix Inj) 40 mg IVP DAILY [facility] Last Admin: 03/20/17 14:00 Dose: 40 mg Rosuvastatin Calcium (Crestor) 2.5 mg PO HS [facility] Last Admin: 03/20/17 22:08 Dose: 2.5 mg Zolpidem Tartrate (Ambien) 5 mg PO HS PRN PRN Reason: Insomnia Last Admin: 03/19/17 21:35 Dose: 5 mg - Labs Labs: 03/20/17 08:07 03/20/17 08:07 PT 12.7 SECONDS (9.7-12.2) H 03/20/17 08:07 INR 1.1 03/20/17 08:07 APTT 32 SECONDS (21-34) 03/20/17 08:07 - Constitutional Appears: Non-toxic, No Acute Distress - Head Exam Head Exam: NORMAL INSPECTION, NORMOCEPHALIC - Eye Exam Eye Exam: Normal appearance - Respiratory Exam Respiratory Exam: Clear to Ausculation Bilateral, NORMAL BREATHING PATTERN. absent: Rhonchi, Wheezes - Cardiovascular Exam Cardiovascular Exam: REGULAR RHYTHM, +S1, +S2. absent: Gallop, Rubs - GI/Abdominal Exam GI & Abdominal Exam: Soft, Normal Bowel Sounds - Extremities Exam Additional comments: left lower extremity in traction device - Neurological Exam Neurological Exam: Alert, Awake, Oriented x3 - Psychiatric Exam Psychiatric exam: Normal Affect, Normal Mood - Skin Skin Exam: Dry, Intact Assessment and Plan - Assessment and Plan (Free Text) Assessment: Closed displaced fracture of proximal epiphysis of left femur Ortho Dr. Boucher consulted, help appreciated. NPO after midnight for ortho procedure. Pt medically optimized for surgery with appropriate risk. Sick sinus syndrome Dual chamber pacemaker placed 04/2015. Cardio Dr. Mcgee consulted, help appreciated. Pt cleared by cardiology for procedure, may proceed with appropriate risk. HTN Continue home meds: Norvasc 10mg PO daily, hydralazine 100mg PO BID, HCTZ 25 mg PO daily, Imdur 30mg PO daily, Cozaar 50mg PO daily, Lopressor 25mg PO BID. ESRD HD MWF. Phoslo and Procrit. DM RISS and accucheck. CAD Crestor 5mg PO HS. Prophylactic measure Protonix, Hep on hold
[2017-03-21 07:38] LABS: MEAN CELL VOLUME 91.5 fL (81.0-99.0)
[2017-03-21] MEDS: (Novolog) Insulin Aspart, Recombinant 100 u/ml 10 ml vial SC SCH ×4 (08:25→22:00)
[2017-03-21 09:25] LABS: POTASSIUM 4.4 mmol/L (3.6-5.2)
--- NOTE | 2017-03-21 09:25 | CP.PCM.PN ---
Subjective - Date & Time of Evaluation Date of Evaluation: 03/21/17 Time of Evaluation: 09:22 - Subjective Subjective: Patient complains of left hip pain. Requests not to move leg and to be asleep before moving off bed. Denies CP/SOB dizziness. Denies numbness/tingling. Less tired today. Objective - Vital Signs/Intake and Output Vital Signs (last 24 hours): Temp Pulse Resp BP Pulse Ox 98.0 F 60 20 143/52 L 96 03/21/17 00:05 03/21/17 00:05 03/21/17 00:05 03/21/17 00:05 03/21/17 00:05 Intake and Output: 03/21/17 03/21/17 06:59 18:59 Intake Total 600 520 Balance 600 520 - Medications Medications: Current Medications Albuterol/Ipratropium (Duoneb 3 Mg/0.5 Mg (3 Ml) Ud) 3 ml INH RQ6 [facility] Last Admin: 03/21/17 08:17 Dose: Not Given Amlodipine Besylate (Norvasc) 10 mg PO DAILY [facility] Last Admin: 03/20/17 14:02 Dose: 10 mg Budesonide (Pulmicort Respules) 0.5 mg INH RQ12 [facility] Calcium Acetate (Phoslo) 1,334 mg PO TID [facility] Last Admin: 03/20/17 18:16 Dose: 1,334 mg Epoetin Sam (Procrit) 4,000 unit IV MWF [facility] Stop: 03/29/17 09:01 Last Admin: 03/20/17 10:59 Dose: 4,000 unit Hydralazine HCl (Apresoline) 100 mg PO BID [facility] Last Admin: 03/20/17 18:17 Dose: Not Given Hydrochlorothiazide (Hydrodiuril) 25 mg PO DAILY [facility] Last Admin: 03/20/17 14:01 Dose: 25 mg Hydromorphone HCl (Dilaudid) 1 mg IVP Q4H PRN PRN Reason: Pain, severe (8-10) Last Admin: 03/20/17 12:28 Dose: 1 mg Dextrose/Sodium Chloride (Dextrose 5%/0.45% Ns 1000 Ml) 1,000 mls @ 50 mls/hr IV .Q20H [facility] Last Admin: 03/20/17 14:00 Dose: 50 mls/hr Insulin Aspart (Novolog) 0 unit SC ACHS [facility] PRN Reason: Protocol Last Admin: 03/21/17 08:25 Dose: 1 unit Insulin Glargine (Lantus) 20 unit SC DAILY [facility] Last Admin: 03/20/17 10:00 Dose: Not Given Isosorbide Mononitrate (Imdur) 30 mg PO DAILY [facility] Last Admin: 03/20/17 14:02 Dose: 30 mg Latanoprost (Xalatan Opht) 0 ml OU HS [facility] Last Admin: 03/20/17 22:08 Dose: 1 ml Losartan Potassium (Cozaar) 50 mg PO DAILY [facility] Last Admin: 03/20/17 14:01 Dose: 50 mg Metoprolol Tartrate (Lopressor) 25 mg PO BID [facility] Last Admin: 03/20/17 18:17 Dose: Not Given Ondansetron HCl (Zofran Inj) 4 mg IVP Q8H PRN PRN Reason: Nausea/Vomiting Last Admin: 03/20/17 14:00 Dose: 4 mg Pantoprazole Sodium (Protonix Inj) 40 mg IVP DAILY [facility] Last Admin: 03/20/17 14:00 Dose: 40 mg Rosuvastatin Calcium (Crestor) 2.5 mg PO HS [facility] Last Admin: 03/20/17 22:08 Dose: 2.5 mg Zolpidem Tartrate (Ambien) 5 mg PO HS PRN PRN Reason: Insomnia Last Admin: 03/19/17 21:35 Dose: 5 mg - Labs Labs: 03/21/17 07:13 03/20/17 08:07 PT 12.7 SECONDS (9.7-12.2) H 03/20/17 08:07 INR 1.1 03/20/17 08:07 APTT 32 SECONDS (21-34) 03/20/17 08:07 - Extremities Exam Additional comments: bucks traction adjusted skin examined, no erythema ROM ankle/toes, sensation intact calves soft NT neg homans +DP pulse Assessment and Plan (1) Closed displaced fracture of proximal epiphysis of left femur Assessment & Plan: NPO p MN for IM nailing/cerclage wiring vs ORIF T&C urine cx multiple species, likely contamination, defer to Dr. Mcelroy, afebrile hold heparin pre op for OR 5/10 d/w Dr. Torrez, agrees with above Status: Acute (2) Frequent falls Status: Acute (3) Anemia, chronic renal failure Assessment & Plan: s/p transfusion, t&C Status: Acute
[2017-03-21 09:27] LABS: BILIRUBIN,TOTAL 0.8 mg/dL (0.2-1.3); CALCIUM 8.1 mg/dl (8.6-10.4); TOTAL PROTEIN 6.7 g/dL (6.3-8.3)
[2017-03-21] MEDS: (Lantus) Insulin Glargine, Recombinant SC SCH (10:10)
[2017-03-21] MEDS: Dextrose 5%/0.45% NS 1,000 ML IV SCH ×2 (10:15→18:08)
--- NOTE | 2017-03-21 16:07 | CP.PCM.PN ---
Subjective - Date & Time of Evaluation Date of Evaluation: 03/21/17 Time of Evaluation: 14:00 - Subjective Subjective: clinically same Objective - Vital Signs/Intake and Output Vital Signs (last 24 hours): Temp Pulse Resp BP Pulse Ox 98.0 F 60 20 135/46 L 96 03/21/17 00:05 03/21/17 00:05 03/21/17 00:05 03/21/17 10:10 03/21/17 00:05 Intake and Output: 03/21/17 03/21/17 06:59 18:59 Intake Total 600 1320 Balance 600 1320 - Medications Medications: Current Medications Albuterol/Ipratropium (Duoneb 3 Mg/0.5 Mg (3 Ml) Ud) 3 ml INH RQ6 [facility] Last Admin: 03/21/17 14:50 Dose: 3 ml Amlodipine Besylate (Norvasc) 10 mg PO DAILY [facility] Last Admin: 03/21/17 10:12 Dose: 10 mg Budesonide (Pulmicort Respules) 0.5 mg INH RQ12 [facility] Calcium Acetate (Phoslo) 1,334 mg PO TID [facility] Last Admin: 03/21/17 14:03 Dose: 1,334 mg Epoetin Sam (Procrit) 4,000 unit IV MWF [facility] Stop: 03/29/17 09:01 Last Admin: 03/20/17 10:59 Dose: 4,000 unit Hydralazine HCl (Apresoline) 100 mg PO BID [facility] Last Admin: 03/21/17 10:12 Dose: 100 mg Hydrochlorothiazide (Hydrodiuril) 25 mg PO DAILY [facility] Last Admin: 03/21/17 10:11 Dose: 25 mg Hydromorphone HCl (Dilaudid) 1 mg IVP Q4H PRN PRN Reason: Pain, severe (8-10) Last Admin: 03/20/17 12:28 Dose: 1 mg Dextrose/Sodium Chloride (Dextrose 5%/0.45% Ns 1000 Ml) 1,000 mls @ 50 mls/hr IV .Q20H [facility] Last Admin: 03/21/17 10:15 Dose: 50 mls/hr Insulin Aspart (Novolog) 0 unit SC ACHS [facility] PRN Reason: Protocol Last Admin: 03/21/17 12:26 Dose: 2 unit Insulin Glargine (Lantus) 20 unit SC DAILY [facility] Last Admin: 03/21/17 10:10 Dose: 20 units Isosorbide Mononitrate (Imdur) 30 mg PO DAILY [facility] Last Admin: 03/21/17 10:15 Dose: 30 mg Latanoprost (Xalatan Opht) 0 ml OU HS [facility] Last Admin: 03/20/17 22:08 Dose: 1 ml Losartan Potassium (Cozaar) 50 mg PO DAILY [facility] Last Admin: 03/21/17 10:15 Dose: 50 mg Metoprolol Tartrate (Lopressor) 25 mg PO BID [facility] Last Admin: 03/21/17 10:09 Dose: 25 mg Ondansetron HCl (Zofran Inj) 4 mg IVP Q8H PRN PRN Reason: Nausea/Vomiting Last Admin: 03/20/17 14:00 Dose: 4 mg Pantoprazole Sodium (Protonix Inj) 40 mg IVP DAILY [facility] Last Admin: 03/21/17 10:12 Dose: 40 mg Rosuvastatin Calcium (Crestor) 2.5 mg PO HS [facility] Last Admin: 03/20/17 22:08 Dose: 2.5 mg Zolpidem Tartrate (Ambien) 5 mg PO HS PRN PRN Reason: Insomnia Last Admin: 03/19/17 21:35 Dose: 5 mg - Labs Labs: 03/21/17 07:13 03/21/17 07:13 PT 12.7 SECONDS (9.7-12.2) H 03/20/17 08:07 INR 1.1 03/20/17 08:07 APTT 32 SECONDS (21-34) 03/20/17 08:07 - Constitutional Appears: Well - Head Exam Head Exam: ATRAUMATIC, NORMAL INSPECTION, NORMOCEPHALIC - Eye Exam Eye Exam: EOMI, Normal appearance, PERRL Pupil Exam: NORMAL ACCOMODATION, PERRL - ENT Exam ENT Exam: Mucous Membranes Moist, Normal Exam - Neck Exam Neck Exam: Full ROM, Normal Inspection. absent: Lymphadenopathy - Respiratory Exam Respiratory Exam: Decreased Breath Sounds - Cardiovascular Exam Cardiovascular Exam: REGULAR RHYTHM, +S1, +S2 - GI/Abdominal Exam GI & Abdominal Exam: Soft, Diminished Bowel Sounds - Rectal Exam Rectal Exam: Deferred Assessment and Plan - Assessment and Plan (Free Text) Plan: Follow-up orthopedic Follow restrictive preparation operator Follow-up food processing plant manager NPO from midnight for surgery Hold on morphine Monitor Hb
[2017-03-21] MEDS: HYDROmorphone 1 mg/ml ISec IVP PRN (18:03)
[2017-03-21] MEDS: Budesonide 0.5 mg/2 ml Inhal Susp UD INH SCH (19:15)
[2017-03-21] MEDS: Latanoprost 2.5 ml Opht Soln OU SCH (22:40)
[2017-03-21] MEDS: Rosuvastatin Calcium 2.5 mg Tab PO SCH (22:40)
[2017-03-22] MEDS: Albuterol-Ipratrop 3 mg / 0.5 (3 ml) UD INH SCH ×4 (02:41→19:41)
[2017-03-22 07:18] LABS: MEAN CORPUSCULAR HEMOGLOBIN 29.9 pg (27.0-31.0); MEAN CORPUSCULAR HGB CONC 32.4 g/dL (33.0-37.0)
[2017-03-22] MEDS: (Novolog) Insulin Aspart, Recombinant 100 u/ml 10 ml vial SC SCH ×4 (07:30→22:00)
[2017-03-22 07:33] LABS: HEMATOCRIT 29.7 % (34.0-47.0); MEAN CELL VOLUME 92.4 fL (81.0-99.0); MEAN PLATELET VOLUME 9.1 fL (7.2-11.7); RED CELL DISTRIBUTION WIDTH 17.5 % (11.5-14.5); WHITE BLOOD COUNT 9.2 K/uL (4.8-10.8)
[2017-03-22] MEDS: Budesonide 0.5 mg/2 ml Inhal Susp UD INH SCH ×2 (07:54→19:41)
[2017-03-22 08:22] LABS: BILIRUBIN,TOTAL 0.9 mg/dL (0.2-1.3); CALCIUM 8.4 mg/dl (8.6-10.4); POTASSIUM 4.6 mmol/L (3.6-5.2); TOTAL PROTEIN 6.8 g/dL (6.3-8.3)
--- NOTE | 2017-03-22 09:26 | CP.PCM.PN ---
Subjective - Date & Time of Evaluation Date of Evaluation: 03/22/17 Time of Evaluation: 09:00 - Subjective Subjective: PGY2 on medicine Dr. Mcelroy service: Pt seen and examined at bedside this morning. Pt said she is anxious about the surgery. Pt still complains LLE pain. No other complaints and no acute events overnight. Objective - Vital Signs/Intake and Output Vital Signs (last 24 hours): Temp Pulse Resp BP Pulse Ox 99.0 F 60 20 160/62 H 100 03/22/17 08:51 03/22/17 08:51 03/22/17 08:51 03/22/17 08:51 03/22/17 08:51 - Medications Medications: Current Medications Albuterol/Ipratropium (Duoneb 3 Mg/0.5 Mg (3 Ml) Ud) 3 ml INH RQ6 [facility] Last Admin: 03/22/17 07:54 Dose: Not Given Amlodipine Besylate (Norvasc) 10 mg PO DAILY [facility] Last Admin: 03/21/17 10:12 Dose: 10 mg Budesonide (Pulmicort Respules) 0.5 mg INH RQ12 [facility] Last Admin: 03/22/17 07:54 Dose: Not Given Calcium Acetate (Phoslo) 1,334 mg PO TID [facility] Last Admin: 03/21/17 17:15 Dose: 1,334 mg Epoetin Sam (Procrit) 4,000 unit IV MWF [facility] Stop: 03/29/17 09:01 Last Admin: 03/20/17 10:59 Dose: 4,000 unit Hydralazine HCl (Apresoline) 100 mg PO BID [facility] Last Admin: 03/21/17 17:16 Dose: 100 mg Hydrochlorothiazide (Hydrodiuril) 25 mg PO DAILY [facility] Last Admin: 03/21/17 10:11 Dose: 25 mg Hydromorphone HCl (Dilaudid) 1 mg IVP Q4H PRN PRN Reason: Pain, severe (8-10) Last Admin: 03/21/17 18:03 Dose: 1 mg Insulin Aspart (Novolog) 0 unit SC ACHS [facility] PRN Reason: Protocol Last Admin: 03/21/17 22:00 Dose: Not Given Insulin Glargine (Lantus) 20 unit SC DAILY [facility] Last Admin: 03/21/17 10:10 Dose: 20 units Isosorbide Mononitrate (Imdur) 30 mg PO DAILY [facility] Last Admin: 03/21/17 10:15 Dose: 30 mg Latanoprost (Xalatan Opht) 0 ml OU HS [facility] Last Admin: 03/21/17 22:40 Dose: 2.5 ml Losartan Potassium (Cozaar) 50 mg PO DAILY [facility] Last Admin: 03/21/17 10:15 Dose: 50 mg Metoprolol Tartrate (Lopressor) 25 mg PO BID [facility] Last Admin: 03/21/17 17:15 Dose: 25 mg Ondansetron HCl (Zofran Inj) 4 mg IVP Q8H PRN PRN Reason: Nausea/Vomiting Last Admin: 03/20/17 14:00 Dose: 4 mg Pantoprazole Sodium (Protonix Inj) 40 mg IVP DAILY [facility] Last Admin: 03/21/17 10:12 Dose: 40 mg Rosuvastatin Calcium (Crestor) 2.5 mg PO HS [facility] Last Admin: 03/21/17 22:40 Dose: 2.5 mg Zolpidem Tartrate (Ambien) 5 mg PO HS PRN PRN Reason: Insomnia Last Admin: 03/19/17 21:35 Dose: 5 mg - Labs Labs: 03/22/17 07:05 03/22/17 07:05 PT 12.7 SECONDS (9.7-12.2) H 03/20/17 08:07 INR 1.1 03/20/17 08:07 APTT 32 SECONDS (21-34) 03/20/17 08:07 - Constitutional Appears: Non-toxic, No Acute Distress - Head Exam Head Exam: NORMOCEPHALIC - Respiratory Exam Respiratory Exam: Clear to Ausculation Bilateral, NORMAL BREATHING PATTERN. absent: Rhonchi, Wheezes - Cardiovascular Exam Cardiovascular Exam: REGULAR RHYTHM, +S1, +S2. absent: Gallop, Rubs - GI/Abdominal Exam GI & Abdominal Exam: Soft, Normal Bowel Sounds - Extremities Exam Additional comments: LLE traction device in place - Neurological Exam Neurological Exam: Alert, Awake, Oriented x3 - Psychiatric Exam Psychiatric exam: Normal Mood - Skin Skin Exam: Intact Assessment and Plan - Assessment and Plan (Free Text) Assessment: Closed displaced fracture of proximal epiphysis of left femur Ortho Dr. Boucher consulted, help appreciated. NPO after midnight for IM nailing/cerclage wiring vs ORIF procedure. Pt medically optimized for surgery with appropriate risk. Sick sinus syndrome Dual chamber pacemaker placed 04/2015. Cardio Dr. Mcgee consulted, help appreciated. Pt cleared by cardiology for procedure, may proceed with appropriate risk. HTN Continue home meds: Norvasc 10mg PO daily, hydralazine 100mg PO BID, HCTZ 25 mg PO daily, Imdur 30mg PO daily, Cozaar 50mg PO daily, Lopressor 25mg PO BID. ESRD HD MWF. Phoslo and Procrit. DM RISS and accucheck. CAD Crestor 5mg PO HS. Prophylactic measure Protonix, Hep on hold Management as per Dr. Mcelroy
[2017-03-22] MEDS: (Lantus) Insulin Glargine, Recombinant SC SCH (10:00)
[2017-03-22] MEDS: HYDROmorphone 1 mg/ml ISec IVP PRN (11:17)
[2017-03-22] MEDS ORDERED: Etomidate 20 mg/10ml Inj IV ONE (12:49)
[2017-03-22] MEDS ORDERED: ceFAZolin IV 2 gm in Dextrose 1 GM/50 ML BAG IVPB ONE (14:14)
[2017-03-22] MEDS ORDERED: Rocuronium 10 mg/ml (5 ml) ONE (15:39)
[2017-03-22] MEDS ORDERED: HYDROmorphone 0.5 mg/0.5 ml ISec IVP PRN (17:58)
[2017-03-22] MEDS ORDERED: Sodium Chloride 0.9% 1,000 ML IV SCH (18:00)
--- NOTE | 2017-03-22 18:07 | PCM.SURG1 ---
Surgeon's Initial Post Op Note - Surgeon's Notes Surgeon: Blair Torrez MD Slot Tag Inserter: Jaron coates PA-C Type of Anesthesia: General Endo Anesthesia Administered By: Dr. Brower Pre-Operative Diagnosis: Left proximal femur fx Operative Findings: same Post-Operative Diagnosis: as above Operation Performed: Left long intramedullary femoral nailing with ORIF/ cerclage wiring Specimen/Specimens Removed: none Estimated Blood Loss: EBL {In ML}: 300 Blood Products Given: PRBC (1u) Drains Used: No Drains Post-Op Condition: Fair Date of Surgery/Procedure: 03/22/17 Time of Surgery/Procedure: 18:07
--- NOTE | 2017-03-22 18:10 | CP.PCM.PN ---
Subjective - Date & Time of Evaluation Date of Evaluation: 03/22/17 Time of Evaluation: 12:40 - Subjective Subjective: clinically same Objective - Vital Signs/Intake and Output Vital Signs (last 24 hours): Temp Pulse Resp BP Pulse Ox 99.0 F 60 20 165/70 H 100 03/22/17 08:51 03/22/17 08:51 03/22/17 08:51 03/22/17 10:00 03/22/17 08:51 Intake and Output: 03/22/17 03/22/17 06:59 18:59 Intake Total 325 Balance 325 - Medications Medications: Current Medications Albuterol/Ipratropium (Duoneb 3 Mg/0.5 Mg (3 Ml) Ud) 3 ml INH RQ6 [facility] Last Admin: 03/22/17 13:33 Dose: Not Given Amlodipine Besylate (Norvasc) 10 mg PO DAILY [facility] Last Admin: 03/22/17 10:00 Dose: Not Given Budesonide (Pulmicort Respules) 0.5 mg INH RQ12 [facility] Last Admin: 03/22/17 07:54 Dose: Not Given Calcium Acetate (Phoslo) 1,334 mg PO TID [facility] Last Admin: 03/22/17 14:00 Dose: Not Given Epoetin Sam (Procrit) 4,000 unit IV MWF [facility] Stop: 03/29/17 09:01 Last Admin: 03/20/17 10:59 Dose: 4,000 unit Hydralazine HCl (Apresoline) 100 mg PO BID [facility] Last Admin: 03/22/17 10:00 Dose: Not Given Hydrochlorothiazide (Hydrodiuril) 25 mg PO DAILY [facility] Last Admin: 03/22/17 10:00 Dose: Not Given Hydromorphone HCl (Dilaudid) 1 mg IVP Q4H PRN PRN Reason: Pain, severe (8-10) Last Admin: 03/22/17 11:17 Dose: 1 mg Hydromorphone HCl (Dilaudid) 0.5 mg IVP Q15M PRN PRN Reason: Pain, moderate (4-7) Stop: 03/22/17 19:59 Cefazolin Sodium/Dextrose (Ancef Iv 1 Gm Duplex) 1 gm in 50 mls @ 100 mls/hr IVPB Q12H [facility] Stop: 03/23/17 14:29 Sodium Chloride (Sodium Chloride 0.9%) 1,000 mls @ 40 mls/hr IV .Q24H [facility] Insulin Aspart (Novolog) 0 unit SC [facility] PRN Reason: Protocol Last Admin: 03/22/17 11:30 Dose: Not Given Insulin Glargine (Lantus) 20 unit SC DAILY [facility] Last Admin: 03/22/17 10:00 Dose: Not Given Isosorbide Mononitrate (Imdur) 30 mg PO DAILY [facility] Last Admin: 03/22/17 10:00 Dose: Not Given Latanoprost (Xalatan Opht) 0 ml OU HS [facility] Last Admin: 03/21/17 22:40 Dose: 2.5 ml Losartan Potassium (Cozaar) 50 mg PO DAILY [facility] Last Admin: 03/22/17 10:00 Dose: Not Given Metoprolol Tartrate (Lopressor) 25 mg PO BID [facility] Last Admin: 03/22/17 10:00 Dose: 25 mg Ondansetron HCl (Zofran Inj) 4 mg IVP Q8H PRN PRN Reason: Nausea/Vomiting Last Admin: 03/22/17 11:15 Dose: 4 mg Ondansetron HCl (Zofran Inj) 4 mg IVP ONCE PRN PRN Reason: Nausea/Vomiting Stop: 03/22/17 20:00 Pantoprazole Sodium (Protonix Inj) 40 mg IVP DAILY [facility] Last Admin: 03/22/17 09:38 Dose: 40 mg Rosuvastatin Calcium (Crestor) 2.[address] [facility] Last Admin: 03/21/17 22:40 Dose: 2.5 mg Zolpidem Tartrate (Ambien) 5 mg PO HS PRN PRN Reason: Insomnia Last Admin: 03/19/17 21:35 Dose: 5 mg - Labs Labs: 03/22/17 07:05 03/22/17 07:05 PT 12.7 SECONDS (9.7-12.2) H 03/20/17 08:07 INR 1.1 03/20/17 08:07 APTT 32 SECONDS (21-34) 03/20/17 08:07 - Constitutional Appears: Well - Head Exam Head Exam: ATRAUMATIC, NORMAL INSPECTION, NORMOCEPHALIC - Eye Exam Eye Exam: EOMI, Normal appearance, PERRL Pupil Exam: NORMAL ACCOMODATION, PERRL - ENT Exam ENT Exam: Mucous Membranes Moist, Normal Exam - Neck Exam Neck Exam: Full ROM, Normal Inspection. absent: Lymphadenopathy - Respiratory Exam Respiratory Exam: Decreased Breath Sounds - Cardiovascular Exam Cardiovascular Exam: REGULAR RHYTHM, +S1, +S2 - GI/Abdominal Exam GI & Abdominal Exam: Soft, Diminished Bowel Sounds - Rectal Exam Rectal Exam: Deferred Assessment and Plan - Assessment and Plan (Free Text) Plan: Follow-up orthopedic Surgery scheduled today Continue meds as ordered
[2017-03-22] MEDS ORDERED: HYDROmorphone 1 mg/ml ISec ONE (18:39)
--- NOTE | 2017-03-22 19:03 | RAD ---
PROCEDURE: Left femur dated 03/22/2017 HISTORY: pt in pacu s/p ORIF COMPARISON: Comparison made with prior study 03/17/2017. TECHNIQUE: AP and lateral portable views of the left femur performed FINDINGS: The current study reveals interval ORIF previously noted intertrochanteric fracture left hip. A compression screw traverses the left femoral neck of reducing intertrochanteric fracture. . The distal aspect of the compression screw is stabilized by a long segment intramedullary fixation garima within the left femur. Cerclage wires are also seen surrounding the proximal diaphysis be of the left femur. Hardware appears intact. Satisfactory alignment. Expected unremarkable postoperative changes within the surrounding subcutaneous tissues including at infiltration and subcutaneous air. Lateral skin closure mouna are present. Small suprapatellar joint effusion. Tip Note also made of vascular calcifications. IMPRESSION: ORIF previously noted intertrochanteric fracture left hip as detailed above. Hardware is intact. . Satisfactory alignment.
[2017-03-22] MEDS: Sodium Chloride 0.9% 1,000 ML IV SCH (20:20)
[2017-03-22] MEDS: Rosuvastatin Calcium 2.5 mg Tab PO SCH (22:30)
[2017-03-22] MEDS: Latanoprost 2.5 ml Opht Soln OU SCH (23:50)
[2017-03-23] MEDS: Albuterol-Ipratrop 3 mg / 0.5 (3 ml) UD INH SCH ×4 (01:21→21:33)
[2017-03-23] MEDS: ceFAZolin IV 1 gm in Dextrose 1 GM/50 ML BAG IVPB SCH ×2 (01:55→15:38)
[2017-03-23] MEDS: HYDROmorphone 1 mg/ml ISec IVP PRN ×2 (04:59→21:06)
[2017-03-23] MEDS: Budesonide 0.5 mg/2 ml Inhal Susp UD INH SCH ×2 (07:34→21:33)
[2017-03-23] MEDS: (Novolog) Insulin Aspart, Recombinant 100 u/ml 10 ml vial SC SCH ×4 (08:50→22:51)
[2017-03-23] MEDS ORDERED: EPOETIN ALFA 4,000 UNIT/ML ML Dialysis SC ONE (09:07)
[2017-03-23] MEDS: EPOETIN ALFA 4,000 UNIT/ML ML Dialysis IV SCH (09:07)
--- NOTE | 2017-03-23 09:18 | CP.PCM.PN ---
Subjective - Date & Time of Evaluation Date of Evaluation: 03/23/17 Time of Evaluation: 12:00 - Subjective Subjective: clinically same Objective - Vital Signs/Intake and Output Vital Signs (last 24 hours): Temp Pulse Resp BP Pulse Ox 98.1 F 80 20 128/45 L 98 03/23/17 08:55 03/23/17 08:55 03/23/17 08:55 03/23/17 09:10 03/23/17 08:55 Intake and Output: 03/23/17 03/23/17 06:59 18:59 Intake Total 170 Balance 170 - Medications Medications: Current Medications Albuterol/Ipratropium (Duoneb 3 Mg/0.5 Mg (3 Ml) Ud) 3 ml INH RQ6 [facility] Last Admin: 03/23/17 01:21 Dose: Not Given Amlodipine Besylate (Norvasc) 10 mg PO DAILY [facility] Last Admin: 03/22/17 10:00 Dose: Not Given Budesonide (Pulmicort Respules) 0.5 mg INH RQ12 [facility] Last Admin: 03/22/17 19:41 Dose: Not Given Calcium Acetate (Phoslo) 1,334 mg PO TID [facility] Last Admin: 03/22/17 18:00 Dose: Not Given Epoetin Sam (Procrit) 4,000 unit IV MWF [facility] Stop: 03/29/17 09:01 Last Admin: 03/23/17 09:07 Dose: Not Given Epoetin Sam (Procrit) 4,000 unit SC ONCE ONE Stop: 03/23/17 09:08 Hydralazine HCl (Apresoline) 100 mg PO BID [facility] Last Admin: 03/22/17 18:00 Dose: Not Given Hydrochlorothiazide (Hydrodiuril) 25 mg PO DAILY [facility] Last Admin: 03/22/17 10:00 Dose: Not Given Hydromorphone HCl (Dilaudid) 1 mg IVP Q4H PRN PRN Reason: Pain, severe (8-10) Last Admin: 03/23/17 04:59 Dose: 1 mg Cefazolin Sodium/Dextrose (Ancef Iv 1 Gm Duplex) 1 gm in 50 mls @ 100 mls/hr IVPB Q12H [facility] Stop: 03/23/17 14:29 Last Admin: 03/23/17 01:55 Dose: 100 mls/hr Sodium Chloride (Sodium Chloride 0.9%) 1,000 mls @ 40 mls/hr IV .Q24H [facility] Last Admin: 03/22/17 20:20 Dose: 40 mls/hr Insulin Aspart (Novolog) 0 unit SC ACHS [facility] PRN Reason: Protocol Last Admin: 03/23/17 08:50 Dose: Not Given Insulin Glargine (Lantus) 20 unit SC DAILY [facility] Last Admin: 03/22/17 10:00 Dose: Not Given Isosorbide Mononitrate (Imdur) 30 mg PO DAILY [facility] Last Admin: 03/22/17 10:00 Dose: Not Given Latanoprost (Xalatan Opht) 0 ml OU HS [facility] Last Admin: 03/22/17 23:50 Dose: 2.5 ml Losartan Potassium (Cozaar) 50 mg PO DAILY [facility] Last Admin: 03/22/17 10:00 Dose: Not Given Metoprolol Tartrate (Lopressor) 25 mg PO BID [facility] Last Admin: 03/22/17 18:00 Dose: Not Given Ondansetron HCl (Zofran Inj) 4 mg IVP Q8H PRN PRN Reason: Nausea/Vomiting Last Admin: 03/23/17 08:46 Dose: 4 mg Pantoprazole Sodium (Protonix Inj) 40 mg IVP DAILY [facility] Last Admin: 03/22/17 09:38 Dose: 40 mg Rosuvastatin Calcium (Crestor) 2.5 mg PO HS [facility] Last Admin: 03/22/17 22:30 Dose: Not Given Zolpidem Tartrate (Ambien) 5 mg PO HS PRN PRN Reason: Insomnia Last Admin: 03/19/17 21:35 Dose: 5 mg - Labs Labs: 03/22/17 07:05 03/22/17 07:05 PT 12.7 SECONDS (9.7-12.2) H 03/20/17 08:07 INR 1.1 03/20/17 08:07 APTT 32 SECONDS (21-34) 03/20/17 08:07 - Constitutional Appears: Well - Head Exam Head Exam: ATRAUMATIC, NORMAL INSPECTION, NORMOCEPHALIC - Eye Exam Eye Exam: EOMI, Normal appearance, PERRL Pupil Exam: NORMAL ACCOMODATION, PERRL - ENT Exam ENT Exam: Mucous Membranes Moist, Normal Exam - Neck Exam Neck Exam: Full ROM, Normal Inspection. absent: Lymphadenopathy - Respiratory Exam Respiratory Exam: Decreased Breath Sounds - Cardiovascular Exam Cardiovascular Exam: REGULAR RHYTHM, +S1, +S2 - GI/Abdominal Exam GI & Abdominal Exam: Soft, Diminished Bowel Sounds - Rectal Exam Rectal Exam: Deferred Assessment and Plan - Assessment and Plan (Free Text) Plan: Follow-up orthopedic Follow-up cardiology Restart Heparin Morphine Continue other meds as ordered Patient can be discharged to [facility] Follow-up with orthopedic within 1 week
[2017-03-23 09:24] LABS: BASO % 0.2 % (0.0-2.0); EOS % 0.1 % (0.0-4.0); HEMATOCRIT 27.2 % (34.0-47.0); LYMPH # 0.4 K/uL (1.0-4.3); LYMPH % 5.4 % (20.0-40.0); MEAN CELL VOLUME 91.4 fL (81.0-99.0); MEAN CORPUSCULAR HEMOGLOBIN 29.8 pg (27.0-31.0); MEAN CORPUSCULAR HGB CONC 32.6 g/dL (33.0-37.0); MEAN PLATELET VOLUME 8.5 fL (7.2-11.7); MONO # 0.8 K/uL (0.0-0.8); MONO % 9.9 % (0.0-10.0); NRBC % 0.1 % (0.0-2.0); PLATELET COUNT 176 K/uL (130-400); RED CELL DISTRIBUTION WIDTH 16.8 % (11.5-14.5)
[2017-03-23 09:40] LABS: POTASSIUM 5.6 mmol/L (3.6-5.2)
[2017-03-23 09:42] LABS: ALB/GLOB RATIO 0.8 (1.0-2.1); BILIRUBIN,TOTAL 0.4 mg/dL (0.2-1.3); TOTAL PROTEIN 5.8 g/dL (6.3-8.3)
[2017-03-23 09:49] LABS: BASOPHIL 1 % (0-2); NEUTROPHIL 75 % (50-75); TOTAL CELLS COUNTED 100
[2017-03-23 09:50] LABS: GIANT PLATELETS PRESENT
[2017-03-23] MEDS ORDERED: EPOETIN ALFA 4,000 UNIT/ML ML Dialysis IV ONE (10:00)
--- NOTE | 2017-03-23 10:48 | RAD ---
PROCEDURE: Intraoperative Fluoroscopy. HISTORY: ORIF LEFT HIP FX FINDINGS: Fluoroscopic assistance was provided for left hip fracture repair.
[2017-03-23 12:03] VITALS: O2SAT 100
--- NOTE | 2017-03-23 12:39 | CP.PCM.PN ---
Subjective - Date & Time of Evaluation Date of Evaluation: 03/23/17 Time of Evaluation: 09:00 - Subjective Subjective: Medicine Note- Dr. Mcelroy's service Patient was seen and examined at bedside. Patient appeared comfortable, in no acute distress. Patient reports she still has significant pain on her leg. Patient was disinterested in answering questions. No events overnight, per nursing. Objective - Vital Signs/Intake and Output Vital Signs (last 24 hours): Temp Pulse Resp BP Pulse Ox 97.8 F 64 18 98/38 L 100 03/23/17 11:55 03/23/17 11:55 03/23/17 11:55 03/23/17 11:55 03/23/17 11:55 Intake and Output: 03/23/17 03/23/17 06:59 18:59 Intake Total 170 Balance 170 - Medications Medications: Current Medications Albuterol/Ipratropium (Duoneb 3 Mg/0.5 Mg (3 Ml) Ud) 3 ml INH RQ6 [facility] Last Admin: 03/23/17 07:33 Dose: 3 ml Amlodipine Besylate (Norvasc) 10 mg PO DAILY [facility] Last Admin: 03/22/17 10:00 Dose: Not Given Budesonide (Pulmicort Respules) 0.5 mg INH RQ12 [facility] Last Admin: 03/23/17 07:34 Dose: 0.5 mg Calcium Acetate (Phoslo) 1,334 mg PO TID [facility] Last Admin: 03/22/17 18:00 Dose: Not Given Epoetin Sam (Procrit) 4,000 unit IV MWF [facility] Stop: 03/29/17 09:01 Last Admin: 03/23/17 09:07 Dose: Not Given Hydralazine HCl (Apresoline) 100 mg PO BID [facility] Last Admin: 03/22/17 18:00 Dose: Not Given Hydrochlorothiazide (Hydrodiuril) 25 mg PO DAILY [facility] Last Admin: 03/22/17 10:00 Dose: Not Given Hydromorphone HCl (Dilaudid) 1 mg IVP Q4H PRN PRN Reason: Pain, severe (8-10) Last Admin: 03/23/17 04:59 Dose: 1 mg Cefazolin Sodium/Dextrose (Ancef Iv 1 Gm Duplex) 1 gm in 50 mls @ 100 mls/hr IVPB Q12H [facility] Stop: 03/23/17 14:29 Last Admin: 03/23/17 01:55 Dose: 100 mls/hr Sodium Chloride (Sodium Chloride 0.9%) 1,000 mls @ 40 mls/hr IV .Q24H [facility] Last Admin: 03/22/17 20:20 Dose: 40 mls/hr Insulin Aspart (Novolog) 0 unit SC ACHS [facility] PRN Reason: Protocol Last Admin: 03/23/17 08:50 Dose: Not Given Insulin Glargine (Lantus) 20 unit SC DAILY [facility] Last Admin: 03/22/17 10:00 Dose: Not Given Isosorbide Mononitrate (Imdur) 30 mg PO DAILY [facility] Last Admin: 03/22/17 10:00 Dose: Not Given Latanoprost (Xalatan Opht) 0 ml OU HS [facility] Last Admin: 03/22/17 23:50 Dose: 2.5 ml Losartan Potassium (Cozaar) 50 mg PO DAILY [facility] Last Admin: 03/22/17 10:00 Dose: Not Given Metoprolol Tartrate (Lopressor) 25 mg PO BID [facility] Last Admin: 03/22/17 18:00 Dose: Not Given Ondansetron HCl (Zofran Inj) 4 mg IVP Q8H PRN PRN Reason: Nausea/Vomiting Last Admin: 03/23/17 08:46 Dose: 4 mg Pantoprazole Sodium (Protonix Inj) 40 mg IVP DAILY [facility] Last Admin: 03/22/17 09:38 Dose: 40 mg Rosuvastatin Calcium (Crestor) 2.5 mg PO HS [facility] Last Admin: 03/22/17 22:30 Dose: Not Given Zolpidem Tartrate (Ambien) 5 mg PO HS PRN PRN Reason: Insomnia Last Admin: 03/19/17 21:35 Dose: 5 mg - Labs Labs: 03/23/17 09:20 03/23/17 09:20 PT 12.7 SECONDS (9.7-12.2) H 03/20/17 08:07 INR 1.1 03/20/17 08:07 APTT 32 SECONDS (21-34) 03/20/17 08:07 - Constitutional Appears: Non-toxic, No Acute Distress - Head Exam Head Exam: ATRAUMATIC, NORMAL INSPECTION, NORMOCEPHALIC - Eye Exam Pupil Exam: NORMAL ACCOMODATION, PERRL - ENT Exam ENT Exam: Mucous Membranes Moist - Respiratory Exam Respiratory Exam: Clear to Ausculation Bilateral, NORMAL BREATHING PATTERN. absent: Prolonged Expiratory Phase, Rales, Rhonchi, Wheezes - Cardiovascular Exam Cardiovascular Exam: REGULAR RHYTHM, +S1, +S2 - GI/Abdominal Exam GI & Abdominal Exam: Soft, Normal Bowel Sounds. absent: Tenderness, Diminished Bowel Sounds, Hernia, Hypoactive Bowel Sounds - Extremities Exam Extremities Exam: Normal Capillary Refill, Normal Inspection - Neurological Exam Neurological Exam: Alert, Awake, Oriented x3 - Psychiatric Exam Psychiatric exam: Normal Affect, Normal Mood - Skin Skin Exam: Dry, Intact, Normal Color, Warm Assessment and Plan - Assessment and Plan (Free Text) Assessment: Closed displaced fracture of proximal epiphysis of left femur Ortho Dr. Boucher consulted, help appreciated. s/p day #1 Left long intramedullary femoral nailing with ORIF/cerclage wiring Dilaudid 1mg IVP Q4h PRN Cefazolin 1gm IVPB Q12h x 2 bags Sick sinus syndrome Dual chamber pacemaker placed 04/2015. Cardio Dr. Mcgee consulted, help appreciated. Pt cleared by cardiology for procedure, may proceed with appropriate risk. HTN Continue home meds: Norvasc 10mg PO daily, hydralazine 100mg PO BID, HCTZ 25 mg PO daily, Imdur 30mg PO daily, Cozaar 50mg PO daily, Lopressor 25mg PO BID. [facility] HD MWF. Phoslo and Procrit. DM RISS and accucheck. CAD Crestor 5mg PO HS. Prophylactic measure Protonix, Hep on hold Management as per Dr. Mcelroy Patient is to be discharged to [facility] as per Dr. Mcelroy
--- NOTE | 2017-03-23 14:13 | CP.PCM.PN ---
<Leti Addison - Last Filed: 03/23/17 15:07> Subjective - Date & Time of Evaluation Date of Evaluation: 03/23/17 Time of Evaluation: 14:06 - Subjective Subjective: Patient complaining of left hip pain in thigh. Denies numbness/tingling/CP/SOB. Admits to nausea. Objective - Vital Signs/Intake and Output Vital Signs (last 24 hours): Temp Pulse Resp BP Pulse Ox 97.9 F 60 20 150/50 L 100 03/23/17 12:49 03/23/17 12:49 03/23/17 12:49 03/23/17 12:49 03/23/17 11:55 Intake and Output: 03/23/17 03/23/17 06:59 18:59 Intake Total 170 Balance 170 - Medications Medications: Current Medications Albuterol/Ipratropium (Duoneb 3 Mg/0.5 Mg (3 Ml) Ud) 3 ml INH RQ6 [facility] Last Admin: 03/23/17 13:27 Dose: Not Given Amlodipine Besylate (Norvasc) 10 mg PO DAILY [facility] Last Admin: 03/22/17 10:00 Dose: Not Given Budesonide (Pulmicort Respules) 0.5 mg INH RQ12 [facility] Last Admin: 03/23/17 07:34 Dose: 0.5 mg Calcium Acetate (Phoslo) 1,334 mg PO TID [facility] Last Admin: 03/22/17 18:00 Dose: Not Given Epoetin Sam (Procrit) 4,000 unit IV MWF [facility] Stop: 03/29/17 09:01 Last Admin: 03/23/17 09:07 Dose: Not Given Hydralazine HCl (Apresoline) 100 mg PO BID [facility] Last Admin: 03/22/17 18:00 Dose: Not Given Hydrochlorothiazide (Hydrodiuril) 25 mg PO DAILY [facility] Last Admin: 03/22/17 10:00 Dose: Not Given Hydromorphone HCl (Dilaudid) 1 mg IVP Q4H PRN PRN Reason: Pain, severe (8-10) Last Admin: 03/23/17 04:59 Dose: 1 mg Cefazolin Sodium/Dextrose (Ancef Iv 1 Gm Duplex) 1 gm in 50 mls @ 100 mls/hr IVPB Q12H [facility] Stop: 03/23/17 14:29 Last Admin: 03/23/17 01:55 Dose: 100 mls/hr Sodium Chloride (Sodium Chloride 0.9%) 1,000 mls @ 40 mls/hr IV .Q24H [facility] Last Admin: 03/22/17 20:20 Dose: 40 mls/hr Insulin Aspart (Novolog) 0 unit SC ACHS [facility] PRN Reason: Protocol Last Admin: 03/23/17 08:50 Dose: Not Given Insulin Glargine (Lantus) 20 unit SC DAILY [facility] Last Admin: 03/22/17 10:00 Dose: Not Given Isosorbide Mononitrate (Imdur) 30 mg PO DAILY [facility] Last Admin: 03/22/17 10:00 Dose: Not Given Latanoprost (Xalatan Opht) 0 ml OU HS [facility] Last Admin: 03/22/17 23:50 Dose: 2.5 ml Losartan Potassium (Cozaar) 50 mg PO DAILY [facility] Last Admin: 03/22/17 10:00 Dose: Not Given Metoprolol Tartrate (Lopressor) 25 mg PO BID [facility] Last Admin: 03/22/17 18:00 Dose: Not Given Ondansetron HCl (Zofran Inj) 4 mg IVP Q8H PRN PRN Reason: Nausea/Vomiting Last Admin: 03/23/17 08:46 Dose: 4 mg Pantoprazole Sodium (Protonix Inj) 40 mg IVP DAILY [facility] Last Admin: 03/22/17 09:38 Dose: 40 mg Rosuvastatin Calcium (Crestor) 2.5 mg PO HS [facility] Last Admin: 03/22/17 22:30 Dose: Not Given Zolpidem Tartrate (Ambien) 5 mg PO HS PRN PRN Reason: Insomnia Last Admin: 03/19/17 21:35 Dose: 5 mg - Labs Labs: 03/23/17 09:20 03/23/17 09:20 PT 12.7 SECONDS (9.7-12.2) H 03/20/17 08:07 INR 1.1 03/20/17 08:07 APTT 32 SECONDS (21-34) 03/20/17 08:07 - Extremities Exam Additional comments: LLE: +ROM ankle DF/PF, toes flex ext. Calves soft NT neg homans. +DP pulse. Incisions dry and intact, thigh mildly swollen but soft. Ice applied. Assessment and Plan (1) Closed displaced fracture of proximal epiphysis of left femur Assessment & Plan: POD# 1 s/p left hip long IM nailing and ORIf with cerclage wires -PT/OT -s/p 1 uPRBC intraop _ice -pain meds -restart heparin tonight -d/c planning -f/u labs in am -d/w Dr. Torrez, agrees with above Status: Acute (2) Frequent falls Status: Acute (3) Anemia, chronic renal failure Assessment & Plan: s/p 1uPRBC 03/20 1uPRBV intraop 03/22 Status: Acute <Marcelo Boucher S - Last Filed: 04/15/17 01:27> Subjective - Subjective Subjective: Pt seen and examined. Agree with PA assessment and plan. NWB LLE. Physical Therapy= NWB LLE, OOB, ambulation, ROM/stretch/strength stable clinically, tolerated procedure well so far DVT proph HD IS d/c planning once d/c, needs to f/u at [facility], [facility] w/in 1 week for post-op f/u with az, will follow pain control Objective - Vital Signs/Intake and Output Vital Signs (last 24 hours): Temp Pulse Resp BP Pulse Ox 99 F 69 20 146/49 L 100 03/24/17 15:35 03/24/17 15:35 03/24/17 15:35 03/24/17 15:35 03/24/17 15:35 - Labs Labs: 03/24/17 10:29 03/24/17 10:29 PT 12.7 SECONDS (9.7-12.2) H 03/20/17 08:07 INR 1.1 03/20/17 08:07 APTT 32 SECONDS (21-34) 03/20/17 08:07 Assessment and Plan (1) Right patella fracture Status: Acute (2) Closed displaced intertrochanteric fracture of left femur Status: Acute
[2017-03-23] MEDS: (Lantus) Insulin Glargine, Recombinant SC SCH (15:28)
[2017-03-23] MEDS: Sodium Chloride 0.9% 1,000 ML IV SCH ×2 (20:12→23:53)
[2017-03-23] MEDS: Rosuvastatin Calcium 2.5 mg Tab PO SCH (22:50)
[2017-03-23] MEDS: Latanoprost 2.5 ml Opht Soln OU SCH (23:00)
[2017-03-24] MEDS: Albuterol-Ipratrop 3 mg / 0.5 (3 ml) UD INH SCH ×3 (01:06→13:36)
[2017-03-24] MEDS: HYDROmorphone 1 mg/ml ISec IVP PRN (06:38)
--- NOTE | 2017-03-24 06:42 | CP.PCM.PN ---
Subjective - Date & Time of Evaluation Date of Evaluation: 03/24/17 Time of Evaluation: 07:00 - Subjective Subjective: Medicine note- Dr. Mcelroy's service Patient was seen and examined at bedside. Patient reports she has some nausea and is requesting medications to move her bowels. Patient is tolerating PO diet. Denies abdominal pain. Still has pain her leg. No events overnight, per nursing. Objective - Vital Signs/Intake and Output Vital Signs (last 24 hours): Temp Pulse Resp BP Pulse Ox 98.2 F 65 20 117/70 100 03/23/17 23:35 03/23/17 23:35 03/23/17 23:35 03/23/17 23:35 03/23/17 23:35 Intake and Output: 03/23/17 03/24/17 18:59 06:59 Intake Total 640 Balance 640 - Medications Medications: Current Medications Albuterol/Ipratropium (Duoneb 3 Mg/0.5 Mg (3 Ml) Ud) 3 ml INH RQ6 [facility] Last Admin: 03/24/17 01:06 Dose: Not Given Amlodipine Besylate (Norvasc) 10 mg PO DAILY [facility] Last Admin: 03/23/17 15:28 Dose: Not Given Budesonide (Pulmicort Respules) 0.5 mg INH RQ12 [facility] Last Admin: 03/23/17 21:33 Dose: 0.5 mg Calcium Acetate (Phoslo) 1,334 mg PO TID [facility] Last Admin: 03/23/17 18:49 Dose: 1,334 mg Epoetin Sam (Procrit) 4,000 unit IV MWF [facility] Stop: 03/29/17 09:01 Last Admin: 03/23/17 09:07 Dose: Not Given Heparin Sodium (Porcine) (Heparin) 5,000 units SC Q12H [facility] Last Admin: 03/24/17 06:38 Dose: 5,000 units Hydralazine HCl (Apresoline) 100 mg PO BID [facility] Last Admin: 03/23/17 18:51 Dose: 100 mg Hydrochlorothiazide (Hydrodiuril) 25 mg PO DAILY [facility] Last Admin: 03/23/17 15:28 Dose: Not Given Hydromorphone HCl (Dilaudid) 1 mg IVP Q4H PRN PRN Reason: Pain, severe (8-10) Last Admin: 03/24/17 06:38 Dose: 1 mg Sodium Chloride (Sodium Chloride 0.9%) 1,000 mls @ 40 mls/hr IV .Q24H [facility] Last Admin: 03/23/17 23:53 Dose: 40 mls/hr Insulin Aspart (Novolog) 0 unit SC ACHS [facility] PRN Reason: Protocol Last Admin: 03/23/17 22:51 Dose: Not Given Insulin Glargine (Lantus) 20 unit SC DAILY [facility] Last Admin: 03/23/17 15:28 Dose: Not Given Isosorbide Mononitrate (Imdur) 30 mg PO DAILY [facility] Last Admin: 03/23/17 15:28 Dose: Not Given Latanoprost (Xalatan Opht) 0 ml OU HS [facility] Last Admin: 03/23/17 23:00 Dose: 2.5 ml Losartan Potassium (Cozaar) 50 mg PO DAILY [facility] Last Admin: 03/23/17 15:27 Dose: Not Given Metoprolol Tartrate (Lopressor) 25 mg PO BID [facility] Last Admin: 03/23/17 18:50 Dose: 25 mg Ondansetron HCl (Zofran Inj) 4 mg IVP Q8H PRN PRN Reason: Nausea/Vomiting Last Admin: 03/23/17 08:46 Dose: 4 mg Pantoprazole Sodium (Protonix Inj) 40 mg IVP DAILY [facility] Last Admin: 03/23/17 15:29 Dose: Not Given Rosuvastatin Calcium (Crestor) 2.5 mg PO HS [facility] Last Admin: 03/23/17 22:50 Dose: 2.5 mg Zolpidem Tartrate (Ambien) 5 mg PO HS PRN PRN Reason: Insomnia Last Admin: 03/19/17 21:35 Dose: 5 mg - Labs Labs: 03/23/17 09:20 03/23/17 09:20 PT 12.7 SECONDS (9.7-12.2) H 03/20/17 08:07 INR 1.1 03/20/17 08:07 APTT 32 SECONDS (21-34) 03/20/17 08:07 - Constitutional Appears: Non-toxic, No Acute Distress - Head Exam Head Exam: ATRAUMATIC, NORMAL INSPECTION, NORMOCEPHALIC - Eye Exam Pupil Exam: NORMAL ACCOMODATION, PERRL - ENT Exam ENT Exam: Mucous Membranes Moist - Respiratory Exam Respiratory Exam: Clear to Ausculation Bilateral, NORMAL BREATHING PATTERN. absent: Prolonged Expiratory Phase, Rales, Rhonchi, Wheezes - Cardiovascular Exam Cardiovascular Exam: REGULAR RHYTHM, +S1, +S2 - GI/Abdominal Exam GI & Abdominal Exam: Soft, Normal Bowel Sounds. absent: Tenderness, Diminished Bowel Sounds, Hypoactive Bowel Sounds - Extremities Exam Extremities Exam: Normal Capillary Refill, Normal Inspection - Neurological Exam Neurological Exam: Alert, Awake, Oriented x3 - Psychiatric Exam Psychiatric exam: Normal Affect, Normal Mood - Skin Skin Exam: Dry, Intact, Normal Color, Warm Assessment and Plan - Assessment and Plan (Free Text) Assessment: Closed displaced fracture of proximal epiphysis of left femur Ortho Dr. Boucher consulted, help appreciated. s/p day #1 Left long intramedullary femoral nailing with ORIF/cerclage wiring Dilaudid 1mg IVP Q4h PRN Cefazolin 1gm IVPB Q12h x 2 bags given Sick sinus syndrome Dual chamber pacemaker placed 04/2015. Cardio Dr. Mcgee consulted, help appreciated. Pt cleared by cardiology for procedure, may proceed with appropriate risk. HTN Continue home meds: Norvasc 10mg PO daily, hydralazine 100mg PO BID, HCTZ 25 mg PO daily, Imdur 30mg PO daily, Cozaar 50mg PO daily, Lopressor 25mg PO BID. ESRD HD MWF. Phoslo and Procrit. DM RISS and accucheck. CAD Crestor 5mg PO HS. Constipation Started Colace 100mg PO TID Given dose of Miralax Prophylactic measure Protonix, Hep on hold Management as per Dr. Mcelroy Patient is to be discharged to [facility] as per Dr. Mcelroy
[2017-03-24] MEDS: (Novolog) Insulin Aspart, Recombinant 100 u/ml 10 ml vial SC SCH (07:40)
[2017-03-24] MEDS: Budesonide 0.5 mg/2 ml Inhal Susp UD INH SCH (08:00)
--- NOTE | 2017-03-24 08:32 | CP.PCM.PN ---
<Leti Addison - Last Filed: 03/24/17 08:27> Subjective - Date & Time of Evaluation Date of Evaluation: 03/24/17 Time of Evaluation: 08:27 - Subjective Subjective: Patient states she is better today. Pain is better, and she feels better. Denies CP/SOB. Denies tingling. Objective - Vital Signs/Intake and Output Vital Signs (last 24 hours): Temp Pulse Resp BP Pulse Ox 98.2 F 65 20 117/70 100 03/23/17 23:35 03/23/17 23:35 03/23/17 23:35 03/23/17 23:35 03/23/17 23:35 Intake and Output: 03/24/17 03/24/17 06:59 18:59 Intake Total 1060 Balance 1060 - Medications Medications: Current Medications Albuterol/Ipratropium (Duoneb 3 Mg/0.5 Mg (3 Ml) Ud) 3 ml INH RQ6 [facility] Last Admin: 03/24/17 08:00 Dose: 3 ml Amlodipine Besylate (Norvasc) 10 mg PO DAILY [facility] Last Admin: 03/23/17 15:28 Dose: Not Given Budesonide (Pulmicort Respules) 0.5 mg INH RQ12 [facility] Last Admin: 03/23/17 21:33 Dose: 0.5 mg Calcium Acetate (Phoslo) 1,334 mg PO TID [facility] Last Admin: 03/23/17 18:49 Dose: 1,334 mg Docusate Sodium (Colace) 100 mg PO BID [facility] Epoetin Sam (Procrit) 4,000 unit IV MWF [facility] Stop: 03/29/17 09:01 Last Admin: 03/23/17 09:07 Dose: Not Given Heparin Sodium (Porcine) (Heparin) 5,000 units SC Q12H [facility] Last Admin: 03/24/17 06:38 Dose: 5,000 units Hydralazine HCl (Apresoline) 100 mg PO BID [facility] Last Admin: 03/23/17 18:51 Dose: 100 mg Hydrochlorothiazide (Hydrodiuril) 25 mg PO DAILY [facility] Last Admin: 03/23/17 15:28 Dose: Not Given Hydromorphone HCl (Dilaudid) 1 mg IVP Q4H PRN PRN Reason: Pain, severe (8-10) Last Admin: 03/24/17 06:38 Dose: 1 mg Sodium Chloride (Sodium Chloride 0.9%) 1,000 mls @ 40 mls/hr IV .Q24H [facility] Last Admin: 03/23/17 23:53 Dose: 40 mls/hr Insulin Aspart (Novolog) 0 unit SC ACHS [facility] PRN Reason: Protocol Last Admin: 03/24/17 07:40 Dose: 2 unit Insulin Glargine (Lantus) 20 unit SC DAILY [facility] Last Admin: 03/23/17 15:28 Dose: Not Given Isosorbide Mononitrate (Imdur) 30 mg PO DAILY [facility] Last Admin: 03/23/17 15:28 Dose: Not Given Latanoprost (Xalatan Opht) 0 ml OU HS [facility] Last Admin: 03/23/17 23:00 Dose: 2.5 ml Losartan Potassium (Cozaar) 50 mg PO DAILY [facility] Last Admin: 03/23/17 15:27 Dose: Not Given Metoprolol Tartrate (Lopressor) 25 mg PO BID [facility] Last Admin: 03/23/17 18:50 Dose: 25 mg Ondansetron HCl (Zofran Inj) 4 mg IVP Q8H PRN PRN Reason: Nausea/Vomiting Last Admin: 03/24/17 08:17 Dose: 4 mg Pantoprazole Sodium (Protonix Inj) 40 mg IVP DAILY [facility] Last Admin: 03/23/17 15:29 Dose: Not Given Polyethylene Glycol (Miralax) 17 gm PO ONCE ONE Stop: 03/24/17 08:15 Rosuvastatin Calcium (Crestor) 2.5 mg PO HS [facility] Last Admin: 03/23/17 22:50 Dose: 2.5 mg Zolpidem Tartrate (Ambien) 5 mg PO HS PRN PRN Reason: Insomnia Last Admin: 03/19/17 21:35 Dose: 5 mg - Labs Labs: 03/23/17 09:20 03/23/17 09:20 PT 12.7 SECONDS (9.7-12.2) H 03/20/17 08:07 INR 1.1 03/20/17 08:07 APTT 32 SECONDS (21-34) 03/20/17 08:07 - Extremities Exam Additional comments: LLE: :+ROM ankle/toes, sensation intact, +DP/PT pulses, calves soft NT neg homans Assessment and Plan (1) Closed displaced fracture of proximal epiphysis of left femur Assessment & Plan: POD# 2 s/p left hip IM nailing/ORIF -ortho stable for d/c to rehab NWB LLEper Dr. Tinoco VTE proph f/u in office in 1 week ice to thigh d/w vanessa Gillespie with above Status: Acute (2) Frequent falls Status: Acute (3) Anemia, chronic renal failure Status: Acute <Marcelo Boucher S - Last Filed: 04/15/17 01:28> Subjective - Subjective Subjective: Pt seen and examined. Agree with PA assessment and plan. NWB LLE. Physical Therapy= NW[facility] LLE, OOB, ambulation, ROM/stretch/strength stable clinically, monitor CBC DVT proph HD IS d/c planning once d/c, needs to f/u at [facility], [facility] w/in 1 week for post-op f/u with ia, will follow pain control Objective - Vital Signs/Intake and Output Vital Signs (last 24 hours): Temp Pulse Resp BP Pulse Ox 99 F 69 20 146/49 L 100 03/24/17 15:35 03/24/17 15:35 03/24/17 15:35 03/24/17 15:35 03/24/17 15:35 - Labs Labs: 03/24/17 10:29 03/24/17 10:29 PT 12.7 SECONDS (9.7-12.2) H 03/20/17 08:07 INR 1.1 03/20/17 08:07 APTT 32 SECONDS (21-34) 03/20/17 08:07 Assessment and Plan (1) Right patella fracture Status: Acute (2) Closed displaced intertrochanteric fracture of left femur Status: Acute
[2017-03-24] MEDS ORDERED: POLYETHYLENE GLYCOL 3350 17 GM/Dose PACKET PO ONE (09:00)
--- NOTE | 2017-03-24 10:22 | CP.PCM.PN ---
Subjective - Date & Time of Evaluation Date of Evaluation: 03/24/17 Time of Evaluation: 12:20 - Subjective Subjective: clinically same Objective - Vital Signs/Intake and Output Vital Signs (last 24 hours): Temp Pulse Resp BP Pulse Ox 98 F 60 20 143/53 L 100 03/24/17 07:00 03/24/17 07:00 03/24/17 07:00 03/24/17 07:00 03/24/17 07:00 Intake and Output: 03/24/17 03/24/17 06:59 18:59 Intake Total 1060 Balance 1060 - Medications Medications: Current Medications Albuterol/Ipratropium (Duoneb 3 Mg/0.5 Mg (3 Ml) Ud) 3 ml INH RQ6 [facility] Last Admin: 03/24/17 08:00 Dose: 3 ml Amlodipine Besylate (Norvasc) 10 mg PO DAILY [facility] Last Admin: 03/23/17 15:28 Dose: Not Given Budesonide (Pulmicort Respules) 0.5 mg INH RQ12 [facility] Last Admin: 03/23/17 21:33 Dose: 0.5 mg Calcium Acetate (Phoslo) 1,334 mg PO TID [facility] Last Admin: 03/23/17 18:49 Dose: 1,334 mg Docusate Sodium (Colace) 100 mg PO BID [facility] Epoetin Sam (Procrit) 4,000 unit IV MWF [facility] Stop: 03/29/17 09:01 Last Admin: 03/23/17 09:07 Dose: Not Given Heparin Sodium (Porcine) (Heparin) 5,000 units SC Q12H [facility] Last Admin: 03/24/17 06:38 Dose: 5,000 units Hydralazine HCl (Apresoline) 100 mg PO BID [facility] Last Admin: 03/23/17 18:51 Dose: 100 mg Hydrochlorothiazide (Hydrodiuril) 25 mg PO DAILY [facility] Last Admin: 03/23/17 15:28 Dose: Not Given Hydromorphone HCl (Dilaudid) 1 mg IVP Q4H PRN PRN Reason: Pain, severe (8-10) Last Admin: 03/24/17 06:38 Dose: 1 mg Sodium Chloride (Sodium Chloride 0.9%) 1,000 mls @ 40 mls/hr IV .Q24H [facility] Last Admin: 03/23/17 23:53 Dose: 40 mls/hr Insulin Aspart (Novolog) 0 unit SC ACHS [facility] PRN Reason: Protocol Last Admin: 03/24/17 07:40 Dose: 2 unit Insulin Glargine (Lantus) 20 unit SC DAILY [facility] Last Admin: 03/23/17 15:28 Dose: Not Given Isosorbide Mononitrate (Imdur) 30 mg PO DAILY [facility] Last Admin: 03/23/17 15:28 Dose: Not Given Latanoprost (Xalatan Opht) 0 ml OU HS [facility] Last Admin: 03/23/17 23:00 Dose: 2.5 ml Losartan Potassium (Cozaar) 50 mg PO DAILY [facility] Last Admin: 03/23/17 15:27 Dose: Not Given Metoprolol Tartrate (Lopressor) 25 mg PO BID [facility] Last Admin: 03/23/17 18:50 Dose: 25 mg Ondansetron HCl (Zofran Inj) 4 mg IVP Q8H PRN PRN Reason: Nausea/Vomiting Last Admin: 03/24/17 08:17 Dose: 4 mg Pantoprazole Sodium (Protonix Inj) 40 mg IVP DAILY [facility] Last Admin: 03/23/17 15:29 Dose: Not Given Rosuvastatin Calcium (Crestor) 2.5 mg PO HS [facility] Last Admin: 03/23/17 22:50 Dose: 2.5 mg Zolpidem Tartrate (Ambien) 5 mg PO HS PRN PRN Reason: Insomnia Last Admin: 03/19/17 21:35 Dose: 5 mg - Labs Labs: 03/23/17 09:20 03/23/17 09:20 PT 12.7 SECONDS (9.7-12.2) H 03/20/17 08:07 INR 1.1 03/20/17 08:07 APTT 32 SECONDS (21-34) 03/20/17 08:07 - Constitutional Appears: Well - Head Exam Head Exam: ATRAUMATIC, NORMAL INSPECTION, NORMOCEPHALIC - Eye Exam Eye Exam: EOMI, Normal appearance, PERRL Pupil Exam: NORMAL ACCOMODATION, PERRL - ENT Exam ENT Exam: Mucous Membranes Moist, Normal Exam - Neck Exam Neck Exam: Full ROM, Normal Inspection. absent: Lymphadenopathy - Respiratory Exam Respiratory Exam: Decreased Breath Sounds - Cardiovascular Exam Cardiovascular Exam: REGULAR RHYTHM, +S1, +S2 - GI/Abdominal Exam GI & Abdominal Exam: Soft, Diminished Bowel Sounds - Rectal Exam Rectal Exam: Deferred Assessment and Plan - Assessment and Plan (Free Text) Plan: Patient is to be discharged to [facility] Continue Physiotherapy
[2017-03-24 10:33] LABS: BASO % 0.6 % (0.0-2.0); EOS # 0.1 K/uL (0.0-0.7); EOS % 1.6 % (0.0-4.0); HEMATOCRIT 24.2 % (34.0-47.0); LYMPH # 0.4 K/uL (1.0-4.3); LYMPH % 7.1 % (20.0-40.0); MEAN CELL VOLUME 91.8 fL (81.0-99.0); MEAN CORPUSCULAR HEMOGLOBIN 30.2 pg (27.0-31.0); MEAN CORPUSCULAR HGB CONC 32.9 g/dL (33.0-37.0); MEAN PLATELET VOLUME 8.4 fL (7.2-11.7); MONO # 0.5 K/uL (0.0-0.8); MONO % 7.7 % (0.0-10.0); PLATELET COUNT 155 K/uL (130-400); RED CELL DISTRIBUTION WIDTH 16.7 % (11.5-14.5); WHITE BLOOD COUNT 5.8 K/uL (4.8-10.8)
[2017-03-24] MEDS: (Lantus) Insulin Glargine, Recombinant SC SCH (10:46)
[2017-03-24 11:14] LABS: POTASSIUM 3.4 mmol/L (3.6-5.2)
[2017-03-24 11:16] LABS: ALB/GLOB RATIO 0.7 (1.0-2.1); BILIRUBIN,TOTAL 0.2 mg/dL (0.2-1.3); TOTAL PROTEIN 5.5 g/dL (6.3-8.3)
[2017-03-24 11:17] LABS: CALCIUM 7.9 mg/dl (8.6-10.4)
[2017-03-24] MEDS ORDERED: Epoetin Alfa 10,000 unit/ml Dialysis IV ONE (11:45)
[2017-03-24] MEDS ORDERED: Epoetin Alfa 10,000 unit/ml Dialysis IV SCH (12:15)
[2017-03-24 12:51] LABS: NEUTROPHIL 89 % (50-75); NUCLEATED RED BLOOD CELL 1 % (0-0); TOTAL CELLS COUNTED 100
--- NOTE | 2017-03-24 13:48 | CARD ---
APPROVED REPORT EKG Measurement Heart [id number] ND 210P [id number] <Conclusion> Atrial-paced rhythm with prolonged AV conduction Left ventricular hypertrophy with QRS widening Nonspecific ST and T wave abnormality Abnormal ECG
[2017-03-24 15:58] VITALS: BP 146/49; PULSE 69; RESP 20; TEMP 99
--- NOTE | 2017-03-29 20:04 | OP ---
PROCEDURE DATE: 03/22/2017 PREOPERATIVE DIAGNOSES: Left hip #1 displaced intertrochanteric hip fracture with extension into proximal femoral shaft #2 proximal femoral shaft fracture. POSTOPERATIVE DIAGNOSES: Left hip #1 displaced intertrochanteric hip fracture with extension into proximal femoral shaft #2 proximal femoral shaft fracture. PROCEDURE: Left hip and proximal femoral shaft open reduction and internal fixation with long cephalomedullary nail and cabling. SURGEON: Marcelo Tinoco MD GORE STITCHER: Leti Addison PA-C. JUSTIFICATION FOR GORE STITCHER: Leti Addison is a certified physician senior sales assistant and her skilled surgical services were an absolute necessity for the successful completion of the procedure. She provided skilled surgical assistance with positioning of patient, positioning of extremity, management of surgical field, retraction of neurovascular structures, maintenance of fracture reduction, preparation of proximal femur and femoral shaft, placement of fixation hardware including long cephalomedullary nail, distal interlocking screws, cabling, wound closure. Leti Addison was present for the entire case and was an absolute necessity for the successful completion of the procedure. ANESTHESIA: General endotracheal anesthesia. COMPLICATIONS: None. SPECIMENS: None. ESTIMATED BLOOD LOSS: 300 mL TRANSFUSION: One unit of packed red blood cells was given intraoperatively. DRAINS: None. IMPLANTS: [employer] long TFNA nail, 11 mm diameter x 360 mm length with 130 degree femoral neck angle; 90 mm helical blade, 2 distal interlocking screws, 5 mm diameter with a 38 mm length and 40 mm length, two 1.7 mm cables placed with crimpers. DISPOSITION: The patient was extubated and transferred to the PACU in stable condition and tolerated the procedure well. INDICATIONS FOR SURGERY: The patient is a 77-year-old female with a past medical history significant for uncontrolled hypertension, COPD, asthma, hypercholesterolemia, end-stage renal disease on hemodialysis, type 2 diabetes, coronary artery disease with history of CVA, sick sinus syndrome, status post dual chamber pacemaker placement with history of multiple falls, presented to the Emergency Room at [facility] on 03/17/2017 with left hip pain and inability to weightbear on left lower extremity for 1 day. The patient states that this was a mechanical fall at home, a fall from standing , landing on the left side resulting in immediate 10/10 pain localized to the left hip and thigh with inability to ambulate or get up from the floor and unable to tolerate any range of motion of the left lower extremity. She denied any loss of consciousness or head trauma or other musculoskeletal injury, denied shortness of breath, fevers, chills, chest pain, headache, nausea, vomiting, numbness or tingling or other musculoskeletal trauma. She did admit to falling about 4 weeks ago and landing on the anterior aspect of her right knee while travelling out of state. She went to another Emergency Room outside the [facility] system that she does not recall and was placed in a knee immobilizer and diagnosed with a patella fracture. She did not follow up with an orthopedic surgeon as instructed by the ER and been wearing the knee immobilizer since. She states that her right knee pain is localized to the patella and is rated 4/10. She did admit to hitting her head during the fall, but denied any LOC. She was brought to the Emergency Room on the same day of her most recent fall on 03/17/17 at [facility] via EMS and after evaluation and review of imaging by ER staff, she was diagnosed with a left hip fracture/proximal femur fracture and admitted to the medical service under Dr. Alli Mcelroy and an orthopedic consultation was placed. The orthopedics physician senior sales assistant evaluated the patient on admission on 03/17/2017, and I evaluated the patient as an inpatient on 03/18/2017 as well. REVIEW OF IMAGING: X-rays of left hip/left femur and pelvis: There was a displaced intertrochanteric hip fracture with a sagittal split that extends past the subtrochanteric area and proximal femur more than 7 cm distal to the lesser trochanter. There is no evidence of a secondary fracture at the distal femur or shaft. CT of the left femur and hip was done. Once again, there was a displaced intratrochanteric hip fracture with a sagittal split that extends to the subtrochanteric area/proximal femur more than 7 cm distal to the lesser trochanter with no evidence of pathologic fracture. The patient has significant / complex multiple past medical history and is a significant risk for a complex surgery and underwent evaluation by detail manager and renal doctors as well as her primary care physician, Dr. Alli Mcelroy, over the weekend. The patient was evaluated in the evening of 03/19 by cardiology staff and cardiology clearance was obtained at that point in time. The patient was on a hemodialysis schedule and underwent dialysis on Monday. She had been on DVT prophylaxis over the weekend as well and received last dose of heparin 5000 units subQ on Vicente morning. I had a long discussion with the patient and her family with the help of a geophysics scientist as well explaining the nature of her diagnosis and injury and reviewed the imaging with the patient and her family. I explained that she was indicated for open reduction and internal fixation with a long cephalomedullary nail and most likely need for cabling of the long extension sagittal split component of the fracture into the proximal femoral shaft. There was also the possibility of proximal femur plate and screws as a plan B. The risks, benefits, and alternatives of the procedure were discussed at length with the patient and her family with the risks including, but not limited to infection, neurovascular damage, malunion, nonunion, need for further surgery, failure of hardware, inability to return to pre-injury level of activity, development of chronic pain and disability, development of blood clots including DVT and PE, anesthesia reactions including , perioperative cardiopulmonary complications. After answering all of their questions, the patient and her family understood the risks and wished to proceed with surgery. I had multiple discussions with the OR staff in trying to obtain elective OR time during normal OR time with an optimal anesthesia team and experienced OR staff to undergo this complex procedure on this complex patient. We were able to obtain a morning start on Monday03/22/2017. The alternative was to be placed on the add-on schedule and potentially do the surgery late in the evening on Monday or Monday. We awaited for any cancellations to advance the surgery at an earlier time on Monday with no success. The procedure was done on 03/22/2017 in the navy [facility]. PROCEDURE IN DETAIL: The patient was identified in the preoperative holding area and the left hip and thigh were marked for surgery. Once again, as described above, the risks, benefits, and alternative procedures were discussed at length with the patient and her family with the help of a Kazakh-speaking geophysics scientist and informed consent was obtained by the patient. After a brief discussion with anesthesia staff, perioperative IV antibiotics in the form of 2 g Ancef were administered and the patient was taken to the operating room on her hospital bed. A final timeout was done with the surgeon, anesthesia staff, and OR staff, all in agreement with the patient, procedure being done, and extremity being operated on. General anesthesia was administered without difficulty or complication. The patient was then carefully transferred to the fracture top OSI table with all bony prominences and superficial neurovascular structures well-padded. The right upper extremity was placed in a regular well- padded arm board. The left upper extremity was well-padded with egg crate foam and secured to the patient's chest across her body away from the surgical field. The right lower extremity was placed in a well-padded well leg laws in flexion and abduction to allow for access with the x-ray machine. The left lower extremity foot and ankle were well-padded with cast padding and placed in the fracture boot traction boot. Once total relaxation with general anesthesia had been achieved, biplanar fluoroscopic imaging were taken and an attempt at a closed reduction in various positions of internal rotation and external rotation were carried out. We were unable to obtain an anatomic reduction of the sagittal split fracture extending from the intertrochanteric fracture into the proximal femur. The decision was made to proceed with best alignment possible on the closed reduction for the hip fracture and proceed with open reduction and internal fixation of the sagittal split component with a reduction clamp while the shaft would be reamed in the canal with the flexible reamers and the nail would be placed as well as the cephalomedullary fixation and distal nonlocking screws followed by placing of cables. The left hip and thigh were prepped and draped in standard sterile fashion. A laterally based incision at the level of the proximal femoral shaft fracture extension was carried out. An incision was made through skin down to subcutaneous tissue down to fascia while maintaining good hemostasis. The iliotibial fascia was sharply incised and the underlying vastus lateralis insertion was sharply incised to allow access to the lateral cortex and circumferential access to the proximal femoral shaft. The incision was approximately 5 cm long. Once we had access to the fracture, the fracture plane was identified and carefully debrided of interposed soft tissue where there was significant vastus lateralis muscle and soft tissue caught within the fracture itself blocking the reduction. All the soft tissue interposed at the fracture site was carefully debrided and removed and at that point in time, large reduction clamps were placed around the fracture and under direct palpation with the limb placed in extreme external rotation, the fracture lined up and an anatomic reduction of the fracture was achieved. This was confirmed with biplanar fluoroscopic imaging. The limb was then brought carefully into neutral rotation allowing for reduction of the IT/hip component of the fracture, also an anatomic alignment/ reduction. This was confirmed with biplanar fluoroscopic imaging. At that point in time, with the reduction clamps in position, we proceeded with placement of the long cephalomedullary nail/TFNA nail. The optimal entry point at the greater trochanter was identified with biplanar fluoroscopic imaging and a guidewire was advanced through the skin at this optimal point. A 3 cm incision was then carried out at the entry point at the skin through skin down to subcutaneous tissue down to the fascia. Once the fascia was sharply incised , the greater trochanter was palpated and on direct palpation it was confirmed that the guidewire was entering at a center-center position at the greater trochanter allowing for the 6 degree bend at the entry point. Biplanar fluoroscopic imaging confirmed optimal entry point. At that point in time, the proximal femoral reamer was advanced with a soft tissue guide in position down to the level of the lesser trochanter successfully. Once the entry point for the nail was opened up, the guidewire and the proximal reamer were removed and a long beaded tip guidewire was advanced down the canal. Fluoroscopic imaging at the level of the knee confirmed that the beaded tip guidewire stopped at the level of the superior pole of the patella. A measurement was taken confirming a 360 mm optimal length for the long TFNA nail. Sequential flexible reamers were then passed over the beaded tip guidewire until a 12.5 mm reamer was passed successfully without significant friction/chatter, all while care was taken to confirm fluoroscopic imaging and maintenance of the anatomic reduction that was being held. At that point in time, an 11 mm diameter, 360 mm length long TFNA nail with 130 degree femoral neck angle was advanced manually through the entry point at the greater trochanter past the fracture level and the reduction clamps down until the tip of the nail was at the level of the superior aspect of the patella. The proximal aspect of the nail was confirmed to be in good position and with some modifications of the reduction clamps, the targeting arm with the triple sleeve for placement of the helical blade was confirmed to be in good position. The triple sleeve was advanced to the lateral cortex of the proximal femur and under fluoroscopic imaging, the K-wire was advanced center-center on the femoral neck and into the head with good tip to apex distance maintained. Biplanar fluoroscopic imaging showed good placement of the K-wire. A measurement was taken and a 90 mm helical blade was opened. The cannulated drill was then advanced to open the path for the helical blade to be impacted into position at the femoral head and neck. Once the path of the helical blade was drilled, a 90 mm helical blade was impacted into position of the guidewire until it was confirmed under biplanar fluoroscopic imaging to be in good position with good tip to apex distance center-center on the neck and head. At that point in time, the proximal locking screw for the helical blade was advanced through the nail after the beaded tip guidewire was removed prior to placement of the helical blade. The proximal helical blade locking screw was advanced and then brought back a half a turn to allow for dynamic compression. At that point time, we proceeded with placement of the cables around the proximal femoral shaft extension of the intertrochanteric fracture. Two 1.7 mm cables from [employer] were advanced after the soft tissue was cleared circumferentially with direct palpation and direct visualization around the femur. The cable guide was passed directly onto bone around the femur at the fracture site. The cable was then passed through the guide and tightened down. Tension was then applied between 40-50 mmHg and the crimper was placed and crimped to fixate the cables in a compressive position providing good compression at the fracture site. This was repeated for placement of a second cable more distal at the fracture. This resulted in a stable construct. The hip was taken through range of motion after the traction was removed and indeed this was a stable construct with good stability achieved. At that point in time, attention was then turned towards placement of interlocking screws distally with perfect mechoopda technique employed for the distal interlocking screw placement. The proximal static hole was placed first with good perfect mechoopda technique and placement of a 5 mm, 38 mm length bicortical screw. An incision was made with stab incision at the level of the distal interlocking hole. A clamp was used to debride overlying soft tissue and to sharply incise the iliotibial band as well. A drill was advanced through the lateral cortex and carefully impacted with a mallet through the nail and then advanced with the drill through the medial cortex. A measurement was taken and a 38 mm screw was placed bicortically and through the distal interlocking screw of the nail. These steps were then repeated for placement of a second nail at the dynamic compression slot hole at the superior aspect as well. This was done through an extension of the previous incision utilizing the same perfect mechoopda technique. Once both screws were in good position with the second screw being a 40 mm length screw, final fluoroscopic imaging were taken showing an anatomic reduction of this complicated fracture with good placement of hardware. All wounds were copiously irrigated. All wounds were reapproximated with #1 Vicryl suture for deep tissue and fascia, including the iliotibial band and the iliotibial fascia and vastus lateralis repair. A 2.0 Vicryl suture was used for reapproximation of the subcutaneous tissue followed by mouna for skin. Sterile dressings were applied and then the patient was carefully transferred from the OSI fracture top table to her hospital bed. The patient was then extubated from general anesthesia and transferred to PACU in stable condition and tolerated the procedure well. Once again implants all from [employer] include 11 mm diameter, 100 femoral neck angle, 360 mm length left long TFNA nail, 90 mm helical blade, two 5 mm distal interlocking screws with the proximal one measuring 38 mm in length and the distal one measuring 40 mm length, two 1.7 mm cobalt chrome cables with crimpers were placed as well at the fracture extension into the proximal femoral shaft. DISPOSITION: The patient will remain as an inpatient until she is medically stable for discharge to a rehab facility. She will be strict nonweightbearing to left lower extremity. She will work with physical therapy for ambulation and transfers. She will work with case management and social service liaison to determine optimal placements. Her primary care physician, Dr. Alli Mcelroy, and the detail manager and renal doctors will advise as to when she is medically stable for discharge. I will monitor her progress and the orthopedic PA will also monitor her progress as an inpatient. She will be started on DVT prophylaxis postoperative day #1 in the form of Lovenox 40 mg once daily. She will receive adequate pain control. Marcelo Tinoco MD cc: [id number] TT: 03/22/2017 20:03:20 branidn RALPH
== END 2017-03-27 18:10 | DRG 480 ==
LOC: C.ER 09:45 → C.9E 12:38 → C.6T 14:43 → UNDODISIN 03-24 17:10
PROVIDERS: ADMIT Internal Medicine Nephrology; ATTEND Internal Medicine Nephrology
PROC: 5A1D60Z (ICD-10-PCS; principal; 2017-03-17)
PROC: 0QS706Z Reposition Left Upper Femur with Intramedullary Internal Fixation Device, Open Approach (ICD-10-PCS; 2017-03-22)
DX: S72.142A Displaced intertrochanteric fracture of left femur, initial encounter for closed fracture (principal); N18.6 End stage renal disease; I13.2 Hypertensive heart and chronic kidney disease with heart failure and with stage 5 chronic kidney disease, or end stage renal disease; E11.22 Type 2 diabetes mellitus with diabetic chronic kidney disease; J44.9 Chronic obstructive pulmonary disease, unspecified; I49.5 Sick sinus syndrome; S82.001A Unspecified fracture of right patella, initial encounter for closed fracture; D63.1 Anemia in chronic kidney disease; E89.0 Postprocedural hypothyroidism; I50.9 Heart failure, unspecified; J45.909 Unspecified asthma, uncomplicated; I25.10 Atherosclerotic heart disease of native coronary artery without angina pectoris; K59.00 Constipation, unspecified; E78.00 Pure hypercholesterolemia, unspecified; W01.0XXA Fall on same level from slipping, tripping and stumbling without subsequent striking against object, initial encounter; Y92.019 Unspecified place in single-family (private) house as the place of occurrence of the external cause; Z99.2 Dependence on renal dialysis; Z95.0 Presence of cardiac pacemaker; Z87.891 Personal history of nicotine dependence

== ENCOUNTER 2017-03-24 18:37 | Inpatient (IN) | payer MEDICARE, OTHER ==
[2017-03-24 18:37] VITALS: BMI 20.2
--- NOTE | 2017-03-24 20:21 | C.PDOC ---
History Of Present Illness Patient presents to the ER after being rejected by rehab due to patient's need for dialysis. Patient is S/P left hip fracture. Patient denies any physical complaints at this time. Time Seen by Provider: 03/24/17 20:14 Chief Complaint (Nursing): Medical Clearance History Per: Patient History/Exam Limitations: no limitations Onset/Duration Of Symptoms: Hrs Current Symptoms Are (Timing): Still Present Severity: None Pain Scale Rating Of: 0 Reports Recently: Seen In ED Recent travel outside of the [place]: No Past Medical History Reviewed: Historical Data, Nursing Documentation, Vital Signs Vital Signs: Last Vital Signs Temp 98.7 F 03/24/17 20:58 Pulse 61 03/24/17 20:58 Resp 16 03/24/17 20:58 BP 96/40 L 03/24/17 20:58 Pulse Ox 96 03/24/17 21:04 - Medical History PMH: Anemia, Asthma, CHF, COPD (ASTHMA), Diabetes, HTN, Hypercholesterolemia, Hyperthyroidism (Thyroid surgery), Hypothyroidism, End Stage Renal Disease ( dialysis m-w f), Chronic Kidney Disease Comment Only: Cardia Arrhythmia (bradycardia) Surgical History: Appendectomy, Pacemaker - [facility] Procedures BREAST DX PROCEDURE NEC (04/23/15) CONTRAST RENAL ARTERIOGR (06/20/13) DX ULTRASOUND-THORAX NEC (04/23/15) HEMODIALYSIS (04/24/15) INITIAL INSERT TRANS LEADS INTO [employer] VENTRICLE (04/24/15) INITIAL INSERTION OF DUAL-CHAMBER DEVICE (04/24/15) INJECT/INFUSE NEC (12/21/13) NEBULIZER THERAPY (12/21/13) PACKED CELL TRANSFUSION (03/31/14) PERCUTAN NEEDLE BIOPSY OF BREAST (04/23/15) PERFORMANCE OF URINARY FILTRATION, MULTIPLE (01/13/17) PERFORMANCE OF URINARY FILTRATION, SINGLE (02/08/16) Family History: States: No Known Family Hx - Social History Hx Tobacco Use: No Hx Alcohol Use: No Hx Substance Use: No - Immunization History Hx Tetanus Toxoid Vaccination: Yes Hx Influenza Vaccination: Yes Hx Pneumococcal Vaccination: Yes Review Of Systems Constitutional: Negative for: Fever, Chills Cardiovascular: Negative for: Chest Pain Respiratory: Negative for: Shortness of Breath Gastrointestinal: Negative for: Nausea, Vomiting, Diarrhea Musculoskeletal: Positive for: Other (hip pain). Negative for: Back Pain Skin: Negative for: Rash Neurological: Negative for: Weakness Psych: Positive for: Anxiety Physical Exam - Physical Exam Appears: Non-toxic Skin: Warm, Dry Head: Normacephalic Oral Mucosa: Moist Neck: Supple Chest: Symmetrical, No Tenderness Cardiovascular: Rhythm Regular, No Murmur Respiratory: No Rales, No Rhonchi, No Wheezing Gastrointestinal/Abdominal: Soft, No Tenderness Back: Normal Inspection Extremity: Other (hip tenderness, mild) Neurological/Psych: Oriented x3, Normal Speech Gait: Unable To Assess ED Course And Treatment O2 Sat by Pulse Oximetry: 96 Pulse Ox Interpretation: Normal Disposition Discussed With DrElisha: Radha Mcelroy Comment: accepted the pt on his service and took over the care at 8:16 PM Doctor Will See Patient In The: Hospital Counseled Patient/Family Regarding: Studies Performed, Diagnosis - Disposition Disposition: HOSPITALIZED Disposition Time: 20:16 Condition: FAIR - POA Present On Arrival: Falls Or Trauma - Clinical Impression Clinical Impression: Hip fracture - Scribe Statement The provider has reviewed the documentation as recorded by the Scribmanny Gonzalez All medical record entries made by the Scribe were at my direction and personally dictated by me. I have reviewed the chart and agree that the record accurately reflects my personal performance of the history, physical exam, medical decision making, and the department course for this patient. I have also personally directed, reviewed, and agree with the discharge instructions and disposition. Decision To Admit - Pt Status Changed To: Hospital Disposition Of: Inpatient - Admit Certification Admit to Inpatient:: After my assessment, the patient will require hospitalization for at least two midnights. This is because of the severity of symptoms shown, intensity of services needed, and/or the medical risk in this patient being treated as an outpatient. - InPatient: Physician Admission Certification: I certify that this patient requires 2 or more midnights of care for the following reason:: After my assessment, the patient will require hospitalization for at least two midnights. This is because of the severity of symptoms shown, intensity of services needed, and/or the medical risk in this patient being treated as an outpatient. - . Bed Request Type: Regular Admitting Physician: Radha Mcelroy Patient Diagnosis: Hip fracture
[2017-03-25] MEDS: HYDROmorphone 1 mg/ml ISec IVP PRN ×2 (00:49→19:51)
[2017-03-25] MEDS: Levothyroxine 125 MCG TAB PO SCH (06:09)
[2017-03-25] MEDS: (Novolog) Insulin Aspart, Recombinant 100 u/ml 10 ml vial SC SCH ×4 (07:38→22:00)
[2017-03-25] MEDS: Budesonide 0.5 mg/2 ml Inhal Susp UD INH SCH ×2 (08:28→19:35)
[2017-03-25] MEDS: Albuterol-Ipratrop 3 mg / 0.5 (3 ml) UD INH SCH ×3 (08:28→19:35)
[2017-03-25] MEDS: (Lantus) Insulin Glargine, Recombinant SC SCH (09:17)
[2017-03-25] MEDS: Pantoprazole 40 mg EC Tab PO SCH (09:18)
[2017-03-25] MEDS: Dorzolamide 2% Opht Sol 10ml OU SCH ×2 (12:42→17:44)
--- NOTE | 2017-03-25 14:48 | CP.PCM.HP ---
History of Present Illness - History of Present Illness History of Present Illness: 77-year-old female patient with the past medical history of CHF, COPD, osteoma, diabetes, hypertension, hypercholesterolemia, hyperthyroidism, ESRD, CKD presented to the ER after being rejected by rehab due to patient's need for dialysis. Patient is S/P left hip fracture. Denies any physical complaint at the time. Present on Admission - Present on Admission Any Indicators Present on Admission: No Past Patient History - Infectious Disease Hx of Infectious Diseases: None - Past Medical History & Family History Past Medical History?: Yes - Past Social History Smoking Status: Former Smoker - CARDIAC Hx Cardia Arrhythmia: (bradycardia) Hx Congestive Heart Failure: Yes Hx Hypercholesterolemia: Yes Hx Hypertension: Yes Hx Pacemaker: Yes - PULMONARY Hx Asthma: Yes Hx Chronic Obstructive Pulmonary Disease (COPD): Yes (ASTHMA) - NEUROLOGICAL HX Cerebrovascular Accident: Yes - HEENT Hx Cataracts: Yes Hx Deafness: Yes (right ear) - RENAL Hx Chronic Kidney Disease: Yes - ENDOCRINE/METABOLIC Hx Hyperthyroidism: Yes (Thyroid surgery) Hx Hypothyroidism: Yes - HEMATOLOGICAL/ONCOLOGICAL Hx Anemia: Yes - INTEGUMENTARY Hx Dermatological Problems: No - MUSCULOSKELETAL/RHEUMATOLOGICAL Hx Falls: No - GASTROINTESTINAL Hx Gastrointestinal Disorders: No - GENITOURINARY/GYNECOLOGICAL Hx Genitourinary Disorders: No - PSYCHIATRIC Hx Substance Use: No - SURGICAL HISTORY Hx Appendectomy: Yes - ANESTHESIA Hx Anesthesia: Yes Hx Anesthesia Reactions: No Hx Malignant Hyperthermia: No Meds Home Medications: Home Medication List Medication Instructions Recorded Confirmed Type Albuterol/Ipratropium [Duoneb 3 3 ml INH RQ6 03/27/17 Rx mg/0.5 mg (3 ml) UD] Epoetin Sam [Procrit] 10,000 unit IV MWF ml 03/27/17 Rx amLODIPine [Norvasc] 10 mg PO DAILY tab 03/27/17 Rx Allergies/Adverse Reactions: Allergies Allergy/AdvReac Type Severity Reaction Status Date / Time ibuprofen [From Motrin] Allergy Unknown URTICARIA Verified 04/07/17 10:06 oxycodone Allergy Unknown ITCHING Verified 04/07/17 10:06 Physical Exam - Constitutional Appears: Well - Head Exam Head Exam: ATRAUMATIC, NORMAL INSPECTION, NORMOCEPHALIC - Eye Exam Eye Exam: EOMI, Normal appearance, PERRL Pupil Exam: NORMAL ACCOMODATION, PERRL - ENT Exam ENT Exam: Mucous Membranes Moist, Normal Exam - Neck Exam Neck exam: Positive for: Normal Inspection - Respiratory Exam Respiratory Exam: Decreased Breath Sounds - Cardiovascular Exam Cardiovascular Exam: REGULAR RHYTHM, +S1, +S2 - GI/Abdominal Exam GI & Abdominal Exam: Diminished Bowel Sounds, Soft - Rectal Exam Rectal Exam: Deferred Results - Vital Signs Recent Vital Signs: Last Vital Signs Temp 98 F 03/25/17 08:11 Pulse 90 03/25/17 08:11 Resp 20 03/25/17 08:11 BP 171/51 H 03/25/17 09:17 Pulse Ox 100 03/25/17 08:11 - Labs Result Diagrams: 03/27/17 09:51 03/27/17 09:51 Labs: Laboratory Results - last 24 hr 03/25/17 03/25/17 06:19 07:32 POC Glucose (mg/dL) 157 H 156 H Assessment & Plan (1) Altered mental status Status: Acute (2) Anemia Status: Acute (3) Anemia, chronic renal failure Status: Acute (4) Asthma Status: Acute (5) Bradycardia Status: Acute (6) COPD exacerbation Status: Acute (7) Chronic renal failure Status: Acute (8) Closed displaced fracture of proximal epiphysis of left femur Status: Acute (9) Closed displaced intertrochanteric fracture of left femur Status: Acute (10) Congestive heart failure (CHF) Status: Acute (11) Diabetes Status: Acute (12) Dizziness Status: Acute (13) Dizziness Status: Acute (14) Elevated troponin Status: Acute (15) Foot sprain Status: Acute (16) Frequent falls Status: Acute (17) HTN (hypertension) Status: Acute (18) Hip fracture Status: Acute (19) Hip fracture, left Status: Acute (20) Hyperkalemia Status: Acute (21) Hypothermia Status: Acute (22) Hypothyroid Status: Acute (23) Near syncope Status: Acute (24) Poorly-controlled hypertension Status: Acute (25) Prophylactic measure Status: Acute (26) Right patella fracture Status: Acute (27) SOB (shortness of breath) Status: Acute (28) TIA (transient ischemic attack) Status: Acute (29) Transient ischemic attack Status: Acute (30) Vertigo Status: Acute (31) ESRD (end stage renal disease) on dialysis Status: Chronic (32) Leg edema Status: Chronic - Assessment and Plan (Free Text) Plan: consult park recreation manager consult orthopedic surgeon s/p hip fracture continue same meds as ordered
[2017-03-26] MEDS: Albuterol-Ipratrop 3 mg / 0.5 (3 ml) UD INH SCH ×4 (01:39→19:21)
[2017-03-26] MEDS: HYDROmorphone 1 mg/ml ISec IVP PRN ×2 (04:23→17:12)
[2017-03-26] MEDS: Levothyroxine 125 MCG TAB PO SCH (05:53)
[2017-03-26] MEDS: (Novolog) Insulin Aspart, Recombinant 100 u/ml 10 ml vial SC SCH ×4 (07:48→22:00)
[2017-03-26] MEDS: Budesonide 0.5 mg/2 ml Inhal Susp UD INH SCH ×2 (08:10→19:21)
[2017-03-26] MEDS: (Lantus) Insulin Glargine, Recombinant SC SCH (10:05)
[2017-03-26] MEDS: Pantoprazole 40 mg EC Tab PO SCH (10:06)
[2017-03-26] MEDS: Dorzolamide 2% Opht Sol 10ml OU SCH ×2 (10:08→17:47)
--- NOTE | 2017-03-26 16:27 | CP.PCM.PN ---
Subjective - Date & Time of Evaluation Date of Evaluation: 03/26/17 Time of Evaluation: 09:40 - Subjective Subjective: clinically same Objective - Vital Signs/Intake and Output Vital Signs (last 24 hours): Temp Pulse Resp BP Pulse Ox 98.4 F 62 20 139/55 L 96 03/26/17 08:05 03/26/17 08:05 03/26/17 08:05 03/26/17 10:06 03/26/17 08:05 Intake and Output: 03/26/17 03/26/17 06:59 18:59 Intake Total 500 Balance 500 - Medications Medications: Current Medications Albuterol/Ipratropium (Duoneb 3 Mg/0.5 Mg (3 Ml) Ud) 3 ml INH RQ6 [facility] Last Admin: 03/26/17 13:31 Dose: 3 ml Amlodipine Besylate (Norvasc) 10 mg PO DAILY [facility] Last Admin: 03/26/17 10:06 Dose: 10 mg Budesonide (Pulmicort Respules) 0.5 mg INH RQ12 [facility] Last Admin: 03/26/17 08:10 Dose: 0.5 mg Calcium Acetate (Phoslo) 1,334 mg PO TID [facility] Last Admin: 03/26/17 13:22 Dose: 1,334 mg Dorzolamide HCl (Trusopt) 1 ml OU BID [facility] Last Admin: 03/26/17 10:08 Dose: 1 drop Epoetin Sam (Procrit) 4,000 unit IV MWF [facility] Heparin Sodium (Porcine) (Heparin) 5,000 units SC Q12 [facility] Last Admin: 03/26/17 10:07 Dose: 5,000 units Hydralazine HCl (Apresoline) 100 mg PO BID [facility] Last Admin: 03/26/17 10:06 Dose: 100 mg Hydrochlorothiazide (Hydrodiuril) 25 mg PO DAILY [facility] Last Admin: 03/26/17 10:06 Dose: 25 mg Hydromorphone HCl (Dilaudid) 1 mg IVP Q4H PRN PRN Reason: Pain, severe (8-10) Last Admin: 03/26/17 04:23 Dose: 1 mg Insulin Aspart (Novolog) 0 unit SC ACHS [facility] PRN Reason: Protocol Last Admin: 03/26/17 12:43 Dose: Not Given Insulin Glargine (Lantus) 20 unit SC DAILY [facility] Last Admin: 03/26/17 10:05 Dose: 20 units Isosorbide Mononitrate (Imdur) 30 mg PO DAILY [facility] Last Admin: 03/26/17 10:16 Dose: 30 mg Lactulose (Enulose) 20 gm PO Q6 PRN PRN Reason: Constipation Last Admin: 03/26/17 10:05 Dose: 20 gm Levothyroxine Sodium (Synthroid) 125 mcg PO DAILY@0630 [facility] Last Admin: 03/26/17 05:53 Dose: 125 mcg Losartan Potassium (Cozaar) 50 mg PO DAILY [facility] Last Admin: 03/26/17 10:14 Dose: 50 mg Metoprolol Tartrate (Lopressor) 25 mg PO BID [facility] Last Admin: 03/26/17 10:06 Dose: 25 mg Pantoprazole Sodium (Protonix Ec Tab) 40 mg PO DAILY [facility] Last Admin: 03/26/17 10:06 Dose: 40 mg Pneumococcal Polyvalent Vaccine (Pneumovax 23 Vaccine) 0.5 ml IM .ONCE ONE Stop: 03/27/17 10:01 Rosuvastatin Calcium (Crestor) 10 mg PO HS [facility] Last Admin: 03/25/17 21:52 Dose: 10 mg Zolpidem Tartrate (Ambien) 5 mg PO HS PRN PRN Reason: Insomnia Last Admin: 03/25/17 00:46 Dose: 5 mg Assessment and Plan (1) Altered mental status Status: Acute (2) Anemia Status: Acute (3) Anemia, chronic renal failure Status: Acute (4) Asthma Status: Acute (5) Bradycardia Status: Acute (6) COPD exacerbation Status: Acute (7) Chronic renal failure Status: Acute (8) Closed displaced fracture of proximal epiphysis of left femur Status: Acute (9) Closed displaced intertrochanteric fracture of left femur Status: Acute (10) Congestive heart failure (CHF) Status: Acute (11) Diabetes Status: Acute (12) Dizziness Status: Acute (13) Dizziness Status: Acute (14) Elevated troponin Status: Acute (15) Foot sprain Status: Acute (16) Frequent falls Status: Acute (17) HTN (hypertension) Status: Acute (18) Hip fracture Status: Acute (19) Hip fracture, left Status: Acute (20) Hyperkalemia Status: Acute (21) Hypothermia Status: Acute (22) Hypothyroid Status: Acute (23) Near syncope Status: Acute (24) Poorly-controlled hypertension Status: Acute (25) Prophylactic measure Status: Acute (26) Right patella fracture Status: Acute (27) SOB (shortness of breath) Status: Acute (28) TIA (transient ischemic attack) Status: Acute (29) Transient ischemic attack Status: Acute (30) Vertigo Status: Acute (31) ESRD (end stage renal disease) on dialysis Status: Chronic (32) Leg edema Status: Chronic - Assessment and Plan (Free Text) Plan: consult [employer] consult orthopedic surgeon s/p hip fracture continue same meds as ordered
--- NOTE | 2017-03-26 23:07 | RAD ---
EXAM: XR Abdomen, 1 View CLINICAL HISTORY: 77 years old, female; Signs and symptoms; Bloating and constipation; Additional info: R/O sbo TECHNIQUE: Frontal supine view of the abdomen/pelvis. EXAM DATE/TIME: Exam ordered 03/26/2017 9:42 PM COMPARISON: No relevant prior studies available. FINDINGS: Lower thorax: Lower thorax has an appearance of prominent interstitial markings, this may be technical in represent artifact, or may be chronic for this patient or reflect a more acute process in is some pulmonary vascular congestion, reactive airways disease, bronchitis, viral syndrome. A clip is noted bilaterally in the breasts.Pacemaker leads are partially imaged. There are multiple right-sided rib fractures of indeterminate age on these views. Intraperitoneal space: Supine technique is limited for free air, there are no secondary signs of free air. Gastrointestinal tract: There is increased fecal content in the colon, noting that there is sigmoid and rectum appear packed with stool, evidence of increased fecal content also in the more proximal end in the descending colon. Nondilated small bowel is identified. Organs: Popcorn calcifications in the pelvis favored to be related to fibroids. Bones/joints: Hardware in the left hip indicating internal fixation.Multiple right-sided rib fractures of indeterminate age. Other findings: Abdominal x-ray no previous. 2 frontal supine views in order to include the entire abdomen. IMPRESSION: Increased fecal content. Multiple right-sided rib fractures of indeterminate age. Question for prominent interstitial markings in the chest, differential as above
[2017-03-27] MEDS: HYDROmorphone 1 mg/ml ISec IVP PRN ×3 (00:18→12:36)
[2017-03-27] MEDS: Albuterol-Ipratrop 3 mg / 0.5 (3 ml) UD INH SCH ×3 (01:35→13:45)
[2017-03-27] MEDS: Levothyroxine 125 MCG TAB PO SCH (06:18)
[2017-03-27] MEDS: Budesonide 0.5 mg/2 ml Inhal Susp UD INH SCH (07:25)
[2017-03-27] MEDS: (Novolog) Insulin Aspart, Recombinant 100 u/ml 10 ml vial SC SCH ×3 (07:28→17:22)
[2017-03-27] MEDS ORDERED: EPOETIN ALFA 4,000 UNIT/ML ML Dialysis IV SCH (09:00)
[2017-03-27] MEDS ORDERED: Pneumococcal 23-Valent Vaccine IM ONE (10:00)
[2017-03-27 10:01] LABS: BASO % 0.4 % (0.0-2.0); EOS # 0.1 K/uL (0.0-0.7); EOS % 0.5 % (0.0-4.0); HEMATOCRIT 23.7 % (34.0-47.0); LYMPH # 0.3 K/uL (1.0-4.3); LYMPH % 2.5 % (20.0-40.0); MEAN CELL VOLUME 91.7 fL (81.0-99.0); MEAN CORPUSCULAR HEMOGLOBIN 28.8 pg (27.0-31.0); MEAN CORPUSCULAR HGB CONC 31.4 g/dL (33.0-37.0); MEAN PLATELET VOLUME 8.4 fL (7.2-11.7); MONO % 8.6 % (0.0-10.0); PLATELET COUNT 209 K/uL (130-400); RED CELL DISTRIBUTION WIDTH 16.9 % (11.5-14.5)
[2017-03-27 10:07] LABS: POTASSIUM 4.2 mmol/L (3.6-5.2)
[2017-03-27 10:09] LABS: BILIRUBIN,TOTAL 0.9 mg/dL (0.2-1.3)
[2017-03-27 10:10] LABS: ALB/GLOB RATIO 0.8 (1.0-2.1); CALCIUM 8.7 mg/dl (8.6-10.4); TOTAL PROTEIN 5.9 g/dL (6.3-8.3)
--- NOTE | 2017-03-27 10:28 | CP.PCM.PN ---
Subjective - Date & Time of Evaluation Date of Evaluation: 03/27/17 Time of Evaluation: 09:00 - Subjective Subjective: PGY2 on medicine Dr. Mcelroy service: Pt seen and examined in dialysis unit. Pt drowsy after pain medicine but offers no complaints. Pt noted to have one elevated temperature last night at 100.3 but 98s since. No acute events overnight per RN. Pt will transfer to [place]. Objective - Vital Signs/Intake and Output Vital Signs (last 24 hours): Temp Pulse Resp BP Pulse Ox 98.3 F 60 16 116/42 L 97 03/27/17 09:00 03/27/17 10:10 03/27/17 09:00 03/27/17 10:10 03/27/17 10:10 - Medications Medications: Current Medications Albuterol/Ipratropium (Duoneb 3 Mg/0.5 Mg (3 Ml) Ud) 3 ml INH RQ6 [facility] Last Admin: 03/27/17 07:25 Dose: 3 ml Amlodipine Besylate (Norvasc) 10 mg PO DAILY [facility] Last Admin: 03/26/17 10:06 Dose: 10 mg Budesonide (Pulmicort Respules) 0.5 mg INH RQ12 [facility] Last Admin: 03/27/17 07:25 Dose: 0.5 mg Calcium Acetate (Phoslo) 1,334 mg PO TID [facility] Last Admin: 03/26/17 17:47 Dose: 1,334 mg Dorzolamide HCl (Trusopt) 1 ml OU BID [facility] Last Admin: 03/26/17 17:47 Dose: 1 drop Epoetin Sam (Procrit) 4,000 unit IV MWF [facility] Heparin Sodium (Porcine) (Heparin) 5,000 units SC Q12 [facility] Last Admin: 03/26/17 22:00 Dose: Not Given Hydralazine HCl (Apresoline) 100 mg PO BID [facility] Last Admin: 03/26/17 17:45 Dose: 100 mg Hydrochlorothiazide (Hydrodiuril) 25 mg PO DAILY [facility] Last Admin: 03/26/17 10:06 Dose: 25 mg Hydromorphone HCl (Dilaudid) 1 mg IVP Q4H PRN PRN Reason: Pain, severe (8-10) Last Admin: 03/27/17 08:20 Dose: 1 mg Insulin Aspart (Novolog) 0 unit SC ACHS [facility] PRN Reason: Protocol Last Admin: 03/27/17 07:28 Dose: Not Given Insulin Glargine (Lantus) 20 unit SC DAILY [facility] Last Admin: 03/26/17 10:05 Dose: 20 units Isosorbide Mononitrate (Imdur) 30 mg PO DAILY [facility] Last Admin: 03/26/17 10:16 Dose: 30 mg Lactulose (Enulose) 20 gm PO Q6 PRN PRN Reason: Constipation Last Admin: 03/26/17 17:49 Dose: 20 gm Levothyroxine Sodium (Synthroid) 125 mcg PO DAILY@0630 [facility] Last Admin: 03/27/17 06:18 Dose: 125 mcg Losartan Potassium (Cozaar) 50 mg PO DAILY [facility] Last Admin: 03/26/17 10:14 Dose: 50 mg Metoprolol Tartrate (Lopressor) 25 mg PO BID [facility] Last Admin: 03/26/17 17:45 Dose: 25 mg Pantoprazole Sodium (Protonix Ec Tab) 40 mg PO DAILY [facility] Last Admin: 03/26/17 10:06 Dose: 40 mg Rosuvastatin Calcium (Crestor) 10 mg PO HS [facility] Last Admin: 03/26/17 22:00 Dose: Not Given Zolpidem Tartrate (Ambien) 5 mg PO HS PRN PRN Reason: Insomnia Last Admin: 03/27/17 02:16 Dose: 5 mg - Labs Labs: 03/27/17 09:51 03/27/17 09:51 - Constitutional Appears: Non-toxic, No Acute Distress - Head Exam Head Exam: NORMOCEPHALIC - Eye Exam Eye Exam: Normal appearance Pupil Exam: NORMAL ACCOMODATION - Cardiovascular Exam Cardiovascular Exam: REGULAR RHYTHM, +S1, +S2. absent: Gallop, Rubs - GI/Abdominal Exam GI & Abdominal Exam: Soft, Normal Bowel Sounds - Extremities Exam Additional comments: left leg incision intact, no erythema - Neurological Exam Neurological Exam: Alert, Awake, Oriented x3 - Psychiatric Exam Psychiatric exam: Normal Mood - Skin Skin Exam: Intact Assessment and Plan - Assessment and Plan (Free Text) Assessment: Closed displaced fracture of proximal epiphysis of left femur POD#5 Left long intramedullary femoral nailing with ORIF/cerclage wiring Dilaudid 1mg IVP Q4h PRN HTN Continue home meds: Norvasc 10mg PO daily, hydralazine 100mg PO BID, HCTZ 25 mg PO daily, Imdur 30mg PO daily, Cozaar 50mg PO daily, Lopressor 25mg PO BID. ESRD HD MWF. Phoslo and Procrit. DM RISS and accucheck. CAD Crestor 5mg PO HS. Constipation Lactulose 20g PO q6 PRN Prophylactic measure Protonix, HepSQ Pt will be transferred to [facility]. Management as per Dr. Mcelroy
[2017-03-27 11:25] LABS: NEUTROPHIL 88 % (50-75); TOTAL CELLS COUNTED 100
[2017-03-27 11:26] LABS: LARGE PLATELETS PRESENT
[2017-03-27] MEDS ORDERED: Epoetin Alfa 10,000 unit/ml Dialysis IV SCH (11:27)
[2017-03-27] MEDS: (Lantus) Insulin Glargine, Recombinant SC SCH (11:44)
[2017-03-27] MEDS: Dorzolamide 2% Opht Sol 10ml OU SCH (12:36)
[2017-03-27] MEDS: Pantoprazole 40 mg EC Tab PO SCH (12:36)
[2017-03-27 16:05] VITALS: BP 128/46; PULSE 68; RESP 18; TEMP 98.9; O2SAT 100
--- NOTE | 2017-03-27 18:14 | CP.PCM.PN ---
Subjective - Date & Time of Evaluation Date of Evaluation: 03/27/17 Time of Evaluation: 13:00 - Subjective Subjective: clinically same Objective - Vital Signs/Intake and Output Vital Signs (last 24 hours): Temp Pulse Resp BP Pulse Ox 98.9 F 68 18 128/46 L 100 03/27/17 16:02 03/27/17 16:02 03/27/17 16:02 03/27/17 16:02 03/27/17 16:02 - Medications Medications: Current Medications Albuterol/Ipratropium (Duoneb 3 Mg/0.5 Mg (3 Ml) Ud) 3 ml INH RQ6 [facility] Last Admin: 03/27/17 13:45 Dose: 3 ml Amlodipine Besylate (Norvasc) 10 mg PO DAILY [facility] Last Admin: 03/27/17 12:36 Dose: 10 mg Budesonide (Pulmicort Respules) 0.5 mg INH RQ12 [facility] Last Admin: 03/27/17 07:25 Dose: 0.5 mg Calcium Acetate (Phoslo) 1,334 mg PO TID [facility] Last Admin: 03/27/17 13:24 Dose: 1,334 mg Dorzolamide HCl (Trusopt) 1 ml OU BID [facility] Last Admin: 03/27/17 12:36 Dose: 1 drop Epoetin Sam (Procrit) 10,000 unit IV MWF [facility] Last Admin: 03/27/17 11:53 Dose: 10,000 unit Heparin Sodium (Porcine) (Heparin) 5,000 units SC Q12 [facility] Last Admin: 03/27/17 11:44 Dose: Not Given Hydralazine HCl (Apresoline) 100 mg PO BID [facility] Last Admin: 03/27/17 11:45 Dose: Not Given Hydrochlorothiazide (Hydrodiuril) 25 mg PO DAILY [facility] Last Admin: 03/27/17 12:36 Dose: 25 mg Hydromorphone HCl (Dilaudid) 1 mg IVP Q4H PRN PRN Reason: Pain, severe (8-10) Last Admin: 03/27/17 12:36 Dose: 1 mg Insulin Aspart (Novolog) 0 unit SC ACHS [facility] PRN Reason: Protocol Last Admin: 03/27/17 17:22 Dose: Not Given Insulin Glargine (Lantus) 20 unit SC DAILY [facility] Last Admin: 03/27/17 11:44 Dose: Not Given Isosorbide Mononitrate (Imdur) 30 mg PO DAILY [facility] Last Admin: 03/27/17 12:35 Dose: 30 mg Lactulose (Enulose) 20 gm PO Q6 PRN PRN Reason: Constipation Last Admin: 03/27/17 12:36 Dose: 20 gm Levothyroxine Sodium (Synthroid) 125 mcg PO DAILY@0630 [facility] Last Admin: 03/27/17 06:18 Dose: 125 mcg Losartan Potassium (Cozaar) 50 mg PO DAILY [facility] Last Admin: 03/27/17 12:39 Dose: 50 mg Metoprolol Tartrate (Lopressor) 25 mg PO BID [facility] Last Admin: 03/27/17 11:46 Dose: Not Given Pantoprazole Sodium (Protonix Ec Tab) 40 mg PO DAILY [facility] Last Admin: 03/27/17 12:36 Dose: 40 mg Rosuvastatin Calcium (Crestor) 10 mg PO HS [facility] Last Admin: 03/26/17 22:00 Dose: Not Given Zolpidem Tartrate (Ambien) 5 mg PO HS PRN PRN Reason: Insomnia Last Admin: 03/27/17 02:16 Dose: 5 mg - Labs Labs: 03/27/17 09:51 03/27/17 09:51 - Constitutional Appears: Well - Head Exam Head Exam: ATRAUMATIC, NORMAL INSPECTION, NORMOCEPHALIC - Eye Exam Eye Exam: EOMI, Normal appearance, PERRL Pupil Exam: NORMAL ACCOMODATION, PERRL - ENT Exam ENT Exam: Mucous Membranes Moist, Normal Exam - Neck Exam Neck Exam: Full ROM, Normal Inspection. absent: Lymphadenopathy - Respiratory Exam Respiratory Exam: Decreased Breath Sounds - Cardiovascular Exam Cardiovascular Exam: REGULAR RHYTHM, +S1, +S2 - GI/Abdominal Exam GI & Abdominal Exam: Soft, Diminished Bowel Sounds - Rectal Exam Rectal Exam: Deferred Assessment and Plan - Assessment and Plan (Free Text) Plan: pt. can be transferred to [facility]
--- NOTE | 2017-04-15 01:33 | CP.PCM.PN ---
Subjective - Date & Time of Evaluation Date of Evaluation: 03/26/17 Time of Evaluation: 10:00 - Subjective Subjective: Pt lying in bed comfortably. pain well controlled. Denies CP,SOB, fevers, chills, SALAZAR, N&V, numbness, tingling, calf pain. Objective - Vital Signs/Intake and Output Vital Signs (last 24 hours): Temp Pulse Resp BP Pulse Ox - Labs Labs: - Extremities Exam Additional comments: Right Lower Extremity: unchanged Calves soft/nt bl Left Lower Extremity: surgical wound c/d/i, + minimal TTP, - swelling/warmth/ redness, able to tolerate log roll and some ROM at hip with pain, full ROM at knee/ankle/toes w/o pain +5/5 motor strength knee flex/ext, ankle df/pf, toes up & down sensory intact L2-S2, DPN/SPN/TN BCR all toes, 2+ DP Assessment and Plan (1) Closed displaced intertrochanteric fracture of left femur Assessment & Plan: 77 yo Female w/ multiple PMH including DM, CAD, ESRD on HD, sick sinus syndrome s/p dual chamber PPM presented to the ER at w/ Left hip pain s/p mechanical fall at home 03/17/17 Dx= #1 Left hip/femur displaced pertrochanteric (intertrochanteric ) hip fracture that extends into proximal femoral shaft (7cm beyond LT)/ proximal femoral shaft displaced fx s/p L hip/femur ORIF w/ long cephalomedulary nail and cables 03/22/17, POD # 4 #2 Right knee non-displaced inferior pole patella fracture PLAN: Pt was dc to [facility], admission to [facility] was refused due to HD needs of pt, readmitted same day on 03/24/17 R knee: -at this point, R knee injury is over 5 weeks ago, stable on exam, able to exhibit 5/5 strength knee extension w/ minimal pain -continue knee immobilizer for ambulation, can remove when in bed -encourage to work on ROM while in bed -physical therapy= WBAT, ambulation w/ knee immobilizer on at all times, focus on gentle progressive ROM (0-90 for now) -place order for post-op hinged knee brace, have patient intake coordinator fit pt and apply brace locked at 0 degrees for now -no indication for any orthopedic surgical intervention, tx=conservative / non- op tx L hip/femur: -clinically, progressing well, surgical wound c/d/i -strict NWB LLE -physical therapy= OOB as much as possible, ambulation/transfers, focus on ROM/ stretch/strength, only restriction is NWB -pain control -DVT proph -f/u AM labs/CBC, need for transfusion to be determined by primary team -IS -stable for dc from ortho point of view, needs f/u in my office at [facility] w/in 1 week from dc, call [phone] for post-op appt -medical care per primary team -will follow -please contact me with any questions, concerns, updates at [phone] Thank you for allowing me to participate in the care of your pt. Marcelo Tinoco MD Orthopedic Surgery Status: Acute
== END 2017-03-27 18:10 | DRG 291 ==
LOC: C.ER 18:37 → C.9E 20:21 → C.6T 22:12
PROVIDERS: ADMIT Internal Medicine Nephrology; ATTEND Internal Medicine Nephrology
PROC: 5A1D00Z (ICD-10-PCS; principal; 2017-03-24)
DX: I13.2 Hypertensive heart and chronic kidney disease with heart failure and with stage 5 chronic kidney disease, or end stage renal disease (principal); N18.6 End stage renal disease; E11.22 Type 2 diabetes mellitus with diabetic chronic kidney disease; S72.022A Displaced fracture of epiphysis (separation) (upper) of left femur, initial encounter for closed fracture; I50.9 Heart failure, unspecified; Z99.2 Dependence on renal dialysis; I25.10 Atherosclerotic heart disease of native coronary artery without angina pectoris; K59.00 Constipation, unspecified; E03.9 Hypothyroidism, unspecified; E78.00 Pure hypercholesterolemia, unspecified; J44.9 Chronic obstructive pulmonary disease, unspecified

== ENCOUNTER 2017-04-07 10:02 | Inpatient (IN) | payer MEDICARE, OTHER ==
[2017-04-07 10:06] VITALS: BMI 17.9
--- NOTE | 2017-04-07 10:15 | C.PDOC ---
History Of Present Illness 77F hx of COPD c/o cough and sob x2 weeks. no chest pain or fever. took some cough medicine at home but did not help. had left hip repl 1 month ago- denies any pain at surgical site. Time Seen by Provider: 04/07/17 10:07 Chief Complaint (Nursing): Shortness Of Breath Past Medical History Vital Signs: Last Vital Signs Temp 97.8 F 04/08/17 10:48 Pulse 64 04/08/17 08:02 Resp 20 04/08/17 08:02 BP 156/61 H 04/08/17 09:30 Pulse Ox 95 04/08/17 08:02 - Medical History PMH: Anemia, Asthma, CHF, COPD (ASTHMA), Diabetes, HTN, Hypercholesterolemia, Hyperthyroidism (Thyroid surgery), Hypothyroidism, End Stage Renal Disease ( dialysis m-w f), Chronic Kidney Disease Denies: Depression Comment Only: Cardia Arrhythmia (bradycardia) Surgical History: Appendectomy, Pacemaker - [facility] Procedures BREAST DX PROCEDURE NEC (04/23/15) CONTRAST RENAL ARTERIOGR (06/20/13) DX ULTRASOUND-THORAX NEC (04/23/15) HEMODIALYSIS (04/24/15) INITIAL INSERT TRANS LEADS INTO ATRIUM & VENTRICLE (04/24/15) INITIAL INSERTION OF DUAL-CHAMBER DEVICE (04/24/15) INJECT/INFUSE NEC (12/21/13) NEBULIZER THERAPY (12/21/13) PACKED CELL TRANSFUSION (03/31/14) PERCUTAN NEEDLE BIOPSY OF BREAST (04/23/15) PERFORMANCE OF URINARY FILTRATION, MULTIPLE (03/17/17) PERFORMANCE OF URINARY FILTRATION, SINGLE (03/24/17) REPOSITION LEFT UPPER FEMUR WITH INTRAMED FIX, OPEN APPROACH (03/17/17) Family History: States: No Known Family Hx - Social History Hx Tobacco Use: No Hx Alcohol Use: No Hx Substance Use: No - Immunization History Hx Tetanus Toxoid Vaccination: Yes Hx Influenza Vaccination: Yes Hx Pneumococcal Vaccination: Yes Review Of Systems Except As Marked, All Systems Reviewed And Found Negative. Constitutional: Negative for: Fever, Chills, Malaise Cardiovascular: Negative for: Chest Pain Respiratory: Positive for: Cough, Shortness of Breath, Wheezing. Negative for: Sputum Gastrointestinal: Negative for: Nausea, Vomiting, Abdominal Pain Neurological: Negative for: Weakness, Numbness, Headache Physical Exam - Physical Exam Appears: Well, Non-toxic, No Acute Distress Skin: Warm, Dry Head: Atraumatic Eye(s): bilateral: PERRL Nose: No Epistaxis Oral Mucosa: Moist Neck: Normal ROM Cardiovascular: Rhythm Regular Respiratory: Decreased Breath Sounds, No Accessory Muscle Use, Wheezing Gastrointestinal/Abdominal: Soft, No Tenderness Extremity: No Swelling, Other (surgical mouna in place left thigh- wound intact no erythema or drainage) ED Course And Treatment - Laboratory Results Result Diagrams: 04/07/17 10:45 04/07/17 10:45 O2 Sat by Pulse Oximetry: 90 Medical Decision Making Medical Decision Making: ecg- atrial paced rhythm 58, rbbb, no acute ischemia Disposition - Disposition Disposition: HOSPITALIZED Disposition Time: 15:00 Condition: STABLE - Clinical Impression Clinical Impression: COPD exacerbation
[2017-04-07] MEDS ORDERED: Promethazine 6.25 MG/5 ML CUP PO STA (10:22)
[2017-04-07 10:51] LABS: BASO % 0.4 % (0.0-2.0); EOS % 0.1 % (0.0-4.0); HEMATOCRIT 30.3 % (34.0-47.0); LYMPH # 0.4 K/uL (1.0-4.3); LYMPH % 5.7 % (20.0-40.0); MEAN CELL VOLUME 95.2 fL (81.0-99.0); MEAN CORPUSCULAR HEMOGLOBIN 29.1 pg (27.0-31.0); MEAN CORPUSCULAR HGB CONC 30.6 g/dL (33.0-37.0); MONO # 0.2 K/uL (0.0-0.8); MONO % 2.6 % (0.0-10.0); NRBC % 0.4 % (0.0-2.0); PLATELET COUNT 221 K/uL (130-400); RED CELL DISTRIBUTION WIDTH 19.1 % (11.5-14.5); WHITE BLOOD COUNT 6.4 K/uL (4.8-10.8)
--- NOTE | 2017-04-07 10:55 | RAD ---
HISTORY: cough sob COMPARISON: 03/17/2017 FINDINGS: LUNGS: No active pulmonary disease. PLEURA: No significant pleural effusion identified, no pneumothorax apparent. CARDIOVASCULAR: Permanent pacemaker. OSSEOUS STRUCTURES: No significant abnormalities. VISUALIZED UPPER ABDOMEN: Normal. OTHER FINDINGS: Left axillary/brachials vascular stent. IMPRESSION: No active disease.
[2017-04-07 11:01] LABS: POTASSIUM 4.4 mmol/L (3.6-5.2)
[2017-04-07 11:03] LABS: BILIRUBIN,TOTAL 1.1 mg/dL (0.2-1.3)
[2017-04-07 11:04] LABS: ALB/GLOB RATIO 0.9 (1.0-2.1); TOTAL PROTEIN 6.8 g/dL (6.3-8.3)
[2017-04-07 11:15] LABS: TROPONIN I 0.04 ng/mL (0.00-0.120)
[2017-04-07 11:19] LABS: EOSINOPHIL 1 % (0-4); NEUTROPHIL 85 % (50-75); REACTIVE LYMPHOCYTES 1 % (0-0); TOTAL CELLS COUNTED 100
[2017-04-07 11:20] LABS: LARGE PLATELETS PRESENT
[2017-04-07] MEDS ORDERED: Iodixanol 320 MG/ML 100 ML BOTTLE IV ONE (14:09)
--- NOTE | 2017-04-07 15:17 | CT ---
PROCEDURE: CT Chest with contrast (Pulmonary Angiogram) HISTORY: r/o PE COMPARISON: None available. TECHNIQUE: Axial computed tomography images were obtained of the chest in the pulmonary arterial phase of enhancement. Coronal and sagittal reformatted images were created and reviewed. Intravenous contrast dose: 100 mL Visipaque 320 Radiation dose: Total exam DLP = 367.57 mGy-cm. This CT exam was performed using one or more of the following dose reduction techniques: Automated exposure control, adjustment of the mA and/or kV according to patient size, and/or use of iterative reconstruction technique. FINDINGS: PULMONARY ARTERIES: Unremarkable. No pulmonary embolism. AORTA: No acute findings. No thoracic aortic aneurysm. LUNGS: No pulmonary infiltrate. Mild subpleural emphysema noted limited to anterior upper lobes bilaterally. PLEURAL SPACES: Small left pleural effusion. No right pleural effusion. Minimal dependent pleural thickening right lower lobe common nonspecific. Minimal compressive atelectasis left lower lobe secondary to small pleural effusion. HEART: Normal heart size. No pericardial effusion. Permanent pacemaker. LYMPH NODES: Mild right hilar lymphadenopathy, nonspecific. No mediastinal or left hilar lymphadenopathy. No axillary lymphadenopathy. BONES, CHEST WALL: Unremarkable. No fracture or destructive lesion OTHER FINDINGS: Unremarkable. IMPRESSION: No evidence of pulmonary embolism. Small left pleural effusion, nonspecific. Minimal nonspecific bilateral dependent pleural thickening. Minimal subpleural emphysema anterior upper lobes bilaterally. Mild nonspecific right hilar lymphadenopathy.
[2017-04-07] MEDS ORDERED: Promethazine DM 6.25 mg-15 mg/5 ml Syrup PO STA (16:52)
[2017-04-07] MEDS ORDERED: Promethazine DM 6.25 mg-15 mg/5 ml Syrup ONE (17:06)
[2017-04-07] MEDS: Epoetin Alfa 10,000 unit/ml Dialysis IV SCH (19:13)
--- NOTE | 2017-04-07 20:23 | CP.PCM.HP ---
History of Present Illness - History of Present Illness History of Present Illness: 77-year-old female with a past medical history of CHF, COPD, diabetes, hypertension, hypercholesterolemia, hypothyroidism, ESRD, CKD, who presented to the ED with complaint of cough and shortness of breath since 2 weeks. No chest pain or fever. Patient took some cough medicine at home but did not help. He had a left hip replacement 1 month agodenies any pain at surgical site. Present on Admission - Present on Admission Any Indicators Present on Admission: No Past Patient History - Infectious Disease Hx of Infectious Diseases: None - Past Medical History & Family History Past Medical History?: Yes - Past Social History Smoking Status: Former Smoker - CARDIAC Hx Cardia Arrhythmia: (bradycardia) Hx Congestive Heart Failure: Yes Hx Hypercholesterolemia: Yes Hx Hypertension: Yes Hx Pacemaker: Yes - PULMONARY Hx Asthma: Yes Hx Chronic Obstructive Pulmonary Disease (COPD): Yes (ASTHMA) - NEUROLOGICAL HX Cerebrovascular Accident: Yes - HEENT Hx Cataracts: Yes Hx Deafness: Yes (right ear) - RENAL Hx Chronic Kidney Disease: Yes - ENDOCRINE/METABOLIC Hx Hyperthyroidism: Yes (Thyroid surgery) Hx Hypothyroidism: Yes - HEMATOLOGICAL/ONCOLOGICAL Hx Anemia: Yes - INTEGUMENTARY Hx Dermatological Problems: No - MUSCULOSKELETAL/RHEUMATOLOGICAL Hx Falls: No - GASTROINTESTINAL Hx Gastrointestinal Disorders: No - GENITOURINARY/GYNECOLOGICAL Hx Genitourinary Disorders: No - PSYCHIATRIC Hx Depression: No Hx Substance Use: No - SURGICAL HISTORY Hx Appendectomy: Yes - ANESTHESIA Hx Anesthesia: Yes Hx Anesthesia Reactions: No Hx Malignant Hyperthermia: No Meds Home Medications: Home Medication List Medication Instructions Recorded Confirmed Type Albuterol/Ipratropium [Duoneb 3 3 ml INH RQ2 PRN 04/14/17 Rx mg/0.5 mg (3 ml) UD] Azithromycin [Zithromax] 500 mg IVPB DAILY vial 04/14/17 Rx Epoetin Sma [Procrit] 10,000 unit IV MWF ml 04/14/17 Rx HYDROmorphone [Dilaudid] 0.5 mg IVP Q8H PRN ml 04/14/17 Rx Heparin 5,000 units SC Q12 vial 04/14/17 Rx Insulin Aspart, Recombinant 0 unit SC ACBD unit 04/14/17 Rx [Novolog] Loperamide [Imodium] 2 mg PO ONCE cap 04/14/17 Rx Vancomycin [Vancocin (ORAL OR 250 mg PO QID 04/14/17 Rx RECTAL USE)] cefTRIAXone [Rocephin] 1 gm IVPB DAILY vial 04/14/17 Rx guaiFENesin/Dextromethorphan 10 ml PO TID PRN 04/14/17 Rx [Robitussin DM] Allergies/Adverse Reactions: Allergies Allergy/AdvReac Type Severity Reaction Status Date / Time ibuprofen [From Motrin] Allergy Unknown URTICARIA Verified 04/07/17 10:06 oxycodone Allergy Unknown ITCHING Verified 04/07/17 10:06 Physical Exam - Constitutional Appears: Well - Head Exam Head Exam: ATRAUMATIC, NORMAL INSPECTION, NORMOCEPHALIC - Eye Exam Eye Exam: EOMI, Normal appearance, PERRL Pupil Exam: NORMAL ACCOMODATION, PERRL - ENT Exam ENT Exam: Mucous Membranes Moist, Normal Exam - Neck Exam Neck exam: Positive for: Normal Inspection - Respiratory Exam Respiratory Exam: Decreased Breath Sounds, Clear to Auscultation Bilateral, NORMAL BREATHING PATTERN - Cardiovascular Exam Cardiovascular Exam: REGULAR RHYTHM, +S1, +S2 - GI/Abdominal Exam GI & Abdominal Exam: Diminished Bowel Sounds, Soft - Rectal Exam Rectal Exam: Deferred Results - Vital Signs Recent Vital Signs: Last Vital Signs Temp 97.8 F 04/07/17 17:40 Pulse 64 04/07/17 19:30 Resp 16 04/07/17 19:30 BP 132/53 L 04/07/17 19:30 Pulse Ox 96 04/07/17 19:30 - Labs Result Diagrams: 04/14/17 06:05 04/14/17 06:05 Assessment & Plan (1) Altered mental status Status: Acute (2) Anemia Status: Acute (3) Anemia, chronic renal failure Status: Acute (4) Asthma Status: Acute (5) Bradycardia Status: Acute (6) COPD exacerbation Status: Acute (7) Chronic renal failure Status: Acute (8) Closed displaced fracture of proximal epiphysis of left femur Status: Acute (9) Closed displaced intertrochanteric fracture of left femur Status: Acute (10) Congestive heart failure (CHF) Status: Acute (11) Diabetes Status: Acute (12) Dizziness Status: Acute (13) Dizziness Status: Acute (14) Elevated troponin Status: Acute (15) Foot sprain Status: Acute (16) Frequent falls Status: Acute (17) HTN (hypertension) Status: Acute (18) Hip fracture Status: Acute (19) Hip fracture, left Status: Acute (20) Hyperkalemia Status: Acute (21) Hypothermia Status: Acute (22) Hypothyroid Status: Acute (23) Near syncope Status: Acute (24) Poorly-controlled hypertension Status: Acute (25) Prophylactic measure Status: Acute (26) Right patella fracture Status: Acute (27) SOB (shortness of breath) Status: Acute (28) TIA (transient ischemic attack) Status: Acute (29) Transient ischemic attack Status: Acute (30) Vertigo Status: Acute (31) ESRD (end stage renal disease) on dialysis Status: Chronic (32) Leg edema Status: Chronic - Assessment and Plan (Free Text) Plan: suellen pulvandana hd today cont home med rconiliation carl same rocephine zithromax pulmconsult
[2017-04-07] MEDS: Albuterol-Ipratrop 3 mg / 0.5 (3 ml) UD INH PRN (22:13)
[2017-04-08] MEDS: Albuterol-Ipratrop 3 mg / 0.5 (3 ml) UD INH SCH ×5 (01:47→19:05)
[2017-04-08] MEDS: guaiFENesin DM 200 mg-20 mg/10 ml UD PO PRN ×2 (06:35→17:27)
[2017-04-08] MEDS: Levothyroxine 125 MCG TAB PO SCH (06:37)
[2017-04-08] MEDS: (Novolog) Insulin Aspart, Recombinant 100 u/ml 10 ml vial SC SCH ×2 (08:29→16:32)
[2017-04-08] MEDS: Budesonide 0.5 mg/2 ml Inhal Susp UD INH SCH ×2 (09:48→19:06)
[2017-04-08] MEDS ORDERED: BRINZOLAMIDE OP SCH (10:00)
[2017-04-08] MEDS ORDERED: guaiFENesin DM 200 mg-20 mg/10 ml UD PO PRN (10:00)
[2017-04-08] MEDS: Azithromycin 500 MG in Sodium Chloride 0.9% 250 ML IVPB SCH (10:44)
[2017-04-08] MEDS: Pantoprazole 40 mg EC Tab PO SCH (10:46)
[2017-04-08] MEDS: Dorzolamide 2% Opht Sol 10ml OU SCH ×2 (10:47→17:27)
[2017-04-08] MEDS ORDERED: guaiFENesin 200 mg/10 ml Syrup UD PO PRN (11:29)
--- NOTE | 2017-04-08 13:02 | RAD ---
PROCEDURE: CHEST RADIOGRAPH, 1 VIEW HISTORY: Shortness of breath. COMPARISON: April 07, 2017. Chest x-ray and CT angiogram for pulmonary embolism. FINDINGS: LUNGS: Clear. PLEURA: No pneumothorax or pleural fluid seen. CARDIOVASCULAR: Cardiomegaly. No evidence of acute, significant cardiovascular disease. Position/ configuration of pacemaker Satisfactory. OSSEOUS STRUCTURES: No significant abnormalities. VISUALIZED UPPER ABDOMEN: Normal. OTHER FINDINGS: None. IMPRESSION: No active disease. No acute/significant interval changes.
--- NOTE | 2017-04-08 13:26 | CP.PCM.PN ---
Subjective - Date & Time of Evaluation Date of Evaluation: 04/08/17 Time of Evaluation: 09:00 - Subjective Subjective: clinically same Objective - Vital Signs/Intake and Output Vital Signs (last 24 hours): Temp Pulse Resp BP Pulse Ox 97.8 F 64 20 156/61 H 95 04/08/17 10:48 04/08/17 08:02 04/08/17 08:02 04/08/17 09:30 04/08/17 08:02 Intake and Output: 04/08/17 04/08/17 06:59 18:59 Intake Total 300 Balance 300 - Medications Medications: Current Medications Acetaminophen (Tylenol 325mg Tab) 650 mg PO Q4 PRN PRN Reason: Pain, Mild (1-3) Last Admin: 04/08/17 10:48 Dose: 650 mg Albuterol/Ipratropium (Duoneb 3 Mg/0.5 Mg (3 Ml) Ud) 3 ml INH RQ2 PRN PRN Reason: Shortness of Breath Last Admin: 04/07/17 22:13 Dose: 3 ml Albuterol/Ipratropium (Duoneb 3 Mg/0.5 Mg (3 Ml) Ud) 3 ml INH RQ6 [facility] Last Admin: 04/08/17 09:48 Dose: Not Given Amlodipine Besylate (Norvasc) 10 mg PO DAILY [facility] Last Admin: 04/08/17 09:30 Dose: 10 mg Budesonide (Pulmicort Respules) 0.5 mg INH RQ12 [facility] Last Admin: 04/08/17 09:48 Dose: Not Given Calcium Acetate (Phoslo) 667 mg PO BIDCC [facility] Last Admin: 04/08/17 08:27 Dose: 667 mg Dorzolamide HCl (Trusopt) 0.01 ml OU BID [facility] Last Admin: 04/08/17 10:47 Dose: 1 drop Epoetin Sam (Procrit) 10,000 unit IV MWF [facility] Last Admin: 04/07/17 19:13 Dose: 10,000 unit Guaifenesin/Dextromethorphan (Robitussin Dm) 10 ml PO TID PRN PRN Reason: Cough and congestion Last Admin: 04/08/17 06:35 Dose: 10 ml Heparin Sodium (Porcine) (Heparin) 5,000 units SC Q12 [facility] Last Admin: 04/08/17 11:03 Dose: 5,000 units Home Med (Brinzolamide [Azopt]) 1 drop OP BID [facility] Home Med (Brinzolamide/Brimonidine Tart [Simbrinza 1%-0.2% Eye Drops]) 1 drop OU BID [facility] Hydralazine HCl (Apresoline) 100 mg PO Q12 [facility] Last Admin: 04/08/17 10:47 Dose: 100 mg Hydrochlorothiazide (Hydrodiuril) 25 mg PO DAILY [facility] Last Admin: 04/08/17 10:46 Dose: 25 mg Hydromorphone HCl (Dilaudid) 0.5 mg PO Q8 PRN PRN Reason: Pain, moderate (4-7) Ceftriaxone Sodium 1 gm/ (Sodium Chloride) 100 mls @ 100 mls/hr IVPB DAILY [facility] Last Admin: 04/08/17 10:43 Dose: 100 mls/hr Azithromycin 500 mg/ Sodium (Chloride) 250 mls @ 250 mls/hr IVPB DAILY [facility] Last Admin: 04/08/17 10:44 Dose: 250 mls/hr Insulin Aspart (Novolog) 0 unit SC ACBD VAL PRN Reason: Protocol Last Admin: 04/08/17 08:29 Dose: 1 unit Isosorbide Mononitrate (Imdur) 30 mg PO DAILY [facility] Last Admin: 04/08/17 10:47 Dose: 30 mg Lactulose (Enulose) 20 gm PO Q6 PRN PRN Reason: Constipation Levothyroxine Sodium (Synthroid) 125 mcg PO DAILY@0630 [facility] Last Admin: 04/08/17 06:37 Dose: 125 mcg Losartan Potassium (Cozaar) 50 mg PO DAILY [facility] Last Admin: 04/08/17 10:46 Dose: 50 mg Metoprolol Tartrate (Lopressor) 25 mg PO Q12 [facility] Last Admin: 04/08/17 09:30 Dose: 25 mg Pantoprazole Sodium (Protonix Ec Tab) 40 mg PO DAILY [facility] Last Admin: 04/08/17 10:46 Dose: 40 mg Rosuvastatin Calcium (Crestor) 10 mg PO HS [facility] Temazepam (Restoril) 30 mg PO HS [facility] Last Admin: 04/07/17 22:13 Dose: 30 mg - Labs Labs: APTT 35 SECONDS (21-34) H 04/07/17 10:45 - Constitutional Appears: Well - Head Exam Head Exam: ATRAUMATIC, NORMAL INSPECTION, NORMOCEPHALIC - Eye Exam Eye Exam: EOMI, Normal appearance, PERRL Pupil Exam: NORMAL ACCOMODATION, PERRL - ENT Exam ENT Exam: Mucous Membranes Moist, Normal Exam - Neck Exam Neck Exam: Full ROM, Normal Inspection. absent: Lymphadenopathy - Respiratory Exam Respiratory Exam: Decreased Breath Sounds - Cardiovascular Exam Cardiovascular Exam: REGULAR RHYTHM, +S1, +S2 - GI/Abdominal Exam GI & Abdominal Exam: Soft, Diminished Bowel Sounds - Rectal Exam Rectal Exam: Deferred Assessment and Plan (1) Altered mental status Status: Acute (2) Anemia Status: Acute (3) Anemia, chronic renal failure Status: Acute (4) Asthma Status: Acute (5) Bradycardia Status: Acute (6) COPD exacerbation Status: Acute (7) Chronic renal failure Status: Acute (8) Closed displaced fracture of proximal epiphysis of left femur Status: Acute (9) Closed displaced intertrochanteric fracture of left femur Status: Acute (10) Congestive heart failure (CHF) Status: Acute (11) Diabetes Status: Acute (12) Dizziness Status: Acute (13) Dizziness Status: Acute (14) Elevated troponin Status: Acute (15) Foot sprain Status: Acute (16) Frequent falls Status: Acute (17) HTN (hypertension) Status: Acute (18) Hip fracture Status: Acute (19) Hip fracture, left Status: Acute (20) Hyperkalemia Status: Acute (21) Hypothermia Status: Acute (22) Hypothyroid Status: Acute (23) Near syncope Status: Acute (24) Poorly-controlled hypertension Status: Acute (25) Prophylactic measure Status: Acute (26) Right patella fracture Status: Acute (27) SOB (shortness of breath) Status: Acute (28) TIA (transient ischemic attack) Status: Acute (29) Transient ischemic attack Status: Acute (30) Vertigo Status: Acute (31) ESRD (end stage renal disease) on dialysis Status: Chronic (32) Leg edema Status: Chronic - Assessment and Plan (Free Text) Plan: Follow-up with pulmonology Darya Myers Heparin Apresoline Hydrodiuril IV antibiotic Synthroid Lopressor Protonix Crestor
[2017-04-08] MEDS: Albuterol-Ipratrop 3 mg / 0.5 (3 ml) UD INH PRN (15:46)
--- NOTE | 2017-04-08 19:04 | CP.PCM.CON ---
Past Patient History - Infectious Disease Hx of Infectious Diseases: None - Past Medical History & Family History Past Medical History?: Yes - Past Social History Smoking Status: Former Smoker - CARDIAC Hx Cardia Arrhythmia: (bradycardia) Hx Congestive Heart Failure: Yes Hx Hypercholesterolemia: Yes Hx Hypertension: Yes Hx Pacemaker: Yes - PULMONARY Hx Asthma: Yes Hx Chronic Obstructive Pulmonary Disease (COPD): Yes (ASTHMA) - NEUROLOGICAL Hx Neurological Disorder: Yes HX Cerebrovascular Accident: Yes - HEENT Hx HEENT Problems: Yes Hx Cataracts: Yes Hx Deafness: Yes (right ear) - RENAL Hx Chronic Kidney Disease: Yes - ENDOCRINE/METABOLIC Hx Hyperthyroidism: Yes (Thyroid surgery) Hx Hypothyroidism: Yes - HEMATOLOGICAL/ONCOLOGICAL Hx Anemia: Yes - INTEGUMENTARY Hx Dermatological Problems: No - MUSCULOSKELETAL/RHEUMATOLOGICAL Hx Musculoskeletal Disorders: No Hx Falls: No - GASTROINTESTINAL Hx Gastrointestinal Disorders: No - GENITOURINARY/GYNECOLOGICAL Hx Genitourinary Disorders: No - PSYCHIATRIC Hx Depression: No Hx Substance Use: No - SURGICAL HISTORY Hx Appendectomy: Yes - ANESTHESIA Hx Anesthesia: Yes Hx Anesthesia Reactions: No Hx Malignant Hyperthermia: No Has any member of the family had a problem w/ anesthesia?: No Meds Allergies/Adverse Reactions: Allergies Allergy/AdvReac Type Severity Reaction Status Date / Time ibuprofen [From Motrin] Allergy Unknown URTICARIA Verified 04/07/17 10:06 oxycodone Allergy Unknown ITCHING Verified 04/07/17 10:06 - Medications Medications: Current Medications Acetaminophen (Tylenol 325mg Tab) 650 mg PO Q4 PRN PRN Reason: Pain, Mild (1-3) Last Admin: 04/08/17 10:48 Dose: 650 mg Albuterol/Ipratropium (Duoneb 3 Mg/0.5 Mg (3 Ml) Ud) 3 ml INH RQ6 [facility] Last Admin: 04/08/17 13:47 Dose: Not Given Albuterol/Ipratropium (Duoneb 3 Mg/0.5 Mg (3 Ml) Ud) 3 ml INH RQ2 PRN PRN Reason: Shortness of Breath Amlodipine Besylate (Norvasc) 10 mg PO DAILY [facility] Last Admin: 04/08/17 09:30 Dose: 10 mg Budesonide (Pulmicort Respules) 0.5 mg INH RQ12 [facility] Last Admin: 04/08/17 09:48 Dose: Not Given Calcium Acetate (Phoslo) 667 mg PO BIDCC [facility] Last Admin: 04/08/17 17:27 Dose: 667 mg Dorzolamide HCl (Trusopt) 0.01 ml OU BID [facility] Last Admin: 04/08/17 17:27 Dose: 1 drop Epoetin Sam (Procrit) 10,000 unit IV MWF [facility] Last Admin: 04/07/17 19:13 Dose: 10,000 unit Guaifenesin/Dextromethorphan (Robitussin Dm) 10 ml PO TID PRN PRN Reason: Cough and congestion Last Admin: 04/08/17 17:27 Dose: 10 ml Heparin Sodium (Porcine) (Heparin) 5,000 units SC Q12 [facility] Last Admin: 04/08/17 11:03 Dose: 5,000 units Home Med (Brinzolamide [Azopt]) 1 drop OP BID [facility] Home Med (Brinzolamide/Brimonidine Tart [Simbrinza 1%-0.2% Eye Drops]) 1 drop OU BID [facility] Hydralazine HCl (Apresoline) 100 mg PO Q12 [facility] Last Admin: 04/08/17 10:47 Dose: 100 mg Hydrochlorothiazide (Hydrodiuril) 25 mg PO DAILY [facility] Last Admin: 04/08/17 10:46 Dose: 25 mg Hydromorphone HCl (Dilaudid) 0.5 mg PO Q8 PRN PRN Reason: Pain, moderate (4-7) Ceftriaxone Sodium 1 gm/ (Sodium Chloride) 100 mls @ 100 mls/hr IVPB DAILY [facility] Last Admin: 04/08/17 10:43 Dose: 100 mls/hr Azithromycin 500 mg/ Sodium (Chloride) 250 mls @ 250 mls/hr IVPB DAILY [facility] Last Admin: 04/08/17 10:44 Dose: 250 mls/hr Insulin Aspart (Novolog) 0 unit SC ACBD [facility] PRN Reason: Protocol Last Admin: 04/08/17 16:32 Dose: Not Given Isosorbide Mononitrate (Imdur) 30 mg PO DAILY [facility] Last Admin: 04/08/17 10:47 Dose: 30 mg Lactulose (Enulose) 20 gm PO Q6 PRN PRN Reason: Constipation Last Admin: 04/08/17 18:28 Dose: 20 gm Levothyroxine Sodium (Synthroid) 125 mcg PO DAILY@0630 [facility] Last Admin: 04/08/17 06:37 Dose: 125 mcg Losartan Potassium (Cozaar) 50 mg PO DAILY [facility] Last Admin: 04/08/17 10:46 Dose: 50 mg Metoprolol Tartrate (Lopressor) 25 mg PO Q12 [facility] Last Admin: 04/08/17 09:30 Dose: 25 mg Pantoprazole Sodium (Protonix Ec Tab) 40 mg PO DAILY [facility] Last Admin: 04/08/17 10:46 Dose: 40 mg Rosuvastatin Calcium (Crestor) 10 mg PO HS [facility] Temazepam (Restoril) 30 mg PO HS [facility] Last Admin: 04/07/17 22:13 Dose: 30 mg Results - Vital Signs Recent Vital Signs: Last Vital Signs Temp 97.6 F 04/08/17 15:20 Pulse 60 04/08/17 15:20 Resp 24 04/08/17 15:20 BP 129/59 L 04/08/17 15:20 Pulse Ox 93 L 04/08/17 15:20 - Labs Result Diagrams: 04/07/17 10:45 04/07/17 10:45 Labs: Laboratory Results - last 24 hr 04/07/17 04/08/17 04/08/17 21:53 07:20 11:17 POC Glucose (mg/dL) 156 H 189 H 169 H 04/08/17 16:30 POC Glucose (mg/dL) 121 H
[2017-04-09] MEDS: Albuterol-Ipratrop 3 mg / 0.5 (3 ml) UD INH SCH ×4 (01:11→19:29)
[2017-04-09] MEDS: Levothyroxine 125 MCG TAB PO SCH (06:00)
[2017-04-09] MEDS: Budesonide 0.5 mg/2 ml Inhal Susp UD INH SCH ×2 (08:09→19:29)
[2017-04-09] MEDS: (Novolog) Insulin Aspart, Recombinant 100 u/ml 10 ml vial SC SCH ×2 (08:30→16:33)
[2017-04-09] MEDS: Pantoprazole 40 mg EC Tab PO SCH (09:55)
[2017-04-09] MEDS: Dorzolamide 2% Opht Sol 10ml OU SCH ×2 (09:55→17:28)
[2017-04-09] MEDS: Azithromycin 500 MG in Sodium Chloride 0.9% 250 ML IVPB SCH (10:56)
--- NOTE | 2017-04-09 11:02 | CP.PCM.PN ---
Subjective - Date & Time of Evaluation Date of Evaluation: 04/09/17 Time of Evaluation: 11:01 Objective - Vital Signs/Intake and Output Vital Signs (last 24 hours): Temp Pulse Resp BP Pulse Ox 97.9 F 74 20 116/60 96 04/09/17 07:37 04/09/17 07:37 04/09/17 07:37 04/09/17 09:55 04/09/17 07:37 Intake and Output: 04/09/17 04/09/17 06:59 18:59 Intake Total 398 Balance 398 - Medications Medications: Current Medications Acetaminophen (Tylenol 325mg Tab) 650 mg PO Q4 PRN PRN Reason: Pain, Mild (1-3) Last Admin: 04/08/17 10:48 Dose: 650 mg Albuterol/Ipratropium (Duoneb 3 Mg/0.5 Mg (3 Ml) Ud) 3 ml INH RQ6 [facility] Last Admin: 04/09/17 08:09 Dose: Not Given Albuterol/Ipratropium (Duoneb 3 Mg/0.5 Mg (3 Ml) Ud) 3 ml INH RQ2 PRN PRN Reason: Shortness of Breath Amlodipine Besylate (Norvasc) 10 mg PO DAILY [facility] Last Admin: 04/09/17 09:55 Dose: 10 mg Budesonide (Pulmicort Respules) 0.5 mg INH RQ12 [facility] Last Admin: 04/09/17 08:09 Dose: Not Given Calcium Acetate (Phoslo) 667 mg PO BIDCC [facility] Last Admin: 04/09/17 08:44 Dose: 667 mg Dorzolamide HCl (Trusopt) 0.01 ml OU BID [facility] Last Admin: 04/09/17 09:55 Dose: 1 drop Epoetin Sam (Procrit) 10,000 unit IV MWF [facility] Last Admin: 04/07/17 19:13 Dose: 10,000 unit Guaifenesin/Dextromethorphan (Robitussin Dm) 10 ml PO TID PRN PRN Reason: Cough and congestion Last Admin: 04/08/17 17:27 Dose: 10 ml Heparin Sodium (Porcine) (Heparin) 5,000 units SC Q12 [facility] Last Admin: 04/09/17 09:55 Dose: 5,000 units Home Med (Brinzolamide [Azopt]) 1 drop OP BID [facility] Home Med (Brinzolamide/Brimonidine Tart [Simbrinza 1%-0.2% Eye Drops]) 1 drop OU BID [facility] Hydralazine HCl (Apresoline) 100 mg PO Q12 [facility] Last Admin: 04/09/17 10:58 Dose: 100 mg Hydrochlorothiazide (Hydrodiuril) 25 mg PO DAILY [facility] Last Admin: 04/09/17 10:56 Dose: 25 mg Hydromorphone HCl (Dilaudid) 0.5 mg PO Q8 PRN PRN Reason: Pain, moderate (4-7) Ceftriaxone Sodium 1 gm/ (Sodium Chloride) 100 mls @ 100 mls/hr IVPB DAILY [facility] Last Admin: 04/09/17 09:56 Dose: 100 mls/hr Azithromycin 500 mg/ Sodium (Chloride) 250 mls @ 250 mls/hr IVPB DAILY [facility] Last Admin: 04/09/17 10:56 Dose: 250 mls/hr Insulin Aspart (Novolog) 0 unit SC ACBD [facility] PRN Reason: Protocol Last Admin: 04/09/17 08:30 Dose: 1 unit Isosorbide Mononitrate (Imdur) 30 mg PO DAILY [facility] Last Admin: 04/09/17 10:56 Dose: 30 mg Lactulose (Enulose) 20 gm PO Q6 PRN PRN Reason: Constipation Last Admin: 04/08/17 18:28 Dose: 20 gm Levothyroxine Sodium (Synthroid) 125 mcg PO DAILY@0630 [facility] Last Admin: 04/09/17 06:00 Dose: 125 mcg Losartan Potassium (Cozaar) 50 mg PO DAILY [facility] Last Admin: 04/09/17 09:55 Dose: 50 mg Metoprolol Tartrate (Lopressor) 25 mg PO Q12 [facility] Last Admin: 04/09/17 09:55 Dose: 25 mg Pantoprazole Sodium (Protonix Ec Tab) 40 mg PO DAILY [facility] Last Admin: 04/09/17 09:55 Dose: 40 mg Rosuvastatin Calcium (Crestor) 10 mg PO HS [facility] Last Admin: 04/08/17 22:00 Dose: 10 mg Temazepam (Restoril) 30 mg PO HS [facility] Last Admin: 04/08/17 22:43 Dose: 30 mg - Labs Labs: APTT 35 SECONDS (21-34) H 04/07/17 10:45
[2017-04-09] MEDS: Albuterol-Ipratrop 3 mg / 0.5 (3 ml) UD INH PRN (11:56)
[2017-04-09] MEDS: guaiFENesin DM 200 mg-20 mg/10 ml UD PO PRN (12:40)
--- NOTE | 2017-04-09 12:52 | CP.PCM.PN ---
Subjective - Date & Time of Evaluation Date of Evaluation: 04/09/17 Time of Evaluation: 09:20 - Subjective Subjective: clinically same Objective - Vital Signs/Intake and Output Vital Signs (last 24 hours): Temp Pulse Resp BP Pulse Ox 97.9 F 74 20 116/60 96 04/09/17 07:37 04/09/17 07:37 04/09/17 07:37 04/09/17 09:55 04/09/17 07:37 Intake and Output: 04/09/17 04/09/17 06:59 18:59 Intake Total 398 Balance 398 - Medications Medications: Current Medications Acetaminophen (Tylenol 325mg Tab) 650 mg PO Q4 PRN PRN Reason: Pain, Mild (1-3) Last Admin: 04/08/17 10:48 Dose: 650 mg Albuterol/Ipratropium (Duoneb 3 Mg/0.5 Mg (3 Ml) Ud) 3 ml INH RQ6 [facility] Last Admin: 04/09/17 08:09 Dose: Not Given Albuterol/Ipratropium (Duoneb 3 Mg/0.5 Mg (3 Ml) Ud) 3 ml INH RQ2 PRN PRN Reason: Shortness of Breath Last Admin: 04/09/17 11:56 Dose: 3 ml Amlodipine Besylate (Norvasc) 10 mg PO DAILY [facility] Last Admin: 04/09/17 09:55 Dose: 10 mg Budesonide (Pulmicort Respules) 0.5 mg INH RQ12 [facility] Last Admin: 04/09/17 08:09 Dose: Not Given Calcium Acetate (Phoslo) 667 mg PO BIDCC [facility] Last Admin: 04/09/17 08:44 Dose: 667 mg Dorzolamide HCl (Trusopt) 0.01 ml OU BID [facility] Last Admin: 04/09/17 09:55 Dose: 1 drop Epoetin Sam (Procrit) 10,000 unit IV MWF [facility] Last Admin: 04/07/17 19:13 Dose: 10,000 unit Guaifenesin/Dextromethorphan (Robitussin Dm) 10 ml PO TID PRN PRN Reason: Cough and congestion Last Admin: 04/09/17 12:40 Dose: 10 ml Heparin Sodium (Porcine) (Heparin) 5,000 units SC Q12 [facility] Last Admin: 04/09/17 09:55 Dose: 5,000 units Home Med (Brinzolamide [Azopt]) 1 drop OP BID [facility] Home Med (Brinzolamide/Brimonidine Tart [Simbrinza 1%-0.2% Eye Drops]) 1 drop OU BID [facility] Hydralazine HCl (Apresoline) 100 mg PO Q12 [facility] Last Admin: 04/09/17 10:58 Dose: 100 mg Hydrochlorothiazide (Hydrodiuril) 25 mg PO DAILY [facility] Last Admin: 04/09/17 10:56 Dose: 25 mg Hydromorphone HCl (Dilaudid) 0.5 mg PO Q8 PRN PRN Reason: Pain, moderate (4-7) Ceftriaxone Sodium 1 gm/ (Sodium Chloride) 100 mls @ 100 mls/hr IVPB DAILY [facility] Last Admin: 04/09/17 09:56 Dose: 100 mls/hr Azithromycin 500 mg/ Sodium (Chloride) 250 mls @ 250 mls/hr IVPB DAILY [facility] Last Admin: 04/09/17 10:56 Dose: 250 mls/hr Insulin Aspart (Novolog) 0 unit SC ACBD [facility] PRN Reason: Protocol Last Admin: 04/09/17 08:30 Dose: 1 unit Isosorbide Mononitrate (Imdur) 30 mg PO DAILY [facility] Last Admin: 04/09/17 10:56 Dose: 30 mg Lactulose (Enulose) 20 gm PO Q6 PRN PRN Reason: Constipation Last Admin: 04/08/17 18:28 Dose: 20 gm Levothyroxine Sodium (Synthroid) 125 mcg PO DAILY@0630 [facility] Last Admin: 04/09/17 06:00 Dose: 125 mcg Losartan Potassium (Cozaar) 50 mg PO DAILY [facility] Last Admin: 04/09/17 09:55 Dose: 50 mg Metoprolol Tartrate (Lopressor) 25 mg PO Q12 [facility] Last Admin: 04/09/17 09:55 Dose: 25 mg Pantoprazole Sodium (Protonix Ec Tab) 40 mg PO DAILY [facility] Last Admin: 04/09/17 09:55 Dose: 40 mg Rosuvastatin Calcium (Crestor) 10 mg PO HS [facility] Last Admin: 04/08/17 22:00 Dose: 10 mg Temazepam (Restoril) 30 mg PO [facility] Last Admin: 04/08/17 22:43 Dose: 30 mg - Labs Labs: APTT 35 SECONDS (21-34) H 04/07/17 10:45 - Constitutional Appears: Well - Head Exam Head Exam: ATRAUMATIC, NORMAL INSPECTION, NORMOCEPHALIC - Eye Exam Eye Exam: EOMI, Normal appearance, PERRL Pupil Exam: NORMAL ACCOMODATION, PERRL - ENT Exam ENT Exam: Mucous Membranes Moist, Normal Exam - Neck Exam Neck Exam: Full ROM, Normal Inspection. absent: Lymphadenopathy - Respiratory Exam Respiratory Exam: Decreased Breath Sounds - Cardiovascular Exam Cardiovascular Exam: REGULAR RHYTHM, +S1, +S2 - GI/Abdominal Exam GI & Abdominal Exam: Soft, Diminished Bowel Sounds - Rectal Exam Rectal Exam: Deferred Assessment and Plan (1) Altered mental status Status: Acute (2) Anemia Status: Acute (3) Anemia, chronic renal failure Status: Acute (4) Asthma Status: Acute (5) Bradycardia Status: Acute (6) COPD exacerbation Status: Acute (7) Chronic renal failure Status: Acute (8) Closed displaced fracture of proximal epiphysis of left femur Status: Acute (9) Closed displaced intertrochanteric fracture of left femur Status: Acute (10) Congestive heart failure (CHF) Status: Acute (11) Diabetes Status: Acute (12) Dizziness Status: Acute (13) Dizziness Status: Acute (14) Elevated troponin Status: Acute (15) Foot sprain Status: Acute (16) Frequent falls Status: Acute (17) HTN (hypertension) Status: Acute (18) Hip fracture Status: Acute (19) Hip fracture, left Status: Acute (20) Hyperkalemia Status: Acute (21) Hypothermia Status: Acute (22) Hypothyroid Status: Acute (23) Near syncope Status: Acute (24) Poorly-controlled hypertension Status: Acute (25) Prophylactic measure Status: Acute (26) Right patella fracture Status: Acute (27) SOB (shortness of breath) Status: Acute (28) TIA (transient ischemic attack) Status: Acute (29) Transient ischemic attack Status: Acute (30) Vertigo Status: Acute (31) ESRD (end stage renal disease) on dialysis Status: Chronic (32) Leg edema Status: Chronic - Assessment and Plan (Free Text) Plan: Follow-up with pulmonology DuoNeb Norvasc Heparin Apresoline Hydrodiuril IV antibiotic Synthroid Lopressor Protonix Crestor
[2017-04-10] MEDS: Albuterol-Ipratrop 3 mg / 0.5 (3 ml) UD INH SCH ×4 (01:27→19:15)
[2017-04-10] MEDS: guaiFENesin DM 200 mg-20 mg/10 ml UD PO PRN (03:07)
[2017-04-10] MEDS: Levothyroxine 125 MCG TAB PO SCH (06:22)
[2017-04-10] MEDS: Budesonide 0.5 mg/2 ml Inhal Susp UD INH SCH ×2 (08:02→19:15)
[2017-04-10] MEDS: (Novolog) Insulin Aspart, Recombinant 100 u/ml 10 ml vial SC SCH ×2 (08:42→17:06)
[2017-04-10] MEDS: Epoetin Alfa 10,000 unit/ml Dialysis IV SCH (09:57)
[2017-04-10] MEDS: Azithromycin 500 MG in Sodium Chloride 0.9% 250 ML IVPB SCH (13:05)
--- NOTE | 2017-04-10 13:24 | CP.PCM.PN ---
Subjective - Date & Time of Evaluation Date of Evaluation: 04/10/17 Time of Evaluation: 10:00 - Subjective Subjective: House Doctor Paged for Chest Pain Patient was seen during dialysis for symptoms of chest pain during the last 15 minutes of dialysis. Vitals were stable and patient was resting in bed. EKG and RUDDY was ordered. EKG showed PVCs in V1-V4. Dr. Alli Mcelroy was called. Dr. Montaño was called and saw the patient. He ordered RUDDY x3, EKG x3, labs, and labs for tomorrow. As per Dr. Montaño, ECHO for tomorrow and the cardiac cath will be postponed. Patient will be placed on telemetry due to new onset, chest pain. Objective - Vital Signs/Intake and Output Vital Signs (last 24 hours): Temp Pulse Resp BP Pulse Ox 97.8 F 66 18 121/48 L 100 04/10/17 12:10 04/10/17 12:10 04/10/17 12:10 04/10/17 12:10 04/10/17 12:10 Intake and Output: 04/10/17 04/10/17 06:59 18:59 Intake Total 630 Balance 630 - Medications Medications: Current Medications Acetaminophen (Tylenol 325mg Tab) 650 mg PO Q4 PRN PRN Reason: Pain, Mild (1-3) Last Admin: 04/08/17 10:48 Dose: 650 mg Albuterol/Ipratropium (Duoneb 3 Mg/0.5 Mg (3 Ml) Ud) 3 ml INH RQ6 [facility] Last Admin: 04/10/17 08:02 Dose: 3 ml Albuterol/Ipratropium (Duoneb 3 Mg/0.5 Mg (3 Ml) Ud) 3 ml INH RQ2 PRN PRN Reason: Shortness of Breath Last Admin: 04/09/17 11:56 Dose: 3 ml Amlodipine Besylate (Norvasc) 10 mg PO DAILY [facility] Last Admin: 04/09/17 09:55 Dose: 10 mg Budesonide (Pulmicort Respules) 0.5 mg INH RQ12 [facility] Last Admin: 04/10/17 08:02 Dose: 0.5 mg Calcium Acetate (Phoslo) 667 mg PO BIDCC [facility] Last Admin: 04/10/17 08:42 Dose: 667 mg Dorzolamide HCl (Trusopt) 0.01 ml OU BID [facility] Last Admin: 04/09/17 17:28 Dose: 1 drop Epoetin Sam (Procrit) 10,000 unit IV MWF [facility] Last Admin: 04/10/17 09:57 Dose: 10,000 unit Guaifenesin/Dextromethorphan (Robitussin Dm) 10 ml PO TID PRN PRN Reason: Cough and congestion Last Admin: 04/10/17 03:07 Dose: 10 ml Heparin Sodium (Porcine) (Heparin) 5,000 units SC Q12 [facility] Last Admin: 04/09/17 21:27 Dose: 5,000 units Home Med (Brinzolamide [Azopt]) 1 drop OP BID [facility] Home Med (Brinzolamide/Brimonidine Tart [Simbrinza 1%-0.2% Eye Drops]) 1 drop OU BID [facility] Hydralazine HCl (Apresoline) 100 mg PO Q12 [facility] Last Admin: 04/09/17 21:26 Dose: Not Given Hydrochlorothiazide (Hydrodiuril) 25 mg PO DAILY [facility] Last Admin: 04/09/17 10:56 Dose: 25 mg Hydromorphone HCl (Dilaudid) 0.5 mg PO Q8 PRN PRN Reason: Pain, moderate (4-7) Ceftriaxone Sodium 1 gm/ (Sodium Chloride) 100 mls @ 100 mls/hr IVPB DAILY [facility] Last Admin: 04/10/17 13:04 Dose: 100 mls/hr Azithromycin 500 mg/ Sodium (Chloride) 250 mls @ 250 mls/hr IVPB DAILY [facility] Last Admin: 04/10/17 13:05 Dose: 250 mls/hr Insulin Aspart (Novolog) 0 unit SC ACBD [facility] PRN Reason: Protocol Last Admin: 04/10/17 08:42 Dose: 1 unit Isosorbide Mononitrate (Imdur) 30 mg PO DAILY [facility] Last Admin: 04/10/17 13:04 Dose: 30 mg Lactulose (Enulose) 20 gm PO Q6 PRN PRN Reason: Constipation Last Admin: 04/08/17 18:28 Dose: 20 gm Levothyroxine Sodium (Synthroid) 125 mcg PO DAILY@0630 [facility] Last Admin: 04/10/17 06:22 Dose: 125 mcg Losartan Potassium (Cozaar) 50 mg PO DAILY [facility] Last Admin: 04/09/17 09:55 Dose: 50 mg Metoprolol Tartrate (Lopressor) 25 mg PO Q12 [facility] Last Admin: 04/09/17 21:25 Dose: 25 mg Pantoprazole Sodium (Protonix Ec Tab) 40 mg PO DAILY [facility] Last Admin: 04/09/17 09:55 Dose: 40 mg Rosuvastatin Calcium (Crestor) 10 mg PO HS [facility] Last Admin: 04/09/17 21:27 Dose: 10 mg Temazepam (Restoril) 30 mg PO HS [facility] Last Admin: 04/09/17 21:27 Dose: 30 mg - Labs Labs: APTT 35 SECONDS (21-34) H 04/07/17 10:45
[2017-04-10] MEDS: Pantoprazole 40 mg EC Tab PO SCH (13:28)
[2017-04-10] MEDS: Dorzolamide 2% Opht Sol 10ml OU SCH ×2 (13:28→17:06)
--- NOTE | 2017-04-10 13:32 | CP.PCM.CON ---
History of Present Illness - History of Present Illness History of Present Illness: I was asked to see patient by Dr. Mcelroy. Patient is a 77 year old female with a PMH sick sinus syndrome, s/p PPM, HTN, ESRD on HD who initially presented with productive cough. The patient states symptoms began about 2 weeks prior to presentation, and has noted to become dyspneic. The patient has been admitted and started on antibiotic therapy. The patient complained of chest pain towards the end of dialysis today. She is currently chest pain free. Review of Systems - Constitutional Constitutional: absent: As Per HPI, Anorexia, Chills, Daytime Sleepiness, Excessive Sweating, Fatigue, Fever, Frequent Falls, Headache, Increased Appetite , Lethargy, Malaise, Night Sweats, Snoring, Sleep Apnea, Weight Gain, Weight Loss, Weakness, Other - EENT Eyes: absent: As Per HPI, Blind Spots, Blurred Vision, Change in Vision, Decreased Night Vision, Diplopia, Discharge, Dry Eye, Exophthalmos, Floaters, Irritation, Itchy Eyes, Loss of Peripheral Vision, Pain, Photophobia, Requires Corrective Lenses, Sees Flashes, Spots in Vision, Tunnel Vision, Other Visual Disturbances, Loss of Vision, Other Ears: absent: As Per HPI, Decreased Hearing, Ear Discharge, Ear Pain, Tinnitus, Abnormal Hearing, Disequilibrium, Dizziness, Other Nose/Mouth/Throat: absent: As Per HPI, Epistaxis, Nasal Congestion, Nasal Discharge, Nasal Obstruction, Nasal Trauma, Nose Pain, Post Nasal Drip, Sinus Pain, Sinus Pressure, Bleeding Gums, Change in Voice, Dental Pain, Dry Mouth, Dysphagia, Halitosis, Hoarsness, Lip Swelling, Mouth Lesions, Mouth Pain, Odynophagia, Sore Throat, Throat Swelling, Tongue Swelling, Facial Pain, Neck Pain, Neck Mass, Other - Cardiovascular Cardiovascular: absent: As Per HPI, Acrocyanosis, Chest Pain, Chest Pain at Rest , Chest Pain with Activity, Claudication, Diaphoresis, Dyspnea, Dyspnea on Exertion, Edema, Irregular Heart Rhythm, Pain Radiating to Arm/Neck/Jaw, Leg Edema, Leg Ulcers, Lightheadedness, Orthopnea, Palpitations, Paroxysmal Nocturnal Dyspnea, Pedal Edema, Radiating Pain, Rapid Heart Rate, Slow Heart Rate, Syncope, Other - Respiratory Respiratory: Cough, Dyspnea, Chest Congestion - Gastrointestinal Gastrointestinal: absent: As Per HPI, Abdominal Pain, Belching, Bloating, Change in Bowel Habits, Change in Stool Character, Coffee Ground Emesis, Constipation, Cramping, Diarrhea, Dyspepsia, Dysphagia, Early Satiety, Excessive Flatus, Fecal Incontinence, Heartburn, Hematemesis, Hematochezia, Loose Stools, Melena, Nausea, Odynophagia, Temesmus, Vomiting, Other - Musculoskeletal Musculoskeletal: absent: As Per HPI, Abnormal Gait, Arthralgias, Atrophy, Back Pain, Deformity, Joint Swelling, Limited Range of Motion, Loss of Height, Muscle Cramps, Muscle Weakness, Myalgias, Neck Pain, Numbness, Radiating Pain into Limb, Stiffness, Tingling, Other - Integumentary Integumentary: absent: As Per HPI, Acne, Alopecia, Bleeding Lesions, Change in Hair, Change in Nails, Change in Pigmentation, Changing Lesions, Dry Skin, Erythema, Furuncle, Hirsutism, Lesions, New Lesions, Non-Healing Lesions, Photosensitivity, Pruritus, Rash, Skin Pain, Skin Ulcer, Sores, Striae, Swelling , Unusual Bruising, Wounds, Jaundice, Other - Neurological Neurological: absent: As Per HPI, Abnormal Gait, Abnormal Hearing, Abnormal Movements, Abnormal Speech, Behavioral Changes, Burning Sensations, Confusion, Convulsions, Disequilibrium, Dizziness, Numbness, Focal Weakness, Frequent Falls , Headaches, Lack of Coordination, Loss of Vision, Memory Loss, Paresthesias, Radicular Pain, Restless Legs, Sensory Deficit, Syncope, Tingling, Tremor, Vertigo, Weakness, Other Visual Disturbances, Other - Psychiatric Psychiatric: absent: As Per HPI, Abnormal Sleep Pattern, Anhedonia, Anxiety, Auditory Hallucinations, Behavioral Changes, Change in Appetite, Change in Libido, Confusion, Depression, Difficulty Concentrating, Hallucinations, Homicidal Ideation, Hopelessness, Irritability, Memory Loss, Mood Swings, Panic Attacks, Paranoia, Suicidal Ideation, Visual Hallucinations, Tactile Hallucinations, Other - Endocrine Endocrine: absent: As Per HPI, Change in Body Appearance, Change in Libido, Cold Intolorance, Deepening of Voice, Excessive Sweating, Fatigue, Flushing, Heat Intolorance, Increase in Ring/Shoe/Hat Size, Palpitations, Polydipsia, Polyphagia, Polyuria, Other - Hematologic/Lymphatic Hematologic: absent: As Per HPI, Easy Bleeding, Easy Bruising, Lymphadenopathy, Other Past Patient History - Infectious Disease Hx of Infectious Diseases: None - Past Medical History & Family History Past Medical History?: Yes - Past Social History Smoking Status: Former Smoker - CARDIAC Hx Cardia Arrhythmia: (bradycardia) Hx Congestive Heart Failure: Yes Hx Hypercholesterolemia: Yes Hx Hypertension: Yes Hx Pacemaker: Yes - PULMONARY Hx Asthma: Yes Hx Chronic Obstructive Pulmonary Disease (COPD): Yes (ASTHMA) - NEUROLOGICAL Hx Neurological Disorder: Yes HX Cerebrovascular Accident: Yes - HEENT Hx HEENT Problems: Yes Hx Cataracts: Yes Hx Deafness: Yes (right ear) - RENAL Hx Chronic Kidney Disease: Yes - ENDOCRINE/METABOLIC Hx Hyperthyroidism: Yes (Thyroid surgery) Hx Hypothyroidism: Yes - HEMATOLOGICAL/ONCOLOGICAL Hx Anemia: Yes - INTEGUMENTARY Hx Dermatological Problems: No - MUSCULOSKELETAL/RHEUMATOLOGICAL Hx Musculoskeletal Disorders: No Hx Falls: No - GASTROINTESTINAL Hx Gastrointestinal Disorders: No - GENITOURINARY/GYNECOLOGICAL Hx Genitourinary Disorders: No - PSYCHIATRIC Hx Depression: No Hx Substance Use: No - SURGICAL HISTORY Hx Appendectomy: Yes - ANESTHESIA Hx Anesthesia: Yes Hx Anesthesia Reactions: No Hx Malignant Hyperthermia: No Has any member of the family had a problem w/ anesthesia?: No Meds Allergies/Adverse Reactions: Allergies Allergy/AdvReac Type Severity Reaction Status Date / Time ibuprofen [From Motrin] Allergy Unknown URTICARIA Verified 04/07/17 10:06 oxycodone Allergy Unknown ITCHING Verified 04/07/17 10:06 - Medications Medications: Current Medications Acetaminophen (Tylenol 325mg Tab) 650 mg PO Q4 PRN PRN Reason: Pain, Mild (1-3) Last Admin: 04/08/17 10:48 Dose: 650 mg Albuterol/Ipratropium (Duoneb 3 Mg/0.5 Mg (3 Ml) Ud) 3 ml INH RQ6 [facility] Last Admin: 04/10/17 08:02 Dose: 3 ml Albuterol/Ipratropium (Duoneb 3 Mg/0.5 Mg (3 Ml) Ud) 3 ml INH RQ2 PRN PRN Reason: Shortness of Breath Last Admin: 04/09/17 11:56 Dose: 3 ml Amlodipine Besylate (Norvasc) 10 mg PO DAILY [facility] Last Admin: 04/10/17 13:28 Dose: Not Given Budesonide (Pulmicort Respules) 0.5 mg INH RQ12 [facility] Last Admin: 04/10/17 08:02 Dose: 0.5 mg Calcium Acetate (Phoslo) 667 mg PO BIDCC [facility] Last Admin: 04/10/17 08:42 Dose: 667 mg Dorzolamide HCl (Trusopt) 0.01 ml OU BID [facility] Last Admin: 04/10/17 13:28 Dose: Not Given Epoetin Sam (Procrit) 10,000 unit IV MWF [facility] Last Admin: 04/10/17 09:57 Dose: 10,000 unit Guaifenesin/Dextromethorphan (Robitussin Dm) 10 ml PO TID PRN PRN Reason: Cough and congestion Last Admin: 04/10/17 03:07 Dose: 10 ml Heparin Sodium (Porcine) (Heparin) 5,000 units SC Q12 [facility] Last Admin: 04/10/17 13:27 Dose: Not Given Home Med (Brinzolamide [Azopt]) 1 drop OP BID [facility] Home Med (Brinzolamide/Brimonidine Tart [Simbrinza 1%-0.2% Eye Drops]) 1 drop OU BID [facility] Hydralazine HCl (Apresoline) 100 mg PO Q12 [facility] Last Admin: 04/10/17 13:27 Dose: Not Given Hydrochlorothiazide (Hydrodiuril) 25 mg PO DAILY [facility] Last Admin: 04/10/17 13:27 Dose: Not Given Hydromorphone HCl (Dilaudid) 0.5 mg PO Q8 PRN PRN Reason: Pain, moderate (4-7) Ceftriaxone Sodium 1 gm/ (Sodium Chloride) 100 mls @ 100 mls/hr IVPB DAILY [facility] Last Admin: 04/10/17 13:04 Dose: 100 mls/hr Azithromycin 500 mg/ Sodium (Chloride) 250 mls @ 250 mls/hr IVPB DAILY [facility] Last Admin: 04/10/17 13:05 Dose: 250 mls/hr Insulin Aspart (Novolog) 0 unit SC ACBD [facility] PRN Reason: Protocol Last Admin: 04/10/17 08:42 Dose: 1 unit Isosorbide Mononitrate (Imdur) 30 mg PO DAILY [facility] Last Admin: 04/10/17 13:04 Dose: 30 mg Lactulose (Enulose) 20 gm PO Q6 PRN PRN Reason: Constipation Last Admin: 04/08/17 18:28 Dose: 20 gm Levothyroxine Sodium (Synthroid) 125 mcg PO DAILY@0630 [facility] Last Admin: 04/10/17 06:22 Dose: 125 mcg Losartan Potassium (Cozaar) 50 mg PO DAILY [facility] Last Admin: 04/10/17 13:27 Dose: Not Given Metoprolol Tartrate (Lopressor) 25 mg PO Q12 [facility] Last Admin: 04/10/17 13:27 Dose: Not Given Pantoprazole Sodium (Protonix Ec Tab) 40 mg PO DAILY [facility] Last Admin: 04/10/17 13:28 Dose: Not Given Rosuvastatin Calcium (Crestor) 10 mg PO [facility] Last Admin: 04/09/17 21:27 Dose: 10 mg Temazepam (Restoril) 30 mg PO [facility] Last Admin: 04/09/17 21:27 Dose: 30 mg Physical Exam - Constitutional Appears: Non-toxic - Head Exam Head Exam: NORMAL INSPECTION - Eye Exam Eye Exam: Normal appearance - ENT Exam ENT Exam: Mucous Membranes Moist - Neck Exam Neck exam: Positive for: Full Rom - Respiratory Exam Respiratory Exam: Rhonchi, Wheezes - Cardiovascular Exam Cardiovascular Exam: REGULAR RHYTHM - GI/Abdominal Exam GI & Abdominal Exam: absent: Bruit, Diminished Bowel Sounds, Distended, Firm, Guarding, Hernia, Hyperactive Bowel Sounds, Hypoactive Bowel Sounds, Mass, Normal Bowel Sounds, Organomegaly, Pulsatile Mass, Rebound, Rigid, Soft, Tenderness - Extremities Exam Extremities exam: Negative for: calf tenderness, full ROM, joint swelling, normal capillary refill, normal inspection, pedal edema, tenderness, pedal pulses present - Back Exam Back exam: absent: CVA tenderness (L), CVA tenderness (R), FULL ROM, muscle spasm, NORMAL INSPECTION, paraspinal tenderness, rash noted, tenderness, vertebral tenderness - Neurological Exam Neurological exam: Alert, Oriented x3 - Psychiatric Exam Psychiatric exam: Normal Affect - Skin Skin Exam: Normal Color Results - Vital Signs Recent Vital Signs: Last Vital Signs Temp 97.8 F 04/10/17 12:10 Pulse 66 04/10/17 12:10 Resp 18 04/10/17 12:10 BP 121/48 L 04/10/17 12:10 Pulse Ox 100 04/10/17 12:10 - Labs Result Diagrams: 04/07/17 10:45 05/26/17 10:45 Labs: Laboratory Results - last 24 hr 04/09/17 04/09/17 04/10/17 16:17 21:38 07:23 POC Glucose (mg/dL) 147 H 148 H 160 H Total Creatine Kinase CK-MB (Mass) Troponin I, Quant 04/10/17 04/10/17 11:31 12:17 POC Glucose (mg/dL) 132 H Total Creatine Kinase 28 L CK-MB (Mass) 1.88 Troponin I, Quant 0.1720 H* - EKG Data EKG Interpreted by: Myself EKG shows normal: Sinus rhythm Assessment & Plan (1) Elevated troponin Assessment and Plan: in the setting of renal failure, not sensitivity for CAD decreases. However the patient has cardiovascular risk factors. Patient will need continued medical therapy and blood pressure control. check serial cardiac enzymes. Status: Acute (2) Chronic renal failure Assessment and Plan: contributor to elevated troponin. Status: Acute (3) HTN (hypertension) Assessment and Plan: blood pressure control Status: Acute (4) SOB (shortness of breath) Assessment and Plan: may have a cardiac component. repeat echocardiogram. Status: Acute
[2017-04-10 14:57] LABS: POTASSIUM 3.5 mmol/L (3.6-5.2)
[2017-04-10 14:59] LABS: ALB/GLOB RATIO 0.7 (1.0-2.1); BILIRUBIN,TOTAL 0.8 mg/dL (0.2-1.3); MAGNESIUM 1.9 mg/dL (1.6-2.3); PHOSPHOROUS 2.6 mg/dL (2.5-4.5); TOTAL PROTEIN 7.1 g/dL (6.3-8.3)
[2017-04-10 16:59] LABS: BASO % 0.3 % (0.0-2.0); EOS # 0.1 K/uL (0.0-0.7); EOS % 0.7 % (0.0-4.0); HEMATOCRIT 26.7 % (34.0-47.0); LYMPH # 0.5 K/uL (1.0-4.3); LYMPH % 4.2 % (20.0-40.0); MEAN CELL VOLUME 95.5 fL (81.0-99.0); MEAN CORPUSCULAR HEMOGLOBIN 29.3 pg (27.0-31.0); MEAN CORPUSCULAR HGB CONC 30.6 g/dL (33.0-37.0); MONO # 0.6 K/uL (0.0-0.8); MONO % 4.8 % (0.0-10.0); NRBC % 0.3 % (0.0-2.0); PLATELET COUNT 211 K/uL (130-400); RED CELL DISTRIBUTION WIDTH 19.6 % (11.5-14.5); WHITE BLOOD COUNT 11.6 K/uL (4.8-10.8)
[2017-04-10 18:10] LABS: EOSINOPHIL 1 % (0-4); NEUTROPHIL 90 % (50-75); TOTAL CELLS COUNTED 100
--- NOTE | 2017-04-10 18:20 | CP.PCM.PN ---
Subjective - Date & Time of Evaluation Date of Evaluation: 04/10/17 Time of Evaluation: 12:20 - Subjective Subjective: clinically same Objective - Vital Signs/Intake and Output Vital Signs (last 24 hours): Temp Pulse Resp BP Pulse Ox 99.3 F 59 L 20 129/51 L 98 04/10/17 15:45 04/10/17 15:45 04/10/17 15:45 04/10/17 15:45 04/10/17 15:45 Intake and Output: 04/10/17 04/10/17 06:59 18:59 Intake Total 630 Balance 630 - Medications Medications: Current Medications Acetaminophen (Tylenol 325mg Tab) 650 mg PO Q4 PRN PRN Reason: Pain, Mild (1-3) Last Admin: 04/10/17 15:41 Dose: 650 mg Albuterol/Ipratropium (Duoneb 3 Mg/0.5 Mg (3 Ml) Ud) 3 ml INH RQ6 [facility] Last Admin: 04/10/17 15:08 Dose: 3 ml Albuterol/Ipratropium (Duoneb 3 Mg/0.5 Mg (3 Ml) Ud) 3 ml INH RQ2 PRN PRN Reason: Shortness of Breath Last Admin: 04/09/17 11:56 Dose: 3 ml Amlodipine Besylate (Norvasc) 10 mg PO DAILY [facility] Last Admin: 04/10/17 13:28 Dose: Not Given Budesonide (Pulmicort Respules) 0.5 mg INH RQ12 [facility] Last Admin: 04/10/17 08:02 Dose: 0.5 mg [facility] Last Admin: 04/10/17 17:06 Dose: 667 mg Dorzolamide HCl (Trusopt) 0.01 ml OU BID [facility] Last Admin: 04/10/17 17:06 Dose: 1 drop Epoetin Sam (Procrit) 10,000 unit IV MWF [facility] Last Admin: 04/10/17 09:57 Dose: 10,000 unit Guaifenesin/Dextromethorphan (Robitussin Dm) 10 ml PO TID PRN PRN Reason: Cough and congestion Last Admin: 04/10/17 03:07 Dose: 10 ml Heparin Sodium (Porcine) (Heparin) 5,000 units SC Q12 [facility] Last Admin: 04/10/17 13:27 Dose: Not Given Home Med (Brinzolamide [Azopt]) 1 drop OP BID [facility] Home Med (Brinzolamide/Brimonidine Tart [Simbrinza 1%-0.2% Eye Drops]) 1 drop OU BID [facility] Hydralazine HCl (Apresoline) 100 mg PO Q12 [facility] Last Admin: 04/10/17 13:27 Dose: Not Given Hydrochlorothiazide (Hydrodiuril) 25 mg PO DAILY [facility] Last Admin: 04/10/17 13:27 Dose: Not Given Hydromorphone HCl (Dilaudid) 0.5 mg PO Q8 PRN PRN Reason: Pain, moderate (4-7) Ceftriaxone Sodium 1 gm/ (Sodium Chloride) 100 mls @ 100 mls/hr IVPB DAILY [facility] Last Admin: 04/10/17 13:04 Dose: 100 mls/hr Azithromycin 500 mg/ Sodium (Chloride) 250 mls @ 250 mls/hr IVPB DAILY [facility] Last Admin: 04/10/17 13:05 Dose: 250 mls/hr Insulin Aspart (Novolog) 0 unit SC ACBD [facility] PRN Reason: Protocol Last Admin: 04/10/17 17:06 Dose: 4 unit Isosorbide Mononitrate (Imdur) 30 mg PO DAILY [facility] Last Admin: 04/10/17 13:04 Dose: 30 mg Lactulose (Enulose) 20 gm PO Q6 PRN PRN Reason: Constipation Last Admin: 04/08/17 18:28 Dose: 20 gm Levothyroxine Sodium (Synthroid) 125 mcg PO DAILY@0630 [facility] Last Admin: 04/10/17 06:22 Dose: 125 mcg Losartan Potassium (Cozaar) 50 mg PO DAILY [facility] Last Admin: 04/10/17 13:27 Dose: Not Given Metoprolol Tartrate (Lopressor) 25 mg PO Q12 [facility] Last Admin: 04/10/17 13:27 Dose: Not Given Pantoprazole Sodium (Protonix Ec Tab) 40 mg PO DAILY [facility] Last Admin: 04/10/17 13:28 Dose: Not Given Rosuvastatin Calcium (Crestor) 10 mg PO HS [facility] Last Admin: 04/09/17 21:27 Dose: 10 mg Temazepam (Restoril) 30 mg PO [facility] Last Admin: 05/28/17 21:27 Dose: 30 mg - Labs Labs: 04/10/17 16:53 04/10/17 14:25 APTT 35 SECONDS (21-34) H 04/07/17 10:45 - Constitutional Appears: Well - Head Exam Head Exam: ATRAUMATIC, NORMAL INSPECTION, NORMOCEPHALIC - Eye Exam Eye Exam: EOMI, Normal appearance, PERRL Pupil Exam: NORMAL ACCOMODATION, PERRL - ENT Exam ENT Exam: Mucous Membranes Moist, Normal Exam - Neck Exam Neck Exam: Full ROM, Normal Inspection. absent: Lymphadenopathy - Respiratory Exam Respiratory Exam: Decreased Breath Sounds - Cardiovascular Exam Cardiovascular Exam: REGULAR RHYTHM, +S1, +S2 - GI/Abdominal Exam GI & Abdominal Exam: Soft, Diminished Bowel Sounds - Rectal Exam Rectal Exam: Deferred Assessment and Plan (1) Altered mental status Status: Acute (2) Anemia Status: Acute (3) Anemia, chronic renal failure Status: Acute (4) Asthma Status: Acute (5) Bradycardia Status: Acute (6) COPD exacerbation Status: Acute (7) Chronic renal failure Status: Acute (8) Closed displaced fracture of proximal epiphysis of left femur Status: Acute (9) Closed displaced intertrochanteric fracture of left femur Status: Acute (10) Congestive heart failure (CHF) Status: Acute (11) Diabetes Status: Acute (12) Dizziness Status: Acute (13) Dizziness Status: Acute (14) Elevated troponin Status: Acute (15) Foot sprain Status: Acute (16) Frequent falls Status: Acute (17) HTN (hypertension) Status: Acute (18) Hip fracture Status: Acute (19) Hip fracture, left Status: Acute (20) Hyperkalemia Status: Acute (21) Hypothermia Status: Acute (22) Hypothyroid Status: Acute (23) Near syncope Status: Acute (24) Poorly-controlled hypertension Status: Acute (25) Prophylactic measure Status: Acute (26) Right patella fracture Status: Acute (27) SOB (shortness of breath) Status: Acute (28) TIA (transient ischemic attack) Status: Acute (29) Transient ischemic attack Status: Acute (30) Vertigo Status: Acute (31) ESRD (end stage renal disease) on dialysis Status: Chronic (32) Leg edema Status: Chronic - Assessment and Plan (Free Text) Plan: Follow-up with pulmonology Darya Myers Heparin Apresoline Hydrodiuril IV antibiotic Synthroid Lopressor Protonix Crestor
--- NOTE | 2017-04-10 18:54 | CP.PCM.PN ---
Objective - Vital Signs/Intake and Output Vital Signs (last 24 hours): Temp Pulse Resp BP Pulse Ox 99.3 F 59 L 20 129/51 L 98 04/10/17 15:45 04/10/17 15:45 04/10/17 15:45 04/10/17 15:45 04/10/17 15:45 Intake and Output: 04/10/17 04/10/17 06:59 18:59 Intake Total 630 Balance 630 - Medications Medications: Current Medications Acetaminophen (Tylenol 325mg Tab) 650 mg PO Q4 PRN PRN Reason: Pain, Mild (1-3) Last Admin: 04/10/17 15:41 Dose: 650 mg Albuterol/Ipratropium (Duoneb 3 Mg/0.5 Mg (3 Ml) Ud) 3 ml INH RQ6 [facility] Last Admin: 04/10/17 15:08 Dose: 3 ml Albuterol/Ipratropium (Duoneb 3 Mg/0.5 Mg (3 Ml) Ud) 3 ml INH RQ2 PRN PRN Reason: Shortness of Breath Last Admin: 04/09/17 11:56 Dose: 3 ml Amlodipine Besylate (Norvasc) 10 mg PO DAILY [facility] Last Admin: 04/10/17 13:28 Dose: Not Given Budesonide (Pulmicort Respules) 0.5 mg INH RQ12 [facility] Last Admin: 04/10/17 08:02 Dose: 0.5 mg Calcium Acetate (Phoslo) 667 mg PO BIDCC [facility] Last Admin: 04/10/17 17:06 Dose: 667 mg Dorzolamide HCl (Trusopt) 0.01 ml OU BID [facility] Last Admin: 04/10/17 17:06 Dose: 1 drop Epoetin Sam (Procrit) 10,000 unit IV MWF [facility] Last Admin: 04/10/17 09:57 Dose: 10,000 unit Guaifenesin/Dextromethorphan (Robitussin Dm) 10 ml PO TID PRN PRN Reason: Cough and congestion Last Admin: 04/10/17 03:07 Dose: 10 ml Heparin Sodium (Porcine) (Heparin) 5,000 units SC Q12 [facility] Last Admin: 04/10/17 13:27 Dose: Not Given Home Med (Brinzolamide [Azopt]) 1 drop OP BID [facility] Home Med (Brinzolamide/Brimonidine Tart [Simbrinza 1%-0.2% Eye Drops]) 1 drop OU BID [facility] Hydralazine HCl (Apresoline) 100 mg PO Q12 [facility] Last Admin: 04/10/17 13:27 Dose: Not Given Hydrochlorothiazide (Hydrodiuril) 25 mg PO DAILY [facility] Last Admin: 04/10/17 13:27 Dose: Not Given Hydromorphone HCl (Dilaudid) 0.5 mg PO Q8 PRN PRN Reason: Pain, moderate (4-7) Ceftriaxone Sodium 1 gm/ (Sodium Chloride) 100 mls @ 100 mls/hr IVPB DAILY [facility] Last Admin: 04/10/17 13:04 Dose: 100 mls/hr Azithromycin 500 mg/ Sodium (Chloride) 250 mls @ 250 mls/hr IVPB DAILY [facility] Last Admin: 04/10/17 13:05 Dose: 250 mls/hr Insulin Aspart (Novolog) 0 unit SC ACBD [facility] PRN Reason: Protocol Last Admin: 04/10/17 17:06 Dose: 4 unit Isosorbide Mononitrate (Imdur) 30 mg PO DAILY [facility] Last Admin: 04/10/17 13:04 Dose: 30 mg Lactulose (Enulose) 20 gm PO Q6 PRN PRN Reason: Constipation Last Admin: 04/08/17 18:28 Dose: 20 gm Levothyroxine Sodium (Synthroid) 125 mcg PO DAILY@0630 [facility] Last Admin: 04/10/17 06:22 Dose: 125 mcg Losartan Potassium (Cozaar) 50 mg PO DAILY [facility] Last Admin: 04/10/17 13:27 Dose: Not Given Metoprolol Tartrate (Lopressor) 25 mg PO Q12 [facility] Last Admin: 04/10/17 13:27 Dose: Not Given Pantoprazole Sodium (Protonix Ec Tab) 40 mg PO DAILY [facility] Last Admin: 04/10/17 13:28 Dose: Not Given Rosuvastatin Calcium (Crestor) 10 mg PO HS [facility] Last Admin: 04/09/17 21:27 Dose: 10 mg Temazepam (Restoril) 30 mg PO HS [facility] Last Admin: 04/09/17 21:27 Dose: 30 mg - Labs Labs: 04/10/17 16:53 04/10/17 14:25 APTT 35 SECONDS (21-34) H 05/26/17 10:45
[2017-04-11] MEDS: Albuterol-Ipratrop 3 mg / 0.5 (3 ml) UD INH SCH ×4 (01:02→19:50)
[2017-04-11] MEDS: Levothyroxine 125 MCG TAB PO SCH (05:31)
[2017-04-11 07:25] LABS: BASO % 0.5 % (0.0-2.0); EOS # 0.2 K/uL (0.0-0.7); EOS % 1.8 % (0.0-4.0); LYMPH # 0.5 K/uL (1.0-4.3); LYMPH % 4.9 % (20.0-40.0); MEAN CELL VOLUME 95.6 fL (81.0-99.0); MEAN CORPUSCULAR HEMOGLOBIN 29.7 pg (27.0-31.0); MEAN CORPUSCULAR HGB CONC 31.1 g/dL (33.0-37.0); MEAN PLATELET VOLUME 8.2 fL (7.2-11.7); MONO # 0.6 K/uL (0.0-0.8); MONO % 5.6 % (0.0-10.0); NRBC % 0.4 % (0.0-2.0); PLATELET COUNT 224 K/uL (130-400); RED CELL DISTRIBUTION WIDTH 19.2 % (11.5-14.5); WHITE BLOOD COUNT 10.1 K/uL (4.8-10.8)
[2017-04-11 07:42] LABS: POTASSIUM 3.6 mmol/L (3.6-5.2)
[2017-04-11 07:44] LABS: ALB/GLOB RATIO 0.8 (1.0-2.1); BILIRUBIN,TOTAL 0.8 mg/dL (0.2-1.3); TOTAL PROTEIN 6.9 g/dL (6.3-8.3)
[2017-04-11 07:45] LABS: CALCIUM 7.8 mg/dl (8.6-10.4); MAGNESIUM 2.1 mg/dL (1.6-2.3); PHOSPHOROUS 3.2 mg/dL (2.5-4.5)
[2017-04-11] MEDS: Budesonide 0.5 mg/2 ml Inhal Susp UD INH SCH ×2 (07:45→19:50)
[2017-04-11] MEDS: (Novolog) Insulin Aspart, Recombinant 100 u/ml 10 ml vial SC SCH ×2 (08:01→16:30)
[2017-04-11 08:16] LABS: EOSINOPHIL 4 % (0-4); NEUTROPHIL 83 % (50-75); REACTIVE LYMPHOCYTES 1 % (0-0); TOTAL CELLS COUNTED 100
[2017-04-11 08:18] LABS: STOMATOCYTES SLIGHT
[2017-04-11] MEDS: Pantoprazole 40 mg EC Tab PO SCH (09:55)
[2017-04-11] MEDS: Azithromycin 500 MG in Sodium Chloride 0.9% 250 ML IVPB SCH (09:55)
[2017-04-11] MEDS: Dorzolamide 2% Opht Sol 10ml OU SCH ×2 (09:56→18:19)
[2017-04-11] MEDS: guaiFENesin DM 200 mg-20 mg/10 ml UD PO PRN ×2 (09:57→18:23)
[2017-04-11] MEDS: Brimonidine 0.2% Opth Sol (5ml) OU SCH ×2 (10:10→18:00)
--- NOTE | 2017-04-11 12:48 | CARD ---
APPROVED REPORT EKG Measurement Heart [id number] <Conclusion> Atrial-paced rhythm with occasional sinus complexes Right bundle branch block Abnormal ECG
--- NOTE | 2017-04-11 15:05 | CP.PCM.PN ---
Subjective - Date & Time of Evaluation Date of Evaluation: 04/11/17 Time of Evaluation: 08:45 - Subjective Subjective: PgY2 Medicine Note - Dr. Hi Mcelroy's service: Patient seen and examined at bedside this AM. Patient reports difficulty breathing. Patient has no other acute complaints at this time. Objective - Vital Signs/Intake and Output Vital Signs (last 24 hours): Temp Pulse Resp BP Pulse Ox 97.3 F L 60 18 119/90 97 04/11/17 07:20 04/11/17 07:53 04/11/17 07:20 04/11/17 09:57 04/11/17 07:20 Intake and Output: 04/11/17 04/11/17 06:59 18:59 Intake Total 150 Balance 150 - Medications Medications: Current Medications Acetaminophen (Tylenol 325mg Tab) 650 mg PO Q4 PRN PRN Reason: Pain, Mild (1-3) Last Admin: 04/10/17 22:47 Dose: 650 mg Albuterol/Ipratropium (Duoneb 3 Mg/0.5 Mg (3 Ml) Ud) 3 ml INH RQ6 [facility] Last Admin: 04/11/17 13:33 Dose: 3 ml Albuterol/Ipratropium (Duoneb 3 Mg/0.5 Mg (3 Ml) Ud) 3 ml INH RQ2 PRN PRN Reason: Shortness of Breath Last Admin: 04/09/17 11:56 Dose: 3 ml Amlodipine Besylate (Norvasc) 10 mg PO DAILY [facility] Last Admin: 04/11/17 09:56 Dose: 10 mg Brimonidine Tartrate (Alphagan 0.2% Opht) 0 ml OU BID [facility] Last Admin: 04/11/17 10:10 Dose: 1 drop Budesonide (Pulmicort Respules) 0.5 mg INH RQ12 [facility] Last Admin: 04/11/17 07:45 Dose: 0.5 mg Calcium Acetate (Phoslo) 667 mg PO BIDCC [facility] Last Admin: 04/11/17 08:01 Dose: Not Given Dorzolamide HCl (Trusopt) 0.01 ml OU BID [facility] Last Admin: 04/11/17 09:56 Dose: 1 drop Epoetin Sam (Procrit) 10,000 unit IV MWF [facility] Last Admin: 04/10/17 09:57 Dose: 10,000 unit Guaifenesin/Dextromethorphan (Robitussin Dm) 10 ml PO TID PRN PRN Reason: Cough and congestion Last Admin: 04/11/17 09:57 Dose: 10 ml Heparin Sodium (Porcine) (Heparin) 5,000 units SC Q12 [facility] Last Admin: 04/11/17 09:57 Dose: 5,000 units Hydralazine HCl (Apresoline) 100 mg PO Q12 [facility] Last Admin: 04/11/17 09:56 Dose: 100 mg Hydrochlorothiazide (Hydrodiuril) 25 mg PO DAILY [facility] Last Admin: 04/11/17 09:56 Dose: 25 mg Hydromorphone HCl (Dilaudid) 0.5 mg PO Q8 PRN PRN Reason: Pain, moderate (4-7) Ceftriaxone Sodium 1 gm/ (Sodium Chloride) 100 mls @ 100 mls/hr IVPB DAILY [facility] Last Admin: 04/11/17 09:55 Dose: 100 mls/hr Azithromycin 500 mg/ Sodium (Chloride) 250 mls @ 250 mls/hr IVPB DAILY [facility] Last Admin: 04/11/17 09:55 Dose: 250 mls/hr Insulin Aspart (Novolog) 0 unit SC ACBD [facility] PRN Reason: Protocol Last Admin: 04/11/17 08:01 Dose: Not Given Isosorbide Mononitrate (Imdur) 30 mg PO DAILY [facility] Last Admin: 04/11/17 09:56 Dose: 30 mg Lactulose (Enulose) 20 gm PO Q6 PRN PRN Reason: Constipation Last Admin: 04/08/17 18:28 Dose: 20 gm Levothyroxine Sodium (Synthroid) 125 mcg PO DAILY@0630 [facility] Last Admin: 04/11/17 05:31 Dose: 125 mcg Losartan Potassium (Cozaar) 50 mg PO DAILY [facility] Last Admin: 04/11/17 09:57 Dose: 50 mg Metoprolol Tartrate (Lopressor) 25 mg PO Q12 [facility] Last Admin: 04/11/17 09:57 Dose: 25 mg Pantoprazole Sodium (Protonix Ec Tab) 40 mg PO DAILY [facility] Last Admin: 04/11/17 09:55 Dose: 40 mg Rosuvastatin Calcium (Crestor) 10 mg PO HS [facility] Last Admin: 04/10/17 21:56 Dose: 10 mg Temazepam (Restoril) 30 mg PO HS [facility] Last Admin: 04/10/17 21:57 Dose: 30 mg - Labs Labs: 04/11/17 07:08 04/11/17 07:08 APTT 35 SECONDS (21-34) H 04/07/17 10:45 - Constitutional Appears: Non-toxic, No Acute Distress - Head Exam Head Exam: NORMAL INSPECTION - Eye Exam Eye Exam: EOMI - ENT Exam ENT Exam: Mucous Membranes Moist - Respiratory Exam Respiratory Exam: Rales, NORMAL BREATHING PATTERN. absent: Rhonchi, Wheezes - Cardiovascular Exam Cardiovascular Exam: REGULAR RHYTHM, +S1, +S2. absent: Gallop, Rubs, Murmur - GI/Abdominal Exam GI & Abdominal Exam: Soft, Normal Bowel Sounds. absent: Tenderness - Extremities Exam Extremities Exam: Pedal Edema - Neurological Exam Neurological Exam: Alert, Oriented x3 - Psychiatric Exam Psychiatric exam: Normal Affect, Normal Mood - Skin Skin Exam: Normal Color, Warm Assessment and Plan - Assessment and Plan (Free Text) Assessment: COPD Duoneb 3ml INH RQ6 [facility] and RQ2 PRN Pulmicort 0.5mg INH RQ12 Pneumonia Zithromax 500mg IVPB daily Rocephin 1gm IVPB daily Robitussin DM 10ml PO TID PRN Anemia Hematology consult - Dr. Whalen - help appreciated ESRD On dialysis Phoslo 667mg PO BIDCC Procrit 16150Y IV MWF HTN Norvasc 10mg PO daily Hydralazine 100mg PO Q12 HCTZ 25mg PO daily Imdur 30mg PO daily Cozaar 50mg PO daily Metoprolol 25mg PO Q12 Diabetes Novolog ISS Crestor 10mg PO HS Hypothyroidism Synthroid 125mcg PO daily Constipation Lactulose 20gm PO Q6 PRN Sick sinus syndrome ECHO - f/u report ROMIs elevated likely secondary to ESRD Most recent troponin normal at 0.1160 Cardio - Dr. Montaño- help appreciated Prophylaxis Protonix 40mg PO aily Restoril 30mg PO HS
--- NOTE | 2017-04-11 15:28 | RAD ---
HISTORY: SOB COMPARISON: Chest x-ray performed 04/08/17, CTA chest performed 04/07/17 TECHNIQUE: Chest PA and lateral FINDINGS: LUNGS: Central vascular prominence. Subtle nodular density with central lucency right lung apex favored to reflect confluence of shadows rather then cavitary lesion as CTA chest performed 04/07/17 does not demonstrate any evidence of cavitary lesion. Please note that chest x-ray has limited sensitivity for the detection of pulmonary masses. PLEURA: No significant pleural effusion identified. No definite pneumothorax . CARDIOVASCULAR: Cardiomegaly. Dual lead right-sided pacemaker. OSSEOUS STRUCTURES: Osseous demineralization. Degenerative changes. VISUALIZED UPPER ABDOMEN: Unremarkable. OTHER FINDINGS: Vascular stent, left axillary region. IMPRESSION: Central vascular prominence. Subtle nodular density with central lucency right lung apex favored to reflect confluence of shadows rather then cavitary lesion as CTA chest performed 04/07/17 does not demonstrate any evidence of cavitary lesion. Cardiomegaly. Right sided pacemaker. Atherosclerotic calcifications of the aorta.
--- NOTE | 2017-04-11 15:49 | CP.PCM.PN ---
Subjective - Date & Time of Evaluation Date of Evaluation: 04/11/17 Time of Evaluation: 12:00 - Subjective Subjective: clinically same Objective - Vital Signs/Intake and Output Vital Signs (last 24 hours): Temp Pulse Resp BP Pulse Ox 98.5 F 65 20 122/56 L 98 04/11/17 15:32 04/11/17 15:32 04/11/17 15:32 04/11/17 15:32 04/11/17 15:32 Intake and Output: 04/11/17 04/11/17 06:59 18:59 Intake Total 150 Balance 150 - Medications Medications: Current Medications Acetaminophen (Tylenol 325mg Tab) 650 mg PO Q4 PRN PRN Reason: Pain, Mild (1-3) Last Admin: 04/10/17 22:47 Dose: 650 mg Albuterol/Ipratropium (Duoneb 3 Mg/0.5 Mg (3 Ml) Ud) 3 ml INH RQ6 [facility] Last Admin: 04/11/17 13:33 Dose: 3 ml Albuterol/Ipratropium (Duoneb 3 Mg/0.5 Mg (3 Ml) Ud) 3 ml INH RQ2 PRN PRN Reason: Shortness of Breath Last Admin: 04/09/17 11:56 Dose: 3 ml Amlodipine Besylate (Norvasc) 10 mg PO DAILY [facility] Last Admin: 04/11/17 09:56 Dose: 10 mg Brimonidine Tartrate (Alphagan 0.2% Opht) 0 ml OU BID [facility] Last Admin: 04/11/17 10:10 Dose: 1 drop Budesonide (Pulmicort Respules) 0.5 mg INH RQ12 [facility] Last Admin: 04/11/17 07:45 Dose: 0.5 mg Calcium Acetate (Phoslo) 667 mg PO BIDCC [facility] Last Admin: 04/11/17 08:01 Dose: Not Given Dorzolamide HCl (Trusopt) 0.01 ml OU BID [facility] Last Admin: 04/11/17 09:56 Dose: 1 drop Epoetin Sam (Procrit) 10,000 unit IV MWF [facility] Last Admin: 04/10/17 09:57 Dose: 10,000 unit Guaifenesin/Dextromethorphan (Robitussin Dm) 10 ml PO TID PRN PRN Reason: Cough and congestion Last Admin: 04/11/17 09:57 Dose: 10 ml Heparin Sodium (Porcine) (Heparin) 5,000 units SC Q12 [facility] Last Admin: 04/11/17 09:57 Dose: 5,000 units Hydralazine HCl (Apresoline) 100 mg PO Q12 [facility] Last Admin: 04/11/17 09:56 Dose: 100 mg Hydrochlorothiazide (Hydrodiuril) 25 mg PO DAILY [facility] Last Admin: 04/11/17 09:56 Dose: 25 mg Hydromorphone HCl (Dilaudid) 0.5 mg PO Q8 PRN PRN Reason: Pain, moderate (4-7) Ceftriaxone Sodium 1 gm/ (Sodium Chloride) 100 mls @ 100 mls/hr IVPB DAILY [facility] Last Admin: 04/11/17 09:55 Dose: 100 mls/hr Azithromycin 500 mg/ Sodium (Chloride) 250 mls @ 250 mls/hr IVPB DAILY [facility] Last Admin: 04/11/17 09:55 Dose: 250 mls/hr Insulin Aspart (Novolog) 0 unit SC ACBD [facility] PRN Reason: Protocol Last Admin: 04/11/17 08:01 Dose: Not Given Isosorbide Mononitrate (Imdur) 30 mg PO DAILY [facility] Last Admin: 04/11/17 09:56 Dose: 30 mg Lactulose (Enulose) 20 gm PO Q6 PRN PRN Reason: Constipation Last Admin: 04/08/17 18:28 Dose: 20 gm Levothyroxine Sodium (Synthroid) 125 mcg PO DAILY@0630 [facility] Last Admin: 04/11/17 05:31 Dose: 125 mcg Losartan Potassium (Cozaar) 50 mg PO DAILY [facility] Last Admin: 04/11/17 09:57 Dose: 50 mg Metoprolol Tartrate (Lopressor) 25 mg PO Q12 [facility] Last Admin: 04/11/17 09:57 Dose: 25 mg Pantoprazole Sodium (Protonix Ec Tab) 40 mg PO DAILY [facility] Last Admin: 04/11/17 09:55 Dose: 40 mg Rosuvastatin Calcium (Crestor) 10 mg PO HS [facility] Last Admin: 04/10/17 21:56 Dose: 10 mg Temazepam (Restoril) 30 mg PO HS [facility] Last Admin: 04/10/17 21:57 Dose: 30 mg - Labs Labs: 04/11/17 07:08 04/11/17 07:08 APTT 35 SECONDS (21-34) H 04/07/17 10:45 - Constitutional Appears: Well - Head Exam Head Exam: ATRAUMATIC, NORMAL INSPECTION, NORMOCEPHALIC - Eye Exam Eye Exam: EOMI, Normal appearance, PERRL Pupil Exam: NORMAL ACCOMODATION, PERRL - ENT Exam ENT Exam: Mucous Membranes Moist, Normal Exam - Neck Exam Neck Exam: Full ROM, Normal Inspection. absent: Lymphadenopathy - Respiratory Exam Respiratory Exam: Decreased Breath Sounds - Cardiovascular Exam Cardiovascular Exam: REGULAR RHYTHM, +S1, +S2 - GI/Abdominal Exam GI & Abdominal Exam: Soft, Diminished Bowel Sounds - Rectal Exam Rectal Exam: Deferred Assessment and Plan (1) Altered mental status Status: Acute (2) Anemia Status: Acute (3) Anemia, chronic renal failure Status: Acute (4) Asthma Status: Acute (5) Bradycardia Status: Acute (6) COPD exacerbation Status: Acute (7) Chronic renal failure Status: Acute (8) Closed displaced fracture of proximal epiphysis of left femur Status: Acute (9) Closed displaced intertrochanteric fracture of left femur Status: Acute (10) Congestive heart failure (CHF) Status: Acute (11) Diabetes Status: Acute (12) Dizziness Status: Acute (13) Dizziness Status: Acute (14) Elevated troponin Status: Acute (15) Foot sprain Status: Acute (16) Frequent falls Status: Acute (17) HTN (hypertension) Status: Acute (18) Hip fracture Status: Acute (19) Hip fracture, left Status: Acute (20) Hyperkalemia Status: Acute (21) Hypothermia Status: Acute (22) Hypothyroid Status: Acute (23) Near syncope Status: Acute (24) Poorly-controlled hypertension Status: Acute (25) Prophylactic measure Status: Acute (26) Right patella fracture Status: Acute (27) SOB (shortness of breath) Status: Acute (28) TIA (transient ischemic attack) Status: Acute (29) Transient ischemic attack Status: Acute (30) Vertigo Status: Acute (31) ESRD (end stage renal disease) on dialysis Status: Chronic (32) Leg edema Status: Chronic - Assessment and Plan (Free Text) Plan: Follow-up with pulmonology Echo shows left ventricular function is normal On dialysis DuoNeb Norvasc Heparin Apresoline Hydrodiuril IV antibiotic Synthroid Lopressor Protonix Crestor
--- NOTE | 2017-04-11 18:31 | CP.PCM.PN ---
Subjective - Date & Time of Evaluation Date of Evaluation: 04/11/17 Time of Evaluation: 18:31 Objective - Vital Signs/Intake and Output Vital Signs (last 24 hours): Temp Pulse Resp BP Pulse Ox 98.5 F 65 20 122/56 L 98 04/11/17 15:32 04/11/17 15:32 04/11/17 15:32 04/11/17 15:32 04/11/17 15:32 Intake and Output: 04/11/17 04/11/17 06:59 18:59 Intake Total 150 Balance 150 - Medications Medications: Current Medications Acetaminophen (Tylenol 325mg Tab) 650 mg PO Q4 PRN PRN Reason: Pain, Mild (1-3) Last Admin: 04/10/17 22:47 Dose: 650 mg Albuterol/Ipratropium (Duoneb 3 Mg/0.5 Mg (3 Ml) Ud) 3 ml INH RQ6 VAL Last Admin: 04/11/17 13:33 Dose: 3 ml Albuterol/Ipratropium (Duoneb 3 Mg/0.5 Mg (3 Ml) Ud) 3 ml INH RQ2 PRN PRN Reason: Shortness of Breath Last Admin: 04/09/17 11:56 Dose: 3 ml Amlodipine Besylate (Norvasc) 10 mg PO DAILY [facility] Last Admin: 04/11/17 09:56 Dose: 10 mg Brimonidine Tartrate (Alphagan 0.2% Opht) 0 ml OU BID [facility] Last Admin: 04/11/17 10:10 Dose: 1 drop Budesonide (Pulmicort Respules) 0.5 mg INH RQ12 [facility] Last Admin: 04/11/17 07:45 Dose: 0.5 mg Calcium Acetate (Phoslo) 667 mg PO BIDCC [facility] Last Admin: 04/11/17 08:01 Dose: Not Given Dorzolamide HCl (Trusopt) 0.01 ml OU BID [facility] Last Admin: 04/11/17 18:19 Dose: 1 drop Epoetin Sam (Procrit) 10,000 unit IV MWF [facility] Last Admin: 04/10/17 09:57 Dose: 10,000 unit Guaifenesin/Dextromethorphan (Robitussin Dm) 10 ml PO TID PRN PRN Reason: Cough and congestion Last Admin: 04/11/17 18:23 Dose: 10 ml Heparin Sodium (Porcine) (Heparin) 5,000 units SC Q12 [facility] Last Admin: 04/11/17 09:57 Dose: 5,000 units Hydralazine HCl (Apresoline) 100 mg PO Q12 [facility] Last Admin: 04/11/17 09:56 Dose: 100 mg Hydrochlorothiazide (Hydrodiuril) 25 mg PO DAILY [facility] Last Admin: 04/11/17 09:56 Dose: 25 mg Hydromorphone HCl (Dilaudid) 0.5 mg PO Q8 PRN PRN Reason: Pain, moderate (4-7) Ceftriaxone Sodium 1 gm/ (Sodium Chloride) 100 mls @ 100 mls/hr IVPB DAILY [facility] Last Admin: 04/11/17 09:55 Dose: 100 mls/hr Azithromycin 500 mg/ Sodium (Chloride) 250 mls @ 250 mls/hr IVPB DAILY [facility] Last Admin: 04/11/17 09:55 Dose: 250 mls/hr Insulin Aspart (Novolog) 0 unit SC ACBD [facility] PRN Reason: Protocol Last Admin: 04/11/17 08:01 Dose: Not Given Isosorbide Mononitrate (Imdur) 30 mg PO DAILY [facility] Last Admin: 04/11/17 09:56 Dose: 30 mg Lactulose (Enulose) 20 gm PO Q6 PRN PRN Reason: Constipation Last Admin: 04/08/17 18:28 Dose: 20 gm Levothyroxine Sodium (Synthroid) 125 mcg PO DAILY@0630 [facility] Last Admin: 04/11/17 05:31 Dose: 125 mcg Losartan Potassium (Cozaar) 50 mg PO DAILY [facility] Last Admin: 04/11/17 09:57 Dose: 50 mg Metoprolol Tartrate (Lopressor) 25 mg PO Q12 [facility] Last Admin: 04/11/17 09:57 Dose: 25 mg Pantoprazole Sodium (Protonix Ec Tab) 40 mg PO DAILY [facility] Last Admin: 04/11/17 09:55 Dose: 40 mg Rosuvastatin Calcium (Crestor) 10 mg PO HS [facility] Last Admin: 04/10/17 21:56 Dose: 10 mg Temazepam (Restoril) 30 mg PO HS [facility] Last Admin: 04/10/17 21:57 Dose: 30 mg - Labs Labs: 04/11/17 07:08 04/11/17 07:08 APTT 35 SECONDS (21-34) H 04/07/17 10:45
--- NOTE | 2017-04-11 18:57 | CP.PCM.PN ---
Subjective - Date & Time of Evaluation Date of Evaluation: 04/11/17 Time of Evaluation: 18:40 - Subjective Subjective: patient feels well. no chest pain or dyspnea. Blood pressure is controlled. Objective - Vital Signs/Intake and Output Vital Signs (last 24 hours): Temp Pulse Resp BP Pulse Ox 98.5 F 65 20 122/56 L 98 04/11/17 15:32 04/11/17 15:32 04/11/17 15:32 04/11/17 15:32 04/11/17 15:32 Intake and Output: 04/11/17 04/11/17 06:59 18:59 Intake Total 150 Balance 150 - Medications Medications: Current Medications Acetaminophen (Tylenol 325mg Tab) 650 mg PO Q4 PRN PRN Reason: Pain, Mild (1-3) Last Admin: 04/10/17 22:47 Dose: 650 mg Albuterol/Ipratropium (Duoneb 3 Mg/0.5 Mg (3 Ml) Ud) 3 ml INH RQ6 VAL Last Admin: 04/11/17 13:33 Dose: 3 ml Albuterol/Ipratropium (Duoneb 3 Mg/0.5 Mg (3 Ml) Ud) 3 ml INH RQ2 PRN PRN Reason: Shortness of Breath Last Admin: 04/09/17 11:56 Dose: 3 ml Amlodipine Besylate (Norvasc) 10 mg PO DAILY [facility] Last Admin: 04/11/17 09:56 Dose: 10 mg Brimonidine Tartrate (Alphagan 0.2% Opht) 0 ml OU BID [facility] Last Admin: 04/11/17 10:10 Dose: 1 drop Budesonide (Pulmicort Respules) 0.5 mg INH RQ12 [facility] Last Admin: 04/11/17 07:45 Dose: 0.5 mg Calcium Acetate (Phoslo) 667 mg PO BIDCC [facility] Last Admin: 04/11/17 08:01 Dose: Not Given Dorzolamide HCl (Trusopt) 0.01 ml OU BID [facility] Last Admin: 04/11/17 18:19 Dose: 1 drop Epoetin Sam (Procrit) 10,000 unit IV MWF [facility] Last Admin: 04/10/17 09:57 Dose: 10,000 unit Guaifenesin/Dextromethorphan (Robitussin Dm) 10 ml PO TID PRN PRN Reason: Cough and congestion Last Admin: 04/11/17 18:23 Dose: 10 ml Heparin Sodium (Porcine) (Heparin) 5,000 units SC Q12 [facility] Last Admin: 04/11/17 09:57 Dose: 5,000 units Hydralazine HCl (Apresoline) 100 mg PO Q12 [facility] Last Admin: 04/11/17 09:56 Dose: 100 mg Hydrochlorothiazide (Hydrodiuril) 25 mg PO DAILY [facility] Last Admin: 04/11/17 09:56 Dose: 25 mg Hydromorphone HCl (Dilaudid) 0.5 mg PO Q8 PRN PRN Reason: Pain, moderate (4-7) Ceftriaxone Sodium 1 gm/ (Sodium Chloride) 100 mls @ 100 mls/hr IVPB DAILY [facility] Last Admin: 04/11/17 09:55 Dose: 100 mls/hr Azithromycin 500 mg/ Sodium (Chloride) 250 mls @ 250 mls/hr IVPB DAILY [facility] Last Admin: 04/11/17 09:55 Dose: 250 mls/hr Insulin Aspart (Novolog) 0 unit SC ACBD [facility] PRN Reason: Protocol Last Admin: 04/11/17 08:01 Dose: Not Given Isosorbide Mononitrate (Imdur) 30 mg PO DAILY [facility] Last Admin: 04/11/17 09:56 Dose: 30 mg Lactulose (Enulose) 20 gm PO Q6 PRN PRN Reason: Constipation Last Admin: 04/08/17 18:28 Dose: 20 gm Levothyroxine Sodium (Synthroid) 125 mcg PO DAILY@0630 [facility] Last Admin: 04/11/17 05:31 Dose: 125 mcg Losartan Potassium (Cozaar) 50 mg PO DAILY [facility] Last Admin: 04/11/17 09:57 Dose: 50 mg Metoprolol Tartrate (Lopressor) 25 mg PO Q12 [facility] Last Admin: 04/11/17 09:57 Dose: 25 mg Pantoprazole Sodium (Protonix Ec Tab) 40 mg PO DAILY [facility] Last Admin: 04/11/17 09:55 Dose: 40 mg Rosuvastatin Calcium (Crestor) 10 mg PO HS [facility] Last Admin: 04/10/17 21:56 Dose: 10 mg Temazepam (Restoril) 30 mg PO HS [facility] Last Admin: 04/10/17 21:57 Dose: 30 mg - Labs Labs: 04/11/17 07:08 04/11/17 07:08 APTT 35 SECONDS (21-34) H 04/07/17 10:45 - Constitutional Appears: Non-toxic - Head Exam Head Exam: NORMAL INSPECTION - Eye Exam Eye Exam: Normal appearance - ENT Exam ENT Exam: Mucous Membranes Moist - Neck Exam Neck Exam: Full ROM - Respiratory Exam Respiratory Exam: Decreased Breath Sounds - Cardiovascular Exam Cardiovascular Exam: REGULAR RHYTHM - GI/Abdominal Exam GI & Abdominal Exam: Normal Bowel Sounds - Rectal Exam Rectal Exam: Deferred - Extremities Exam Extremities Exam: absent: Pedal Edema - Back Exam Back Exam: NORMAL INSPECTION - Neurological Exam Neurological Exam: Alert - Psychiatric Exam Psychiatric exam: Normal Affect - Skin Skin Exam: Normal Color Assessment and Plan (1) Elevated troponin Assessment & Plan: medical therapy. I reviewed the echocardiogram. Left ventricular function is normal. There are no regional wall motion abnormalities. Status: Acute (2) Chronic renal failure Assessment & Plan: on dialysis Status: Acute (3) HTN (hypertension) Assessment & Plan: blood pressure controlled Status: Acute (4) SOB (shortness of breath) Assessment & Plan: improved. no current angina Status: Acute
--- NOTE | 2017-04-11 19:51 | CARD ---
APPROVED REPORT EXAM: Two-dimensional and M-mode echocardiogram with Doppler and color Doppler. Other Information Quality : GoodRhythm : NSR INDICATION Dyspnea Congestive Heart Failure COPD ELEVATED TROP, DIALYSIS M-Mode DIMENSIONS RVDd3.33 (2.1-3.2cm)Left Atrium (MM)3.68 (2.5-4.0cm) IVSd1.25 (0.7-1.1cm)Aortic Root3.16 (2.2-3.7cm) LVDd4.20 (4.0-5.6cm)Aortic Cusp Exc.2.26 (1.5-2.0cm) PWd1.15 (0.7-1.1cm)FS (%) 34 % LVDs2.78 (2.0-3.8cm)LVEF (%)63 (>50%) Aortic Valve AI P 1/2 [id number] Mitral Valve MV E Vomjfgqh653.6cm/sMV A Zhihlqfa60.9cm/sE/A ratio2.5 TDI E/Lateral E'0.0E/Medial E'0.0 Tricuspid Valve TR Peak [id number]/sTR Peak [id number] LEFT VENTRICLE The left ventricle is normal size. There is mild to moderate concentric left ventricular hypertrophy. The left ventricular function is normal. The left ventricular ejection fraction is within the normal range. There is normal LV segmental wall motion. RIGHT VENTRICLE The right ventricle is normal size. There is normal right ventricular wall thickness. The right ventricular systolic function is normal. There is a pacemaker lead in the right ventricle. ATRIA The left atrium size is normal. The right atrium size is normal. AORTIC VALVE The aortic valve is severly thickened. No aortic regurgitation is present. MITRAL VALVE The mitral valve is mildly thickened. There is no mitral valve stenosis. There is no mitral valve regurgitation noted. TRICUSPID VALVE There is mild to moderate tricuspid regurgitation. There is mild pulmonary hypertension. GREAT VESSELS The IVC is dilated. PERICARDIAL EFFUSION There is a trace circumferential pericardial effusion. <Conclusion> The left ventricle is normal size. There is mild to moderate concentric left ventricular hypertrophy. The left ventricular function is normal. The left ventricular ejection fraction is within the normal range. There is normal LV segmental wall motion. There is mild to moderate tricuspid regurgitation. There is mild pulmonary hypertension. The aortic valve is severly thickened.
[2017-04-11] MEDS ORDERED: HYDROmorphone 0.5 mg/0.5 ml ISec IVP PRN (23:56)
[2017-04-12] MEDS: Albuterol-Ipratrop 3 mg / 0.5 (3 ml) UD INH SCH ×4 (01:54→20:46)
--- NOTE | 2017-04-12 01:55 | CARD ---
APPROVED REPORT EKG Measurement Heart [id number] <Conclusion> Atrial-paced rhythm Right bundle branch block T wave abnormality, consider lateral ischemia Abnormal ECG
[2017-04-12] MEDS: Levothyroxine 125 MCG TAB PO SCH (05:48)
[2017-04-12] MEDS: Budesonide 0.5 mg/2 ml Inhal Susp UD INH SCH ×2 (08:02→20:47)
[2017-04-12 08:32] LABS: THYROID STIMULATING HORMONE 6.99 mIU/L (0.46-4.68)
[2017-04-12] MEDS: (Novolog) Insulin Aspart, Recombinant 100 u/ml 10 ml vial SC SCH ×2 (08:54→17:56)
--- NOTE | 2017-04-12 09:15 | CON ---
DATE: 04/12/2017 REASON FOR CONSULTATION: Anemia. HISTORY OF PRESENT ILLNESS: A 77-year-old female with history of COPD, cough, shortness of breath 2 weeks. It was not getting better, was treated with cough medicine as an outpatient. It did not help . So the patient was brought to the hospital and admitted for the shortness of breath, and I am call ed on consult for further evaluation and suggestions. PAST MEDICAL HISTORY: Significant for anemia, asthma, congestive heart failure, COPD, diabetes melli tus, hypertension, high cholesterol, hyperthyroidism with thyroid surgery, now hypothyroid, end-stage renal disease on dialysis. LIST OF MEDICATIONS: Includes Tylenol, albuterol, ipratropium. Norvasc, azithromycin, Alphagan opht halmic drops 0.2%, ____. Ceftriaxone. ____. Procrit 10,000 units subcutaneously Monday, Monday, and Monday. Robitussin. Heparin 5000 units subcutaneously every 12 hours, hydralazine. Hydrochlor othiazide. ____. Insulin. ____. Lactulose. Synthroid. Cozaar. Metoprolol. Protonix. Crestor . Restoril. ALLERGIES: Denies any drug allergy. SOCIAL HISTORY: Denies smoking or ethanol abuse. No drug abuse either. REVIEW OF SYSTEMS: Other than shortness of breath, denies any other complaints. No fever or chills. No chest pain, no palpitation. No abdominal pain. Denies nausea, vomiting, melena, hemoptysis, or hematemesis. No dysuria or hematuria. PHYSICAL EXAMINATION: GENERAL: The patient is awake and alert, quiet, not in acute distress. VITAL SIGNS: Temperature 97.9, pulse 60, respirations 18, blood pressure 122/72. EYES: Conjunctivae are pink. Sclerae are white. Pupils reacting to light. EARS, NOSE, AND THROAT: Within normal limits. LUNGS: Decreased breath sounds bilaterally. HEART: S1, S2, regular. No gallop, no murmur. ABDOMEN: Soft, nondistended, not tender. No hepatosplenomegaly. CENTRAL NERVOUS SYSTEM: No gross motor or sensory deficit. LYMPH NODES: No cervical or axillary lymph nodes palpable. LABORATORY DATA: WBC 10,100, hemoglobin 9, hematocrit 29, and platelet count 224,000. Serum pesticide chemist ry: On admission, the GFR was 10. GFR is now 25 after dialysis. Serum albumin is 3. Globulin is 4 .1. IMPRESSION: Anemia secondary to chronic renal failure. Hypergammaglobulinemia. PLAN: The patient is already on Procrit 10,000 units subcutaneously Monday, Monday, and Monday, w hich is an adequate dose. The patient's hemoglobin is stable. We will get serum ferritin. We will get serum protein electrophoresis and immune protein electrophoresis. Thank you for letting me participate in the care of this patient, and I will follow up the patient wi th you. Manuel Whalen MD cc:Tomi Mcelroy MD 89 TT: 04/12/2017 09:15:18 Confirmation # [id number] Dictation # [id number]
--- NOTE | 2017-04-12 09:35 | CP.PCM.PN ---
Subjective - Date & Time of Evaluation Date of Evaluation: 04/12/17 Time of Evaluation: 10:00 - Subjective Subjective: PGY2 on medicine Dr. Mcelroy service: Pt seen and examined at dialysis. Pt reports ear pain overnight. No other complaints at this time. Objective - Vital Signs/Intake and Output Vital Signs (last 24 hours): Temp Pulse Resp BP Pulse Ox 98.5 F 65 18 158/51 H 100 04/12/17 07:35 04/12/17 07:35 04/12/17 07:35 04/12/17 07:35 04/12/17 07:35 Intake and Output: 04/12/17 04/12/17 06:59 18:59 Intake Total 150 Balance 150 - Medications Medications: Current Medications Acetaminophen (Tylenol 325mg Tab) 650 mg PO Q4 PRN PRN Reason: Pain, Mild (1-3) Last Admin: 04/12/17 06:02 Dose: 650 mg Albuterol/Ipratropium (Duoneb 3 Mg/0.5 Mg (3 Ml) Ud) 3 ml INH RQ6 VAL Last Admin: 04/12/17 08:02 Dose: 3 ml Albuterol/Ipratropium (Duoneb 3 Mg/0.5 Mg (3 Ml) Ud) 3 ml INH RQ2 PRN PRN Reason: Shortness of Breath Last Admin: 04/09/17 11:56 Dose: 3 ml Amlodipine Besylate (Norvasc) 10 mg PO DAILY [facility] [place] Last Admin: 04/11/17 09:56 Dose: 10 mg Brimonidine Tartrate (Alphagan 0.2% Opht) 0 ml OU BID [facility] [place] Last Admin: 04/11/17 18:00 Dose: 1 drop Budesonide (Pulmicort Respules) 0.5 mg INH RQ12 [facility] [place] Last Admin: 04/12/17 08:02 Dose: 0.5 mg Calcium Acetate (Phoslo) 667 mg PO BIDCC [facility] [place] Last Admin: 04/11/17 17:30 Dose: 667 mg Dorzolamide HCl (Trusopt) 0.01 ml OU BID [facility] [place] Last Admin: 04/11/17 18:19 Dose: 1 drop Epoetin Sam (Procrit) 10,000 unit IV MWF [facility] [place] Last Admin: 04/10/17 09:57 Dose: 10,000 unit Guaifenesin/Dextromethorphan (Robitussin Dm) 10 ml PO TID PRN PRN Reason: Cough and congestion Last Admin: 04/11/17 18:23 Dose: 10 ml Heparin Sodium (Porcine) (Heparin) 5,000 units SC Q12 [facility] [place] Last Admin: 04/11/17 21:24 Dose: 5,000 units Hydralazine HCl (Apresoline) 100 mg PO Q12 [facility] [place] Last Admin: 04/11/17 21:23 Dose: 100 mg Hydrochlorothiazide (Hydrodiuril) 25 mg PO DAILY [facility] [place] Last Admin: 04/11/17 09:56 Dose: 25 mg Hydromorphone HCl (Dilaudid) 0.5 mg IVP Q8H PRN PRN Reason: pain Ceftriaxone Sodium 1 gm/ (Sodium Chloride) 100 mls @ 100 mls/hr IVPB DAILY [facility] [place] Last Admin: 04/11/17 09:55 Dose: 100 mls/hr Azithromycin 500 mg/ Sodium (Chloride) 250 mls @ 250 mls/hr IVPB DAILY [facility] [place] Last Admin: 04/11/17 09:55 Dose: 250 mls/hr Insulin Aspart (Novolog) 0 unit SC ACBD [facility] [place] PRN Reason: Protocol Last Admin: 04/12/17 08:54 Dose: 1 unit Isosorbide Mononitrate (Imdur) 30 mg PO DAILY [facility] [place] Last Admin: 04/11/17 09:56 Dose: 30 mg Lactulose (Enulose) 20 gm PO Q6 PRN PRN Reason: Constipation Last Admin: 04/08/17 18:28 Dose: 20 gm Levothyroxine Sodium (Synthroid) 125 mcg PO DAILY@0630 [facility] [place] Last Admin: 04/12/17 05:48 Dose: 125 mcg Losartan Potassium (Cozaar) 50 mg PO DAILY [facility] [place] Last Admin: 04/11/17 09:57 Dose: 50 mg Metoprolol Tartrate (Lopressor) 25 mg PO Q12 [facility] [place] Last Admin: 04/11/17 22:00 Dose: 25 mg Pantoprazole Sodium (Protonix Ec Tab) 40 mg PO DAILY [facility] [place] Last Admin: 04/11/17 09:55 Dose: 40 mg Rosuvastatin Calcium (Crestor) 10 mg PO HS [facility] [place] Last Admin: 04/11/17 21:24 Dose: 10 mg Temazepam (Restoril) 30 mg PO HS [facility] [place] Last Admin: 04/11/17 21:23 Dose: 30 mg - Labs Labs: 04/11/17 07:08 04/11/17 07:08 APTT 35 SECONDS (21-34) H 04/07/17 10:45 - Constitutional Appears: Non-toxic, No Acute Distress - Head Exam Head Exam: NORMOCEPHALIC - Eye Exam Eye Exam: Normal appearance - ENT Exam ENT Exam: Mucous Membranes Moist - Respiratory Exam Respiratory Exam: Clear to Ausculation Bilateral, NORMAL BREATHING PATTERN. absent: Rhonchi, Wheezes - Cardiovascular Exam Cardiovascular Exam: REGULAR RHYTHM, +S1, +S2. absent: Gallop - GI/Abdominal Exam GI & Abdominal Exam: Soft, Normal Bowel Sounds - Neurological Exam Neurological Exam: Alert, Awake, Oriented x3 - Psychiatric Exam Psychiatric exam: Normal Mood - Skin Skin Exam: Intact Assessment and Plan - Assessment and Plan (Free Text) Assessment: Ear pain ENT Dr. Chandra consulted, help appreciated. F/U head CT. COPD Duoneb 3ml INH RQ6 VAL and RQ2 PRN Pulmicort 0.5mg INH RQ12 Pneumonia Zithromax 500mg IVPB daily Rocephin 1gm IVPB daily Robitussin DM 10ml PO TID PRN Anemia Likely secondary to ESRD Hematology consult - Dr. Whalen - help appreciated ESRD On dialysis Phoslo 667mg PO BIDCC Procrit [id number] IV MWF HTN Norvasc 10mg PO daily Hydralazine 100mg PO Q12 [facility] 25mg PO daily Imdur 30mg PO daily Cozaar 50mg PO daily Metoprolol 25mg PO Q12 Diabetes Novolog ISS Crestor 10mg PO HS Hypothyroidism Synthroid 125mcg PO daily Constipation Lactulose 20gm PO Q6 PRN Sick sinus syndrome ECHO - f/u report ROMIs elevated likely secondary to ESRD Most recent troponin normal at 0.1160 Cardio - Dr. Montaño- help appreciated Prophylaxis Protonix 40mg PO aily Restoril 30mg PO HS Management as per Dr. Mcelroy
[2017-04-12] MEDS: Epoetin Alfa 10,000 unit/ml Dialysis IV SCH (10:02)
[2017-04-12] MEDS: Brimonidine 0.2% Opth Sol (5ml) OU SCH ×2 (10:15→17:57)
[2017-04-12 10:16] LABS: BASO # 0.1 K/uL (0.0-0.2); BASO % 0.7 % (0.0-2.0); EOS # 0.1 K/uL (0.0-0.7); EOS % 1.1 % (0.0-4.0); HEMATOCRIT 26.7 % (34.0-47.0); LYMPH # 0.3 K/uL (1.0-4.3); LYMPH % 4.8 % (20.0-40.0); MEAN CELL VOLUME 95.2 fL (81.0-99.0); MEAN CORPUSCULAR HEMOGLOBIN 29.4 pg (27.0-31.0); MEAN CORPUSCULAR HGB CONC 30.9 g/dL (33.0-37.0); MEAN PLATELET VOLUME 7.9 fL (7.2-11.7); MONO # 0.4 K/uL (0.0-0.8); MONO % 5.5 % (0.0-10.0); NRBC % 0.2 % (0.0-2.0); PLATELET COUNT 228 K/uL (130-400); RED CELL DISTRIBUTION WIDTH 19.7 % (11.5-14.5); WHITE BLOOD COUNT 7.2 K/uL (4.8-10.8)
[2017-04-12 10:17] LABS: POTASSIUM 3.9 mmol/L (3.6-5.2)
[2017-04-12 10:19] LABS: BILIRUBIN,TOTAL 0.8 mg/dL (0.2-1.3)
[2017-04-12 10:20] LABS: CALCIUM 8.1 mg/dl (8.6-10.4)
[2017-04-12] MEDS: Dorzolamide 2% Opht Sol 10ml OU SCH ×2 (10:20→17:58)
[2017-04-12] MEDS: Pantoprazole 40 mg EC Tab PO SCH (10:20)
[2017-04-12 10:21] LABS: ALB/GLOB RATIO 0.8 (1.0-2.1)
[2017-04-12 10:29] LABS: POTASSIUM 3.7 mmol/L (3.6-5.2)
[2017-04-12 10:32] LABS: ALB/GLOB RATIO 0.7 (1.0-2.1); BILIRUBIN,TOTAL 0.8 mg/dL (0.2-1.3); TOTAL PROTEIN 6.6 g/dL (6.3-8.3)
[2017-04-12] MEDS: Azithromycin 500 MG in Sodium Chloride 0.9% 250 ML IVPB SCH ×2 (11:15→13:41)
[2017-04-12 11:42] LABS: EOSINOPHIL 3 % (0-4); NEUTROPHIL 87 % (50-75); TOTAL CELLS COUNTED 100
--- NOTE | 2017-04-12 11:43 | CP.PCM.PN ---
Subjective - Date & Time of Evaluation Date of Evaluation: 04/12/17 Time of Evaluation: 10:20 - Subjective Subjective: clinically same Objective - Vital Signs/Intake and Output Vital Signs (last 24 hours): Temp Pulse Resp BP Pulse Ox 98.2 F 64 20 153/62 H 98 04/12/17 09:30 04/12/17 09:30 04/12/17 09:30 04/12/17 11:30 04/12/17 09:30 Intake and Output: 04/12/17 04/12/17 06:59 18:59 Intake Total 150 Balance 150 - Medications Medications: Current Medications Acetaminophen (Tylenol 325mg Tab) 650 mg PO Q4 PRN PRN Reason: Pain, Mild (1-3) Last Admin: 04/12/17 06:02 Dose: 650 mg Albuterol/Ipratropium (Duoneb 3 Mg/0.5 Mg (3 Ml) Ud) 3 ml INH RQ6 VAL Last Admin: 04/12/17 08:02 Dose: 3 ml Albuterol/Ipratropium (Duoneb 3 Mg/0.5 Mg (3 Ml) Ud) 3 ml INH RQ2 PRN PRN Reason: Shortness of Breath Last Admin: 04/09/17 11:56 Dose: 3 ml Amlodipine Besylate (Norvasc) 10 mg PO DAILY [facility] Last Admin: 04/12/17 10:18 Dose: Not Given Brimonidine Tartrate (Alphagan 0.2% Opht) 0 ml OU BID [facility] Last Admin: 04/12/17 10:15 Dose: Not Given Budesonide (Pulmicort Respules) 0.5 mg INH RQ12 [facility] Last Admin: 04/12/17 08:02 Dose: 0.5 mg Calcium Acetate (Phoslo) 667 mg PO BIDCC [facility] Last Admin: 04/12/17 08:10 Dose: Not Given Dorzolamide HCl (Trusopt) 0.01 ml OU BID [facility] Last Admin: 04/12/17 10:20 Dose: Not Given Epoetin Sam (Procrit) 10,000 unit IV MWF [facility] Last Admin: 04/12/17 10:02 Dose: 10,000 unit Guaifenesin/Dextromethorphan (Robitussin Dm) 10 ml PO TID PRN PRN Reason: Cough and congestion Last Admin: 04/11/17 18:23 Dose: 10 ml Heparin Sodium (Porcine) (Heparin) 5,000 units SC Q12 [facility] Last Admin: 04/12/17 10:17 Dose: Not Given Hydralazine HCl (Apresoline) 100 mg PO Q12 [facility] Last Admin: 04/12/17 10:16 Dose: Not Given Hydrochlorothiazide (Hydrodiuril) 25 mg PO DAILY [facility] Last Admin: 04/12/17 10:17 Dose: Not Given Hydromorphone HCl (Dilaudid) 0.5 mg IVP Q8H PRN PRN Reason: pain Ceftriaxone Sodium 1 gm/ (Sodium Chloride) 100 mls @ 100 mls/hr IVPB DAILY [facility] Last Admin: 04/12/17 10:20 Dose: Not Given Azithromycin 500 mg/ Sodium (Chloride) 250 mls @ 250 mls/hr IVPB DAILY [facility] Last Admin: 04/11/17 09:55 Dose: 250 mls/hr Insulin Aspart (Novolog) 0 unit SC ACBD VAL PRN Reason: Protocol Last Admin: 04/12/17 08:54 Dose: 1 unit Isosorbide Mononitrate (Imdur) 30 mg PO DAILY [facility] Last Admin: 04/12/17 10:17 Dose: Not Given Lactulose (Enulose) 20 gm PO Q6 PRN PRN Reason: Constipation Last Admin: 04/08/17 18:28 Dose: 20 gm Levothyroxine Sodium (Synthroid) 125 mcg PO DAILY@0630 [facility] Last Admin: 04/12/17 05:48 Dose: 125 mcg Losartan Potassium (Cozaar) 50 mg PO DAILY [facility] Last Admin: 04/12/17 10:17 Dose: Not Given Metoprolol Tartrate (Lopressor) 25 mg PO Q12 [facility] Last Admin: 04/12/17 10:18 Dose: Not Given Pantoprazole Sodium (Protonix Ec Tab) 40 mg PO DAILY [facility] Last Admin: 04/12/17 10:20 Dose: Not Given Rosuvastatin Calcium (Crestor) 10 mg PO HS [facility] Last Admin: 04/11/17 21:24 Dose: 10 mg Temazepam (Restoril) 30 mg PO HS [facility] Last Admin: 04/11/17 21:23 Dose: 30 mg - Labs Labs: 04/12/17 10:10 04/12/17 10:10 APTT 35 SECONDS (21-34) H 04/07/17 10:45 - Constitutional Appears: Well - Head Exam Head Exam: ATRAUMATIC, NORMAL INSPECTION, NORMOCEPHALIC - Eye Exam Eye Exam: EOMI, Normal appearance, PERRL Pupil Exam: NORMAL ACCOMODATION, PERRL - ENT Exam ENT Exam: Mucous Membranes Moist, Normal Exam - Neck Exam Neck Exam: Full ROM, Normal Inspection. absent: Lymphadenopathy - Respiratory Exam Respiratory Exam: Decreased Breath Sounds - Cardiovascular Exam Cardiovascular Exam: REGULAR RHYTHM, +S1, +S2 - GI/Abdominal Exam GI & Abdominal Exam: Soft, Diminished Bowel Sounds - Rectal Exam Rectal Exam: Deferred Assessment and Plan (1) Altered mental status Status: Acute (2) Anemia Status: Acute (3) Anemia, chronic renal failure Status: Acute (4) Asthma Status: Acute (5) Bradycardia Status: Acute (6) COPD exacerbation Status: Acute (7) Chronic renal failure Status: Acute (8) Closed displaced fracture of proximal epiphysis of left femur Status: Acute (9) Closed displaced intertrochanteric fracture of left femur Status: Acute (10) Congestive heart failure (CHF) Status: Acute (11) Diabetes Status: Acute (12) Dizziness Status: Acute (13) Dizziness Status: Acute (14) Elevated troponin Status: Acute (15) Foot sprain Status: Acute (16) Frequent falls Status: Acute (17) HTN (hypertension) Status: Acute (18) Hip fracture Status: Acute (19) Hip fracture, left Status: Acute (20) Hyperkalemia Status: Acute (21) Hypothermia Status: Acute (22) Hypothyroid Status: Acute (23) Near syncope Status: Acute (24) Poorly-controlled hypertension Status: Acute (25) Prophylactic measure Status: Acute (26) Right patella fracture Status: Acute (27) SOB (shortness of breath) Status: Acute (28) TIA (transient ischemic attack) Status: Acute (29) Transient ischemic attack Status: Acute (30) Vertigo Status: Acute (31) ESRD (end stage renal disease) on dialysis Status: Chronic (32) Leg edema Status: Chronic - Assessment and Plan (Free Text) Plan: Follow-up with pulmonology DuStewart Norvasc Heparin Apresoline Hydrodiuril IV antibiotic Synthroid Lopressor Protonix Crestor
--- NOTE | 2017-04-12 13:49 | CT ---
PROCEDURE: CT HEAD WITHOUT CONTRAST. HISTORY: ALTERED THOUGHT PROCESS COMPARISON: Noncontrast head CT performed 02/07/16 and 09/18/15 TECHNIQUE: Axial computed tomography images were obtained through the head/brain without intravenous contrast. Radiation dose: Total exam DLP = 1747.08 mGy-cm. This CT exam was performed using one or more of the following dose reduction techniques: Automated exposure control, adjustment of the mA and/or kV according to patient size, and/or use of iterative reconstruction technique. FINDINGS: HEMORRHAGE: No intracranial hemorrhage. BRAIN: Diffuse atrophy with prominence of the ventricles and sulci noted. No mass effect or edema. Intracranial atherosclerotic calcifications. Scattered periventricular and subcortical white matter hypodensities, which are nonspecific, but often seen with chronic microvascular ischemic disease. Interval development of hypodensity at the level of the posterior horn left lateral ventricle (parietal lobe) extending to the cortex consistent with ischemic change. Please note that MRI with diffusion imaging is more sensitive in the detection of acute ischemic event. VENTRICLES: No hydrocephalus. CALVARIUM: Unremarkable. PARANASAL SINUSES: Mucosal thickening of the ethmoid air cells, bilateral sphenoid, and bilateral maxillary sinuses. The frontal sinuses appear clear. MASTOID AIR CELLS: Opacification of bilateral mastoid air cells; correlate clinically for mastoiditis. OTHER FINDINGS: None. IMPRESSION: Evidence of chronic ischemic change involving the left parietal lobe at approximately the level of the posterior horn left lateral ventricle; while chronic in appearance, this is new since prior study. Please note that MRI with diffusion imaging is more sensitive in the detection of acute ischemic event. Nonspecific white matter changes. Opacification of bilateral mastoid air cells; correlate clinically for mastoiditis. Mucosal thickening of the ethmoid air cells, bilateral sphenoid, and bilateral maxillary sinuses.
--- NOTE | 2017-04-12 15:01 | CP.PCM.PN ---
Subjective - Date & Time of Evaluation Date of Evaluation: 04/12/17 Time of Evaluation: 15:00 Objective - Vital Signs/Intake and Output Vital Signs (last 24 hours): Temp Pulse Resp BP Pulse Ox 97.9 F 56 L 20 134/44 L 99 04/12/17 12:30 04/12/17 12:30 04/12/17 12:30 04/12/17 12:30 04/12/17 12:30 Intake and Output: 04/12/17 04/12/17 06:59 18:59 Intake Total 150 Balance 150 - Medications Medications: Current Medications Acetaminophen (Tylenol 325mg Tab) 650 mg PO Q4 PRN PRN Reason: Pain, Mild (1-3) Last Admin: 04/12/17 06:02 Dose: 650 mg Albuterol/Ipratropium (Duoneb 3 Mg/0.5 Mg (3 Ml) Ud) 3 ml INH RQ6 VAL Last Admin: 04/12/17 13:28 Dose: 3 ml Albuterol/Ipratropium (Duoneb 3 Mg/0.5 Mg (3 Ml) Ud) 3 ml INH RQ2 PRN PRN Reason: Shortness of Breath Last Admin: 04/09/17 11:56 Dose: 3 ml Amlodipine Besylate (Norvasc) 10 mg PO DAILY [facility] Last Admin: 04/12/17 10:18 Dose: Not Given Brimonidine Tartrate (Alphagan 0.2% Opht) 0 ml OU BID [facility] Last Admin: 04/12/17 10:15 Dose: Not Given Budesonide (Pulmicort Respules) 0.5 mg INH RQ12 [facility] Last Admin: 04/12/17 08:02 Dose: 0.5 mg Calcium Acetate (Phoslo) 667 mg PO BIDCC [facility] Last Admin: 04/12/17 08:10 Dose: Not Given Dorzolamide HCl (Trusopt) 0.01 ml OU BID [facility] Last Admin: 04/12/17 10:20 Dose: Not Given Epoetin Sam (Procrit) 10,000 unit IV MWF [facility] Last Admin: 04/12/17 10:02 Dose: 10,000 unit Guaifenesin/Dextromethorphan (Robitussin Dm) 10 ml PO TID PRN PRN Reason: Cough and congestion Last Admin: 04/11/17 18:23 Dose: 10 ml Heparin Sodium (Porcine) (Heparin) 5,000 units SC Q12 [facility] Last Admin: 04/12/17 10:17 Dose: Not Given Hydralazine HCl (Apresoline) 100 mg PO Q12 [facility] Last Admin: 04/12/17 10:16 Dose: Not Given Hydrochlorothiazide (Hydrodiuril) 25 mg PO DAILY [facility] Last Admin: 04/12/17 10:17 Dose: Not Given Hydromorphone HCl (Dilaudid) 0.5 mg IVP Q8H PRN PRN Reason: pain Ceftriaxone Sodium 1 gm/ (Sodium Chloride) 100 mls @ 100 mls/hr IVPB DAILY [facility] Last Admin: 04/12/17 10:20 Dose: Not Given Azithromycin 500 mg/ Sodium (Chloride) 250 mls @ 250 mls/hr IVPB DAILY [facility] Last Admin: 04/12/17 13:41 Dose: 250 mls/hr Insulin Aspart (Novolog) 0 unit SC ACBD VAL PRN Reason: Protocol Last Admin: 04/12/17 08:54 Dose: 1 unit Isosorbide Mononitrate (Imdur) 30 mg PO DAILY [facility] Last Admin: 04/12/17 13:43 Dose: 30 mg Lactulose (Enulose) 20 gm PO Q6 PRN PRN Reason: Constipation Last Admin: 04/08/17 18:28 Dose: 20 gm Levothyroxine Sodium (Synthroid) 125 mcg PO DAILY@0630 [facility] Last Admin: 04/12/17 05:48 Dose: 125 mcg Losartan Potassium (Cozaar) 50 mg PO DAILY [facility] Last Admin: 04/12/17 13:43 Dose: 50 mg Metoprolol Tartrate (Lopressor) 25 mg PO Q12 [facility] Last Admin: 04/12/17 10:18 Dose: Not Given Pantoprazole Sodium (Protonix Ec Tab) 40 mg PO DAILY [facility] Last Admin: 04/12/17 10:20 Dose: Not Given Rosuvastatin Calcium (Crestor) 10 mg PO HS [facility] Last Admin: 04/11/17 21:24 Dose: 10 mg Temazepam (Restoril) 30 mg PO HS [facility] Last Admin: 04/11/17 21:23 Dose: 30 mg - Labs Labs: 04/12/17 10:10 04/12/17 10:10 APTT 35 SECONDS (21-34) H 04/07/17 10:45
[2017-04-12] MEDS: guaiFENesin DM 200 mg-20 mg/10 ml UD PO PRN (18:01)
[2017-04-13] MEDS: Albuterol-Ipratrop 3 mg / 0.5 (3 ml) UD INH SCH (01:09)
[2017-04-13 03:50] LABS: TOTAL PROTEIN, SERUM 6.5 g/dL (6.1-8.1)
[2017-04-13 05:43] LABS: IGG,SERUM 1818 mg/dL (694-1618); IGM,SERUM 73 mg/dL (48-271)
[2017-04-13] MEDS: Levothyroxine 125 MCG TAB PO SCH (06:00)
[2017-04-13] MEDS: (Novolog) Insulin Aspart, Recombinant 100 u/ml 10 ml vial SC SCH ×2 (07:15→18:51)
[2017-04-13 07:19] LABS: BASO % 0.5 % (0.0-2.0); EOS # 0.2 K/uL (0.0-0.7); HEMATOCRIT 29.1 % (34.0-47.0); LYMPH # 0.5 K/uL (1.0-4.3); LYMPH % 5.4 % (20.0-40.0); MEAN CELL VOLUME 96.1 fL (81.0-99.0); MEAN CORPUSCULAR HEMOGLOBIN 29.6 pg (27.0-31.0); MEAN CORPUSCULAR HGB CONC 30.8 g/dL (33.0-37.0); MEAN PLATELET VOLUME 7.9 fL (7.2-11.7); MONO # 0.8 K/uL (0.0-0.8); MONO % 9.5 % (0.0-10.0); NRBC % 0.3 % (0.0-2.0); PLATELET COUNT 225 K/uL (130-400); RED CELL DISTRIBUTION WIDTH 20.5 % (11.5-14.5); WHITE BLOOD COUNT 8.4 K/uL (4.8-10.8)
[2017-04-13 07:39] LABS: POTASSIUM 3.8 mmol/L (3.6-5.2)
[2017-04-13 07:41] LABS: BILIRUBIN,TOTAL 0.8 mg/dL (0.2-1.3); TOTAL PROTEIN 6.9 g/dL (6.3-8.3)
[2017-04-13 07:46] LABS: ALB/GLOB RATIO 0.9 (1.0-2.1)
[2017-04-13] MEDS: Albuterol-Ipratrop 3 mg / 0.5 (3 ml) UD INH PRN ×2 (07:55→13:23)
[2017-04-13] MEDS: Budesonide 0.5 mg/2 ml Inhal Susp UD INH SCH ×2 (07:55→20:09)
--- NOTE | 2017-04-13 08:25 | CON ---
DATE: 04/13/2017 REASON FOR CONSULTATION: Hearing loss. REQUESTING PHYSICIAN: Dr. Mcelroy HISTORY OF PRESENT ILLNESS: This is a 77-year-old female who for 1 week has been having hearing loss and ear pain in both ears. It is constant. The hearing loss is moderate in intensity and it is on both sides. There is no ear discharge. PAST MEDICAL HISTORY: As noted in the chart by me. MEDICATIONS: As noted in the chart by me. PHYSICAL EXAMINATION: HEAD: Atraumatic, normocephalic. FACE: Good facial movements bilaterally. CONSTITUTIONAL: Well-developed, well-nourished. COMMUNICATION: Communicates very appropriately. EXTERNAL NOSE AND EARS: No masses, no lesions, no erythema, no edema. INTERNAL NOSE: Deviated septum, no masses, no lesions, no erythema, no edema. ORAL CAVITY, OROPHARYNX: No masses, no lesions, no erythema, no edema. LIPS AND GUMS: No masses, no lesions, no erythema, no edema. EARS: Wax was noted blocking the TM on both sides. Therefore, the TM cannot fully be visualized. NECK: Supple. THYROID: No thyromegaly, no goiter. LYMPH NODES: No lymphadenopathy of the neck. CT head was reviewed by me. It revealed fluid in the middle ear space on both sides. ASSESSMENT: 1. Deviated septum. 2. Otitis media, acute. PLAN: The patient should be continued on antibiotics and follow up in the office for ear cleaning an d a possible hearing test. Since the hearing loss is on both sides and there is evidence of an infec tion, I do believe that steroids are appropriate. Steroids are usually appropriate for unilateral he aring loss. Juan Francisco Chandra MD cc: [phone] TT: 04/13/2017 08:24:41 Confirmation # [id number] Dictation # [id number]
[2017-04-13 08:33] LABS: EOSINOPHIL 1 % (0-4); NEUTROPHIL 85 % (50-75); NUCLEATED RED BLOOD CELL 1 % (0-0); TOTAL CELLS COUNTED 100
[2017-04-13] MEDS: Pantoprazole 40 mg EC Tab PO SCH (09:11)
[2017-04-13] MEDS: Dorzolamide 2% Opht Sol 10ml OU SCH ×2 (09:13→17:50)
[2017-04-13] MEDS: Brimonidine 0.2% Opth Sol (5ml) OU SCH ×2 (09:14→17:50)
[2017-04-13] MEDS: Azithromycin 500 MG in Sodium Chloride 0.9% 250 ML IVPB SCH (10:11)
--- NOTE | 2017-04-13 10:31 | CP.PCM.PN ---
Subjective - Date & Time of Evaluation Date of Evaluation: 04/13/17 Time of Evaluation: 09:40 - Subjective Subjective: clinically same Objective - Vital Signs/Intake and Output Vital Signs (last 24 hours): Temp Pulse Resp BP Pulse Ox 98.7 F 60 20 157/56 H 100 04/13/17 07:00 04/13/17 08:00 04/13/17 07:00 04/13/17 09:11 04/13/17 07:00 - Medications Medications: Current Medications Acetaminophen (Tylenol 325mg Tab) 650 mg PO Q4 PRN PRN Reason: Pain, Mild (1-3) Last Admin: 04/12/17 06:02 Dose: 650 mg Albuterol/Ipratropium (Duoneb 3 Mg/0.5 Mg (3 Ml) Ud) 3 ml INH RQ2 PRN PRN Reason: Shortness of Breath Last Admin: 04/13/17 07:55 Dose: 3 ml Amlodipine Besylate (Norvasc) 10 mg PO DAILY [facility] Last Admin: 04/13/17 09:11 Dose: 10 mg Brimonidine Tartrate (Alphagan 0.2% Opht) 0 ml OU BID [facility] Last Admin: 04/13/17 09:14 Dose: 1 drop Budesonide (Pulmicort Respules) 0.5 mg INH RQ12 [facility] Last Admin: 04/13/17 07:55 Dose: 0.5 mg Calcium Acetate (Phoslo) 667 mg PO BIDCC [facility] Last Admin: 04/13/17 07:33 Dose: 667 mg Dorzolamide HCl (Trusopt) 0.01 ml OU BID [facility] Last Admin: 04/13/17 09:13 Dose: 1 drop Epoetin Sam (Procrit) 10,000 unit IV MWF [facility] Last Admin: 04/12/17 10:02 Dose: 10,000 unit Guaifenesin/Dextromethorphan (Robitussin Dm) 10 ml PO TID PRN PRN Reason: Cough and congestion Last Admin: 04/12/17 18:01 Dose: 10 ml Heparin Sodium (Porcine) (Heparin) 5,000 units SC Q12 [facility] Last Admin: 04/13/17 09:12 Dose: 5,000 units Hydralazine HCl (Apresoline) 100 mg PO Q12 [facility] Last Admin: 04/13/17 09:12 Dose: 100 mg Hydrochlorothiazide (Hydrodiuril) 25 mg PO DAILY [facility] Last Admin: 04/13/17 09:11 Dose: 25 mg Hydromorphone HCl (Dilaudid) 0.5 mg IVP Q8H PRN PRN Reason: pain Azithromycin 500 mg/ Sodium (Chloride) 250 mls @ 250 mls/hr IVPB DAILY [facility] Last Admin: 04/13/17 10:11 Dose: 250 mls/hr Insulin Aspart (Novolog) 0 unit SC ACBD [facility] PRN Reason: Protocol Last Admin: 04/13/17 07:15 Dose: Not Given Isosorbide Mononitrate (Imdur) 30 mg PO DAILY [facility] Last Admin: 04/13/17 10:18 Dose: 30 mg Lactulose (Enulose) 20 gm PO Q6 PRN PRN Reason: Constipation Last Admin: 04/13/17 09:12 Dose: 20 gm Levothyroxine Sodium (Synthroid) 125 mcg PO DAILY@0630 [facility] Last Admin: 04/13/17 06:00 Dose: 125 mcg Losartan Potassium (Cozaar) 50 mg PO DAILY [facility] Last Admin: 04/13/17 09:23 Dose: 50 mg Metoprolol Tartrate (Lopressor) 25 mg PO Q12 [facility] Last Admin: 04/13/17 09:11 Dose: 25 mg Pantoprazole Sodium (Protonix Ec Tab) 40 mg PO DAILY [facility] Last Admin: 04/13/17 09:11 Dose: 40 mg Rosuvastatin Calcium (Crestor) 10 mg PO [facility] Last Admin: 04/12/17 21:29 Dose: 10 mg Temazepam (Restoril) 30 mg PO [facility] Last Admin: 04/12/17 21:30 Dose: 30 mg - Labs Labs: 04/13/17 07:06 04/13/17 07:06 APTT 35 SECONDS (21-34) H 04/07/17 10:45 - Constitutional Appears: Well - Head Exam Head Exam: ATRAUMATIC, NORMAL INSPECTION, NORMOCEPHALIC - Eye Exam Eye Exam: EOMI, Normal appearance, PERRL Pupil Exam: NORMAL ACCOMODATION, PERRL - ENT Exam ENT Exam: Mucous Membranes Moist, Normal Exam - Neck Exam Neck Exam: Full ROM, Normal Inspection. absent: Lymphadenopathy - Respiratory Exam Respiratory Exam: Decreased Breath Sounds - Cardiovascular Exam Cardiovascular Exam: REGULAR RHYTHM, +S1, +S2 - GI/Abdominal Exam GI & Abdominal Exam: Soft, Diminished Bowel Sounds - Rectal Exam Rectal Exam: Deferred
--- NOTE | 2017-04-13 11:26 | CP.PCM.PN ---
Subjective - Date & Time of Evaluation Date of Evaluation: 04/13/17 Time of Evaluation: 09:00 - Subjective Subjective: PGY2 on medicine Dr. Mcelroy service: Pt seen and examined at bedside this morning with attending and family at bedside. Pt has no complaints, though family complains patient sleeping too much and thought process has changed before. No acute events overnight. Objective - Vital Signs/Intake and Output Vital Signs (last 24 hours): Temp Pulse Resp BP Pulse Ox 98.7 F 60 20 157/56 H 100 04/13/17 07:00 04/13/17 08:00 04/13/17 07:00 04/13/17 09:11 04/13/17 07:00 - Medications Medications: Current Medications Acetaminophen (Tylenol 325mg Tab) 650 mg PO Q4 PRN PRN Reason: Pain, Mild (1-3) Last Admin: 04/12/17 06:02 Dose: 650 mg Albuterol/Ipratropium (Duoneb 3 Mg/0.5 Mg (3 Ml) Ud) 3 ml INH RQ2 PRN PRN Reason: Shortness of Breath Last Admin: 04/13/17 07:55 Dose: 3 ml Amlodipine Besylate (Norvasc) 10 mg PO DAILY [facility] Last Admin: 04/13/17 09:11 Dose: 10 mg Brimonidine Tartrate (Alphagan 0.2% Opht) 0 ml OU BID [facility] Last Admin: 04/13/17 09:14 Dose: 1 drop Budesonide (Pulmicort Respules) 0.5 mg INH RQ12 [facility] Last Admin: 04/13/17 07:55 Dose: 0.5 mg Calcium Acetate (Phoslo) 667 mg PO BIDCC [facility] Last Admin: 04/13/17 07:33 Dose: 667 mg Dorzolamide HCl (Trusopt) 0.01 ml OU BID [facility] Last Admin: 04/13/17 09:13 Dose: 1 drop Epoetin Sam (Procrit) 10,000 unit IV MWF [facility] Last Admin: 04/12/17 10:02 Dose: 10,000 unit Guaifenesin/Dextromethorphan (Robitussin Dm) 10 ml PO TID PRN PRN Reason: Cough and congestion Last Admin: 04/12/17 18:01 Dose: 10 ml Heparin Sodium (Porcine) (Heparin) 5,000 units SC Q12 [facility] Last Admin: 04/13/17 09:12 Dose: 5,000 units Hydralazine HCl (Apresoline) 100 mg PO Q12 [facility] Last Admin: 04/13/17 09:12 Dose: 100 mg Hydrochlorothiazide (Hydrodiuril) 25 mg PO DAILY [facility] Last Admin: 04/13/17 09:11 Dose: 25 mg Hydromorphone HCl (Dilaudid) 0.5 mg IVP Q8H PRN PRN Reason: pain Azithromycin 500 mg/ Sodium (Chloride) 250 mls @ 250 mls/hr IVPB DAILY [facility] Last Admin: 04/13/17 10:11 Dose: 250 mls/hr Insulin Aspart (Novolog) 0 unit SC ACBD [facility] PRN Reason: Protocol Last Admin: 04/13/17 07:15 Dose: Not Given Isosorbide Mononitrate (Imdur) 30 mg PO DAILY [facility] Last Admin: 04/13/17 10:18 Dose: 30 mg Lactulose (Enulose) 20 gm PO Q6 PRN PRN Reason: Constipation Last Admin: 04/13/17 09:12 Dose: 20 gm Levothyroxine Sodium (Synthroid) 125 mcg PO DAILY@0630 [facility] Last Admin: 04/13/17 06:00 Dose: 125 mcg Losartan Potassium (Cozaar) 50 mg PO DAILY [facility] Last Admin: 04/13/17 09:23 Dose: 50 mg Metoprolol Tartrate (Lopressor) 25 mg PO Q12 [facility] Last Admin: 04/13/17 09:11 Dose: 25 mg Pantoprazole Sodium (Protonix Ec Tab) 40 mg PO DAILY [facility] Last Admin: 04/13/17 09:11 Dose: 40 mg Rosuvastatin Calcium (Crestor) 10 mg PO [facility] Last Admin: 04/12/17 21:29 Dose: 10 mg Temazepam (Restoril) 30 mg PO [facility] Last Admin: 04/12/17 21:30 Dose: 30 mg - Labs Labs: 04/13/17 07:06 04/13/17 07:06 APTT 35 SECONDS (21-34) H 04/07/17 10:45 - Constitutional Appears: Non-toxic, No Acute Distress, Chronically Ill - Head Exam Head Exam: NORMOCEPHALIC - Eye Exam Eye Exam: Normal appearance Pupil Exam: NORMAL ACCOMODATION - Respiratory Exam Respiratory Exam: Clear to Ausculation Bilateral, NORMAL BREATHING PATTERN. absent: Wheezes - Cardiovascular Exam Cardiovascular Exam: REGULAR RHYTHM, +S1, +S2. absent: Gallop, Rubs - GI/Abdominal Exam GI & Abdominal Exam: Soft, Normal Bowel Sounds - Neurological Exam Neurological Exam: Alert, Awake, Oriented x3 - Psychiatric Exam Psychiatric exam: Normal Mood - Skin Skin Exam: Intact Assessment and Plan - Assessment and Plan (Free Text) Assessment: Ear pain ENT Dr. Chandra consulted, help appreciated. Head CT showed chronic changes of left parietal lobe which was not present last year. Bilateral mastoiditis and ethmoid thickening. MRI cannot be done due to pacemaker. Continue current abx per Dr. Chandra and outpatient follow up. COPD Duoneb 3ml INH RQ6 VAL and RQ2 PRN Pulmicort 0.5mg INH RQ12 Pneumonia Zithromax 500mg IVPB daily Rocephin 1gm IVPB daily Robitussin DM 10ml PO TID PRN Anemia Likely secondary to ESRD Hematology consult - Dr. Whalen - help appreciated ESRD On dialysis Phoslo 667mg PO BIDCC Procrit [id number] IV MWF HTN Norvasc 10mg PO daily Hydralazine 100mg PO Q12 HCTZ 25mg PO daily Imdur 30mg PO daily Cozaar 50mg PO daily Metoprolol 25mg PO Q12 Diabetes Novolog ISS Crestor 10mg PO HS Hypothyroidism Synthroid 125mcg PO daily Constipation Lactulose 20gm PO Q6 PRN Sick sinus syndrome ECHO showed normal ef with severely thickened aortic valve. ROMIs elevated likely secondary to ESRD Most recent troponin normal at 0.1160 Cardio - Dr. Montaño- help appreciated Prophylaxis Protonix 40mg PO aily Restoril 30mg PO HS Management as per Dr. Mcelroy
--- NOTE | 2017-04-13 15:37 | CP.PCM.PN ---
Subjective - Date & Time of Evaluation Date of Evaluation: 04/13/17 Time of Evaluation: 15:37 Objective - Vital Signs/Intake and Output Vital Signs (last 24 hours): Temp Pulse Resp BP Pulse Ox 98.7 F 60 20 157/56 H 100 04/13/17 07:00 04/13/17 08:00 04/13/17 07:00 04/13/17 09:11 04/13/17 07:00 - Medications Medications: Current Medications Acetaminophen (Tylenol 325mg Tab) 650 mg PO Q4 PRN PRN Reason: Pain, Mild (1-3) Last Admin: 04/12/17 06:02 Dose: 650 mg Albuterol/Ipratropium (Duoneb 3 Mg/0.5 Mg (3 Ml) Ud) 3 ml INH RQ2 PRN PRN Reason: Shortness of Breath Last Admin: 04/13/17 13:23 Dose: 3 ml Amlodipine Besylate (Norvasc) 10 mg PO DAILY [facility] Last Admin: 04/13/17 09:11 Dose: 10 mg Brimonidine Tartrate (Alphagan 0.2% Opht) 0 ml OU BID [facility] Last Admin: 04/13/17 09:14 Dose: 1 drop Budesonide (Pulmicort Respules) 0.5 mg INH RQ12 [facility] Last Admin: 04/13/17 07:55 Dose: 0.5 mg Calcium Acetate (Phoslo) 667 mg PO BIDCC [facility] Last Admin: 04/13/17 07:33 Dose: 667 mg Dorzolamide HCl (Trusopt) 0.01 ml OU BID [facility] Last Admin: 04/13/17 09:13 Dose: 1 drop Epoetin Sam (Procrit) 10,000 unit IV MWF [facility] Last Admin: 04/12/17 10:02 Dose: 10,000 unit Guaifenesin/Dextromethorphan (Robitussin Dm) 10 ml PO TID PRN PRN Reason: Cough and congestion Last Admin: 04/12/17 18:01 Dose: 10 ml Heparin Sodium (Porcine) (Heparin) 5,000 units SC Q12 [facility] Last Admin: 04/13/17 09:12 Dose: 5,000 units Hydralazine HCl (Apresoline) 100 mg PO Q12 [facility] Last Admin: 04/13/17 09:12 Dose: 100 mg Hydrochlorothiazide (Hydrodiuril) 25 mg PO DAILY [facility] Last Admin: 04/13/17 09:11 Dose: 25 mg Hydromorphone HCl (Dilaudid) 0.5 mg IVP Q8H PRN PRN Reason: pain Azithromycin 500 mg/ Sodium (Chloride) 250 mls @ 250 mls/hr IVPB DAILY [facility] Last Admin: 04/13/17 10:11 Dose: 250 mls/hr Insulin Aspart (Novolog) 0 unit SC ACBD [facility] PRN Reason: Protocol Last Admin: 04/13/17 07:15 Dose: Not Given Isosorbide Mononitrate (Imdur) 30 mg PO DAILY [facility] Last Admin: 04/13/17 10:18 Dose: 30 mg Lactulose (Enulose) 20 gm PO Q6 PRN PRN Reason: Constipation Last Admin: 04/13/17 09:12 Dose: 20 gm Levothyroxine Sodium (Synthroid) 125 mcg PO DAILY@0630 [facility] Last Admin: 04/13/17 06:00 Dose: 125 mcg Losartan Potassium (Cozaar) 50 mg PO DAILY [facility] Last Admin: 04/13/17 09:23 Dose: 50 mg Metoprolol Tartrate (Lopressor) 25 mg PO Q12 [facility] Last Admin: 04/13/17 09:11 Dose: 25 mg Pantoprazole Sodium (Protonix Ec Tab) 40 mg PO DAILY [facility] Last Admin: 04/13/17 09:11 Dose: 40 mg Rosuvastatin Calcium (Crestor) 10 mg PO HS [facility] Last Admin: 04/12/17 21:29 Dose: 10 mg Temazepam (Restoril) 30 mg PO HS [facility] Last Admin: 04/12/17 21:30 Dose: 30 mg - Labs Labs: 04/13/17 07:06 04/13/17 07:06 APTT 35 SECONDS (21-34) H 04/07/17 10:45
--- NOTE | 2017-04-13 15:43 | CP.PCM.PN ---
Subjective - Date & Time of Evaluation Date of Evaluation: 04/13/17 Time of Evaluation: 13:00 - Subjective Subjective: patient has no current chest pain or dyspnea. Objective - Vital Signs/Intake and Output Vital Signs (last 24 hours): Temp Pulse Resp BP Pulse Ox 98.7 F 60 20 157/56 H 100 04/13/17 07:00 04/13/17 08:00 04/13/17 07:00 04/13/17 09:11 04/13/17 07:00 - Medications Medications: Current Medications Acetaminophen (Tylenol 325mg Tab) 650 mg PO Q4 PRN PRN Reason: Pain, Mild (1-3) Last Admin: 04/12/17 06:02 Dose: 650 mg Albuterol/Ipratropium (Duoneb 3 Mg/0.5 Mg (3 Ml) Ud) 3 ml INH RQ2 PRN PRN Reason: Shortness of Breath Last Admin: 04/13/17 13:23 Dose: 3 ml Amlodipine Besylate (Norvasc) 10 mg PO DAILY [facility] Last Admin: 04/13/17 09:11 Dose: 10 mg Brimonidine Tartrate (Alphagan 0.2% Opht) 0 ml OU BID [facility] Last Admin: 04/13/17 09:14 Dose: 1 drop Budesonide (Pulmicort Respules) 0.5 mg INH RQ12 [facility] Last Admin: 04/13/17 07:55 Dose: 0.5 mg Calcium Acetate (Phoslo) 667 mg PO BIDCC [facility] Last Admin: 04/13/17 07:33 Dose: 667 mg Dorzolamide HCl (Trusopt) 0.01 ml OU BID [facility] Last Admin: 04/13/17 09:13 Dose: 1 drop Epoetin Sam (Procrit) 10,000 unit IV MWF [facility] Last Admin: 04/12/17 10:02 Dose: 10,000 unit Guaifenesin/Dextromethorphan (Robitussin Dm) 10 ml PO TID PRN PRN Reason: Cough and congestion Last Admin: 04/12/17 18:01 Dose: 10 ml Heparin Sodium (Porcine) (Heparin) 5,000 units SC Q12 [facility] Last Admin: 04/13/17 09:12 Dose: 5,000 units Hydralazine HCl (Apresoline) 100 mg PO Q12 [facility] Last Admin: 04/13/17 09:12 Dose: 100 mg Hydrochlorothiazide (Hydrodiuril) 25 mg PO DAILY [facility] Last Admin: 04/13/17 09:11 Dose: 25 mg Hydromorphone HCl (Dilaudid) 0.5 mg IVP Q8H PRN PRN Reason: pain Azithromycin 500 mg/ Sodium (Chloride) 250 mls @ 250 mls/hr IVPB DAILY [facility] Last Admin: 04/13/17 10:11 Dose: 250 mls/hr Insulin Aspart (Novolog) 0 unit SC ACBD [facility] PRN Reason: Protocol Last Admin: 04/13/17 07:15 Dose: Not Given Isosorbide Mononitrate (Imdur) 30 mg PO DAILY [facility] Last Admin: 04/13/17 10:18 Dose: 30 mg Lactulose (Enulose) 20 gm PO Q6 PRN PRN Reason: Constipation Last Admin: 04/13/17 09:12 Dose: 20 gm Levothyroxine Sodium (Synthroid) 125 mcg PO DAILY@0630 [facility] Last Admin: 04/13/17 06:00 Dose: 125 mcg Losartan Potassium (Cozaar) 50 mg PO DAILY [facility] Last Admin: 04/13/17 09:23 Dose: 50 mg Metoprolol Tartrate (Lopressor) 25 mg PO Q12 [facility] Last Admin: 04/13/17 09:11 Dose: 25 mg Pantoprazole Sodium (Protonix Ec Tab) 40 mg PO DAILY [facility] Last Admin: 04/13/17 09:11 Dose: 40 mg Rosuvastatin Calcium (Crestor) 10 mg PO [facility] Last Admin: 04/12/17 21:29 Dose: 10 mg Temazepam (Restoril) 30 mg PO [facility] Last Admin: 04/12/17 21:30 Dose: 30 mg - Labs Labs: 04/13/17 07:06 04/13/17 07:06 APTT 35 SECONDS (21-34) H 04/07/17 10:45 - Constitutional Appears: Non-toxic - Head Exam Head Exam: NORMAL INSPECTION - Eye Exam Eye Exam: Normal appearance - ENT Exam ENT Exam: Mucous Membranes Moist - Neck Exam Neck Exam: Full ROM - Respiratory Exam Respiratory Exam: NORMAL BREATHING PATTERN - Cardiovascular Exam Cardiovascular Exam: REGULAR RHYTHM - GI/Abdominal Exam GI & Abdominal Exam: Normal Bowel Sounds - Rectal Exam Rectal Exam: Deferred - Extremities Exam Extremities Exam: Pedal Edema - Back Exam Back Exam: NORMAL INSPECTION - Neurological Exam Neurological Exam: Alert - Psychiatric Exam Psychiatric exam: Normal Affect - Skin Skin Exam: Normal Color Assessment and Plan (1) Chronic renal failure Assessment & Plan: on dialysis Status: Acute (2) HTN (hypertension) Assessment & Plan: blood pressure better controlled Status: Acute (3) SOB (shortness of breath) Assessment & Plan: medical therapy and pulmonary follow up Status: Acute
[2017-04-13] MEDS: Vancomycin 125 MG/5 ML SOLN (ORAL/RECTAL) PO SCH (21:50)
[2017-04-14] MEDS: Levothyroxine 125 MCG TAB PO SCH (05:53)
[2017-04-14 06:19] LABS: BASO % 0.3 % (0.0-2.0); EOS # 0.3 K/uL (0.0-0.7); EOS % 3.4 % (0.0-4.0); HEMATOCRIT 29.4 % (34.0-47.0); LYMPH # 0.6 K/uL (1.0-4.3); LYMPH % 6.5 % (20.0-40.0); MEAN CELL VOLUME 96.6 fL (81.0-99.0); MEAN CORPUSCULAR HEMOGLOBIN 29.7 pg (27.0-31.0); MEAN CORPUSCULAR HGB CONC 30.8 g/dL (33.0-37.0); MEAN PLATELET VOLUME 8.3 fL (7.2-11.7); MONO # 0.9 K/uL (0.0-0.8); MONO % 10.3 % (0.0-10.0); NRBC % 0.2 % (0.0-2.0); PLATELET COUNT 229 K/uL (130-400); RED CELL DISTRIBUTION WIDTH 20.7 % (11.5-14.5); WHITE BLOOD COUNT 8.9 K/uL (4.8-10.8)
[2017-04-14 06:27] LABS: POTASSIUM 4.1 mmol/L (3.6-5.2)
[2017-04-14 06:29] LABS: ALB/GLOB RATIO 0.9 (1.0-2.1); BILIRUBIN,TOTAL 0.8 mg/dL (0.2-1.3); TOTAL PROTEIN 6.8 g/dL (6.3-8.3)
[2017-04-14 06:30] LABS: CALCIUM 8.4 mg/dl (8.6-10.4)
[2017-04-14 07:56] LABS: BETA 1 GLOBULIN 0.2 g/dL (0.4-0.6); BETA 2 GLOBULIN 0.4 g/dL (0.2-0.5); GAMMA GLOBULIN 1.6 g/dL (0.8-1.7)
[2017-04-14] MEDS: Budesonide 0.5 mg/2 ml Inhal Susp UD INH SCH ×2 (08:04→19:34)
[2017-04-14] MEDS: Albuterol-Ipratrop 3 mg / 0.5 (3 ml) UD INH PRN (08:05)
[2017-04-14 08:27] LABS: EOSINOPHIL 5 % (0-4); NEUTROPHIL 81 % (50-75); NUCLEATED RED BLOOD CELL 1 % (0-0); TOTAL CELLS COUNTED 100
[2017-04-14] MEDS: (Novolog) Insulin Aspart, Recombinant 100 u/ml 10 ml vial SC SCH ×2 (08:53→19:00)
[2017-04-14] MEDS: Vancomycin 125 MG/5 ML SOLN (ORAL/RECTAL) PO SCH ×3 (10:05→19:00)
[2017-04-14] MEDS: Brimonidine 0.2% Opth Sol (5ml) OU SCH ×2 (10:05→19:00)
[2017-04-14] MEDS: Dorzolamide 2% Opht Sol 10ml OU SCH ×2 (10:05→19:00)
--- NOTE | 2017-04-14 11:18 | CP.PCM.PN ---
Objective - Vital Signs/Intake and Output Vital Signs (last 24 hours): Temp Pulse Resp BP Pulse Ox 98.2 F 32 L 16 123/45 L 98 04/14/17 09:15 04/14/17 09:15 04/14/17 09:15 04/14/17 09:15 04/14/17 09:15 - Medications Medications: Current Medications Acetaminophen (Tylenol 325mg Tab) 650 mg PO Q4 PRN PRN Reason: Pain, Mild (1-3) Last Admin: 04/12/17 06:02 Dose: 650 mg Amlodipine Besylate (Norvasc) 10 mg PO DAILY [facility] Last Admin: 04/13/17 09:11 Dose: 10 mg Brimonidine Tartrate (Alphagan 0.2% Opht) 0 ml OU BID [facility] Last Admin: 04/13/17 17:50 Dose: 1 drop Budesonide (Pulmicort Respules) 0.5 mg INH RQ12 [facility] Last Admin: 04/14/17 08:04 Dose: 0.5 mg Calcium Acetate (Phoslo) 667 mg PO BIDCC [facility] Last Admin: 04/14/17 08:53 Dose: 667 mg Dorzolamide HCl (Trusopt) 0.01 ml OU BID [facility] Last Admin: 04/13/17 17:50 Dose: 1 drop Epoetin Sam (Procrit) 10,000 unit IV MWF [facility] Last Admin: 04/12/17 10:02 Dose: 10,000 unit Guaifenesin/Dextromethorphan (Robitussin Dm) 10 ml PO TID PRN PRN Reason: Cough and congestion Last Admin: 04/12/17 18:01 Dose: 10 ml Hydralazine HCl (Apresoline) 100 mg PO Q12 [facility] Last Admin: 04/13/17 21:43 Dose: 100 mg Hydrochlorothiazide (Hydrodiuril) 25 mg PO DAILY [facility] Last Admin: 04/13/17 09:11 Dose: 25 mg Hydromorphone HCl (Dilaudid) 0.5 mg IVP Q8H PRN PRN Reason: pain Insulin Aspart (Novolog) 0 unit SC ACBD [facility] PRN Reason: Protocol Last Admin: 04/14/17 08:53 Dose: 1 unit Isosorbide Mononitrate (Imdur) 30 mg PO DAILY [facility] Last Admin: 04/13/17 10:18 Dose: 30 mg Lactulose (Enulose) 20 gm PO Q6 PRN PRN Reason: Constipation Last Admin: 04/13/17 09:12 Dose: 20 gm Levothyroxine Sodium (Synthroid) 125 mcg PO DAILY@0630 [facility] Last Admin: 04/14/17 05:53 Dose: 125 mcg Losartan Potassium (Cozaar) 50 mg PO DAILY [facility] Last Admin: 04/13/17 09:23 Dose: 50 mg Metoprolol Tartrate (Lopressor) 25 mg PO Q12 [facility] Last Admin: 04/13/17 21:44 Dose: 25 mg Pantoprazole Sodium (Protonix Ec Tab) 40 mg PO DAILY [facility] Last Admin: 04/13/17 09:11 Dose: 40 mg Rosuvastatin Calcium (Crestor) 10 mg PO HS [facility] Last Admin: 04/13/17 21:43 Dose: 10 mg Temazepam (Restoril) 30 mg PO HS [facility] Last Admin: 04/13/17 21:49 Dose: 30 mg Vancomycin HCl (Vancocin (Oral Or Rectal Use)) 250 mg PO QID [facility] Last Admin: 04/13/17 21:50 Dose: 250 mg - Labs Labs: 04/14/17 06:05 04/14/17 06:05 APTT 35 SECONDS (21-34) H 04/07/17 10:45
[2017-04-14] MEDS: Azithromycin 500 MG in Sodium Chloride 0.9% 250 ML IVPB SCH (13:17)
[2017-04-14] MEDS: Epoetin Alfa 10,000 unit/ml Dialysis IV SCH (13:17)
[2017-04-14] MEDS: Pantoprazole 40 mg EC Tab PO SCH (13:17)
--- NOTE | 2017-04-14 14:53 | CP.PCM.PN ---
Objective - Vital Signs/Intake and Output Vital Signs (last 24 hours): Temp Pulse Resp BP Pulse Ox 98.2 F 68 16 113/40 L 99 04/14/17 09:15 04/14/17 12:15 04/14/17 12:15 04/14/17 12:15 04/14/17 12:15 - Medications Medications: Current Medications Acetaminophen (Tylenol 325mg Tab) 650 mg PO Q4 PRN PRN Reason: Pain, Mild (1-3) Last Admin: 04/12/17 06:02 Dose: 650 mg Amlodipine Besylate (Norvasc) 10 mg PO DAILY [facility] Last Admin: 04/14/17 10:05 Dose: Not Given Brimonidine Tartrate (Alphagan 0.2% Opht) 0 ml OU BID [facility] Last Admin: 04/14/17 10:05 Dose: Not Given Budesonide (Pulmicort Respules) 0.5 mg INH RQ12 [facility] Last Admin: 04/14/17 08:04 Dose: 0.5 mg Calcium Acetate (Phoslo) 667 mg PO BIDCC [facility] Last Admin: 04/14/17 08:53 Dose: 667 mg Dorzolamide HCl (Trusopt) 0.01 ml OU BID [facility] Last Admin: 04/14/17 10:05 Dose: Not Given Epoetin Sam (Procrit) 10,000 unit IV MWF [facility] Last Admin: 04/14/17 13:17 Dose: 10,000 unit Guaifenesin/Dextromethorphan (Robitussin Dm) 10 ml PO TID PRN PRN Reason: Cough and congestion Last Admin: 04/12/17 18:01 Dose: 10 ml Hydralazine HCl (Apresoline) 100 mg PO Q12 [facility] Last Admin: 04/14/17 10:05 Dose: Not Given Hydrochlorothiazide (Hydrodiuril) 25 mg PO DAILY [facility] Last Admin: 04/14/17 10:05 Dose: Not Given Hydromorphone HCl (Dilaudid) 0.5 mg IVP Q8H PRN PRN Reason: pain Insulin Aspart (Novolog) 0 unit SC ACBD [facility] PRN Reason: Protocol Last Admin: 04/14/17 08:53 Dose: 1 unit Isosorbide Mononitrate (Imdur) 30 mg PO DAILY [facility] Last Admin: 04/14/17 10:05 Dose: Not Given Lactulose (Enulose) 20 gm PO Q6 PRN PRN Reason: Constipation Last Admin: 04/13/17 09:12 Dose: 20 gm Levothyroxine Sodium (Synthroid) 125 mcg PO DAILY@0630 [facility] Last Admin: 04/14/17 05:53 Dose: 125 mcg Losartan Potassium (Cozaar) 50 mg PO DAILY [facility] Last Admin: 04/14/17 10:05 Dose: Not Given Metoprolol Tartrate (Lopressor) 25 mg PO Q12 [facility] Last Admin: 04/14/17 10:05 Dose: Not Given Pantoprazole Sodium (Protonix Ec Tab) 40 mg PO DAILY [facility] Last Admin: 04/14/17 13:17 Dose: 40 mg Rosuvastatin Calcium (Crestor) 10 mg PO HS [facility] Last Admin: 04/13/17 21:43 Dose: 10 mg Temazepam (Restoril) 30 mg PO HS [facility] Last Admin: 04/13/17 21:49 Dose: 30 mg Vancomycin HCl (Vancocin (Oral Or Rectal Use)) 250 mg PO QID [facility] Last Admin: 04/14/17 13:17 Dose: 250 mg - Labs Labs: 04/14/17 06:05 04/14/17 06:05 APTT 35 SECONDS (21-34) H 04/07/17 10:45
[2017-04-14 15:42] VITALS: PULSE 86
[2017-04-14 16:10] VITALS: BP 130/50; RESP 18; TEMP 98.7; O2SAT 100
--- NOTE | 2017-04-14 18:23 | CP.PCM.PN ---
Subjective - Date & Time of Evaluation Date of Evaluation: 04/14/17 Time of Evaluation: 10:00 - Subjective Subjective: clinically same Objective - Vital Signs/Intake and Output Vital Signs (last 24 hours): Temp Pulse Resp BP Pulse Ox 98.7 F 86 18 130/50 L 100 04/14/17 15:30 04/14/17 15:38 04/14/17 15:30 04/14/17 15:30 04/14/17 15:30 - Medications Medications: Current Medications Acetaminophen (Tylenol 325mg Tab) 650 mg PO Q4 PRN PRN Reason: Pain, Mild (1-3) Last Admin: 04/12/17 06:02 Dose: 650 mg Amlodipine Besylate (Norvasc) 10 mg PO DAILY [facility] Last Admin: 04/14/17 10:05 Dose: Not Given Brimonidine Tartrate (Alphagan 0.2% Opht) 0 ml OU BID [facility] Last Admin: 04/14/17 10:05 Dose: Not Given Budesonide (Pulmicort Respules) 0.5 mg INH RQ12 [facility] Last Admin: 04/14/17 08:04 Dose: 0.5 mg Calcium Acetate (Phoslo) 667 mg PO BIDCC [facility] Last Admin: 04/14/17 08:53 Dose: 667 mg Dorzolamide HCl (Trusopt) 0.01 ml OU BID [facility] Last Admin: 04/14/17 10:05 Dose: Not Given Epoetin Sam (Procrit) 10,000 unit IV MWF [facility] Last Admin: 04/14/17 13:17 Dose: 10,000 unit Guaifenesin/Dextromethorphan (Robitussin Dm) 10 ml PO TID PRN PRN Reason: Cough and congestion Last Admin: 04/12/17 18:01 Dose: 10 ml Hydralazine HCl (Apresoline) 100 mg PO Q12 [facility] Last Admin: 04/14/17 10:05 Dose: Not Given Hydrochlorothiazide (Hydrodiuril) 25 mg PO DAILY [facility] Last Admin: 04/14/17 10:05 Dose: Not Given Hydromorphone HCl (Dilaudid) 0.5 mg IVP Q8H PRN PRN Reason: pain Insulin Aspart (Novolog) 0 unit SC ACBD [facility] PRN Reason: Protocol Last Admin: 04/14/17 08:53 Dose: 1 unit Isosorbide Mononitrate (Imdur) 30 mg PO DAILY [facility] Last Admin: 04/14/17 10:05 Dose: Not Given Lactulose (Enulose) 20 gm PO Q6 PRN PRN Reason: Constipation Last Admin: 04/13/17 09:12 Dose: 20 gm Levothyroxine Sodium (Synthroid) 125 mcg PO DAILY@0630 [facility] Last Admin: 04/14/17 05:53 Dose: 125 mcg Losartan Potassium (Cozaar) 50 mg PO DAILY [facility] Last Admin: 04/14/17 10:05 Dose: Not Given Metoprolol Tartrate (Lopressor) 25 mg PO Q12 [facility] Last Admin: 04/14/17 10:05 Dose: Not Given Pantoprazole Sodium (Protonix Ec Tab) 40 mg PO DAILY [facility] Last Admin: 04/14/17 13:17 Dose: 40 mg Rosuvastatin Calcium (Crestor) 10 mg PO HS [facility] Last Admin: 04/13/17 21:43 Dose: 10 mg Temazepam (Restoril) 30 mg PO [facility] Last Admin: 04/13/17 21:49 Dose: 30 mg Vancomycin HCl (Vancocin (Oral Or Rectal Use)) 250 mg PO QID [facility] Last Admin: 04/14/17 13:17 Dose: 250 mg - Labs Labs: 04/14/17 06:05 04/14/17 06:05 APTT 35 SECONDS (21-34) H 04/07/17 10:45 Assessment and Plan (1) Altered mental status Status: Acute (2) Anemia Status: Acute (3) Anemia, chronic renal failure Status: Acute (4) Asthma Status: Acute (5) Bradycardia Status: Acute (6) COPD exacerbation Status: Acute (7) Chronic renal failure Status: Acute (8) Closed displaced fracture of proximal epiphysis of left femur Status: Acute (9) Closed displaced intertrochanteric fracture of left femur Status: Acute (10) Congestive heart failure (CHF) Status: Acute (11) Diabetes Status: Acute (12) Dizziness Status: Acute (13) Dizziness Status: Acute (14) Elevated troponin Status: Acute (15) Foot sprain Status: Acute (16) Frequent falls Status: Acute (17) HTN (hypertension) Status: Acute (18) Hip fracture Status: Acute (19) Hip fracture, left Status: Acute (20) Hyperkalemia Status: Acute (21) Hypothermia Status: Acute (22) Hypothyroid Status: Acute (23) Near syncope Status: Acute (24) Poorly-controlled hypertension Status: Acute (25) Prophylactic measure Status: Acute (26) Right patella fracture Status: Acute (27) SOB (shortness of breath) Status: Acute (28) TIA (transient ischemic attack) Status: Acute (29) Transient ischemic attack Status: Acute (30) Vertigo Status: Acute (31) ESRD (end stage renal disease) on dialysis Status: Chronic (32) Leg edema Status: Chronic - Assessment and Plan (Free Text) Plan: Patient will be discharged to rehab today Resume current medication at rehab Follow-up with Dr. Chandra
--- NOTE | 2017-04-14 18:47 | CP.PCM.PN ---
Subjective - Date & Time of Evaluation Date of Evaluation: 04/14/17 Time of Evaluation: 09:00 - Subjective Subjective: PGY2 on medicine Dr. Mcelroy service: Pt seen and examined at bedside this morning. No complaints overnight. Pt to be discharged to rehab today per attending. Will resume current medications at rehab. Continue with current antibiotics and follow up with Dr. Chandra after discharge from rehab. Objective - Vital Signs/Intake and Output Vital Signs (last 24 hours): Temp Pulse Resp BP Pulse Ox 98.7 F 86 18 130/50 L 100 04/14/17 15:30 04/14/17 15:38 04/14/17 15:30 04/14/17 15:30 04/14/17 15:30 - Medications Medications: Current Medications Acetaminophen (Tylenol 325mg Tab) 650 mg PO Q4 PRN PRN Reason: Pain, Mild (1-3) Last Admin: 04/12/17 06:02 Dose: 650 mg Amlodipine Besylate (Norvasc) 10 mg PO DAILY [facility] Last Admin: 04/14/17 10:05 Dose: Not Given Brimonidine Tartrate (Alphagan 0.2% Opht) 0 ml OU BID [facility] Last Admin: 04/14/17 10:05 Dose: Not Given Budesonide (Pulmicort Respules) 0.5 mg INH RQ12 [facility] Last Admin: 04/14/17 08:04 Dose: 0.5 mg Calcium Acetate (Phoslo) 667 mg PO BIDCC [facility] Last Admin: 04/14/17 08:53 Dose: 667 mg Dorzolamide HCl (Trusopt) 0.01 ml OU BID [facility] Last Admin: 04/14/17 10:05 Dose: Not Given Epoetin Sam (Procrit) 10,000 unit IV MWF [facility] Last Admin: 04/14/17 13:17 Dose: 10,000 unit Guaifenesin/Dextromethorphan (Robitussin Dm) 10 ml PO TID PRN PRN Reason: Cough and congestion Last Admin: 04/12/17 18:01 Dose: 10 ml Hydralazine HCl (Apresoline) 100 mg PO Q12 [facility] Last Admin: 04/14/17 10:05 Dose: Not Given Hydrochlorothiazide (Hydrodiuril) 25 mg PO DAILY [facility] Last Admin: 04/14/17 10:05 Dose: Not Given Hydromorphone HCl (Dilaudid) 0.5 mg IVP Q8H PRN PRN Reason: pain Insulin Aspart (Novolog) 0 unit SC ACBD [facility] PRN Reason: Protocol Last Admin: 04/14/17 08:53 Dose: 1 unit Isosorbide Mononitrate (Imdur) 30 mg PO DAILY [facility] Last Admin: 04/14/17 10:05 Dose: Not Given Lactulose (Enulose) 20 gm PO Q6 PRN PRN Reason: Constipation Last Admin: 04/13/17 09:12 Dose: 20 gm Levothyroxine Sodium (Synthroid) 125 mcg PO DAILY@0630 [facility] Last Admin: 04/14/17 05:53 Dose: 125 mcg Losartan Potassium (Cozaar) 50 mg PO DAILY [facility] Last Admin: 04/14/17 10:05 Dose: Not Given Metoprolol Tartrate (Lopressor) 25 mg PO Q12 [facility] Last Admin: 04/14/17 10:05 Dose: Not Given Pantoprazole Sodium (Protonix Ec Tab) 40 mg PO DAILY [facility] Last Admin: 04/14/17 13:17 Dose: 40 mg Rosuvastatin Calcium (Crestor) 10 mg PO HS [facility] Last Admin: 04/13/17 21:43 Dose: 10 mg Temazepam (Restoril) 30 mg PO HS [facility] Last Admin: 04/13/17 21:49 Dose: 30 mg Vancomycin HCl (Vancocin (Oral Or Rectal Use)) 250 mg PO QID [facility] Last Admin: 04/14/17 13:17 Dose: 250 mg - Labs Labs: 04/14/17 06:05 04/14/17 06:05 APTT 35 SECONDS (21-34) H 04/07/17 10:45 - Constitutional Appears: Non-toxic, No Acute Distress - Head Exam Head Exam: NORMOCEPHALIC - Eye Exam Eye Exam: Normal appearance - ENT Exam ENT Exam: Mucous Membranes Moist - Respiratory Exam Respiratory Exam: Clear to Ausculation Bilateral, NORMAL BREATHING PATTERN. absent: Wheezes - Cardiovascular Exam Cardiovascular Exam: REGULAR RHYTHM, +S1, +S2. absent: Gallop, Rubs - GI/Abdominal Exam GI & Abdominal Exam: Soft, Normal Bowel Sounds - Neurological Exam Neurological Exam: Alert, Awake, Oriented x3
--- NOTE | 2017-04-24 10:35 | CARD ---
APPROVED REPORT EKG Measurement Heart [id number] <Conclusion> Atrial-paced rhythm Right bundle branch block Abnormal ECG
== END 2017-04-14 20:00 | DRG 190 ==
LOC: C.ER 10:02 → OBSVTOIN 16:52 → C.9E 16:52 → C.3T 20:11 → C.6T 04-10 14:25
PROVIDERS: ADMIT Internal Medicine Nephrology; ATTEND Internal Medicine Nephrology
PROC: 5A1D60Z (ICD-10-PCS; principal; 2017-04-07)
DX: J44.1 Chronic obstructive pulmonary disease with (acute) exacerbation (principal); N18.6 End stage renal disease; I13.2 Hypertensive heart and chronic kidney disease with heart failure and with stage 5 chronic kidney disease, or end stage renal disease; J18.9 Pneumonia, unspecified organism; I50.9 Heart failure, unspecified; D64.9 Anemia, unspecified; H66.93 Otitis media, unspecified, bilateral; R79.89 Other specified abnormal findings of blood chemistry; J34.2 Deviated nasal septum; E89.0 Postprocedural hypothyroidism; H91.91 Unspecified hearing loss, right ear; Z87.891 Personal history of nicotine dependence; Z86.73 Personal history of transient ischemic attack (TIA), and cerebral infarction without residual deficits; Z99.2 Dependence on renal dialysis; Z95.0 Presence of cardiac pacemaker

== ENCOUNTER 2017-07-01 14:18 | Emergency (ER) | payer MEDICARE ==
[2017-07-01 14:18] VITALS: BMI 17.9
[2017-07-01 14:22] VITALS: TEMP 98; O2SAT 97
--- NOTE | 2017-07-01 15:24 | RAD ---
PROCEDURE: Right Knee Radiographs. HISTORY: COMPARISON: Right knee radiographs performed 03/17/17 FINDINGS: BONES: Osseous demineralization limits evaluation for acute fracture lines. No acute displaced fracture. Suprapatellar and infrapatellar enthesophyte. JOINTS: No dislocation. Chondrocalcinosis. JOINT EFFUSION: No significant joint effusion. OTHER FINDINGS: Dense vascular calcifications. Focal soft tissue swelling/protuberance, suprapatellar region. IMPRESSION: No acute displaced fracture, dislocation, or significant joint effusion identified.If symptoms persist, or if there is continued clinical concern, x-ray follow-up in 7-10 days should be considered. Degenerative changes. Osseous demineralization. Focal soft tissue swelling/protuberance, suprapatellar region.
--- NOTE | 2017-07-01 15:44 | CT ---
PROCEDURE: CT HEAD WITHOUT CONTRAST. HISTORY: fall, head contusion COMPARISON: Noncontrast head CT performed 04/12/17 TECHNIQUE: Axial computed tomography images were obtained through the head/brain without intravenous contrast. Radiation dose: Total exam DLP = 844.96 mGy-cm. This CT exam was performed using one or more of the following dose reduction techniques: Automated exposure control, adjustment of the mA and/or kV according to patient size, and/or use of iterative reconstruction technique. FINDINGS: HEMORRHAGE: No intracranial hemorrhage. BRAIN: Diffuse atrophy with prominence of the ventricles and sulci noted. No mass effect or edema. Intracranial atherosclerotic calcifications. Scattered periventricular and subcortical white matter hypodensities, which are nonspecific, but often seen with chronic microvascular ischemic disease. Re-identified hypodensity at the level of the posterior horn left lateral ventricle (parietal lobe) extending to the cortex consistent with ischemic change. Please note that MRI with diffusion imaging is more sensitive in the detection of acute ischemic event. VENTRICLES: No hydrocephalus. CALVARIUM: Unremarkable. PARANASAL SINUSES: Partial opacification of the left sphenoid sinus. MASTOID AIR CELLS: Opacification of the left greater than right mastoid air cells; correlate clinically for mastoiditis. OTHER FINDINGS: None. IMPRESSION: Evidence of chronic ischemic change involving the left parietal lobe at approximately the level of the posterior horn left lateral ventricle. Additional scattered nonspecific white matter changes. Opacification of the left greater than right mastoid air cells. Correlate clinically for mastoiditis. Mild opacification of the left sphenoid sinus.
--- NOTE | 2017-07-01 15:49 | C.PDOC ---
History Of Present Illness 77 y/o F p/w head injury and knee injury. Patient was sleeping in a chair yesterday and turned over, causing her to fall out of the chair and hit her head and R knee. She notes that she had a hip surgery 3 months ago on the L but denies any pain there. She complains only of pain on the R knee and her R forehead. Denies vomiting, change in behavior, dyspnea, vomiting. - HPI Time Seen by Provider: 07/01/17 14:43 Chief Complaint (Nursing): Trauma Past Medical History Vital Signs: Last Vital Signs Temp 98.0 F 07/01/17 14:21 Pulse 59 L 07/01/17 15:57 Resp 18 07/01/17 15:57 BP 140/59 L 07/01/17 15:57 Pulse Ox 97 07/01/17 15:57 - Medical History PMH: Anemia, Asthma, CHF, COPD (ASTHMA), Diabetes, HTN, Hypercholesterolemia, Hyperthyroidism (Thyroid surgery), Hypothyroidism, End Stage Renal Disease ( dialysis m-w f), Chronic Kidney Disease Denies: Depression Comment Only: Cardia Arrhythmia (bradycardia) Surgical History: Appendectomy, Pacemaker - [facility] Procedures BREAST DX PROCEDURE NEC (04/23/15) CONTRAST RENAL ARTERIOGR (06/20/13) DX ULTRASOUND-THORAX NEC (04/23/15) HEMODIALYSIS (04/24/15) INITIAL INSERT TRANS LEADS INTO ATRIUM & VENTRICLE (04/24/15) INITIAL INSERTION OF DUAL-CHAMBER DEVICE (04/24/15) INJECT/INFUSE NEC (12/21/13) NEBULIZER THERAPY (12/21/13) PACKED CELL TRANSFUSION (03/31/14) PERCUTAN NEEDLE BIOPSY OF BREAST (04/23/15) PERFORMANCE OF URINARY FILTRATION, MULTIPLE (04/07/17) PERFORMANCE OF URINARY FILTRATION, SINGLE (03/24/17) REPOSITION LEFT UPPER FEMUR WITH INTRAMED FIX, OPEN APPROACH (03/17/17) Family History: States: Unknown Family Hx - Social History Hx Tobacco Use: No Hx Alcohol Use: No Hx Substance Use: No - Immunization History Hx Tetanus Toxoid Vaccination: Yes Hx Influenza Vaccination: Yes Hx Pneumococcal Vaccination: Yes Review Of Systems Except As Marked, All Systems Reviewed And Found Negative. Constitutional: Negative for: Fever Cardiovascular: Negative for: Chest Pain Physical Exam - Physical Exam Additional Physical Exam Comments: Constitutional: No acute distress. Head: Normocephalic. Small contusion to R forehead. Eyes: PERRL. EOMI. ENT: Moist mucous membranes. Neck: Supple. No midline tenderness. FROM. Cardiovascular: Regular rate. Radial pulses 2+ bilaterally. Chest: No tenderness. Respiratory: Clear to auscultation bilaterally. GI: Soft. Nontender. Nondistended. Back: No CVA tenderness. No midline tenderness. Musculoskeletal: Pelvis stable. No hip tenderness. FROM x 4. Skin: Focal ecchymosis and swelling to R knee. Neurologic: Alert, no focal deficit. ED Course And Treatment O2 Sat by Pulse Oximetry: 97 - Other Rad Right Knee Radiographs X-Ray: Viewed By Me, Read By Radiologist Interpretation: FINDINGS: BONES: Osseous demineralization limits evaluation for acute fracture lines. No acute displaced fracture. Suprapatellar and infrapatellar enthesophyte. JOINTS: No dislocation. Chondrocalcinosis. JOINT EFFUSION: No significant joint effusion. OTHER FINDINGS: Dense vascular calcifications. Focal soft tissue swelling/protuberance, suprapatellar region. IMPRESSION: No acute displaced fracture, dislocation, or significant joint effusion identified.If symptoms persist, or if there is continued clinical concern, x-ray follow-up in 7-10 days should be considered. Degenerative changes. Osseous demineralization. Focal soft tissue swelling/protuberance, suprapatellar region. - CT Scan/US CT HEAD WITHOUT CONTRAST Other Rad Studies (CT/US): Read By Radiologist, Radiology Report Reviewed CT/US Interpretation: FINDINGS: HEMORRHAGE: No intracranial hemorrhage. BRAIN : Diffuse atrophy with prominence of the ventricles and sulci noted. No mass effect or edema. Intracranial atherosclerotic calcifications. Scattered periventricular and subcortical white matter hypodensities, which are nonspecific, but often seen with chronic microvascular ischemic disease. Re- identified hypodensity at the level of the posterior horn left lateral ventricle (parietal lobe) extending to the cortex consistent with ischemic change. Please note that MRI with diffusion imaging is more sensitive in the detection of acute ischemic event. VENTRICLES: No hydrocephalus. CALVARIUM: Unremarkable. PARANASAL SINUSES: Partial opacification of the left sphenoid sinus. MASTOID AIR CELLS: Opacification of the left greater than right mastoid air cells; correlate clinically for mastoiditis. OTHER FINDINGS: None. IMPRESSION: Evidence of chronic ischemic change involving the left parietal lobe at approximately the level of the posterior horn left lateral ventricle. Additional scattered nonspecific white matter changes. Opacification of the left greater than right mastoid air cells. Correlate clinically for mastoiditis. Mild opacification of the left sphenoid sinus. Medical Decision Making Medical Decision Making: Patient in no distress. Patient with allergy to oxycodone and ibuprofen. Requested acetaminophen and declined parenteral analgesia. Disposition - Disposition Referrals: Radha Mcelroy MD [Staff Provider] - Disposition: HOME/ ROUTINE Disposition Time: 15:48 Condition: STABLE Prescriptions: Acetaminophen [Tylenol 325mg tab] 2 tab PO Q4H #30 tab Instructions: Head Injury (ED), Contusion in Adults (ED) Forms: [facility] (Azeri) - Clinical Impression Clinical Impression: Contusion
[2017-07-01 16:00] VITALS: BP 140/59; PULSE 59; RESP 18
== END 2017-07-01 16:02 | disposition home or self-care (01) ==
LOC: C.ER 14:18
DX: S80.01XA Contusion of right knee, initial encounter (principal); W07.XXXA Fall from chair, initial encounter; Y93.89 Activity, other specified; Y92.89 Other specified places as the place of occurrence of the external cause

== ENCOUNTER 2018-08-08 20:07 | Emergency (ER) | payer MEDICARE ==
[2018-08-08 20:07] VITALS: BMI 17.9
[2018-08-08 20:13] VITALS: BP 162/53; PULSE 61; RESP 20; TEMP 98.4; O2SAT 98
--- NOTE | 2018-08-08 21:29 | C.PDOC ---
History Of Present Illness 78 y/o female with hx esrd, on hd, last dialyzed today, presents to ED today for a chest xray. pt reports she needs xray for medical clearance to get dialysis in [place], has rx for such for Dr Mcelroy, arrived at outpatient radiology after closing and came to ED to get it done. pt denies any acute medical problems, no chest pain. no sob. no fever or chills. Time Seen by Provider: 08/08/18 21:05 Chief Complaint (Nursing): Medical Clearance Past Medical History Vital Signs: Last Vital Signs Temp 98.4 F 08/08/18 20:09 Pulse 61 08/08/18 20:09 Resp 20 08/08/18 20:09 BP 162/53 H 08/08/18 20:09 Pulse Ox 98 08/08/18 20:09 - Medical History PMH: Anemia, Asthma, CHF, COPD, Diabetes, HTN, Hypercholesterolemia, Hyperthyroidism (Thyroid surgery), Hypothyroidism, End Stage Renal Disease (dialysis m-w f), Chronic Kidney Disease Denies: Depression Comment Only: Cardia Arrhythmia (bradycardia) Surgical History: Appendectomy, Pacemaker - [facility] Procedures BREAST DX PROCEDURE NEC (04/23/15) CONTRAST RENAL ARTERIOGR (06/20/13) DX ULTRASOUND-THORAX NEC (04/23/15) HEMODIALYSIS (04/24/15) INITIAL INSERT TRANS LEADS INTO ATRIUM & VENTRICLE (04/24/15) INITIAL INSERTION OF DUAL-CHAMBER DEVICE (04/24/15) INJECT/INFUSE NEC (12/21/13) NEBULIZER THERAPY (12/21/13) PACKED CELL TRANSFUSION (03/31/14) PERCUTAN NEEDLE BIOPSY OF BREAST (04/23/15) PERFORMANCE OF URINARY FILTRATION, MULTIPLE (03/17/17) PERFORMANCE OF URINARY FILTRATION, SINGLE (03/24/17) REPOSITION LEFT UPPER FEMUR WITH INTRAMED FIX, OPEN APPROACH (03/17/17) Family History: States: Unknown Family Hx - Social History Hx Tobacco Use: No Hx Alcohol Use: No Hx Substance Use: No - Immunization History Hx Tetanus Toxoid Vaccination: No Hx Influenza Vaccination: No Hx Pneumococcal Vaccination: No ED Course And Treatment O2 Sat by Pulse Oximetry: 98 Medical Decision Making Medical Decision Making: pt here for chest xray, arrived too late at outpatient radiology. discussed with Dr Chad Mcelroy; he will follow up official report. On my review, chest xray appears iimproved compared cxr done 04/11/17 Disposition Counseled Patient/Family Regarding: Studies Performed, Diagnosis, Need For Followup - Disposition Referrals: Radha Mcelroy MD [Staff Provider] - Disposition: HOME/ ROUTINE Disposition Time: 22:14 Condition: STABLE Additional Instructions: Follow up with Dr Mcelroy for official chest xray results. Forms: Gen Discharge Inst Hungarian, [facility] (Hungarian) - Clinical Impression Clinical Impression: Medical assessment
--- NOTE | 2018-08-09 08:28 | RAD ---
Date of service: 08/08/2018 HISTORY: hd pt COMPARISON: 04/11/2017 TECHNIQUE: Chest PA and lateral FINDINGS: LUNGS: No consolidation. PLEURA: No significant pleural effusion identified. No pneumothorax apparent. CARDIOVASCULAR: Cardiomegaly. Central pulmonary vasculature appears increased yet similar appearing. There is also ill definition over these bronchovascular markings-a concomitant bronchiectasis element: Perihilar and right lung base probable No significant change here perceived. Left axillary vascular [id number] Dual lead pacemaker device present and grossly satisfactory in position and appearance OSSEOUS STRUCTURES: Thoracic spondylosis. VISUALIZED UPPER ABDOMEN: Normal. OTHER FINDINGS: None. IMPRESSION: Chronic changes: Cardiomegaly and chronic pulmonary venous congestion. Likely concomitant chronic perihilar and lesser right lung base bronchiectatic changes. No interval acute cardiopulmonary pathology appreciated.
== END 2018-08-08 22:26 | disposition home or self-care (01) ==
LOC: C.ER 20:07
DX: Z04.8 Encounter for examination and observation for other specified reasons (principal)